=== PATIENT | male | born 1965 | race Hispanic/Latino ===

== ENCOUNTER 2023-01-30 15:34 | Emergency (ER) | payer BC, OTHER ==
[~2023-01-30] VITALS: Ht 162.6 cm; Wt 90.7 kg
[~2023-01-30 15:34] MED LIST: METF-444 PO
[2023-01-30 15:53] LABS: BASOPHILS % (AUTO) 0.3 % (0.0-5.0); EOSINOPHILS % (AUTO) 1.2 % (0.0-8.0); HEMATOCRIT 25.2 % (42-54); LYMPHOCYTES % (AUTO) 15.3 % (21.0-51.0); MEAN CORPUSCULAR HEMOGLOBIN 25.9 pg (27.0-33.0); MEAN CORPUSCULAR VOLUME 83.7 fL (79-99); NEUTROPHILS % (AUTO) 66.8 % (40.0-77.0); PLATELET COUNT (AUTO) 210 K/uL (130-400); RED BLOOD CELL COUNT(AUTO) 3.01 MIL/uL (4.50-6.20); RED CELL DISTRIBUTION WIDTH 16.3 % (11.0-15.5); WHITE BLOOD COUNT (AUTO) 9.3 K/uL (4.8-10.8)
[2023-01-30 16:12] LABS: POTASSIUM 4.7 mmol/L (3.5-5.1)
[2023-01-30 16:25] LABS: ALBUMIN 3.9 g/dL (3.5-5.0); TOTAL PROTEIN, SERUM 7.6 g/dL (6.0-8.3)
[2023-01-30 19:45] VITALS: BP 121/82
== END 2023-01-30 20:44 | disposition home or self-care (01) ==
LOC: EDH 15:34
DX: R55 Syncope and collapse (principal); I48.91 Unspecified atrial fibrillation; I12.9 Hypertensive chronic kidney disease with stage 1 through stage 4 chronic kidney disease, or unspecified chronic kidney disease; E11.22 Type 2 diabetes mellitus with diabetic chronic kidney disease; N18.9 Chronic kidney disease, unspecified; Z20.822 Contact with and (suspected) exposure to COVID-19; Z79.84 Long term (current) use of oral hypoglycemic drugs; Z88.6 Allergy status to analgesic agent; Z88.8 Allergy status to other drugs, medicaments and biological substances
CPT/HCPCS: 99285; 70450; 71045; 87635; 84484 ×2; 80053; 85025; 87880; 87804 ×2; 36415; 72125; 93005; C9803

== ENCOUNTER → 2023-12-23 | Outpatient (CLI) | payer BC ==
[~2023-12-23] MED LIST changes: +AMIO200T68 PO; +APIX5TAB PO; +DILT120T15 PO; +GLIM4TAB36 PO; +HYDR-3421 PO; +HYDR25 PO; +HYDR50TA37 PO; +INSU3INS3 SQ; +ISOSORB; +LEVO75TA4 PO; +LOSA50TA64 PO; +METO100T14 PO; +NACL1 PO; +PANT40TA54 PO; +RIVA20TA PO
== END | disposition home or self-care (01) ==
LOC: SHCH 09:50
PROVIDERS: ATTEND Internal Medicine
DX: I48.0 Paroxysmal atrial fibrillation (principal)
CPT/HCPCS: 93306

== ENCOUNTER → 2024-01-16 | Outpatient (CLI) | payer BC ==
[2024-01-16 22:03] VITALS: PULSE 50; RESP 16
[2024-01-16 22:37] VITALS: PULSE 49; RESP 14
[2024-01-16 23:00] VITALS: PULSE 50; RESP 16
[2024-01-16 23:30] VITALS: PULSE 54; RESP 16
[2024-01-17] VITALS (12 sets, daily range): PULSE 55–66; RESP 16–18
== END | disposition home or self-care (01) ==
LOC: SLP 20:39
PROVIDERS: ATTEND Internal Medicine
DX: G47.33 Obstructive sleep apnea (adult) (pediatric) (principal)
CPT/HCPCS: 95810

== ENCOUNTER 2024-03-24 19:46 | Emergency (ER) | payer BC ==
[~2024-03-24] VITALS: Ht 162.6 cm; Wt 97.1 kg
[~2024-03-24 19:46] MED LIST changes: -AMIO200T68 PO; -APIX5TAB PO; +DILT120C89 PO; -DILT120T15 PO; -HYDR50TA37 PO; -ISOSORB; -NACL1 PO
[2024-03-24 20:08] LABS: BASOPHILS # (AUTO) 0.04 K/uL (0.00-0.20); BASOPHILS % (AUTO) 0.5 % (0.0-5.0); EOSINOPHILS % (AUTO) 1.3 % (0.0-8.0); IMMATURE GRANULOCYTE ABSOLUTE 0.03 K/uL (0-1); LYMPHOCYTES # (AUTO) 1.6 K/uL (1.0-4.8); LYMPHOCYTES % (AUTO) 21.9 % (21.0-51.0); MEAN CORPUSCULAR HEMOGLOBIN 28.1 pg (27.0-33.0); MEAN CORPUSCULAR HGB CONC 33.6 g/dL (32.0-36.0); MEAN CORPUSCULAR VOLUME 83.5 fL (79-99); MONOCYTES # (AUTO) 0.8 K/uL (0.1-1.0); MONOCYTES % (AUTO) 10.1 % (3.0-13.0); NEUTROPHILS # (AUTO) 4.9 K/uL (1.8-7.7); NEUTROPHILS % (AUTO) 65.8 % (40.0-77.0); PLATELET COUNT (AUTO) 186 K/uL (130-400); RED BLOOD CELL COUNT(AUTO) 4.31 MIL/uL (4.50-6.20); RED CELL DISTRIBUTION WIDTH 18.9 % (11.0-15.5); WHITE BLOOD COUNT (AUTO) 7.5 K/uL (4.8-10.8)
[2024-03-24 20:25] LABS: ALBUMIN 2.1 g/dL (3.5-5.0); BILIRUBIN,TOTAL 0.2 mg/dL (0.2-1.0); CREATININE 1.5 mg/dL (0.5-1.3); POTASSIUM 4.4 mmol/L (3.5-5.1); TOTAL PROTEIN, SERUM 5.9 g/dL (6.0-8.3)
[2024-03-24] MEDS: 0.9%NACL 1000ML 1,000 ML IV ONE (21:24)
[2024-03-24] MEDS: INSULIN HUMULIN R 100 UNIT/ML 3ML IV ONE (21:25)
[2024-03-24 23:09] VITALS: BP 150/63; PULSE 60; RESP 18; O2SAT 96
== END 2024-03-24 23:13 | disposition home or self-care (01) ==
LOC: EDH 19:46
DX: E11.65 Type 2 diabetes mellitus with hyperglycemia (principal); E86.0 Dehydration; I10 Essential (primary) hypertension; I48.91 Unspecified atrial fibrillation; Z88.6 Allergy status to analgesic agent; Z88.8 Allergy status to other drugs, medicaments and biological substances; Z79.4 Long term (current) use of insulin; Z79.84 Long term (current) use of oral hypoglycemic drugs; Z79.899 Other long term (current) drug therapy
CPT/HCPCS: 99284; 96374; 84484; 80053; 83880; 85025; 82948 ×2; 36415; 93005; J1815; J7030

== ENCOUNTER 2024-06-25 06:22 | Inpatient (IN) | payer SELFPAY ==
[~2024-06-25] VITALS: Ht 162.6 cm; Wt 94.5 kg
[2024-06-25] VITALS (7 sets, daily range): BP systolic 155–195; BP diastolic 65–79; PULSE 65–79; RESP 18–20; TEMP 98–100.6; O2SAT 98–99
[2024-06-25 06:55] LABS: BASOPHILS # (AUTO) 0.06 K/uL (0.00-0.20); BASOPHILS % (AUTO) 0.6 % (0.0-5.0); EOSINOPHILS # (AUTO) 0.21 K/uL (0.00-0.70); EOSINOPHILS % (AUTO) 2.2 % (0.0-8.0); HEMATOCRIT 32.8 % (42-54); LYMPHOCYTES # (AUTO) 1.7 K/uL (1.0-4.8); LYMPHOCYTES % (AUTO) 17.8 % (21.0-51.0); MEAN CORPUSCULAR HEMOGLOBIN 31.1 pg (27.0-33.0); MEAN CORPUSCULAR HGB CONC 36.6 g/dL (32.0-36.0); MONOCYTES # (AUTO) 1.3 K/uL (0.1-1.0); MONOCYTES % (AUTO) 13.2 % (3.0-13.0); NEUTROPHILS # (AUTO) 6.3 K/uL (1.8-7.7); NEUTROPHILS % (AUTO) 65.2 % (40.0-77.0); PLATELET COUNT (AUTO) 265 K/uL (130-400); RED BLOOD CELL COUNT(AUTO) 3.86 MIL/uL (4.50-6.20); RED CELL DISTRIBUTION WIDTH 12.3 % (11.0-15.5); WHITE BLOOD COUNT (AUTO) 9.6 K/uL (4.8-10.8)
[2024-06-25 07:09] LABS: CREATININE 1.1 mg/dL (0.5-1.3)
[2024-06-25 07:21] LABS: B-TYPE NATRIURETIC PEPTIDE 77 pg/mL (0-100)
[2024-06-25] MEDS: 0.9%NACL 1000ML 1,000 ML IV SCH ×2 (07:28→11:38)
[2024-06-25 08:04] LABS: APPEARANCE,URINE CLOUDY (CLEAR); BILIRUBIN,URINE NEGATIVE (NEGATIVE); COLOR,URINE COLORLESS (YELLOW); GLUCOSE, URINE (UA) 30 mg/dL (NEGATIVE); KETONES,URINE NEGATIVE (NEGATIVE); LEUKOCYTE ESTERASE ,URINE NEGATIVE Leu/uL (NEGATIVE); NITRATE,URINE NEGATIVE (NEGATIVE); OCCULT BLOOD,URINE SMALL (NEGATIVE); PROTEIN,URINE 100 mg/dL (NEGATIVE); UROBILINOGEN,URINE 0.2 mg/dL (0.2-1.0)
[2024-06-25 08:05] LABS: ADD UA MICROSCOPIC YES
[2024-06-25 08:11] LABS: BACTERIA,URINE RARE /HPF (None Seen); MUCUS,URINE RARE LPF (None Seen); RBC,URINE 0-1 /HPF (0-1); SQUAMOUS EPITHELIAL CELL,UR RARE /HPF (0-2); WBC,URINE 0-1 /HPF (0-1)
[2024-06-25] MEDS ORDERED: SERT50TA PO (09:57)
[2024-06-25] MEDS ORDERED: LOSA100T59 PO (09:57)
[2024-06-25] MEDS ORDERED: HYDR100T15 PO (09:57)
[2024-06-25] MEDS ORDERED: SPIR50TA5 PO (09:57)
[2024-06-25] MEDS ORDERED: DILT300C42 PO (09:57)
[2024-06-25] MEDS ORDERED: LEVO150C4 PO (09:57)
[2024-06-25] MEDS ORDERED: morPHINE 4 MG SYG IV PRN (10:30)
[2024-06-25] MEDS ORDERED: acetaMINOPHEN 325 MG TAB PO PRN ×2 (10:30)
[2024-06-25] MEDS ORDERED: morPHINE 2 MG SYG IV PRN (10:30)
[2024-06-25] MEDS ORDERED: hydrOXYzine 25 MG TABLET PO PRN (11:00)
[2024-06-25] MEDS ORDERED: PoTASSium chl 10% ELIXIR 20MEQ 20 MEQ/15 ML UDCUP PO PRN (11:00)
[2024-06-25] MEDS ORDERED: PoTASSium chloRIDE 20MEQ ER 20 MEQ ERTAB PO PRN (11:00)
[2024-06-25] MEDS: INSULIN humuLIN R 100 UNIT/ML 3ML SQ SCH (11:30)
[2024-06-25] MEDS: LoSARTan 100 MG TABLET PO SCH (11:38)
[2024-06-25] MEDS: dilTIAZem 120MG SR CAP PO SCH (15:21)
[2024-06-25] MEDS: hydrALAZine 25MG TABLET PO SCH (15:22)
[2024-06-25] MEDS: SPIRONOLACTONE 25 MG TAB PO SCH (15:22)
[2024-06-25 16:20] LABS: CREATININE 1.2 mg/dL (0.5-1.3); POTASSIUM 4.1 mmol/L (3.5-5.1)
[2024-06-25] MEDS ORDERED: DEXTROSE 50%-WATER 50 ML DISP.SYRIN IV PRN (17:30)
[2024-06-25] MEDS ORDERED: GLUCAGON 1MG KIT 1 MG ML IM PRN (17:30)
[2024-06-25] MEDS: metoPROLOL tartRATE 50 MG TAB PO SCH (20:20)
[2024-06-26 04:08] VITALS: BP 165/73; PULSE 65; RESP 18; TEMP 98.6
[2024-06-26 04:29] LABS: BASOPHILS # (AUTO) 0.04 K/uL (0.00-0.20); BASOPHILS % (AUTO) 0.5 % (0.0-5.0); EOSINOPHILS # (AUTO) 0.12 K/uL (0.00-0.70); EOSINOPHILS % (AUTO) 1.5 % (0.0-8.0); HEMATOCRIT 30.5 % (42-54); IMMATURE GRANULOCYTE ABSOLUTE 0.07 K/uL (0-1); LYMPHOCYTES % (AUTO) 12.9 % (21.0-51.0); MEAN CORPUSCULAR HEMOGLOBIN 30.8 pg (27.0-33.0); MEAN CORPUSCULAR HGB CONC 35.1 g/dL (32.0-36.0); MEAN CORPUSCULAR VOLUME 87.9 fL (79-99); MONOCYTES # (AUTO) 1.2 K/uL (0.1-1.0); MONOCYTES % (AUTO) 14.8 % (3.0-13.0); NEUTROPHILS # (AUTO) 5.5 K/uL (1.8-7.7); NEUTROPHILS % (AUTO) 69.4 % (40.0-77.0); PLATELET COUNT (AUTO) 234 K/uL (130-400); RED BLOOD CELL COUNT(AUTO) 3.47 MIL/uL (4.50-6.20); WHITE BLOOD COUNT (AUTO) 7.9 K/uL (4.8-10.8)
[2024-06-26 04:43] LABS: HEMOGLOBIN A1C 6.8 % (4.0-6.0)
[2024-06-26 05:06] LABS: ALBUMIN 1.7 g/dL (3.5-5.0); BILIRUBIN,TOTAL 0.5 mg/dL (0.2-1.0); MAGNESIUM 1.7 mg/dL (1.80-2.40); POTASSIUM 4.1 mmol/L (3.5-5.1); THYROID STIMULATING HORMONE 13.11 uIU/mL (0.36-3.74); URIC ACID 5.3 mg/dL (2.6-7.2)
[2024-06-26] MEDS: levoTHYROxine 75 MCG TABLET PO SCH (06:13)
[2024-06-26 07:10] VITALS: BP 174/75; PULSE 64; RESP 20; TEMP 98
[2024-06-26 08:00] VITALS: O2SAT 98
[2024-06-26] MEDS ORDERED: LoSARTan 100 MG TABLET PO SCH (09:00)
[2024-06-26] MEDS ORDERED: dilTIAZem 120MG SR CAP PO SCH (09:00)
[2024-06-26] MEDS ORDERED: SPIRONOLACTONE 25 MG TAB PO SCH (09:00)
[2024-06-26] MEDS: RIVAROXABAN 20 MG TABLET PO SCH (09:00)
[2024-06-26] MEDS: PANTOPrazole 40 MG TAB DR PO SCH (09:01)
[2024-06-26 11:14] VITALS: BP 168/86; PULSE 63; RESP 20; TEMP 98
[2024-06-26 15:20] VITALS: BP 143/49; PULSE 65; RESP 20; TEMP 98.4
[2024-06-26 20:00] VITALS: BP 171/81; PULSE 68; RESP 18; TEMP 97.8; O2SAT 97
[2024-06-26] MEDS: sulfaMETHOX-TMP DS 800/160 TAB PO SCH (20:17)
[2024-06-27] VITALS: BP 158/75; PULSE 64; RESP 18; TEMP 97.9
[2024-06-27 04:00] VITALS: BP 176/75; PULSE 63; RESP 18; TEMP 97.5
[2024-06-27 05:14] LABS: HEMATOCRIT 32.1 % (42-54); MEAN CORPUSCULAR HEMOGLOBIN 31.1 pg (27.0-33.0); MEAN CORPUSCULAR HGB CONC 34.3 g/dL (32.0-36.0); MEAN CORPUSCULAR VOLUME 90.7 fL (79-99); RED BLOOD CELL COUNT(AUTO) 3.54 MIL/uL (4.50-6.20); RED CELL DISTRIBUTION WIDTH 13.2 % (11.0-15.5)
[2024-06-27 05:34] LABS: CREATININE 1.1 mg/dL (0.5-1.3); MAGNESIUM 1.5 mg/dL (1.80-2.40); POTASSIUM 3.9 mmol/L (3.5-5.1)
[2024-06-27 07:41] VITALS: BP 142/73; PULSE 66; RESP 20; TEMP 98.4
[2024-06-27 08:00] VITALS: O2SAT 100
[2024-06-27] MEDS: MAGNESIUM 2GM PREMIX 50ML 50 ML IV PRN (14:54)
[2024-06-27 16:08] VITALS: BP 148/76; PULSE 60; RESP 18; TEMP 98.1
[2024-06-27 19:50] LABS: CREATININE,URINE RANDOM 61.34 mg/dL (30-135)
[2024-06-27 20:00] VITALS: BP 157/80; PULSE 63; RESP 19; TEMP 97.6; O2SAT 97
[2024-06-27 20:10] LABS: PROTEIN,URINE RANDOM 421.1 mg/dL (0-11.9)
[2024-06-28] VITALS (8 sets, daily range): BP systolic 136–183; BP diastolic 60–84; PULSE 58–67; RESP 16–20; TEMP 97.4–98; O2SAT 96–100
[2024-06-28 05:03] LABS: HEMATOCRIT 30.4 % (42-54); MEAN CORPUSCULAR HEMOGLOBIN 31.1 pg (27.0-33.0); MEAN CORPUSCULAR HGB CONC 34.2 g/dL (32.0-36.0); PLATELET COUNT (AUTO) 203 K/uL (130-400); RED BLOOD CELL COUNT(AUTO) 3.34 MIL/uL (4.50-6.20); RED CELL DISTRIBUTION WIDTH 12.9 % (11.0-15.5); WHITE BLOOD COUNT (AUTO) 7.4 K/uL (4.8-10.8)
[2024-06-28 05:42] LABS: ALBUMIN 1.8 g/dL (3.5-5.0); BILIRUBIN,TOTAL 0.2 mg/dL (0.2-1.0); CREATININE 1.2 mg/dL (0.5-1.3); MAGNESIUM 1.7 mg/dL (1.80-2.40); PHOSPHORUS 4.4 mg/dL (2.5-4.9); POTASSIUM 4.1 mmol/L (3.5-5.1); TOTAL PROTEIN, SERUM 5.3 g/dL (6.0-8.3)
[2024-06-28 06:17] LABS: BAND NEUTROPHILS % (MANUAL) 2 % (0-2); EOSINOPHILS % (MANUAL) 2 % (1-6); LYMPHOCYTES % (MANUAL) 8 % (22-44); MONOCYTES % (MANUAL) 12 % (2-9); REACTIVE LYMPHOCYTES 5 % (0-0); SEGMENTED NEUTROPHILS % 71 % (40-70); TOTAL CELLS COUNTED 100
[2024-06-28 06:19] LABS: MAN.DIFF COMMENT-IMPRESSION MANUAL DIFFERENTIAL; WBC MORPHOLOGY REACTIVE LYMPHS 1+
[2024-06-28 06:44] LABS: HEPATITIS A IGM ANTIBODY Non-Reactive (Nonreactive); HEPATITIS B CORE IGM ANTIBODY Non-Reactive (Negative); HEPATITIS B SURFACE ANTIGEN Non-Reactive (Nonreactive); HEPATITIS C ANTIBODY Non-Reactive (Nonreactive)
[2024-06-28] MEDS: LACTOBACILLUS RHAMNOSUS GG 1 EACH CAP.SPRINK PO SCH (10:21)
[2024-06-28] MEDS ORDERED: EPOETIN ALFA-EPBX (NON-ESRD) 10,000 UNIT/ML VIAL SQ SCH (16:00)
[2024-06-29] VITALS: BP 142/64; PULSE 65; RESP 19; TEMP 98
[2024-06-29 04:00] VITALS: BP 153/75; PULSE 67; RESP 19; TEMP 97.8
[2024-06-29 07:32] LABS: HEMATOCRIT 31.7 % (42-54); MEAN CORPUSCULAR HEMOGLOBIN 30.9 pg (27.0-33.0); MEAN CORPUSCULAR HGB CONC 34.1 g/dL (32.0-36.0); MEAN CORPUSCULAR VOLUME 90.6 fL (79-99); RED BLOOD CELL COUNT(AUTO) 3.5 MIL/uL (4.50-6.20); RED CELL DISTRIBUTION WIDTH 13.2 % (11.0-15.5); WHITE BLOOD COUNT (AUTO) 7.6 K/uL (4.8-10.8)
[2024-06-29 07:48] LABS: BILIRUBIN,TOTAL 0.3 mg/dL (0.2-1.0); CREATININE 1.3 mg/dL (0.5-1.3); MAGNESIUM 1.8 mg/dL (1.80-2.40); PHOSPHORUS 4.9 mg/dL (2.5-4.9); POTASSIUM 4.4 mmol/L (3.5-5.1); TOTAL PROTEIN, SERUM 5.8 g/dL (6.0-8.3)
[2024-06-29 08:00] VITALS: BP 161/70; PULSE 60; RESP 17; TEMP 97.6; O2SAT 97
[2024-06-29 08:24] LABS: HIV 1&2 ANTIBODY Non-Reactive (Negative); HIV-1 p24 Antigen Non-Reactive (Negative)
[2024-06-29 12:00] VITALS: BP 110/69; PULSE 57; RESP 18; TEMP 97.5
[2024-06-29] MEDS ORDERED: LACT1CAP79 PO (13:36)
[2024-06-29] MEDS ORDERED: sulfaMETHOX-TMP DS 800/160 TAB PO (13:36)
[2024-07-01 17:10] LABS: GAMMA URINE 7.7 % (.)
== END 2024-06-29 14:20 | disposition home or self-care (01) | DRG 644 ==
LOC: EDH 06:22 → EDHIP 06:23 → UNDOADMIN 08:52 → EDHIP 08:52 → 4DH 10:30
PROVIDERS: ADMIT Hospitalist; ATTEND Hospitalist
DX: E22.2 Syndrome of inappropriate secretion of antidiuretic hormone (principal); I48.20 Chronic atrial fibrillation, unspecified; I50.32 Chronic diastolic (congestive) heart failure; E86.0 Dehydration; E87.8 Other disorders of electrolyte and fluid balance, not elsewhere classified; A08.4 Viral intestinal infection, unspecified; I11.0 Hypertensive heart disease with heart failure; K21.9 Gastro-esophageal reflux disease without esophagitis; E03.9 Hypothyroidism, unspecified; E11.21 Type 2 diabetes mellitus with diabetic nephropathy; E66.9 Obesity, unspecified; E88.09 Other disorders of plasma-protein metabolism, not elsewhere classified; F41.9 Anxiety disorder, unspecified; G47.33 Obstructive sleep apnea (adult) (pediatric); I34.0 Nonrheumatic mitral (valve) insufficiency; K80.20 Calculus of gallbladder without cholecystitis without obstruction; Z56.0 Unemployment, unspecified; Z79.01 Long term (current) use of anticoagulants; Z82.49 Family history of ischemic heart disease and other diseases of the circulatory system; Z88.6 Allergy status to analgesic agent; Z88.8 Allergy status to other drugs, medicaments and biological substances; Z68.35 Body mass index [BMI] 35.0-35.9, adult
CPT/HCPCS: 36415; 70450; 71045; 76700; 80048; 80053; 80074; 81001; 82533; 82550; 82570; 82948; 83036; 83735; 83880; 83930; 83935; 84100; 84156; 84166; 84439; 84443; 84484; 84550; 85025; 85027; 86038; 86160; 86215; 86235; 86255; 86325; 86334; 86701; 87390; 93005; 93306; 93970; 96360; 96361; 99291; G0378; J1815; J3475; J7030

== ENCOUNTER 2024-07-13 11:58 | Inpatient (IN) | payer SELFPAY ==
[~2024-07-13] VITALS: Ht 162.6 cm; Wt 90.1 kg
[~2024-07-13 11:58] MED LIST changes: -DILT120C89 PO; +DILT300C42 PO; -HYDR-3421 PO; +HYDR100T15 PO; -HYDR25 PO; +LACT1CAP79 PO; +LEVO150C4 PO; -LEVO75TA4 PO; +LOSA100T59 PO; -LOSA50TA64 PO; +SERT50TA PO; +SPIR50TA5 PO; +sulfaMETHOX-TMP DS 800/160 TAB PO
[2024-07-13] MEDS: furoSEMIDE 40MG VIAL IV ONE (12:35)
--- NOTE | 2024-07-13 12:37 | ERN ---
ED Note History of Present Illness Stated Complaint: SOB Chief Complaint: Dyspnea/Respdistress Dictation: 58-year-old male with a history of AFib presents to the ED for evaluation of shortness a breath onset 4:00 a.m. this morning. Patient reports palpitations, but denies any other associated symptoms at this time. Patient states his apple watch showed he had a heart rate of 116. No other medical or surgical history mentioned. Allergies: Coded Allergies: aspirin (Verified Allergy, Severe, 07/04/16) hydroxyzine (Unverified Allergy, Mild, SWELLING, 06/25/24) ORBITAL SWELLING PER PATIENT lisinopril (Unverified Allergy, Unknown, 01/30/23) Home Meds Active Scripts [sulfaMETHOX-TMP DS 800/160 TAB] 1 TAB TABLET No Conflict Check, 1 TAB PO BID, #4 0 Refills Prov:ADRI WOMACK AGPCDUTCH 06/29/24 Lactobacillus Rhamnosus GG (Culturelle) 15 Billion Cell Cap.sprink, 1 EACH PO TID, #30 CAP.SPRINK 0 Refills Prov:ADRI WOMACK 06/29/24 Insulin Glargine,Hum.rec.anlog (Lantus Solostar) 100 Unit/Ml (3 Ml) Insuln.pen, 25 UNIT SQ DAILY, #3 SYRINGE 1 Refill Prov:DELMIS GUTIÉRREZ MD 01/04/24 Glimepiride (Glimepiride) 4 Mg Tablet, 4 MG PO Q24H, #30 TAB Prov:DELMIS GUTIÉRREZ MD 01/04/24 Metformin HCl (Metformin HCl) 500 Mg Tablet, 500 MG PO BID, #60 TAB Prov:DELMIS GUTIÉRREZ MD 01/04/24 Rivaroxaban (Xarelto) 20 Mg Tablet, 20 MG PO DAILY, #30 TAB 0 Refills Prov:DELMIS GUTIÉRREZ MD 01/04/24 Reported Medications Losartan Potassium (Losartan Potassium) 100 Mg Tablet, 1 TAB PO DAILY for 30 Days, #30 TAB 0 Refills 06/25/24 Levothyroxine Sodium (Levothyroxine) 150 Mcg Capsule, 1 CAP PO DAILY for 30 Days, #30 CAP 0 Refills 06/25/24 Hydralazine HCl (Hydralazine HCl) 100 Mg Tablet, 1 TAB PO TID for 30 Days, #90 TAB 0 Refills 06/25/24 Diltiazem HCl (Diltiazem ER) 300 Mg Capsule.er, 1 CAP PO DAILY for 30 Days, #30 CAP 0 Refills 06/25/24 Spironolactone (Spironolactone) 50 Mg Tablet, 1 TAB PO DAILY for 30 Days, #30 TAB 0 Refills 06/25/24 Sertraline HCl (Zoloft) 50 Mg Tablet, 50 MG PO DAILY, TAB 06/25/24 Pantoprazole Sodium (Pantoprazole Sodium) 40 Mg Tablet.dr, 40 MG PO DAILY, TAB 01/03/24 Metoprolol Tartrate (Metoprolol Tartrate) 100 Mg Tablet, 100 MG PO BID, TAB 01/03/24 Past Medical History Past Medical History: A-Fib, Anxiety, Depression, Diabetes-Type II, High Cholesterol, Heart Disease, Hypertension Additional Past Medical Hx: HYPONATREMIA Surgical History: Other Surgical History Other: LT CLAVICAL SX Social History: Negative Review of System Dictation Constitutional: Negative for fever,chills, and weight loss Eyes: Negative for injury, pain,redness, and discharge ENT: Negative for injury,pain or swelling Cardiovascular: Patient reports palpitations Negative for chest pain, and edema Respiratory: Positive for shortness of breath Negative for cough, and wheezing, Abdomen/GI: Negative for abdominal pain, nausea, vomiting, diarrhea, and constipation Back: Negative for injury and pain : Negative for injury, bleeding and discharge MS/Extremity: Negative for injury and deformity Skin: Negative for rash, and discoloration Neuro: Negative for headache, weakness, numbness, tingling, and seizure Psych: Negative for suicide ideation, homicidal ideation, and hallucinations Initial Vital Sign VS Vital Signs Date Time Temp Pulse Resp B/P (MAP) Pulse Ox O2 Delivery O2 Flow Rate FiO2 07/13/24 12:00 97.3 81 22 165/66 91 Room Air 0 07/13/24 12:29 28 Physical Exam Dictation General: awake, alert, NAD, patient appears chronically ill Head/Face: Normocephalic, atraumatic Eyes: PERRL, EOMI, vision at baseline ENT: oral cavity clear, TMs clear, no signs of infection Neck: Trachea midline, supple, no nuchal rigidity Cardiovascular: RRR, normal S1/S2, No MRGs, chronic pedal edema Respiratory: Diminished breath sounds bilaterally at bases no respiratory distress, No rales or wheezes Abdomen: Soft, non-tender, non-distended, normal bowel sounds, no guarding or rebound. Skin: Warm, dry, normal turgor, no rash MS/Extremity: Pulses equal, no cyanosis, neurovascular intact, FROM Neuro: COAx4, GCS 15, strength 5/5, CN 2-12 intact, normal cerebellar exam, normal gait, Psych: Normal behavior, mood, and affect normal Results (Laboratory/Radiology) Laboratory/Radiology Laboratory Tests Test 07/13/24 12:26 07/13/24 13:25 White Blood Count 9.6 K/uL (4.8-10.8) Red Blood Count 3.58 MIL/uL (4.50-6.20) L Hemoglobin 11.2 g/dL (14.0-18.0) L Hematocrit 32.3 % (42-54) L Mean Corpuscular Volume 90.2 fL (79-99) Mean Corpuscular Hemoglobin 31.3 pg (27.0-33.0) Mean Corpuscular Hemoglobin Concent 34.7 g/dL (32.0-36.0) Red Cell Distribution Width 12.8 % (11.0-15.5) Platelet Count 310 K/uL (130-400) Mean Platelet Volume 8.6 fL (7.5-10.5) Immature Granulocyte % (Auto) 0.4 % (0-1) Neutrophils (%) (Auto) 78.2 % (40.0-77.0) H Lymphocytes (%) (Auto) 12.5 % (21.0-51.0) L Monocytes (%) (Auto) 8.3 % (3.0-13.0) Eosinophils (%) (Auto) 0.2 % (0.0-8.0) Basophils (%) (Auto) 0.4 % (0.0-5.0) Neutrophils # (Auto) 7.5 K/uL (1.8-7.7) Lymphocytes # (Auto) 1.2 K/uL (1.0-4.8) Monocytes # (Auto) 0.8 K/uL (0.1-1.0) Eosinophils # (Auto) 0.02 K/uL (0.00-0.70) Basophils # (Auto) 0.04 K/uL (0.00-0.20) Absolute Immature Granulocyte (auto 0.04 K/uL (0-1) Nucleated Red Blood Cells 0.0 % (0.0-0.19) Urine Color LIGHT-YELLOW (YELLOW) Urine Appearance CLEAR (CLEAR) Urine pH 6.0 (5.0-8.0) Urine Specific [place] 1.014 (1.001-1.031) Urine Protein 300 mg/dL (NEGATIVE) H Urine Glucose (UA) 70 mg/dL (NEGATIVE) H Urine Ketones NEGATIVE mg/dL (NEGATIVE) Urine Occult Blood SMALL (NEGATIVE) H Urine Nitrate NEGATIVE (NEGATIVE) Urine Bilirubin NEGATIVE mg/dL (NEGATIVE) Urine Urobilinogen 0.2 mg/dL (0.2-1.0) Urine Leukocyte Esterase NEGATIVE Komal/uL Urine RBC 2-5 /HPF (0-1) H Urine WBC 0-1 /HPF (0-1) Urine Squamous Epithelial Cells RARE /HPF (0-2) Urine Bacteria None /HPF (None Seen) Sodium Level 132 mmol/L (136-145) L Potassium Level 4.7 mmol/L (3.5-5.1) Chloride Level 98 mmol/L (101-111) L Carbon Dioxide Level 21 mmol/L (21-32) Blood Urea Nitrogen 47 mg/dL (7-18) H Creatinine 1.9 mg/dL (0.5-1.3) H Glomerular Filtration Rate Calc 40 mL/min (>90) Random Glucose 188 mg/dL (70-105) H Total Calcium 8.8 mg/dL (8.5-10.1) Total Bilirubin 0.3 mg/dL (0.2-1.0) Direct Bilirubin 0.1 mg/dL (0.0-0.3) Aspartate Amino Transf (AST/SGOT) 39 U/L (10-37) H Alanine Aminotransferase (ALT/SGPT) 41 U/L (12-78) Alkaline Phosphatase 173 U/L (50-136) H Total Creatine Kinase 73 U/L (21-232) # B-Type Natriuretic Peptide 526 pg/mL (0-100) H Total Protein 6.7 g/dL (6.0-8.3) Albumin 2.6 g/dL (3.5-5.0) L Troponin I < 0.05 ng/mL (0.00-0.05) Labs Reviewed?: Yes X-RAY Comment: REASON: CHEST PAIN ORDERING PHYSICIAN: SYL ALVAREZ MD PROCEDURE: CXR1VW - CHEST 1VW CHEST 1VW HISTORY: Chest pain COMPARISON: 06/25/2024 FINDINGS: A frontal projection of the chest was obtained. Bilateral pulmonary infiltrates are seen with right more than left. Postop changes are seen of left clavicle unchanged. The heart is borderline enlarged. Degenerative changes are seen. No evidence of aortic calcification is seen. IMPRESSION: 1. Bilateral pulmonary infiltrates with right more than left increased from previous study. ED Course ED Course Orders Procedure Category Date Status Time Vital Signs Per CPOE 07/13/24 Transmitted Routine 12:06 B-Type Natriuretic LAB 07/13/24 Complete Peptide 12:06 Chest 1vw RAD 07/13/24 Resulted 12:06 12 Lead Ekg Tracing- EKG 07/13/24 Logged Technical 12:06 Oxygen By Nc/Pulse Ox CPOE 07/13/24 Transmitted 12:06 Maintain Iv CPOE 07/13/24 Transmitted 12:06 Iv Insertion CPOE 07/13/24 Transmitted 12:06 Cardiac Monitoring CPOE 07/13/24 Transmitted 12:06 Pulse Oximetry With CPOE 07/13/24 Transmitted Vs And Prn 12:06 Cbc With Differential LAB 07/13/24 Complete 12:06 Activity: Br W/Brp CPOE 07/13/24 Transmitted With Assist 12:06 Creatine Kinase, Total LAB 07/13/24 Complete 12:06 Urinalysis Profile LAB 07/13/24 Complete 12:06 Troponin Poc Order LAB 07/13/24 Complete Only 12:06 Bedside Troponin-I LAB.ER 07/13/24 In Process (Poc) 12:06 Basic Metabolic Panel LAB 07/13/24 Complete 12:06 Furosemide 40mg Vial PHA 07/13/24 Complete (Lasix 40mg Vial) 12:30 Hepatic Function Panel LAB 07/13/24 Complete 12:26 Current Medications Medications (Trade) Dose Ordered Sig/Jose A Route PRN Reason Start Time Stop Time Status Last Admin Dose Admin Furosemide (LASix 40MG VIAL) 80 mg ONCE ONCE IV 07/13/24 12:30 07/13/24 12:31 DC 07/13/24 12:35 Vital Signs Date Time Temp Pulse Resp B/P (MAP) Pulse Ox O2 Delivery O2 Flow Rate FiO2 07/13/24 13:44 82 19 187/75 96 Nasal Cannula* 3 32 07/13/24 12:29 93 20 173/71 93 Nasal Cannula* 2 28 07/13/24 12:00 97.3 81 22 165/66 91 Room Air 0 Medical Decision Making MDM MDM: Differential diagnosis: Palpitations, fluid overload, CHF 1414-Hospitalist, consult accepts patient for admission Previous outside records reviewed: Old ER visits. Need for hospitalization: Patient does meet criteria for hospitalization. Need for emergency major/minor surgery: No Patient's prior external medical records from other ER visits were reviewed by me as indicated. Prior testing and results from previous visits were reviewed. Prior tests were taken into account with medical decision making and resource utilization, independent historian/historians were used to obtain complete medical history. I independently interpreted the test that were performed, results were reviewed by me and considered findings on radiology if ordered. Medical management and examination interpretation discussions were had by me with other qualified healthcare professionals as indicated for the patient's care. Critical Care Note Critical Time: other (Total critical care time was 33 minutes. Excluding time for procedures. Management of critically ill patient with concern for acute decompensation. Management included interpretation of laboratory values and imaging, hemodynamics, time for consultation with consultants and admitting physician.) DX & DISP Disposition: Inpatient Decision to Admit Date: Jul 13, 2024 Decision to Admit Time: 14:16 Departure Impression: Primary Impression: CHF exacerbation Additional Impression: Hypoxemia Condition: Stable Referrals: SELF,REFERRAL (PCP) I have reviewed, & agreed with my scribe's, documentation. (Entered by Yifan Allen, acting as a scribe for Dr. Alvarez) I personally scribed for SYL ALVAREZ MD ([email or web address]) on 07/13/24 at 12:37. Electronically submitted by Yifan Allen ([email or web address]). I personally scribed for SYL ALVAREZ MD ([email or web address]) on 07/13/24 at 14:17. Electronically submitted by Yifan Allen ([email or web address]). SYL ALVAREZ MD Jul 13, 2024 12:37
[2024-07-13 12:46] LABS: BASOPHILS # (AUTO) 0.04 K/uL (0.00-0.20); BASOPHILS % (AUTO) 0.4 % (0.0-5.0); EOSINOPHILS # (AUTO) 0.02 K/uL (0.00-0.70); EOSINOPHILS % (AUTO) 0.2 % (0.0-8.0); HEMATOCRIT 32.3 % (42-54); IMMATURE GRANULOCYTE ABSOLUTE 0.04 K/uL (0-1); LYMPHOCYTES # (AUTO) 1.2 K/uL (1.0-4.8); LYMPHOCYTES % (AUTO) 12.5 % (21.0-51.0); MEAN CORPUSCULAR HEMOGLOBIN 31.3 pg (27.0-33.0); MEAN CORPUSCULAR HGB CONC 34.7 g/dL (32.0-36.0); MEAN CORPUSCULAR VOLUME 90.2 fL (79-99); MONOCYTES # (AUTO) 0.8 K/uL (0.1-1.0); MONOCYTES % (AUTO) 8.3 % (3.0-13.0); NEUTROPHILS # (AUTO) 7.5 K/uL (1.8-7.7); NEUTROPHILS % (AUTO) 78.2 % (40.0-77.0); PLATELET COUNT (AUTO) 310 K/uL (130-400); RED BLOOD CELL COUNT(AUTO) 3.58 MIL/uL (4.50-6.20); RED CELL DISTRIBUTION WIDTH 12.8 % (11.0-15.5); WHITE BLOOD COUNT (AUTO) 9.6 K/uL (4.8-10.8)
[2024-07-13 12:49] LABS: ADD UA MICROSCOPIC YES; APPEARANCE,URINE CLEAR (CLEAR); BILIRUBIN,URINE NEGATIVE (NEGATIVE); COLOR,URINE LIGHT-YELLOW (YELLOW); GLUCOSE, URINE (UA) 70 mg/dL (NEGATIVE); KETONES,URINE NEGATIVE (NEGATIVE); LEUKOCYTE ESTERASE ,URINE NEGATIVE Leu/uL (NEGATIVE); NITRATE,URINE NEGATIVE (NEGATIVE); OCCULT BLOOD,URINE SMALL (NEGATIVE); PROTEIN,URINE 300 mg/dL (NEGATIVE); UROBILINOGEN,URINE 0.2 mg/dL (0.2-1.0)
[2024-07-13 12:52] LABS: MUCUS,URINE RARE LPF (None Seen); SQUAMOUS EPITHELIAL CELL,UR RARE /HPF (0-2); WBC,URINE 0-1 /HPF (0-1)
[2024-07-13 13:01] LABS: ALBUMIN 2.6 g/dL (3.5-5.0); BILIRUBIN,DIRECT 0.1 mg/dL (0.0-0.3); BILIRUBIN,TOTAL 0.3 mg/dL (0.2-1.0); CREATININE 1.9 mg/dL (0.5-1.3); POTASSIUM 4.7 mmol/L (3.5-5.1); TOTAL PROTEIN, SERUM 6.7 g/dL (6.0-8.3)
[2024-07-13 13:05] LABS: B-TYPE NATRIURETIC PEPTIDE 526 pg/mL (0-100)
--- NOTE | 2024-07-13 13:49 | HMCIMG ---
CHEST 1VW HISTORY: Chest pain COMPARISON: 06/25/2024 FINDINGS: A frontal projection of the chest was obtained. Bilateral pulmonary infiltrates are seen with right more than left. Postop changes are seen of left clavicle unchanged. The heart is borderline enlarged. Degenerative changes are seen. No evidence of aortic calcification is seen. IMPRESSION: 1. Bilateral pulmonary infiltrates with right more than left increased from previous study.
[2024-07-13] MEDS ORDERED: acetaMINOPHEN 325 MG TAB PO PRN (14:30)
[2024-07-13] MEDS ORDERED: ondanSETRON 4MG INJ IVP PRN (14:30)
[2024-07-13] MEDS: furoSEMIDE 40MG VIAL IV SCH (14:56)
--- NOTE | 2024-07-13 15:08 | EKG ---
[facility] Test Date: 2024-07-13 Test Time: 12:18:09 Pat Name: VERO WILKS Department: EDHIP Room: ED 11 Gender: M Rn Hyperbaric: [id number] : 1965 Requested By: SYL ALVAREZ Order Number: [id number] Reading MD: Selwyn Saab Measurements Intervals [place] Rate: 82 P: 0 MT: 0 QRS: 55 QRSD: 74 T: 66 QT: 411 QTc: 479 Interpretive Statements Atrial flutter with predominant 3:1 AV block Nonspecific T abnormalities, lateral leads Compared to ECG 06/25/2024 06:25:01 AV block, advanced (high-grade) now present T-wave abnormality now present Sinus rhythm no longer present Electronically Signed On 07-13-2024 17:33:35 NANOTECHNOLOGY ENGINEERING TECHNICIAN by Selwyn Saab Please click the below link to view image of tracing.
--- NOTE | 2024-07-13 15:49 | HP ---
TE[facility] HISTORY AND PHYSICAL Date of Service: Jul 13, 2024 Time of Service: 14:41 HISTORY OF PRESENT ILLNESS: [Ms. Treadwell is 58-year-old male who is known to our team recent hospitalization due to hyponatremia and diarrhea, discharged on June 23, 2024. Patient presented to the emergency department with shortness of breaths, he reported he woke up around 4:00 a.m. this morning with shortness of breaths associated with headache and generalized weakness. In the ED his initial vital signs showed temperature of 97.3, pulse 81, respiratory rate 22, blood pressure 165/66, O2 sat 91% on room air. His blood pressure became elevated between 173/81 to 187/75. Patient is now on 3 L nasal cannula with saturation at 96%. Labs drawn, WBC 9.6, hemoglobin 11.2, hematoc rit 32.3, platelet count 310, sodium 132, chloride 98, BUN47 , creatinine 1.9, random glucose 188, alkaline phosphatase 173, BNP 526, albumin 2.6. Chest x-ray showed bilateral pulmonary infiltrates with right more than left increased from previous study. He received furosemide 80 mg IV x1 in the ED. he was referred to the hospitalist for further evaluation and management.] REVIEW OF SYSTEMS CONSTITUTIONAL: Patient feels very weak NEUROLOGICAL: Patient reported extreme headaches and tremors to bilateral hands ENT: No hearing loss, otalgia, otorrhea, rhinitis, rhinorrhea, hoarseness, or sore throat. CARDIOVASCULAR: Orthopnea, dyspnea on exertion, paroxysmal nocturnal dyspnea reported PULMONARY: Denies any shortness of breath, cough, phlegm/sputum, hemoptysis, pleuritic chest pain. SLEEP: Denies morning headaches, daytime somnolence or napping. Denies difficulty falling asleep, staying asleep, waking from sleep. Denies knowledge of snoring. GASTROINTESTINAL: Denies any type of dysphagia to either liquids or solids. Denies nausea, vomiting, pyrosis, early satiety, abdominal pain, diarrhea, constipation, or changes in stool consistency or caliber. Denies coffee-ground emesis, hematemesis, hematochezia, or melanotic stools. GENITOURINARY: Denies frequency, urgency, nocturia, hematuria or incontinence (Storage/Irritative symptoms.) Low urinary stream, straining to void, urinary intermittency or hesitancy, splitting of the voiding stream, terminal dribbling. ENDOCRINOLOGIC: Denies polyuria, polydipsia, polyphagia or heat/cold intolerances. HEMATOLOGIC: Denies thrombophilia/previous clots, or coagulopathy/bleeding disorders. ONCOLOGIC: Denies personal history of malignancy. DERMATOLOGIC: Denies rashes or pruritus. PSYCHIATRIC: Denies any suicidal or homicidal ideation. Denies hallucinations. PAST MEDICAL HISTORY: [Hyponatremia, diabetes mellitus, hypertension, acute on chronic kidney failure, paroxysmal atrial fibrillation, obstructive sleep apnea, chronic diastolic heart failure, anxiety disorder, GERD] PAST SURGICAL HISTORY: [ Left clavicle repair in September 23, 2023, left heart catheterization in 2009 for nonspecific chest pain and anxiety per patient it was numb ] PAST SOCIAL HISTORY: [Patient is homeless he lives in his car Alcohol- drinks socially Vapes socially for flavor since a year Nonsmoker, No history of IV drug abuse ] FAMILY HISTORY: [ Alcohol- drinks socially Vapes socially for flavor since a year Nonsmoker, No history of IV drug abuse ] Coded Allergies: aspirin (Verified Allergy, Severe, 07/04/16) hydroxyzine (Unverified Allergy, Mild, SWELLING, 06/25/24) ORBITAL SWELLING PER PATIENT lisinopril (Unverified Allergy, Unknown, 01/30/23) PHYSICAL EXAM GENERAL APPEARANCE: The patient is awake, alert, and oriented, in no acute cardiopulmonary distress. NEUROLOGICAL: Cranial nerves II-XII grossly intact. Motor is 5/5 in bilateral upper and lower extremities proximal to distal. No sensory deficits. HEENT: Face is symmetric. Pupils are equal and reactive. Extraocular movements are intact. NECK: Supple. No JVD. No thyromegaly. No submental, submandibular, pre- /postauricular, occipital or supraclavicular lymphadenopathy. CHEST: Normal chest expansion. No Telemetry. LUNGS: Absence of any rales, rhonchi or any wheezing. CARDIOVASCULAR: Regular. S1 and S2 normal. No appreciable rubs, murmurs or gallops. ABDOMEN: Soft, nontender, and nondistended. There is no rebound, voluntary guarding, or rigidity. : Deferred. No [place]. EXTREMITIES: Non-edematous and not cyanotic. No clubbing. Good capillary refill. SKIN: No skin breakdown. Vital Sign (Last 24 Hours) 07/13/24 07/13/24 12:00 13:44 Temp 97.3 Pulse 82 Resp 19 B/P (MAP) 187/75 Pulse Ox 96 O2 Delivery Nasal Cannula* O2 Flow Rate 3 FiO2 32 LABS: Laboratory: Test 07/13/24 13:25 07/13/24 12:26 Range/Units Troponin I < 0.05 0.00-0.05 ng/mL White Blood Count 9.6 4.8-10.8 K/uL Red Blood Count 3.58 L 4.50-6.20 MIL/uL Hemoglobin 11.2 L 14.0-18.0 g/dL Hematocrit 32.3 L 42-54 % Mean Corpuscular Volume 90.2 79-99 fL Mean Corpuscular Hemoglobin 31.3 27.0-33.0 pg Mean Corpuscular Hemoglobin Concent 34.7 32.0-36.0 g/dL Red Cell Distribution Width 12.8 11.0-15.5 % Platelet Count 310 130-400 K/uL Mean Platelet Volume 8.6 7.5-10.5 fL Immature Granulocyte % (Auto) 0.4 0-1 % Neutrophils (%) (Auto) 78.2 H 40.0-77.0 % Lymphocytes (%) (Auto) 12.5 L 21.0-51.0 % Monocytes (%) (Auto) 8.3 3.0-13.0 % Eosinophils (%) (Auto) 0.2 0.0-8.0 % Basophils (%) (Auto) 0.4 0.0-5.0 % Neutrophils # (Auto) 7.5 1.8-7.7 K/uL Lymphocytes # (Auto) 1.2 1.0-4.8 K/uL Monocytes # (Auto) 0.8 0.1-1.0 K/uL Eosinophils # (Auto) 0.02 0.00-0.70 K/uL Basophils # (Auto) 0.04 0.00-0.20 K/uL Absolute Immature Granulocyte (auto 0.04 0-1 K/uL Nucleated Red Blood Cells 0.0 0.0-0.19 % Urine Color LIGHT-YELLOW YELLOW Urine Appearance CLEAR CLEAR Urine pH 6.0 5.0-8.0 Urine Specific [place] 1.014 1.001-1.031 Urine Protein 300 H NEGATIVE mg/dL Urine Glucose (UA) 70 H NEGATIVE mg/dL Urine Ketones NEGATIVE NEGATIVE mg/dL Urine Occult Blood SMALL H NEGATIVE Urine Nitrate NEGATIVE NEGATIVE Urine Bilirubin NEGATIVE NEGATIVE mg/dL Urine Urobilinogen 0.2 0.2-1.0 mg/dL Urine Leukocyte Esterase NEGATIVE NEGATIVE Komal/uL Urine RBC 2-5 H 0-1 /HPF Urine WBC 0-1 0-1 /HPF Urine Squamous Epithelial Cells RARE 0-2 /HPF Urine Bacteria None None Seen /HPF Sodium Level 132 L 136-145 mmol/L Potassium Level 4.7 3.5-5.1 mmol/L Chloride Level 98 L 101-111 mmol/L Carbon Dioxide Level 21 21-32 mmol/L Blood Urea Nitrogen 47 H 7-18 mg/dL Creatinine 1.9 H 0.5-1.3 mg/dL Glomerular Filtration Rate Calc 40 >90 mL/min Random Glucose 188 H 70-105 mg/dL Total Calcium 8.8 8.5-10.1 mg/dL Total Bilirubin 0.3 0.2-1.0 mg/dL Direct Bilirubin 0.1 0.0-0.3 mg/dL Aspartate Amino Transf (AST/SGOT) 39 H 10-37 U/L Alanine Aminotransferase (ALT/SGPT) 41 12-78 U/L Alkaline Phosphatase 173 H 50-136 U/L Total Creatine Kinase 73 # 21-232 U/L B-Type Natriuretic Peptide 526 H 0-100 pg/mL Total Protein 6.7 6.0-8.3 g/dL Albumin 2.6 L 3.5-5.0 g/dL DIAGNOSTICS / RADIOLOGY: [facility] [place] [address] [place] [address] IMAGING REPORT Signed PATIENT: VERO WILKS MR#: [id number] : 1965 SEX: M AGE: 58 LOCATION: [facility] ORDER [id number] STATUS: REG REPORT#: [id number] SERVICE 1206 REASON: CHEST PAIN ORDERING PHYSICIAN: SYL ALVAREZ MD PROCEDURE: CXR1VW - CHEST 1VW CHEST 1VW HISTORY: Chest pain COMPARISON: 06/25/2024 FINDINGS: A frontal projection of the chest was obtained. Bilateral pulmonary infiltrates are seen with right more than left. Postop changes are seen of left clavicle unchanged. The heart is borderline enlarged. Degenerative changes are seen. No evidence of aortic calcification is seen. IMPRESSION: 1. Bilateral pulmonary infiltrates with right more than left increased from previous study. DICTATED BY: MICHELLE FRAZIER MD DATE: 07/13/241343 ELECTRONICALLY SIGNED BY: MICHELLE FRAZIER MD DATE: 07/13/24 134 ] ASSESSMENT: [Acute respiratory failure with hypoxemia, POA Congestive diastolic heart failure exacerbation, POA Community-acquired pneumonia, POA Fluid overload, POA Hyponatremia , POA Acute on chronic kidney failure, POA Hyperglycemia with diabetes mellitus type 2, POA Elevated AST and alkaline phosphatase, POA Moderate protein caloric malnutrition, POA History of paroxysmal AFib, POA] PLAN: [Patient will be admitted in medical telemetry Patient will be on heart healthy diet, low-sodium Patient will be diuresed with Lasix 40 mg IV q.12 hours We will consult medical massage therapist for kidney failure We will order bilateral venous Doppler Continue with oxygen supplementation to keep O2 sat greater than 92% We will monitor blood sugars, a.c. and HS glucometer and insulin sliding scale We will order hemoglobin A1c today We will monitor liver function Patient will be on VTE prophylaxis with heparin 5000 mg subQ b.i.d. Patient will be on GI prophylaxis with Protonix 40 mg p.o. daily Patient will be on strict I&O and daily weights We will repeat labs tomorrow Patient is a full code We will consult social worker clinical as patient is homeless Further orders per hospital course Discussed plan with attending physician, above plan was formulated ATTESTATION BY PHYSICIAN I have seen and examined the patient. I reviewed the documentation, medical decision making, and treatment plan as noted by the mid-level provider above. I agree with the findings and plan of care. DAVIS WOODY MD ] ATTESTATION BY PHYSICIAN I have seen and examined the patient. I reviewed the documentation, medical decision making, and treatment plan as noted by the mid-level provider above. I agree with the findings and plan of care. DAVIS WOODY MD, JANICE B AGPCNP Jul 13, 2024 15:49
[2024-07-13] MEDS: hydrALAZine 25MG TABLET ONE (16:06)
[2024-07-13] MEDS: cefTRIAXone 1G VIAL IVPB SCH (17:02)
[2024-07-13] MEDS: AZITHROMYCIN 500MG+NS 250ML 250 ML IVPB SCH (17:02)
[2024-07-13] MEDS: HEParin 5,000 UNIT VIAL SQ SCH (18:21)
[2024-07-13] MEDS: hydrALAZine 25MG TABLET PO SCH (21:21)
[2024-07-13] MEDS: acetaMINOPHEN 325 MG TAB PO PRN (22:07)
[2024-07-14] VITALS (8 sets, daily range): BP systolic 96–164; BP diastolic 48–80; PULSE 53–101; RESP 18–20; TEMP 98.2–99.5; O2SAT 96
[2024-07-14] MEDS ORDERED: GLIM4TAB36 PO (01:22)
[2024-07-14] MEDS ORDERED: RIVA20TA PO (01:22)
[2024-07-14] MEDS ORDERED: METF-444 PO (01:22)
[2024-07-14] MEDS ORDERED: METO100T14 PO (01:22)
[2024-07-14] MEDS ORDERED: INSU3INS3 SQ (01:22)
[2024-07-14] MEDS ORDERED: PANT40TA54 PO (01:22)
[2024-07-14 04:59] LABS: HEMATOCRIT 29.1 % (42-54); MEAN CORPUSCULAR HGB CONC 33.7 g/dL (32.0-36.0); RED BLOOD CELL COUNT(AUTO) 3.27 MIL/uL (4.50-6.20); WHITE BLOOD COUNT (AUTO) 6.9 K/uL (4.8-10.8)
[2024-07-14 05:21] LABS: CREATININE 1.4 mg/dL (0.5-1.3)
[2024-07-14] MEDS: levoTHYROxine 150 MCG TABLET ONE (05:36)
[2024-07-14] MEDS: INSULIN humuLIN R 100 UNIT/ML 3ML SQ SCH (05:37)
[2024-07-14] MEDS: levoTHYROxine 150 MCG TABLET PO SCH (06:13)
[2024-07-14] MEDS: LACTOBACILLUS RHAMNOSUS GG 1 EACH CAP.SPRINK PO SCH (08:35)
[2024-07-14] MEDS: SPIRONOLACTONE 25 MG TAB PO SCH (08:35)
[2024-07-14] MEDS: PANTOPrazole 40 MG TAB DR PO SCH (08:36)
[2024-07-14] MEDS: dilTIAZem 120MG SR CAP PO SCH (08:36)
[2024-07-14] MEDS: SERTraline HCL 50 MG TABLET PO SCH (08:36)
[2024-07-14] MEDS: GLIMEPIRIDE 2 MG TABLET PO SCH (08:36)
[2024-07-14] MEDS: dilTIAZem 180MG SR CAP PO SCH (08:36)
[2024-07-14] MEDS: LoSARTan 100 MG TABLET PO SCH (08:37)
[2024-07-14] MEDS: metoPROLOL tartRATE 50 MG TAB PO SCH (08:37)
[2024-07-14] MEDS ORDERED: DILTIAZEM HCL PO SCH (09:00)
[2024-07-14] MEDS: INSULIN GLARgine 100 UNITS/ML 10 ML VIAL SQ SCH (11:34)
[2024-07-14 12:29] LABS: % IRON SATURATION 16.2 % (30-44)
--- NOTE | 2024-07-14 13:22 | PN ---
[facility] PROGRESS NOTE Date of Service: Jul 14, 2024 Time of Service: 13:20 Patient was seen and examined. Case discussed with the RN. He is still short of breath coughing but otherwise feeling slightly better. SUBJECTIVE: [ ] REVIEW OF SYSTEMS CONSTITUTIONAL: Patient feels very weak NEUROLOGICAL: Patient reported extreme headaches and tremors to bilateral hands ENT: No hearing loss, otalgia, otorrhea, rhinitis, rhinorrhea, hoarseness, or sore throat. CARDIOVASCULAR: Orthopnea, dyspnea on exertion, paroxysmal nocturnal dyspnea reported PULMONARY: Denies any shortness of breath, cough, phlegm/sputum, hemoptysis, pleuritic chest pain. SLEEP: Denies morning headaches, daytime somnolence or napping. Denies difficulty falling asleep, staying asleep, waking from sleep. Denies knowledge of snoring. GASTROINTESTINAL: Denies any type of dysphagia to either liquids or solids. Denies nausea, vomiting, pyrosis, early satiety, abdominal pain, diarrhea, constipation, or changes in stool consistency or caliber. Denies coffee-ground emesis, hematemesis, hematochezia, or melanotic stools. GENITOURINARY: Denies frequency, urgency, nocturia, hematuria or incontinence (Storage/Irritative symptoms.) Low urinary stream, straining to void, urinary intermittency or hesitancy, splitting of the voiding stream, terminal dribbling. ENDOCRINOLOGIC: Denies polyuria, polydipsia, polyphagia or heat/cold intolerances. HEMATOLOGIC: Denies thrombophilia/previous clots, or coagulopathy/bleeding disorders. ONCOLOGIC: Denies personal history of malignancy. DERMATOLOGIC: Denies rashes or pruritus. PSYCHIATRIC: Denies any suicidal or homicidal ideation. Denies hallucinations. PHYSICAL EXAM GENERAL APPEARANCE: The patient is awake, alert, and oriented, in no acute cardiopulmonary distress. NEUROLOGICAL: Cranial nerves II-XII grossly intact. Motor is 5/5 in bilateral upper and lower extremities proximal to distal. No sensory deficits. HEENT: Face is symmetric. Pupils are equal and reactive. Extraocular movements are intact. NECK: Supple. No JVD. No thyromegaly. No submental, submandibular, pre- /postauricular, occipital or supraclavicular lymphadenopathy. CHEST: Normal chest expansion. No Telemetry. LUNGS: Absence of any rales, rhonchi or any wheezing. CARDIOVASCULAR: Regular. S1 and S2 normal. No appreciable rubs, murmurs or gallops. ABDOMEN: Soft, nontender, and nondistended. There is no rebound, voluntary guarding, or rigidity. : Deferred. No Finley. EXTREMITIES: Non-edematous and not cyanotic. No clubbing. Good capillary refill. SKIN: No skin breakdown. Vital Signs (last 8hr) Date Time Temp Pulse Resp B/P (MAP) Pulse Ox O2 Delivery O2 Flow Rate FiO2 07/14/24 12:00 99.5 53 19 96/48 96 Room Air 07/14/24 08:00 99.3 101 18 163/77 96 Room Air 07/14/24 08:00 96 Room Air* 0 21 LABS: Laboratory: Test 07/14/24 11:31 07/14/24 04:48 07/13/24 13:25 07/13/24 12:26 Range/Units Whole Blood Glucose 129 H 70-110 MG/DL White Blood Count 6.9 # 4.8-10.8 K/uL Red Blood Count 3.27 L 4.50-6.20 MIL/uL Hemoglobin 9.8 L 14.0-18.0 g/dL Hematocrit 29.1 L 42-54 % Mean Corpuscular Volume 89.0 79-99 fL Mean Corpuscular Hemoglobin 30.0 27.0-33.0 pg Mean Corpuscular Hemoglobin Concent 33.7 32.0-36.0 g/dL Red Cell Distribution Width 13.0 11.0-15.5 % Platelet Count 222 # 130-400 K/uL Mean Platelet Volume 8.7 7.5-10.5 fL Nucleated Red Blood Cells 0.0 0.0-0.19 % Sodium Level 131 L 136-145 mmol/L Potassium Level 4.0 3.5-5.1 mmol/L Chloride Level 97 L 101-111 mmol/L Carbon Dioxide Level 27 21-32 mmol/L Blood Urea Nitrogen 41 H 7-18 mg/dL Creatinine 1.4 H 0.5-1.3 mg/dL Glomerular Filtration Rate Calc 58 >90 mL/min Random Glucose 150 H 70-105 mg/dL Total Calcium 8.4 L 8.5-10.1 mg/dL Iron Level 41 #L 65-175 mcg/dL Total Iron Binding Capacity 253 250-450 mcg/dL Percent Iron Saturation 16.2 L 30-44 % B-Type Natriuretic Peptide 638 H 0-100 pg/mL Troponin I < 0.05 0.00-0.05 ng/mL Immature Granulocyte % (Auto) 0.4 0-1 % Neutrophils (%) (Auto) 78.2 H 40.0-77.0 % Lymphocytes (%) (Auto) 12.5 L 21.0-51.0 % Monocytes (%) (Auto) 8.3 3.0-13.0 % Eosinophils (%) (Auto) 0.2 0.0-8.0 % Basophils (%) (Auto) 0.4 0.0-5.0 % Neutrophils # (Auto) 7.5 1.8-7.7 K/uL Lymphocytes # (Auto) 1.2 1.0-4.8 K/uL Monocytes # (Auto) 0.8 0.1-1.0 K/uL Eosinophils # (Auto) 0.02 0.00-0.70 K/uL Basophils # (Auto) 0.04 0.00-0.20 K/uL Absolute Immature Granulocyte (auto 0.04 0-1 K/uL Urine Color LIGHT-YELLOW YELLOW Urine Appearance CLEAR CLEAR Urine pH 6.0 5.0-8.0 Urine Specific [place] 1.014 1.001-1.031 Urine Protein 300 H NEGATIVE mg/dL Urine Glucose (UA) 70 H NEGATIVE mg/dL Urine Ketones NEGATIVE NEGATIVE mg/dL Urine Occult Blood SMALL H NEGATIVE Urine Nitrate NEGATIVE NEGATIVE Urine Bilirubin NEGATIVE NEGATIVE mg/dL Urine Urobilinogen 0.2 0.2-1.0 mg/dL Urine Leukocyte Esterase NEGATIVE NEGATIVE Komal/uL Urine RBC 2-5 H 0-1 /HPF Urine WBC 0-1 0-1 /HPF Urine Squamous Epithelial Cells RARE 0-2 /HPF Urine Bacteria None None Seen /HPF Total Bilirubin 0.3 0.2-1.0 mg/dL Direct Bilirubin 0.1 0.0-0.3 mg/dL Aspartate Amino Transf (AST/SGOT) 39 H 10-37 U/L Alanine Aminotransferase (ALT/SGPT) 41 12-78 U/L Alkaline Phosphatase 173 H 50-136 U/L Total Creatine Kinase 73 # 21-232 U/L Total Protein 6.7 6.0-8.3 g/dL Albumin 2.6 L 3.5-5.0 g/dL Current Medications Medications (Trade) Dose Ordered Sig/Jose A Route PRN Reason Start Time Stop Time Status Last Admin Dose Admin Acetaminophen (TYLenol 325MG TAB) 650 mg Q4H PRN PO TEMPERATURE GREATER THAN 101.5 07/13/24 14:30 08/12/24 14:29 Acetaminophen (TYLenol 325MG TAB) 650 mg Q6H PRN PO MILD PAIN (1-3) 07/13/24 14:30 08/12/24 14:29 07/13/24 22:07 650 MG Azithromycin 250 ml @ 250 mls/hr Q24H IVPB 07/13/24 16:30 07/23/24 16:29 07/13/24 17:02 250 MLS/HR Ceftriaxone Sodium (ROCEphine 1G INJ) 1 gm Q24H IVPB 07/13/24 16:30 07/23/24 16:29 07/13/24 17:02 1 GM Diltiazem HCl (CARDIzem 120MG CD) 120 mg DAILY PO 07/14/24 09:00 08/13/24 08:59 07/14/24 08:36 120 MG Diltiazem HCl (CARDIzem 180MG CD) 180 mg DAILY PO 07/14/24 09:00 08/13/24 08:59 07/14/24 08:36 180 MG Furosemide (LASix 40MG VIAL) 40 mg Q12H IV 07/13/24 14:30 08/12/24 14:29 07/13/24 14:56 40 MG Glimepiride (Glimepiride) 4 mg DAILY PO 07/14/24 09:00 08/13/24 08:59 07/14/24 08:36 4 MG Heparin Sodium (Porcine) (HEParin 5,000 UNIT VIAL) 5,000 unit Q12H SQ 07/13/24 17:30 08/12/24 17:29 07/14/24 01:27 5,000 UNIT Hydralazine HCl ([id number] TAB) 100 mg TID PO 07/13/24 21:00 08/12/24 20:59 07/14/24 08:35 100 MG Insulin Glargine (LANtus 100 UNITS/ML 10 ML VIAL) 25 units DAILY SQ 07/14/24 09:00 08/13/24 08:59 07/14/24 11:34 25 UNITS Insulin Human Regular (humuLIN R 100 UNIT/ML 3ML) INSULIN SLIDING SCAL... ACHS SQ 07/14/24 07:30 08/13/24 07:29 Lactobacillus Rhamnosus ([facility] [place]) 1 each TID PO 07/14/24 09:00 08/13/24 08:59 07/14/24 08:35 1 EACH Levothyroxine Sodium (SYNTHroid 150MCG TAB) 150 mcg SYN PO 07/14/24 06:30 08/13/24 06:29 07/14/24 06:13 150 MCG Losartan Potassium (CozAAR 100MG TAB) 100 mg DAILY PO 07/14/24 09:00 08/13/24 08:59 07/14/24 08:37 100 MG Metoprolol Tartrate (loprESSOR) 100 mg BID PO 07/14/24 09:00 08/13/24 08:59 07/14/24 08:37 100 MG Miscellaneous Medication (Diltiazem HCl (Diltiazem ER)) 1 cap DAILY PO 07/14/24 09:00 07/13/24 15:42 DC Ondansetron HCl (zoFRAN 4MG INJ) 4 mg Q6H PRN IVP NAUSEA/VOMITING 07/13/24 14:30 08/12/24 14:29 Pantoprazole Sodium (PROTonix 40MG TAB) 40 mg DAILY PO 07/14/24 09:00 08/13/24 08:59 07/14/24 08:36 40 MG Sertraline HCl (ZOloft 50 mg tab) 50 mg DAILY PO 07/14/24 09:00 08/13/24 08:59 07/14/24 08:36 50 MG Spironolactone (Aldactone 25mg) 50 mg DAILY PO 07/14/24 09:00 08/13/24 08:59 07/14/24 08:35 50 MG DIAGNOSTICS / RADIOLOGY: [ ] ASSESSMENT: [Acute respiratory failure with hypoxemia, POA Congestive diastolic heart failure exacerbation, POA Community-acquired pneumonia, POA Fluid overload, POA Hyponatremia , POA Acute on chronic kidney failure, POA Hyperglycemia with diabetes mellitus type 2, POA Elevated AST and alkaline phosphatase, POA Moderate protein caloric malnutrition, POA History of paroxysmal AFib, POA] PLAN: medical telemetry Patient will be on heart healthy diet, low-sodium Patient will be diuresed with Lasix 40 mg IV q.12 hours We will consult bobbin presser for kidney failure Continue with oxygen supplementation to keep O2 sat greater than 92% We will monitor blood sugars, a.c. and HS glucometer and insulin sliding scale We will monitor liver function Patient will be on VTE prophylaxis with heparin 5000 mg subQ b.i.d. Patient will be on GI prophylaxis with Protonix 40 mg p.o. daily Patient will be on strict I&O and daily weights We will repeat labs tomorrow Patient is a full code We will consult social media coordinator as patient is homeless Further orders per hospital course Discussed plan with attending physician, above plan was formulated ATTESTATION BY PHYSICIAN I have seen and examined the patient. I reviewed the documentation, medical decision making, and treatment plan as noted by the mid-level provider above. I agree with the findings and plan of care. DAVIS WOODY MD ] CORNELIO WILKINS MD Jul 14, 2024 13:22
--- NOTE | 2024-07-14 13:33 | CONS ---
REFERRING PHYSICIAN: Dr. Lee REASON FOR CONSULTATION: Renal failure, electrolyte abnormalities. HISTORY OF PRESENT ILLNESS: A 58-year-old male with history of diabetes mellitus and hypertension. The patient presented to the hospital with increasing shortness of breath and orthopnea. Laboratory values revealed underlying renal dysfunction as well as electrolyte abnormalities including the hyponatremia. The patient states he had not been on any diuretics at home and the patient is being seen in consultation for all of the above. PAST MEDICAL HISTORY: Diabetes mellitus, hypertension, hyponatremia, coronary artery disease. PAST SURGICAL HISTORY: Heart catheterization. SOCIAL HISTORY: He lives independently. No active tobacco use. FAMILY HISTORY: There is no renal disease in the family. ALLERGIES: HE HAS AN ALLERGY TO LISINOPRIL. MEDICATIONS: All noted. REVIEW OF SYSTEMS: GENERAL: He is feeling weak and tired. HEENT: No change in vision. No change in hearing. CARDIOVASCULAR: There is no current chest pain or palpitations. PULMONARY: As described above. GASTROINTESTINAL: The patient is tolerating a diet. MUSCULOSKELETAL: Complains of weakness. NEUROLOGIC: No seizures or focal deficits. PSYCHIATRIC: No history of hallucinations or psychosis. ENDOCRINE: Diabetes mellitus. No history of thyroid disease. HEME: History of anemia. No history of malignancy. PHYSICAL EXAMINATION: VITAL SIGNS: Blood pressure 160/70, pulse in the 100s. GENERAL: He is a chronically ill male, obese, lying in bed, on medical floor. HEENT: Head is atraumatic. Pupils equal, roving to light. Oropharynx is without exudate. Nares clear. NECK: There is no JVP. There is no thyromegaly, no mass. CARDIOVASCULAR: Regular. There is no S3, S4 gallop. LUNGS: Coarse with equal thoracic movement. ABDOMEN: Soft, nondistended, nontender. EXTREMITIES: He does have edema. NEUROLOGICAL: He is awake. He is alert. He is oriented. SKIN: Reveals no rash or nodules. BACK: There is no CVA tenderness, no back deformities. LABORATORY DATA: Sodium 131, potassium is 4, BUN 41, creatinine 1.4, glucose is 141. Hemoglobin 9.8, hematocrit 29, white count 7000. Urinalysis does reveal protein in the urine. IMPRESSION: * Renal dysfunction. * Diabetes mellitus with probable diabetic nephropathy. * Hypertension. * Anemia. * Volume overload. PLAN: The patient has been started on the diuretics. The patient with significant protein on the dipstick. We will send off spot urine for protein and creatinine to quantitate the amount of proteinuria. This patient with significant anemia, will check iron levels. He remains on the IV diuretics. He is encouraged on fluid restriction for the hyponatremia. We will continue to monitor the patient closely. The patient with multiple questions, all of which were answered. TID: [id number] RECEIPT: [id number]
[2024-07-14 22:30] LABS: CREATININE,URINE RANDOM 22.5 mg/dL (30-135); PROTEIN,URINE RANDOM 118.1 mg/dL (0-11.9)
[2024-07-15] VITALS (8 sets, daily range): BP systolic 100–175; BP diastolic 49–76; PULSE 59–76; RESP 17–19; TEMP 97.8–98.6; O2SAT 95–99
[2024-07-15] MEDS: furoSEMIDE 40MG VIAL IV SCH (09:04)
[2024-07-15 10:27] LABS: BASOPHILS # (AUTO) 0.03 K/uL (0.00-0.20); BASOPHILS % (AUTO) 0.5 % (0.0-5.0); EOSINOPHILS # (AUTO) 0.12 K/uL (0.00-0.70); EOSINOPHILS % (AUTO) 1.8 % (0.0-8.0); HEMATOCRIT 33.1 % (42-54); IMMATURE GRANULOCYTE ABSOLUTE 0.02 K/uL (0-1); LYMPHOCYTES # (AUTO) 1.1 K/uL (1.0-4.8); LYMPHOCYTES % (AUTO) 15.9 % (21.0-51.0); MEAN CORPUSCULAR HEMOGLOBIN 30.5 pg (27.0-33.0); MEAN CORPUSCULAR HGB CONC 32.9 g/dL (32.0-36.0); MEAN CORPUSCULAR VOLUME 92.7 fL (79-99); MONOCYTES # (AUTO) 0.8 K/uL (0.1-1.0); MONOCYTES % (AUTO) 12.2 % (3.0-13.0); NEUTROPHILS # (AUTO) 4.6 K/uL (1.8-7.7); NEUTROPHILS % (AUTO) 69.3 % (40.0-77.0); PLATELET COUNT (AUTO) 254 K/uL (130-400); RED BLOOD CELL COUNT(AUTO) 3.57 MIL/uL (4.50-6.20); RED CELL DISTRIBUTION WIDTH 13.2 % (11.0-15.5); WHITE BLOOD COUNT (AUTO) 6.7 K/uL (4.8-10.8)
[2024-07-15 10:41] LABS: ALBUMIN 2.3 g/dL (3.5-5.0); BILIRUBIN,TOTAL 0.4 mg/dL (0.2-1.0); CREATININE 1.2 mg/dL (0.5-1.3); MAGNESIUM 1.4 mg/dL (1.80-2.40); POTASSIUM 3.7 mmol/L (3.5-5.1); TOTAL PROTEIN, SERUM 6.2 g/dL (6.0-8.3)
--- NOTE | 2024-07-15 14:28 | PN ---
[facility] PROGRESS NOTE Date of Service: Jul 15, 2024 Time of Service: 14:05 SUBJECTIVE: This is 58-year-old male patient presented to the emergency department with shortness of breaths, he reported he woke up around 4:00 a.m. on 07/13/24 with shortness of breaths associated with headache and generalized weakness. In the ED his initial vital signs showed temperature of 97.3, pulse 81, respiratory rate 22, blood pressure 165/66, O2 sat 91% on room air. His blood pressure became elevated between 173/81 to 187/75. Patient is now on 3 L nasal cannula with saturation at 96%. Labs drawn, WBC 9.6, hemoglobin 11.2, hematocrit 32.3, platelet count 310, sodium 132, chloride 98, BUN47 , creatinine 1.9, random glucose 188, alkaline phosphatase 173, BNP 526, albumin 2.6. Chest x-ray showed bilateral pulmonary infiltrates with right more than left increased from previous study. He received furosemide 80 mg IV x1 in the ED. he was referred to the hospitalist for further evaluation and management. 07/15/24 The patient is seen and examined today, lying comfortably in his bed. He is feeling slightly better today. He is alert and oriented x3. He denies shortness of breath, headache but still complaining of generalized weakness, diarrhea after having meal. His hemoglobin is 10.9, Mg 1.40, Na 131, K 4. BUN and creatinine are improving. BUN 26, creatinine 1.2. His BP is very fluct uating. Recent BP is 125/62 this morning. REVIEW OF SYSTEMS CONSTITUTIONAL: Patient feels very weak NEUROLOGICAL: Patient reported extreme headaches and tremors to bilateral hands ENT: No hearing loss, otalgia, otorrhea, rhinitis, rhinorrhea, hoarseness, or sore throat. CARDIOVASCULAR: Orthopnea, dyspnea on exertion, paroxysmal nocturnal dyspnea reported PULMONARY: Denies any shortness of breath, cough, phlegm/sputum, hemoptysis, pleuritic chest pain. SLEEP: Denies morning headaches, daytime somnolence or napping. Denies difficulty falling asleep, staying asleep, waking from sleep. Denies knowledge of snoring. GASTROINTESTINAL: Denies any type of dysphagia to either liquids or solids. Denies nausea, vomiting, pyrosis, early satiety, abdominal pain, diarrhea, constipation, or changes in stool consistency or caliber. Denies coffee-ground emesis, hematemesis, hematochezia, or melanotic stools. GENITOURINARY: Denies frequency, urgency, nocturia, hematuria or incontinence (Storage/Irritative symptoms.) Low urinary stream, straining to void, urinary intermittency or hesitancy, splitting of the voiding stream, terminal dribbling. ENDOCRINOLOGIC: Denies polyuria, polydipsia, polyphagia or heat/cold intolerances. HEMATOLOGIC: Denies thrombophilia/previous clots, or coagulopathy/bleeding disorders. ONCOLOGIC: Denies personal history of malignancy. DERMATOLOGIC: Denies rashes or pruritus. PSYCHIATRIC: Denies any suicidal or homicidal ideation. Denies hallucinations. PHYSICAL EXAM GENERAL APPEARANCE: The patient is awake, alert, and oriented, in no acute c ardiopulmonary distress. NEUROLOGICAL: Cranial nerves II-XII grossly intact. Motor is 5/5 in bilateral upper and lower extremities proximal to distal. No sensory deficits. HEENT: Face is symmetric. Pupils are equal and reactive. Extraocular movements are intact. NECK: Supple. No JVD. No thyromegaly. No submental, submandibular, pre- /postauricular, occipital or supraclavicular lymphadenopathy. CHEST: Normal chest expansion. No Telemetry. LUNGS: Absence of any rales, rhonchi or any wheezing. CARDIOVASCULAR: Regular. S1 and S2 normal. No appreciable rubs, murmurs or gallops. ABDOMEN: Soft, nontender, and nondistended. There is no rebound, voluntary guarding, or rigidity. : Deferred. No Finley. EXTREMITIES: Non-edematous and not cyanotic. No clubbing. Good capillary refill. SKIN: No skin breakdown. Vital Signs (last 8hr) Date Time Temp Pulse Resp B/P (MAP) Pulse Ox O2 Delivery O2 Flow Rate FiO2 07/15/24 12:16 98.4 76 19 125/62 99 Room Air 07/15/24 08:00 98.4 69 18 169/76 95 Room Air 07/15/24 08:00 95 Room Air* 0 21 LABS: Laboratory: Test 07/15/24 10:07 07/15/24 05:13 07/14/24 19:30 07/14/24 04:48 Range/Units White Blood Count 6.7 4.8-10.8 K/uL Red Blood Count 3.57 L 4.50-6.20 MIL/uL Hemoglobin 10.9 L 14.0-18.0 g/dL Hematocrit 33.1 L 42-54 % Mean Corpuscular Volume 92.7 79-99 fL Mean Corpuscular Hemoglobin 30.5 27.0-33.0 pg Mean Corpuscular Hemoglobin Concent 32.9 32.0-36.0 g/dL Red Cell Distribution Width 13.2 11.0-15.5 % Platelet Count 254 130-400 K/uL Mean Platelet Volume 8.7 7.5-10.5 fL Immature Granulocyte % (Auto) 0.3 0-1 % Neutrophils (%) (Auto) 69.3 40.0-77.0 % Lymphocytes (%) (Auto) 15.9 L 21.0-51.0 % Monocytes (%) (Auto) 12.2 3.0-13.0 % Eosinophils (%) (Auto) 1.8 0.0-8.0 % Basophils (%) (Auto) 0.5 0.0-5.0 % Neutrophils # (Auto) 4.6 1.8-7.7 K/uL Lymphocytes # (Auto) 1.1 1.0-4.8 K/uL Monocytes # (Auto) 0.8 0.1-1.0 K/uL Eosinophils # (Auto) 0.12 0.00-0.70 K/uL Basophils # (Auto) 0.03 0.00-0.20 K/uL Absolute Immature Granulocyte (auto 0.02 0-1 K/uL Nucleated Red Blood Cells 0.0 0.0-0.19 % Sodium Level 139 136-145 mmol/L Potassium Level 3.7 3.5-5.1 mmol/L Chloride Level 102 101-111 mmol/L Carbon Dioxide Level 29 21-32 mmol/L Blood Urea Nitrogen 26 H 7-18 mg/dL Creatinine 1.2 0.5-1.3 mg/dL Glomerular Filtration Rate Calc 70 >90 mL/min Random Glucose 179 H 70-105 mg/dL Total Calcium 8.5 8.5-10.1 mg/dL Magnesium Level 1.40 L 1.80-2.40 mg/dL Total Bilirubin 0.4 0.2-1.0 mg/dL Aspartate Amino Transf (AST/SGOT) 48 H 10-37 U/L Alanine Aminotransferase (ALT/SGPT) 45 12-78 U/L Alkaline Phosphatase 170 H 50-136 U/L Total Protein 6.2 6.0-8.3 g/dL Albumin 2.3 L 3.5-5.0 g/dL Whole Blood Glucose 84 70-110 MG/DL Urine Random Creatinine 22.50 L 30-135 mg/dL Urine Random Total Protein 118.1 #H 0-11.9 mg/dL Iron Level 41 #L 65-175 mcg/dL Total Iron Binding Capacity 253 250-450 mcg/dL Percent Iron Saturation 16.2 L 30-44 % B-Type Natriuretic Peptide 638 H 0-100 pg/mL Current Medications Medications (Trade) Dose Ordered Sig/Jose A Route PRN Reason Start Time Stop Time Status Last Admin Dose Admin Acetaminophen (TYLenol 325MG TAB) 650 mg Q4H PRN PO TEMPERATURE GREATER THAN 101.5 07/13/24 14:30 08/12/24 14:29 Acetaminophen (TYLenol 325MG TAB) 650 mg Q6H PRN PO MILD PAIN (1-3) 07/13/24 14:30 08/12/24 14:29 07/13/24 22:07 650 MG Azithromycin 250 ml @ 250 mls/hr Q24H IVPB 07/13/24 16:30 07/23/24 16:29 07/14/24 16:58 250 MLS/HR Ceftriaxone Sodium (ROCEphine 1G INJ) 1 gm Q24H IVPB 07/13/24 16:30 07/23/24 16:29 07/14/24 17:02 1 GM Diltiazem HCl (CARDIzem 120MG CD) 120 mg DAILY PO 07/14/24 09:00 08/13/24 08:59 07/15/24 09:06 120 MG Diltiazem HCl (CARDIzem 180MG CD) 180 mg DAILY PO 07/14/24 09:00 08/13/24 08:59 07/15/24 09:07 180 MG Furosemide (LASix 40MG VIAL) 40 mg BIDMEALS IV 07/15/24 08:00 08/12/24 14:29 07/15/24 09:04 40 MG Furosemide (LASix 40MG VIAL) 40 mg Q12H IV 07/13/24 14:30 07/14/24 18:56 DC 07/14/24 16:59 40 MG Glimepiride (Glimepiride) 4 mg DAILY PO 07/14/24 09:00 08/13/24 08:59 07/15/24 09:06 4 MG Heparin Sodium (Porcine) (HEParin 5,000 UNIT VIAL) 5,000 unit Q12H SQ 07/13/24 17:30 08/12/24 17:29 07/15/24 06:02 5,000 UNIT Hydralazine HCl ([id number] TAB) 100 mg TID PO 07/13/24 21:00 08/12/24 20:59 07/14/24 20:35 100 MG Insulin Glargine (LANtus 100 UNITS/ML 10 ML VIAL) 25 units DAILY SQ 07/14/24 09:00 08/13/24 08:59 07/14/24 11:34 25 UNITS Insulin Human Regular (humuLIN R 100 UNIT/ML 3ML) INSULIN SLIDING SCAL... ACHS SQ 07/14/24 07:30 08/13/24 07:29 Lactobacillus Rhamnosus ([facility]) 1 each TID PO 07/14/24 09:00 08/13/24 08:59 07/15/24 09:05 1 EACH Levothyroxine Sodium (SYNTHroid 150MCG TAB) 150 mcg SYN PO 07/14/24 06:30 08/13/24 06:29 07/15/24 05:58 150 MCG Losartan Potassium (CozAAR 100MG TAB) 100 mg DAILY PO 07/14/24 09:00 08/13/24 08:59 07/14/24 08:37 100 MG Magnesium Sulfate 50 ml @ 0 mls/hr PROTOCOL PRN IV MAGNESIUM PROTOCOL 07/15/24 12:00 08/14/24 11:59 Metoprolol Tartrate (loprESSOR) 100 mg BID PO 07/14/24 09:00 08/13/24 08:59 07/15/24 09:06 100 MG Miscellaneous Medication (Diltiazem HCl (Diltiazem ER)) 1 cap DAILY PO 07/14/24 09:00 07/13/24 15:42 DC Ondansetron HCl (zoFRAN 4MG INJ) 4 mg Q6H PRN IVP NAUSEA/VOMITING 07/13/24 14:30 08/12/24 14:29 Pantoprazole Sodium (PROTonix 40MG TAB) 40 mg DAILY PO 07/14/24 09:00 08/13/24 08:59 07/15/24 09:05 40 MG Sertraline HCl (ZOloft 50 mg tab) 50 mg DAILY PO 07/14/24 09:00 08/13/24 08:59 07/15/24 09:05 50 MG Spironolactone (Aldactone 25mg) 50 mg DAILY PO 07/14/24 09:00 08/13/24 08:59 07/15/24 09:07 50 MG DIAGNOSTICS / RADIOLOGY: [address] [place] [id number] [place] [address] IMAGING REPORT Signed PATIENT: VERO WILKS MR#: [id number] : 1965 SEX: M AGE: 58 LOCATION: [facility] ORDER 120 STATUS: REG ER REPORT#: [id number] SERVICE [id number] REASON: CHEST PAIN ORDERING PHYSICIAN: SYL ALVAREZ MD PROCEDURE: CXR1VW - CHEST 1VW CHEST 1VW HISTORY: Chest pain COMPARISON: 06/25/2024 FINDINGS: A frontal projection of the chest was obtained. Bilateral pulmonary infiltrates are seen with right more than left. Postop changes are seen of left clavicle unchanged. The heart is borderline enlarged. Degenerative changes are seen. No evidence of aortic calcification is seen. IMPRESSION: 1. Bilateral pulmonary infiltrates with right more than left increased from previous study. DICTATED BY: MICHELLE FRAZIER MD DATE: 07/13/24 134 ELECTRONICALLY SIGNED BY: MICHELLE FRAZIER MD DATE: 07/13/241348 ASSESSMENT: Acute respiratory failure with hypoxemia, POA Congestive diastolic heart failure exacerbation, POA Community-acquired pneumonia, POA Fluid overload, POA Hyponatremia , resolve Acute on chronic kidney failure, POA Hyperglycemia with diabetes mellitus type 2, POA Elevated AST and alkaline phosphatase, POA Moderate protein caloric malnutrition, POA History of paroxysmal AFib, POA PLAN: Continue to monitor patient medical/surgical floor. Continue heart healthy diet, low-sodium Congestive diastolic heart failure exacerbation, POA Acute respiratory failure with hypoxemia, POA Fluid overload, POA Continue strict I&O and daily weights BNP 638 Fluid restriction 1.5 L a day Continue Lasix 40 mg IV q.12 hours Continue with oxygen supplementation to keep O2 sat greater than 92% Community-acquired pneumonia, POA Continued Rocephin IV and azithromycin as prescribed Acute on chronic kidney failure, POA Nephrology consult appreciated and we will follow Dr. Martinez's recommendations. Urine creatinine 22.50 and urine total protein 118.1 Hyponatremia , resolve Patient is on fluid restriction 1.5 L a day. Sodium is 139. Hyperglycemia with diabetes mellitus type 2, POA We will monitor blood sugars, a.c. and HS glucometer and insulin sliding scale Hypoglycemia and hyperglycemia protocol. Continue DVT and GI prophylaxis. Will resume Xarelto as patient was taking it before. ATTESTATION BY PHYSICIAN I have seen and examined the patient. I reviewed the documentation, medical decision making, and treatment plan as noted by the resident provider above. I agree with the findings and plan of care. Phil Coello MD, KRUPALI P MD Jul 15, 2024 14:28
[2024-07-15] MEDS: MAGNESIUM 2GM PREMIX 50ML 50 ML IV PRN (15:20)
--- NOTE | 2024-07-15 15:43 | PN ---
NEPHROLOGY PROGRESS NOTE Date/Time Patient Seen: Jul 15, 2024 SUBJECTIVE: This is a 58-year-old male with a past medical history of atrial fibrillation and chronic anticoagulation, hypertension hypothyroidism, congestive heart failure, obstructive sleep apnea, diabetes mellitus type 2, anxiety, GERD. He has a recent hospitalization due to hyponatremia and diarrhea. He was discharged on June 23, 2024. He presented to the emergency room with complaints of shortness of breath. Laboratory values revealed underlying renal dysfunction as well electrolyte abnormalities including hyponatremia. He has been started on Lasix 40 mg IV b.i.d.. Patient states he was not taking any diuretics at home. He continues on antibiotics. Renal function is improving Electrolytes are stable. Hemoglobin is stable at 10.9. Iron levels were noted. He was seen in the medical floor, in no acute distress No family at the bedside Prognosis remains guarded REVIEW OF SYSTEMS: GENERAL: Negative for any nausea, vomiting, fevers, chills, or weight loss. NEUROLOGIC: Negative for any blurry vision, blind spots, double vision, facial asymmetry, dysphagia, dysarthria, hemiparesis, hemisensory deficits, vertigo, ataxia. HEENT: Negative for any head trauma, neck trauma, neck stiffness, photophobia, phonophobia, sinusitis, rhinitis. CARDIAC: Negative for any chest pain, dyspnea on exertion, paroxysmal nocturnal dyspnea, peripheral edema. PULMONARY: Negative for any shortness of breath, wheezing, COPD, or TB exposure. GASTROINTESTINAL: Negative for any abdominal pain, nausea, vomiting, bright red blood per rectum, melena. GENITOURINARY: Negative for any dysuria, hematuria, incontinence. INTEGUMENTARY: Negative for any rashes, cuts, insect bites. RHEUMATOLOGIC: Negative for any joint pains, photosensitive rashes, history of vasculitis or kidney problems. HEMATOLOGIC: Negative for any abnormal bruising, frequent infections or bleeding. Vital Signs (last 8hr) Date Time Temp Pulse Resp B/P (MAP) Pulse Ox O2 Delivery O2 Flow Rate FiO2 07/15/24 12:16 98.4 76 19 125/62 99 Room Air 07/15/24 08:00 98.4 69 18 169/76 95 Room Air 07/15/24 08:00 95 Room Air* 0 21 PHYSICAL EXAM: GENERAL: Alert and oriented x 3. No acute distress. Well-nourished. EYES: EOMI. Anicteric. HENT: Moist mucous membranes. No scleral icterus. No cervical lymphadenopathy. LUNGS: Clear to auscultation bilaterally. No accessory muscle use. CARDIOVASCULAR: Regular rate and rhythm. No murmur. No JVD. ABDOMEN: Soft, non-tender and non-distended. No palpable masses. EXTREMITIES: No edema. Non-tender.?SKIN: No rashes or lesions. Warm. NEUROLOGIC: No focal neurological deficits. CN II-XII grossly intact, but not individually tested. PSYCHIATRIC: Cooperative. Appropriate mood and affect. Current Medications Medications (Trade) Dose Ordered Sig/Jose A Route PRN Reason Start Time Stop Time Status Last Admin Dose Admin Acetaminophen (TYLenol 325MG TAB) 650 mg Q4H PRN PO TEMPERATURE GREATER THAN 101.5 07/13/24 14:30 08/12/24 14:29 Acetaminophen (TYLenol 325MG TAB) 650 mg Q6H PRN PO MILD PAIN (1-3) 07/13/24 14:30 08/12/24 14:29 07/13/24 22:07 650 MG Azithromycin 250 ml @ 250 mls/hr Q24H IVPB 07/13/24 16:30 07/23/24 16:29 07/14/24 16:58 250 MLS/HR Ceftriaxone Sodium (ROCEphine 1G INJ) 1 gm Q24H IVPB 07/13/24 16:30 07/23/24 16:29 07/14/24 17:02 1 GM Diltiazem HCl (CARDIzem 120MG CD) 120 mg DAILY PO 07/14/24 09:00 08/13/24 08:59 07/15/24 09:06 120 MG Diltiazem HCl (CARDIzem 180MG CD) 180 mg DAILY PO 07/14/24 09:00 08/13/24 08:59 07/15/24 09:07 180 MG Furosemide (LASix 40MG VIAL) 40 mg BIDMEALS IV 07/15/24 08:00 08/12/24 14:29 07/15/24 09:04 40 MG Furosemide (LASix 40MG VIAL) 40 mg Q12H IV 07/13/24 14:30 07/14/24 18:56 DC 07/14/24 16:59 40 MG Glimepiride (Glimepiride) 4 mg DAILY PO 07/14/24 09:00 08/13/24 08:59 07/15/24 09:06 4 MG Heparin Sodium (Porcine) (HEParin 5,000 UNIT VIAL) 5,000 unit Q12H SQ 07/13/24 17:30 08/12/24 17:29 07/15/24 06:02 5,000 UNIT Hydralazine HCl ([id number] TAB) 100 mg TID PO 07/13/24 21:00 08/12/24 20:59 07/14/24 20:35 100 MG Insulin Glargine (LANtus 100 UNITS/ML 10 ML VIAL) 25 units DAILY SQ 07/14/24 09:00 08/13/24 08:59 07/14/24 11:34 25 UNITS Insulin Human Regular (humuLIN R 100 UNIT/ML 3ML) INSULIN SLIDING SCAL... ACHS SQ 07/14/24 07:30 08/13/24 07:29 Lactobacillus Rhamnosus ([facility] mobiTeris & AquaBling) 1 each TID PO 07/14/24 09:00 08/13/24 08:59 07/15/24 15:20 1 EACH Levothyroxine Sodium (SYNTHroid 150MCG TAB) 150 mcg SYN PO 07/14/24 06:30 08/13/24 06:29 07/15/24 05:58 150 MCG Losartan Potassium (CozAAR 100MG TAB) 100 mg DAILY PO 07/14/24 09:00 08/13/24 08:59 07/14/24 08:37 100 MG Magnesium Sulfate 50 ml @ 0 mls/hr PROTOCOL PRN IV MAGNESIUM PROTOCOL 07/15/24 12:00 08/14/24 11:59 07/15/24 15:20 1.4 MLS/HR Metoprolol Tartrate (loprESSOR) 100 mg BID PO 07/14/24 09:00 08/13/24 08:59 07/15/24 09:06 100 MG Miscellaneous Medication (Diltiazem HCl (Diltiazem ER)) 1 cap DAILY PO 07/14/24 09:00 07/13/24 15:42 DC Ondansetron HCl (zoFRAN 4MG INJ) 4 mg Q6H PRN IVP NAUSEA/VOMITING 07/13/24 14:30 08/12/24 14:29 Pantoprazole Sodium (PROTonix 40MG TAB) 40 mg DAILY PO 07/14/24 09:00 08/13/24 08:59 07/15/24 09:05 40 MG Sertraline HCl (ZOloft 50 mg tab) 50 mg DAILY PO 07/14/24 09:00 08/13/24 08:59 07/15/24 09:05 50 MG Spironolactone (Aldactone 25mg) 50 mg DAILY PO 07/14/24 09:00 08/13/24 08:59 07/15/24 09:07 50 MG LABORATORY: [ ] Hematology Labs: Test 07/15/24 10:07 Range/Units White Blood Count 6.7 4.8-10.8 K/uL Red Blood Count 3.57 L 4.50-6.20 MIL/uL Hemoglobin 10.9 L 14.0-18.0 g/dL Hematocrit 33.1 L 42-54 % Mean Corpuscular Volume 92.7 79-99 fL Mean Corpuscular Hemoglobin 30.5 27.0-33.0 pg Mean Corpuscular Hemoglobin Concent 32.9 32.0-36.0 g/dL Red Cell Distribution Width 13.2 11.0-15.5 % Platelet Count 254 130-400 K/uL Mean Platelet Volume 8.7 7.5-10.5 fL Immature Granulocyte % (Auto) 0.3 0-1 % Neutrophils (%) (Auto) 69.3 40.0-77.0 % Lymphocytes (%) (Auto) 15.9 L 21.0-51.0 % Monocytes (%) (Auto) 12.2 3.0-13.0 % Eosinophils (%) (Auto) 1.8 0.0-8.0 % Basophils (%) (Auto) 0.5 0.0-5.0 % Neutrophils # (Auto) 4.6 1.8-7.7 K/uL Lymphocytes # (Auto) 1.1 1.0-4.8 K/uL Monocytes # (Auto) 0.8 0.1-1.0 K/uL Eosinophils # (Auto) 0.12 0.00-0.70 K/uL Basophils # (Auto) 0.03 0.00-0.20 K/uL Absolute Immature Granulocyte (auto 0.02 0-1 K/uL Nucleated Red Blood Cells 0.0 0.0-0.19 % Chemistry Labs: Test 07/15/24 10:07 07/15/24 05:13 07/14/24 04:48 Range/Units Sodium Level 139 136-145 mmol/L Potassium Level 3.7 3.5-5.1 mmol/L Chloride Level 102 101-111 mmol/L Carbon Dioxide Level 29 21-32 mmol/L Blood Urea Nitrogen 26 H 7-18 mg/dL Creatinine 1.2 0.5-1.3 mg/dL Glomerular Filtration Rate Calc 70 >90 mL/min Random Glucose 179 H 70-105 mg/dL Total Calcium 8.5 8.5-10.1 mg/dL Magnesium Level 1.40 L 1.80-2.40 mg/dL Total Bilirubin 0.4 0.2-1.0 mg/dL Aspartate Amino Transf (AST/SGOT) 48 H 10-37 U/L Alanine Aminotransferase (ALT/SGPT) 45 12-78 U/L Alkaline Phosphatase 170 H 50-136 U/L Total Protein 6.2 6.0-8.3 g/dL Albumin 2.3 L 3.5-5.0 g/dL Whole Blood Glucose 84 70-110 MG/DL Iron Level 41 #L 65-175 mcg/dL Total Iron Binding Capacity 253 250-450 mcg/dL Percent Iron Saturation 16.2 L 30-44 % B-Type Natriuretic Peptide 638 H 0-100 pg/mL DIAGNOSTICS / RADIOLOGY: REASON: CHEST PAIN ORDERING PHYSICIAN: SYL ALVAREZ MD PROCEDURE: CXR1VW - CHEST 1VW CHEST 1VW HISTORY: Chest pain COMPARISON: 06/25/2024 FINDINGS: A frontal projection of the chest was obtained. Bilateral pulmonary infiltrates are seen with right more than left. Postop changes are seen of left clavicle unchanged. The heart is borderline enlarged. Degenerative changes are seen. No evidence of aortic calcification is seen. IMPRESSION: 1. Bilateral pulmonary infiltrates with right more than left increased from previous study. DICTATED BY: MICHELLE FRAZIER MD DATE: 07/13/24 5214 ASSESSMENT: Acute on chronic renal failure Hyponatremia Congestive diastolic heart failure exacerbation Acute respiratory failure with hypoxia Fluid overload Community-acquired pneumonia Atrial fibrillation on chronic anticoagulation Type 2 diabetes mellitus Anxiety disorder Hypertension Gastroesophageal reflux disease Obstructive sleep apnea PLAN: Labs, diagnostic, radiologic exams reviewed and interpreted by myself and supervising physician. We have reviewed external records in detail Continue with diuretics. Require close monitoring of renal function and electrolytes Order CBC, CMP, and electrolytes in am BiPAP as necessary, for respiratory distress Monitor blood pressure adjust medication doses as needed Avoid hypotensive episodes May use Dilaudid 0.5 mg IV every 6 hours as needed for severe pain Monitor blood sugars Strict intake, output, and daily weight should be monitored Please renally adjust medications Avoid nephrotoxic and nonsteroidal drugs Avoid contrast if possible Will continue to monitor renal function, anemia, electrolytes Treatment plan discussed with patient Questions were answered We have discussed with the other team physicians in detail about the care plan We will continue to monitor the patient closely finally ATTESTATION BY PHYSICIAN I have seen and examined the patient. I reviewed the documentation, medical d ecision making, and treatment plan as noted by the mid-level provider above. I agree with the findings and plan of care. NOEMY SAMUELS MD, [facility] Jul 15, 2024 15:43
[2024-07-16] VITALS (8 sets, daily range): BP systolic 109–171; BP diastolic 35–86; PULSE 53–66; RESP 18–19; TEMP 97.6–98.3; O2SAT 96
[2024-07-16 05:43] LABS: BASOPHILS # (AUTO) 0.05 K/uL (0.00-0.20); BASOPHILS % (AUTO) 0.6 % (0.0-5.0); EOSINOPHILS % (AUTO) 2.4 % (0.0-8.0); HEMATOCRIT 33.9 % (42-54); IMMATURE GRANULOCYTE ABSOLUTE 0.06 K/uL (0-1); LYMPHOCYTES # (AUTO) 1.2 K/uL (1.0-4.8); LYMPHOCYTES % (AUTO) 14.5 % (21.0-51.0); MEAN CORPUSCULAR HEMOGLOBIN 30.9 pg (27.0-33.0); MEAN CORPUSCULAR HGB CONC 33.9 g/dL (32.0-36.0); MEAN CORPUSCULAR VOLUME 91.1 fL (79-99); MONOCYTES # (AUTO) 1.1 K/uL (0.1-1.0); NEUTROPHILS # (AUTO) 5.6 K/uL (1.8-7.7); NEUTROPHILS % (AUTO) 68.8 % (40.0-77.0); PLATELET COUNT (AUTO) 320 K/uL (130-400); RED BLOOD CELL COUNT(AUTO) 3.72 MIL/uL (4.50-6.20); RED CELL DISTRIBUTION WIDTH 13.2 % (11.0-15.5); WHITE BLOOD COUNT (AUTO) 8.2 K/uL (4.8-10.8)
[2024-07-16 05:57] LABS: CREATININE 1.4 mg/dL (0.5-1.3); MAGNESIUM 1.7 mg/dL (1.80-2.40); POTASSIUM 4.8 mmol/L (3.5-5.1)
--- NOTE | 2024-07-16 13:35 | PN ---
NEPHROLOGY PROGRESS NOTE Date/Time Patient Seen: Jul 16, 2024 Reason for Consultation: 13:34 SUBJECTIVE: This is a 58-year-old male with a past medical history of atrial fibrillation and chronic anticoagulation, hypertension hypothyroidism, congestive heart failure, obstructive sleep apnea, diabetes mellitus type 2, anxiety, GERD. He has a recent hospitalization due to hyponatremia and diarrhea. He was discharged on June 23, 2024. He presented to the emergency room with complaints of shortness of breath. Laboratory values revealed underlying renal dysfunction as well electrolyte abnormalities including hyponatremia. He has been started on Lasix 40 mg IV b.i.d.. Patient states he was not taking any diuretics at home. He continues on antibiotics. Renal function is improving Electrolytes are stable. Hemoglobin is stable Iron levels were noted. He was seen in the medical floor, in no acute distress He continues to complain of diarrhea. No family at the bedside Prognosis remains guarded REVIEW OF SYSTEMS: GENERAL: Negative for any nausea, vomiting, fevers, chills, or weight loss. NEUROLOGIC: Negative for any blurry vision, blind spots, double vision, facial asymmetry, dysphagia, dysarthria, hemiparesis, hemisensory deficits, vertigo, ataxia. HEENT: Negative for any head trauma, neck trauma, neck stiffness, photophobia, phonophobia, sinusitis, rhinitis. CARDIAC: Negative for any chest pain, dyspnea on exertion, paroxysmal nocturnal dyspnea, peripheral edema. PULMONARY: Negative for any shortness of breath, wheezing, COPD, or TB exposure. GASTROINTESTINAL: Negative for any abdominal pain, nausea, vomiting, bright red blood per rectum, melena. GENITOURINARY: Negative for any dysuria, hematuria, incontinence. INTEGUMENTARY: Negative for any rashes, cuts, insect bites. RHEUMATOLOGIC: Negative for any joint pains, photosensitive rashes, history of vasculitis or kidney problems. HEMATOLOGIC: Negative for any abnormal bruising, frequent infections or bleeding. Vital Signs (last 8hr) Date Time Temp Pulse Resp B/P (MAP) Pulse Ox O2 Delivery O2 Flow Rate FiO2 07/15/24 12:16 98.4 76 19 125/62 99 Room Air 07/15/24 08:00 98.4 69 18 169/76 95 Room Air 07/15/24 08:00 95 Room Air* 0 21 PHYSICAL EXAM: GENERAL: Alert and oriented x 3. No acute distress. Well-nourished. EYES: EOMI. Anicteric. HENT: Moist mucous membranes. No scleral icterus. No cervical lymphadenopathy. LUNGS: Clear to auscultation bilaterally. No accessory muscle use. CARDIOVASCULAR: Regular rate and rhythm. No murmur. No JVD. ABDOMEN: Soft, non-tender and non-distended. No palpable masses. EXTREMITIES: No edema. Non-tender.?SKIN: No rashes or lesions. Warm. NEUROLOGIC: No focal neurological deficits. CN II-XII grossly intact, but not individually tested. PSYCHIATRIC: Cooperative. Appropriate mood and affect. Current Medications Medications (Trade) Dose Ordered Sig/Jose A Route PRN Reason Start Time Stop Time Status Last Admin Dose Admin Acetaminophen (TYLenol 325MG TAB) 650 mg Q4H PRN PO TEMPERATURE GREATER THAN 101.5 07/13/24 14:30 08/12/24 14:29 Acetaminophen (TYLenol 325MG TAB) 650 mg Q6H PRN PO MILD PAIN (1-3) 07/13/24 14:30 08/12/24 14:29 07/13/24 22:07 650 MG Azithromycin 250 ml @ 250 mls/hr Q24H IVPB 07/13/24 16:30 07/23/24 16:29 07/14/24 16:58 250 MLS/HR Ceftriaxone Sodium (ROCEphine 1G INJ) 1 gm Q24H IVPB 07/13/24 16:30 07/23/24 16:29 07/14/24 17:02 1 GM Diltiazem HCl (CARDIzem 120MG CD) 120 mg DAILY PO 07/14/24 09:00 08/13/24 08:59 07/15/24 09:06 120 MG Diltiazem HCl (CARDIzem 180MG CD) 180 mg DAILY PO 07/14/24 09:00 08/13/24 08:59 07/15/24 09:07 180 MG Furosemide (LASix 40MG VIAL) 40 mg BIDMEALS IV 07/15/24 08:00 08/12/24 14:29 07/15/24 09:04 40 MG Furosemide (LASix 40MG VIAL) 40 mg Q12H IV 07/13/24 14:30 07/14/24 18:56 DC 07/14/24 16:59 40 MG Glimepiride (Glimepiride) 4 mg DAILY PO 07/14/24 09:00 08/13/24 08:59 07/15/24 09:06 4 MG Heparin Sodium (Porcine) (HEParin 5,000 UNIT VIAL) 5,000 unit Q12H SQ 07/13/24 17:30 08/12/24 17:29 07/15/24 06:02 5,000 UNIT Hydralazine HCl ([id number] TAB) 100 mg TID PO 07/13/24 21:00 08/12/24 20:59 07/14/24 20:35 100 MG Insulin Glargine (LANtus 100 UNITS/ML 10 ML VIAL) 25 units DAILY SQ 07/14/24 09:00 08/13/24 08:59 07/14/24 11:34 25 UNITS Insulin Human Regular (humuLIN R 100 UNIT/ML 3ML) INSULIN SLIDING SCAL... ACHS SQ 07/14/24 07:30 08/13/24 07:29 Lactobacillus Rhamnosus ([facility]) 1 each TID PO 07/14/24 09:00 08/13/24 08:59 07/15/24 15:20 1 EACH Levothyroxine Sodium (SYNTHroid 150MCG TAB) 150 mcg SYN PO 07/14/24 06:30 08/13/24 06:29 07/15/24 05:58 150 MCG Losartan Potassium (CozAAR 100MG TAB) 100 mg DAILY PO 07/14/24 09:00 08/13/24 08:59 07/14/24 08:37 100 MG Magnesium Sulfate 50 ml @ 0 mls/hr PROTOCOL PRN IV MAGNESIUM PROTOCOL 07/15/24 12:00 08/14/24 11:59 07/15/24 15:20 1.4 MLS/HR Metoprolol Tartrate (loprESSOR) 100 mg BID PO 07/14/24 09:00 08/13/24 08:59 07/15/24 09:06 100 MG Miscellaneous Medication (Diltiazem HCl (Diltiazem ER)) 1 cap DAILY PO 07/14/24 09:00 07/13/24 15:42 DC Ondansetron HCl (zoFRAN 4MG INJ) 4 mg Q6H PRN IVP NAUSEA/VOMITING 07/13/24 14:30 08/12/24 14:29 Pantoprazole Sodium (PROTonix 40MG TAB) 40 mg DAILY PO 07/14/24 09:00 08/13/24 08:59 07/15/24 09:05 40 MG Sertraline HCl (ZOloft 50 mg tab) 50 mg DAILY PO 07/14/24 09:00 08/13/24 08:59 07/15/24 09:05 50 MG Spironolactone (Aldactone 25mg) 50 mg DAILY PO 07/14/24 09:00 08/13/24 08:59 07/15/24 09:07 50 MG LABORATORY: [ ] Hematology Labs: Test 07/16/24 05:19 Range/Units White Blood Count 8.2 4.8-10.8 K/uL Red Blood Count 3.72 L 4.50-6.20 MIL/uL Hemoglobin 11.5 L 14.0-18.0 g/dL Hematocrit 33.9 L 42-54 % Mean Corpuscular Volume 91.1 79-99 fL Mean Corpuscular Hemoglobin 30.9 27.0-33.0 pg Mean Corpuscular Hemoglobin Concent 33.9 32.0-36.0 g/dL Red Cell Distribution Width 13.2 11.0-15.5 % Platelet Count 320 # 130-400 K/uL Mean Platelet Volume 9.0 7.5-10.5 fL Immature Granulocyte % (Auto) 0.7 0-1 % Neutrophils (%) (Auto) 68.8 40.0-77.0 % Lymphocytes (%) (Auto) 14.5 L 21.0-51.0 % Monocytes (%) (Auto) 13.0 3.0-13.0 % Eosinophils (%) (Auto) 2.4 0.0-8.0 % Basophils (%) (Auto) 0.6 0.0-5.0 % Neutrophils # (Auto) 5.6 1.8-7.7 K/uL Lymphocytes # (Auto) 1.2 1.0-4.8 K/uL Monocytes # (Auto) 1.1 H 0.1-1.0 K/uL Eosinophils # (Auto) 0.20 0.00-0.70 K/uL Basophils # (Auto) 0.05 0.00-0.20 K/uL Absolute Immature Granulocyte (auto 0.06 0-1 K/uL Nucleated Red Blood Cells 0.0 0.0-0.19 % Chemistry Labs: Test 07/16/24 11:22 07/16/24 05:19 07/15/24 10:07 Range/Units Whole Blood Glucose 248 #H 70-110 MG/DL Sodium Level 139 136-145 mmol/L Potassium Level 4.8 3.5-5.1 mmol/L Chloride Level 104 101-111 mmol/L Carbon Dioxide Level 25 21-32 mmol/L Blood Urea Nitrogen 26 H 7-18 mg/dL Creatinine 1.4 H 0.5-1.3 mg/dL Glomerular Filtration Rate Calc 58 >90 mL/min Random Glucose 104 70-105 mg/dL Total Calcium 8.9 8.5-10.1 mg/dL Magnesium Level 1.70 L 1.80-2.40 mg/dL Total Bilirubin 0.4 0.2-1.0 mg/dL Aspartate Amino Transf (AST/SGOT) 48 H 10-37 U/L Alanine Aminotransferase (ALT/SGPT) 45 12-78 U/L Alkaline Phosphatase 170 H 50-136 U/L Total Protein 6.2 6.0-8.3 g/dL Albumin 2.3 L 3.5-5.0 g/dL DIAGNOSTICS / RADIOLOGY: REASON: CHEST PAIN ORDERING PHYSICIAN: SYL ALVAREZ MD PROCEDURE: CXR1VW - CHEST 1VW CHEST 1VW HISTORY: Chest pain COMPARISON: 06/25/2024 FINDINGS: A frontal projection of the chest was obtained. Bilateral pulmonary infiltrates are seen with right more than left. Postop changes are seen of left clavicle unchanged. The heart is borderline enlarged. Degenerative changes are seen. No evidence of aortic calcification is seen. IMPRESSION: 1. Bilateral pulmonary infiltrates with right more than left increased from previous study. DICTATED BY: MICHELLE FRAZIER MD DATE: 07/13/24 9886 ASSESSMENT: Acute on chronic renal failure Hyponatremia Congestive diastolic heart failure exacerbation Acute respiratory failure with hypoxia Fluid overload Community-acquired pneumonia Atrial fibrillation on chronic anticoagulation Type 2 diabetes mellitus Anxiety disorder Hypertension Gastroesophageal reflux disease Obstructive sleep apnea PLAN: Labs, diagnostic, radiologic exams reviewed and interpreted by myself and supervising physician. We have reviewed external records in detail Continue with diuretics. Send stool studies due to diarrhea Require close monitoring of renal function and electrolytes Order CBC, CMP, and electrolytes in am BiPAP as necessary, for respiratory distress Monitor blood pressure adjust medication doses as needed Avoid hypotensive episodes May use Dilaudid 0.5 mg IV every 6 hours as needed for severe pain Monitor blood sugars Strict intake, output, and daily weight should be monitored Please renally adjust medications Avoid nephrotoxic and nonsteroidal drugs Avoid contrast if possible Will continue to monitor renal function, anemia, electrolytes Treatment plan discussed with patient Questions were answered We have discussed with the other team physicians in detail about the care plan We will continue to monitor the patient closely finally ATTESTATION BY PHYSICIAN I have seen and examined the patient. I reviewed the documentation, medical decision making, and treatment plan as noted by the mid-level provider above. I agree with the findings and plan of care. NOEMY SAMUELS MD, [facility] Jul 16, 2024 13:35
--- NOTE | 2024-07-16 15:05 | PN ---
[facility] PROGRESS NOTE Date of Service: Jul 16, 2024 Time of Service: 14:55 SUBJECTIVE: This is 58-year-old male patient presented to the emergency department with shortness of breaths, he reported he woke up around 4:00 a.m. on 07/13/24 with shortness of breaths associated with headache and generalized weakness. In the ED his initial vital signs showed temperature of 97.3, pulse 81, respiratory rate 22, blood pressure 165/66, O2 sat 91% on room air. His blood pressure became elevated between 173/81 to 187/75. Patient is now on 3 L nasal cannula with saturation at 96%. Labs drawn, WBC 9.6, hemoglobin 11.2, hematocrit 32.3, platelet count 310, sodium 132, chloride 98, BUN47 , creatinine 1.9, random glucose 188, alkaline phosphatase 173, BNP 526, albumin 2.6. Chest x-ray showed bilateral pulmonary infiltrates with right more than left increased from previous study. He received furosemide 80 mg IV x1 in the ED. he was referred to the hospitalist for further evaluation and management. 07/15/24 The patient is seen and examined today, lying comfortably in his bed. He is feeling slightly better today. He is alert and oriented x3. He denies shortness of breath, headache but still complaining of generalized weakness, diarrhea after having meal. His hemoglobin is 10.9, Mg 1.40, Na 131, K 4. BUN and creatinine are improving. BUN 26, creatinine 1.2. His BP is very fluct uating. Recent BP is 125/62 this morning. 07/16/24 Patient is seen and examined. His blood pressure this morning was 168/86 mm hg. He is complaining of headache after which he was given Tylenol and blood pressure medications. He is complaining of diarrhea, had 5 episodes after 2 am until he had his breakfast this morning. After breakfast he had another 3 e pisodes of diarrhea. The stool sample will be obtained for C. diff. His recent BP is 109/35 mm hg. REVIEW OF SYSTEMS CONSTITUTIONAL: Patient feels very weak NEUROLOGICAL: Patient reported extreme headaches and tremors to bilateral hands ENT: No hearing loss, otalgia, otorrhea, rhinitis, rhinorrhea, hoarseness, or sore throat. CARDIOVASCULAR: Orthopnea, dyspnea on exertion, paroxysmal nocturnal dyspnea reported PULMONARY: Denies any shortness of breath, cough, phlegm/sputum, hemoptysis, pleuritic chest pain. SLEEP: Denies morning headaches, daytime somnolence or napping. Denies difficulty falling asleep, staying asleep, waking from sleep. Denies knowledge of snoring. GASTROINTESTINAL: Denies any type of dysphagia to either liquids or solids. Denies nausea, vomiting, pyrosis, early satiety, abdominal pain, diarrhea, constipation, or changes in stool consistency or caliber. Denies coffee-ground emesis, hematemesis, hematochezia, or melanotic stools. GENITOURINARY: Denies frequency, urgency, nocturia, hematuria or incontinence (Storage/Irritative symptoms.) Low urinary stream, straining to void, urinary intermittency or hesitancy, splitting of the voiding stream, terminal dribbling. ENDOCRINOLOGIC: Denies polyuria, polydipsia, polyphagia or heat/cold intolerances. HEMATOLOGIC: Denies thrombophilia/previous clots, or coagulopathy/bleeding disorders. ONCOLOGIC: Denies personal history of malignancy. DERMATOLOGIC: Denies rashes or pruritus. PSYCHIATRIC: Denies any suicidal or homicidal ideation. Denies hallucinations. PHYSICAL EXAM GENERAL APPEARANCE: The patient is awake, alert, and oriented, in no acute cardiopulmonary distress. NEUROLOGICAL: Cranial nerves II-XII grossly intact. Motor is 5/5 in bilateral upper and lower extremities proximal to distal. No sensory deficits. HEENT: Face is symmetric. Pupils are equal and reactive. Extraocular movements are intact. NECK: Supple. No JVD. No thyromegaly. No submental, submandibular, pre- /postauricular, occipital or supraclavicular lymphadenopathy. CHEST: Normal chest expansion. No Telemetry. LUNGS: Absence of any rales, rhonchi or any wheezing. CARDIOVASCULAR: Regular. S1 and S2 normal. No appreciable rubs, murmurs or gallops. ABDOMEN: Soft, nontender, and nondistended. There is no rebound, voluntary guarding, or rigidity. : Deferred. No Finley. EXTREMITIES: Non-edematous and not cyanotic. No clubbing. Good capillary refill. SKIN: No skin breakdown. Vital Signs (last 8hr) Date Time Temp Pulse Resp B/P (MAP) Pulse Ox O2 Delivery O2 Flow Rate FiO2 07/16/24 12:00 98.1 61 18 109/35 97 Room Air 07/16/24 08:00 97.5 66 18 168/86 96 Room Air LABS: Laboratory: Test 07/16/24 11:22 07/16/24 05:19 07/15/24 10:07 07/14/24 19:30 Range/Units Whole Blood Glucose 248 #H 70-110 MG/DL White Blood Count 8.2 4.8-10.8 K/uL Red Blood Count 3.72 L 4.50-6.20 MIL/uL Hemoglobin 11.5 L 14.0-18.0 g/dL Hematocrit 33.9 L 42-54 % Mean Corpuscular Volume 91.1 79-99 fL Mean Corpuscular Hemoglobin 30.9 27.0-33.0 pg Mean Corpuscular Hemoglobin Concent 33.9 32.0-36.0 g/dL Red Cell Distribution Width 13.2 11.0-15.5 % Platelet Count 320 # 130-400 K/uL Mean Platelet Volume 9.0 7.5-10.5 fL Immature Granulocyte % (Auto) 0.7 0-1 % Neutrophils (%) (Auto) 68.8 40.0-77.0 % Lymphocytes (%) (Auto) 14.5 L 21.0-51.0 % Monocytes (%) (Auto) 13.0 3.0-13.0 % Eosinophils (%) (Auto) 2.4 0.0-8.0 % Basophils (%) (Auto) 0.6 0.0-5.0 % Neutrophils # (Auto) 5.6 1.8-7.7 K/uL Lymphocytes # (Auto) 1.2 1.0-4.8 K/uL Monocytes # (Auto) 1.1 H 0.1-1.0 K/uL Eosinophils # (Auto) 0.20 0.00-0.70 K/uL Basophils # (Auto) 0.05 0.00-0.20 K/uL Absolute Immature Granulocyte (auto 0.06 0-1 K/uL Nucleated Red Blood Cells 0.0 0.0-0.19 % Sodium Level 139 136-145 mmol/L Potassium Level 4.8 3.5-5.1 mmol/L Chloride Level 104 101-111 mmol/L Carbon Dioxide Level 25 21-32 mmol/L Blood Urea Nitrogen 26 H 7-18 mg/dL Creatinine 1.4 H 0.5-1.3 mg/dL Glomerular Filtration Rate Calc 58 >90 mL/min Random Glucose 104 70-105 mg/dL Total Calcium 8.9 8.5-10.1 mg/dL Magnesium Level 1.70 L 1.80-2.40 mg/dL Total Bilirubin 0.4 0.2-1.0 mg/dL Aspartate Amino Transf (AST/SGOT) 48 H 10-37 U/L Alanine Aminotransferase (ALT/SGPT) 45 12-78 U/L Alkaline Phosphatase 170 H 50-136 U/L Total Protein 6.2 6.0-8.3 g/dL Albumin 2.3 L 3.5-5.0 g/dL Urine Random Creatinine 22.50 L 30-135 mg/dL Urine Random Total Protein 118.1 #H 0-11.9 mg/dL Current Medications Medications (Trade) Dose Ordered Sig/Jose A Route PRN Reason Start Time Stop Time Status Last Admin Dose Admin Acetaminophen (TYLenol 325MG TAB) 650 mg Q4H PRN PO TEMPERATURE GREATER THAN 101.5 07/13/24 14:30 08/12/24 14:29 Acetaminophen (TYLenol 325MG TAB) 650 mg Q6H PRN PO MILD PAIN (1-3) 07/13/24 14:30 08/12/24 14:29 07/16/24 07:58 650 MG Azithromycin 250 ml @ 250 mls/hr Q24H IVPB 07/13/24 16:30 07/23/24 16:29 07/15/24 17:11 250 MLS/HR Ceftriaxone Sodium (ROCEphine 1G INJ) 1 gm Q24H IVPB 07/13/24 16:30 07/23/24 16:29 07/15/24 17:11 1 GM Diltiazem HCl (CARDIzem 120MG CD) 120 mg DAILY PO 07/14/24 09:00 08/13/24 08:59 07/16/24 07:56 120 MG Diltiazem HCl (CARDIzem 180MG CD) 180 mg DAILY PO 07/14/24 09:00 08/13/24 08:59 07/16/24 07:56 180 MG Furosemide (LASix 40MG VIAL) 40 mg BIDMEALS IV 07/15/24 08:00 08/12/24 14:29 07/16/24 07:57 40 MG Furosemide (LASix 40MG VIAL) 40 mg Q12H IV 07/13/24 14:30 07/14/24 18:56 DC 07/14/24 16:59 40 MG Glimepiride (Glimepiride) 4 mg DAILY PO 07/14/24 09:00 08/13/24 08:59 07/16/24 07:56 4 MG Heparin Sodium (Porcine) (HEParin 5,000 UNIT VIAL) 5,000 unit Q12H SQ 07/13/24 17:30 08/12/24 17:29 07/16/24 05:31 5,000 UNIT Hydralazine HCl ([id number] TAB) 100 mg TID PO 07/13/24 21:00 08/12/24 20:59 07/16/24 08:09 100 MG Insulin Glargine (LANtus 100 UNITS/ML 10 ML VIAL) 25 units DAILY SQ 07/14/24 09:00 08/13/24 08:59 07/16/24 08:06 25 UNITS Insulin Human Regular (humuLIN R 100 UNIT/ML 3ML) INSULIN SLIDING SCAL... ACHS SQ 07/14/24 07:30 08/13/24 07:29 07/16/24 12:34 4 UNIT Lactobacillus Rhamnosus ([facility]) 1 each TID PO 07/14/24 09:00 08/13/24 08:59 07/16/24 08:09 1 EACH Levothyroxine Sodium (SYNTHroid 150MCG TAB) 150 mcg SYN PO 07/14/24 06:30 08/13/24 06:29 07/16/24 06:07 150 MCG Losartan Potassium (CozAAR 100MG TAB) 100 mg DAILY PO 07/14/24 09:00 08/13/24 08:59 07/16/24 07:56 100 MG Magnesium Sulfate 50 ml @ 0 mls/hr PROTOCOL PRN IV MAGNESIUM PROTOCOL 07/15/24 12:00 08/14/24 11:59 07/15/24 15:20 1.4 MLS/HR Metoprolol Tartrate (loprESSOR) 100 mg BID PO 07/14/24 09:00 08/13/24 08:59 07/16/24 07:56 100 MG Miscellaneous Medication (Diltiazem HCl (Diltiazem ER)) 1 cap DAILY PO 07/14/24 09:00 07/13/24 15:42 DC Ondansetron HCl (zoFRAN 4MG INJ) 4 mg Q6H PRN IVP NAUSEA/VOMITING 07/13/24 14:30 08/12/24 14:29 Pantoprazole Sodium (PROTonix 40MG TAB) 40 mg DAILY PO 07/14/24 09:00 08/13/24 08:59 07/16/24 07:56 40 MG Sertraline HCl (ZOloft 50 mg tab) 50 mg DAILY PO 07/14/24 09:00 08/13/24 08:59 07/16/24 07:56 50 MG Spironolactone (Aldactone 25mg) 50 mg DAILY PO 07/14/24 09:00 08/13/24 08:59 07/16/24 07:56 50 MG DIAGNOSTICS / RADIOLOGY: [place] [address] IMAGING REPORT Signed PATIENT: VERO WILKS MR#: [id number] : 1965 SEX: M AGE: 58 LOCATION: [facility] ORDER 06 STATUS: [facility] ER REPORT#: [id number] SERVICE 05 REASON: CHEST PAIN ORDERING PHYSICIAN: SYL ALVAREZ MD PROCEDURE: CXR1VW - CHEST 1VW CHEST 1VW HISTORY: Chest pain COMPARISON: 06/25/2024 FINDINGS: A frontal projection of the chest was obtained. Bilateral pulmonary infiltrates are seen with right more than left. Postop changes are seen of left clavicle unchanged. The heart is borderline enlarged. Degenerative changes are seen. No evidence of aortic calcification is seen. IMPRESSION: 1. Bilateral pulmonary infiltrates with right more than left increased from previous study. DICTATED BY: MICHELLE FRAZIER MD DATE: 07/13/241343 ELECTRONICALLY SIGNED BY: MICHELLE FRAZIER MD DATE: 07/13/241348 ASSESSMENT: Acute respiratory failure with hypoxemia, POA Congestive diastolic heart failure exacerbation, POA Community-acquired pneumonia, POA Fluid overload, POA Hyponatremia , resolve Acute on chronic kidney failure, POA Hyperglycemia with diabetes mellitus type 2, POA Elevated AST and alkaline phosphatase, POA Moderate protein caloric malnutrition, POA History of paroxysmal AFib, POA PLAN: Continue to monitor patient medical/surgical floor. Continue heart healthy diet, low-sodium Congestive diastolic heart failure exacerbation, POA Acute respiratory failure with hypoxemia, POA Fluid overload, POA Continue strict I&O and daily weights Fluid restriction 1.5 L a day Continue Lasix 40 mg IV q.12 hours Continue with oxygen supplementation to keep O2 sat greater than 92% Community-acquired pneumonia, POA Continued Rocephin IV and azithromycin as prescribed Acute on chronic kidney failure, POA Nephrology is on board and we will follow Dr. Martinez's recommendations. BUN is 26, creatinine 1.4. Urine creatinine 22.50 and urine total protein 118.1 Hyponatremia , resolve Patient is on fluid restriction 1.5 L a day. Na level improved. Hyperglycemia with diabetes mellitus type 2, POA We will monitor blood sugars, a.c. and HS glucometer and insulin sliding scale Hypoglycemia and hyperglycemia protocol. Continue DVT and GI prophylaxis. Mg is 1.70 and Mg protocol is placed. ATTESTATION BY PHYSICIAN I have seen and examined the patient. I reviewed the documentation, medical decision making, and treatment plan as noted by the resident provider above. I agree with the findings and plan of care. Phil Coello MD, KRUPALI P MD Jul 16, 2024 15:05
[2024-07-17 05:01] VITALS: BP 117/54; PULSE 96; RESP 18; TEMP 98.3
[2024-07-17 05:35] LABS: HEMATOCRIT 32.2 % (42-54); MEAN CORPUSCULAR HEMOGLOBIN 30.9 pg (27.0-33.0); MEAN CORPUSCULAR HGB CONC 33.2 g/dL (32.0-36.0); MEAN CORPUSCULAR VOLUME 93.1 fL (79-99); RED BLOOD CELL COUNT(AUTO) 3.46 MIL/uL (4.50-6.20); RED CELL DISTRIBUTION WIDTH 13.2 % (11.0-15.5); WHITE BLOOD COUNT (AUTO) 8.9 K/uL (4.8-10.8)
[2024-07-17 05:51] LABS: CREATININE 1.4 mg/dL (0.5-1.3); MAGNESIUM 1.5 mg/dL (1.80-2.40); PHOSPHORUS 5.4 mg/dL (2.5-4.9); POTASSIUM 3.6 mmol/L (3.5-5.1)
[2024-07-17 07:50] VITALS: BP 157/58; PULSE 60; RESP 16; TEMP 98.1
[2024-07-17 08:25] VITALS: O2SAT 99
[2024-07-17 11:27] VITALS: BP 128/55; PULSE 59; RESP 16; TEMP 98.3
--- NOTE | 2024-07-17 13:05 | PN ---
NEPHROLOGY PROGRESS NOTE Date/Time Patient Seen: Jul 17, 2024 Reason for Consultation: 13:04 SUBJECTIVE: This is a 58-year-old male with a past medical history of atrial fibrillation and chronic anticoagulation, hypertension hypothyroidism, congestive heart failure, obstructive sleep apnea, diabetes mellitus type 2, anxiety, GERD. He has a recent hospitalization due to hyponatremia and diarrhea. He was discharged on June 23, 2024. He presented to the emergency room with complaints of shortness of breath. Laboratory values revealed underlying renal dysfunction as well electrolyte abnormalities including hyponatremia. He has been started on Lasix 40 mg IV b.i.d.. Patient states he was not taking any diuretics at home. He continues on antibiotics. Renal function is stable Electrolytes are stable. Hemoglobin is stable Iron levels were noted. He was seen in the medical floor, in no acute distress No family at the bedside Prognosis remains guarded REVIEW OF SYSTEMS: GENERAL: Negative for any nausea, vomiting, fevers, chills, or weight loss. NEUROLOGIC: Negative for any blurry vision, blind spots, double vision, facial asymmetry, dysphagia, dysarthria, hemiparesis, hemisensory deficits, vertigo, ataxia. HEENT: Negative for any head trauma, neck trauma, neck stiffness, photophobia, phonophobia, sinusitis, rhinitis. CARDIAC: Negative for any chest pain, dyspnea on exertion, paroxysmal nocturnal dyspnea, peripheral edema. PULMONARY: Negative for any shortness of breath, wheezing, COPD, or TB exposure. GASTROINTESTINAL: Negative for any abdominal pain, nausea, vomiting, bright red blood per rectum, melena. GENITOURINARY: Negative for any dysuria, hematuria, incontinence. INTEGUMENTARY: Negative for any rashes, cuts, insect bites. RHEUMATOLOGIC: Negative for any joint pains, photosensitive rashes, history of vasculitis or kidney problems. HEMATOLOGIC: Negative for any abnormal bruising, frequent infections or bleeding. Vital Signs (last 8hr) Date Time Temp Pulse Resp B/P (MAP) Pulse Ox O2 Delivery O2 Flow Rate FiO2 07/15/24 12:16 98.4 76 19 125/62 99 Room Air 07/15/24 08:00 98.4 69 18 169/76 95 Room Air 07/15/24 08:00 95 Room Air* 0 21 PHYSICAL EXAM: GENERAL: Alert and oriented x 3. No acute distress. Well-nourished. EYES: EOMI. Anicteric. HENT: Moist mucous membranes. No scleral icterus. No cervical lymphadenopathy. LUNGS: Clear to auscultation bilaterally. No accessory muscle use. CARDIOVASCULAR: Regular rate and rhythm. No murmur. No JVD. ABDOMEN: Soft, non-tender and non-distended. No palpable masses. EXTREMITIES: No edema. Non-tender.?SKIN: No rashes or lesions. Warm. NEUROLOGIC: No focal neurological deficits. CN II-XII grossly intact, but not individually tested. PSYCHIATRIC: Cooperative. Appropriate mood and affect. Current Medications Medications (Trade) Dose Ordered Sig/Jose A Route PRN Reason Start Time Stop Time Status Last Admin Dose Admin Acetaminophen (TYLenol 325MG TAB) 650 mg Q4H PRN PO TEMPERATURE GREATER THAN 101.5 07/13/24 14:30 08/12/24 14:29 Acetaminophen (TYLenol 325MG TAB) 650 mg Q6H PRN PO MILD PAIN (1-3) 07/13/24 14:30 08/12/24 14:29 07/13/24 22:07 650 MG Azithromycin 250 ml @ 250 mls/hr Q24H IVPB 07/13/24 16:30 07/23/24 16:29 07/14/24 16:58 250 MLS/HR Ceftriaxone Sodium (ROCEphine 1G INJ) 1 gm Q24H IVPB 07/13/24 16:30 07/23/24 16:29 07/14/24 17:02 1 GM Diltiazem HCl (CARDIzem 120MG CD) 120 mg DAILY PO 07/14/24 09:00 08/13/24 08:59 07/15/24 09:06 120 MG Diltiazem HCl (CARDIzem 180MG CD) 180 mg DAILY PO 07/14/24 09:00 08/13/24 08:59 07/15/24 09:07 180 MG Furosemide (LASix 40MG VIAL) 40 mg BIDMEALS IV 07/15/24 08:00 08/12/24 14:29 07/15/24 09:04 40 MG Furosemide (LASix 40MG VIAL) 40 mg Q12H IV 07/13/24 14:30 07/14/24 18:56 DC 07/14/24 16:59 40 MG Glimepiride (Glimepiride) 4 mg DAILY PO 07/14/24 09:00 08/13/24 08:59 07/15/24 09:06 4 MG Heparin Sodium (Porcine) (HEParin 5,000 UNIT VIAL) 5,000 unit Q12H SQ 07/13/24 17:30 08/12/24 17:29 07/15/24 06:02 5,000 UNIT Hydralazine HCl ([id number] TAB) 100 mg TID PO 07/13/24 21:00 08/12/24 20:59 07/14/24 20:35 100 MG Insulin Glargine (LANtus 100 UNITS/ML 10 ML VIAL) 25 units DAILY SQ 07/14/24 09:00 08/13/24 08:59 07/14/24 11:34 25 UNITS Insulin Human Regular (humuLIN R 100 UNIT/ML 3ML) INSULIN SLIDING SCAL... ACHS SQ 07/14/24 07:30 08/13/24 07:29 Lactobacillus Rhamnosus ([facility]) 1 each TID PO 07/14/24 09:00 08/13/24 08:59 07/15/24 15:20 1 EACH Levothyroxine Sodium (SYNTHroid 150MCG TAB) 150 mcg SYN PO 07/14/24 06:30 08/13/24 06:29 07/15/24 05:58 150 MCG Losartan Potassium (CozAAR 100MG TAB) 100 mg DAILY PO 07/14/24 09:00 08/13/24 08:59 07/14/24 08:37 100 MG Magnesium Sulfate 50 ml @ 0 mls/hr PROTOCOL PRN IV MAGNESIUM PROTOCOL 07/15/24 12:00 08/14/24 11:59 07/15/24 15:20 1.4 MLS/HR Metoprolol Tartrate (loprESSOR) 100 mg BID PO 07/14/24 09:00 08/13/24 08:59 07/15/24 09:06 100 MG Miscellaneous Medication (Diltiazem HCl (Diltiazem ER)) 1 cap DAILY PO 07/14/24 09:00 07/13/24 15:42 DC Ondansetron HCl (zoFRAN 4MG INJ) 4 mg Q6H PRN IVP NAUSEA/VOMITING 07/13/24 14:30 08/12/24 14:29 Pantoprazole Sodium (PROTonix 40MG TAB) 40 mg DAILY PO 07/14/24 09:00 08/13/24 08:59 07/15/24 09:05 40 MG Sertraline HCl (ZOloft 50 mg tab) 50 mg DAILY PO 07/14/24 09:00 08/13/24 08:59 07/15/24 09:05 50 MG Spironolactone (Aldactone 25mg) 50 mg DAILY PO 07/14/24 09:00 08/13/24 08:59 07/15/24 09:07 50 MG LABORATORY: [ ] Hematology Labs: Test 07/17/24 05:24 07/16/24 05:19 Range/Units White Blood Count 8.9 4.8-10.8 K/uL Red Blood Count 3.46 L 4.50-6.20 MIL/uL Hemoglobin 10.7 L 14.0-18.0 g/dL Hematocrit 32.2 L 42-54 % Mean Corpuscular Volume 93.1 79-99 fL Mean Corpuscular Hemoglobin 30.9 27.0-33.0 pg Mean Corpuscular Hemoglobin Concent 33.2 32.0-36.0 g/dL Red Cell Distribution Width 13.2 11.0-15.5 % Platelet Count 262 130-400 K/uL Mean Platelet Volume 8.4 7.5-10.5 fL Nucleated Red Blood Cells 0.0 0.0-0.19 % Immature Granulocyte % (Auto) 0.7 0-1 % Neutrophils (%) (Auto) 68.8 40.0-77.0 % Lymphocytes (%) (Auto) 14.5 L 21.0-51.0 % Monocytes (%) (Auto) 13.0 3.0-13.0 % Eosinophils (%) (Auto) 2.4 0.0-8.0 % Basophils (%) (Auto) 0.6 0.0-5.0 % Neutrophils # (Auto) 5.6 1.8-7.7 K/uL Lymphocytes # (Auto) 1.2 1.0-4.8 K/uL Monocytes # (Auto) 1.1 H 0.1-1.0 K/uL Eosinophils # (Auto) 0.20 0.00-0.70 K/uL Basophils # (Auto) 0.05 0.00-0.20 K/uL Absolute Immature Granulocyte (auto 0.06 0-1 K/uL Chemistry Labs: Test 07/17/24 10:40 07/17/24 05:24 Range/Units Whole Blood Glucose 129 #H 70-110 MG/DL Sodium Level 141 136-145 mmol/L Potassium Level 3.6 3.5-5.1 mmol/L Chloride Level 105 101-111 mmol/L Carbon Dioxide Level 27 21-32 mmol/L Blood Urea Nitrogen 33 H 7-18 mg/dL Creatinine 1.4 H 0.5-1.3 mg/dL Glomerular Filtration Rate Calc 58 >90 mL/min Random Glucose 70 70-105 mg/dL Total Calcium 8.7 8.5-10.1 mg/dL Phosphorus Level 5.4 H 2.5-4.9 mg/dL Magnesium Level 1.50 L 1.80-2.40 mg/dL DIAGNOSTICS / RADIOLOGY: REASON: CHEST PAIN ORDERING PHYSICIAN: SYL ALVAREZ MD PROCEDURE: CXR1VW - CHEST 1VW CHEST 1VW HISTORY: Chest pain COMPARISON: 06/25/2024 FINDINGS: A frontal projection of the chest was obtained. Bilateral pulmonary infiltrates are seen with right more than left. Postop changes are seen of left clavicle unchanged. The heart is borderline enlarged. Degenerative changes are seen. No evidence of aortic calcification is seen. IMPRESSION: 1. Bilateral pulmonary infiltrates with right more than left increased from previous study. DICTATED BY: MICHELLE FRAZIER MD DATE: 07/13/24 1344 ASSESSMENT: Acute on chronic renal failure Hyponatremia Congestive diastolic heart failure exacerbation Acute respiratory failure with hypoxia Fluid overload Community-acquired pneumonia Atrial fibrillation on chronic anticoagulation Type 2 diabetes mellitus Anxiety disorder Hypertension Gastroesophageal reflux disease Obstructive sleep apnea PLAN: Labs, diagnostic, radiologic exams reviewed and interpreted by myself and supervising physician. We have reviewed external records in detail From Nephrology standpoint, patient may be discharged Follow up in the renal clinic in 1-2 weeks. Continue with diuretics. Monitor blood pressure adjust medication doses as needed Avoid hypotensive episodes May use Dilaudid 0.5 mg IV every 6 hours as needed for severe pain Monitor blood sugars Strict intake, output, and daily weight should be monitored Please renally adjust medications Avoid nephrotoxic and nonsteroidal drugs Avoid contrast if possible Will continue to monitor renal function, anemia, electrolytes Treatment plan discussed with patient Questions were answered We have discussed with the other team physicians in detail about the care plan We will continue to monitor the patient closely finally ATTESTATION BY PHYSICIAN I have seen and examined the patient. I reviewed the documentation, medical decision making, and treatment plan as noted by the mid-level provider above. I agree with the findings and plan of care. NOEMY SAMUELS MD, [facility] Jul 17, 2024 13:05
[2024-07-17] MEDS: LOPERAMIDE 1 MG/7.5 ML UDCUP PO ONE ×2 (14:08→15:17)
--- NOTE | 2024-07-17 14:34 | DS ---
Discharge Summary Hospital Course Summary: This is 58-year-old male patient presented to the emergency department with shortness of breaths on 07/13/24 with shortness of breaths associated with headache and generalized weakness. In the ED his initial vital signs showed temperature of 97.3, pulse 81, respiratory rate 22, blood pressure 165/66, O2 s at 91% on room air. His blood pressure became elevated between 173/81 to 187/75. Patient is now on 3 L nasal cannula with saturation at 96%. Labs showed WBC 9.6, hemoglobin 11.2, hematocrit 32.3, platelet count 310, sodium 132, chloride 98, BUN 47, creatinine 1.9, random glucose 188, alkaline phosphatase 173, BNP 526, albumin 2.6. Chest x-ray showed bilateral pulmonary infiltrates with right more than left increased from previous study. He received furosemide 80 mg IV x1 in the ED. he was referred to the hospitalist for further evaluation and management. Patient was treated with IV Rocephin and Azithromycin. He developed multiple episodes of loose diarrhea. Stool sample was sent for C. diff but it was not watery enough to do the C.diff test. Patient's B P has been very fluctuating on multiple antihypertensives. His Losartan is discontinued. Today on 07/17/24, he feels much betetr, his lower extremity edema has gone down, no shortness of breath and BUN 33 and creatinine 1.4. Mg 1.50 and it is been replaced. Patient is clinically stable for discharge today. He will be prescribed Levofloxacin 750 mg daily for 7 days for CAP and Flagyl 500 mg BID for 7 days for diarrhea and Furosemide 40 mg as needed for edema. Patient to follow up with PCP in 3-5 days and with Nephrology in 1-2 weeks. Vice President Payment(s): Nephrology : Dr. Orr, Dr. Martinez Procedure(s): [place] [address] [place] [id number] ELECTRO CARDIOGRAM Signed PATIENT: VERO WILKS MR#: [id number] : 1965 SEX: M AGE: 58 LOCATION: [facility] ROOM/BED: ED-11 [id number] REPORT#: [id number] REASON: ORDERING PHYSICIAN: SYL ALVAREZ MD PROCEDURE: EKG - 12 LEAD EKG TRACING- TECHNICAL [facility] Test Date: 2024-07-13 Test Time: 12:18:09 Pat Name: VERO WILKS Department: ED[facility]IP Room: ED 11 Gender: M Glaucoma Specialist: [id number] : 1965 Requested By: SYL ALVAREZ Order Number: [id number] Reading MD: Selwyn Saab Measurements Intervals Maynard Rate: 82 P: 0 IA: 0 QRS: 55 QRSD: 74 T: 66 QT: 411 QTc: 479 Interpretive Statements Atrial flutter with predominant 3:1 AV block Nonspecific T abnormalities, lateral leads Compared to ECG 06/25/2024 06:25:01 AV block, advanced (high-grade) now present T-wave abnormality now present Sinus rhythm no longer present Electronically Signed On 07-13-2024 17:33:35 NET MAKING SUPERVISOR by Selwyn Saab Please click the below link to [place] [address] IMAGING REPORT Signed PATIENT: VERO WILKS MR#: [id number] : 1965 SEX: M AGE: 58 LOCATION: [facility] ORDER 06 STATUS: REG ER REPORT#: [id number] SERVICE 1206 REASON: CHEST PAIN ORDERING PHYSICIAN: SYL ALVAREZ MD PROCEDURE: CXR1VW - CHEST 1VW CHEST 1VW HISTORY: Chest pain COMPARISON: 06/25/2024 FINDINGS: A frontal projection of the chest was obtained. Bilateral pulmonary infiltrates are seen with right more than left. Postop changes are seen of left clavicle unchanged. The heart is borderline enlarged. Degenerative changes are seen. No evidence of aortic calcification is seen. IMPRESSION: 1. Bilateral pulmonary infiltrates with right more than left increased from previous study. DICTATED BY: MICHELLE FRAZIER MD DATE: 07/13/241343 ELECTRONICALLY SIGNED BY: MICHELLE FRAZIER MD DATE: 07/13/24 134 Assessment/Plan: ASSESSMENT: Acute respiratory failure with hypoxemia, POA Congestive diastolic heart failure exacerbation, POA Community-acquired pneumonia, POA Fluid overload, improving Hyponatremia , resolve Acute on chronic kidney failure, POA Hyperglycemia with diabetes mellitus type 2, POA Elevated AST and alkaline phosphatase, POA Moderate protein caloric malnutrition, POA History of paroxysmal AFib, POA Discharge Instructions: ADMISSION DATE : 07/13/24 DISCHARGE DATE : 07/17/24 DISPOSITION : Home CONDITION : Stable Vice President Payment(s) : Nephrology : Dr. Orr, Dr. Martinez FOLLOW UP APPOINTMENTS : Patient to follow-up with the primary care physician within 3-5 days and nephrology in 1-2 weeks upon discharge. PROCEDURES : None IMAGING (s) : Report attached to summary : Chest x-ray and EKG MICROBIOLOGY : None ACTIVITY : ab darcie HOME MEDICATIONS : Continue. Discontinue Losartan NEW MEDICATIONS : Levofloxacin 750 mg daily for 7 days Metronidazole 500 mg BID for 7 days Furosemide 40 mg as needed for edema. TEACHING : We reinforced the importance of medication compliance and with follow up appointments. Advised patient to follow-up with the primary care physician within 3-5 days and nephrology in 1-2 weeks upon discharge. Emergency instructions : The patient was instructed to present to the nearest Emergency Department or call 911 should their symptoms return or worsen. Home Medications: Active Scripts Lactobacillus Rhamnosus GG (Culturelle) 15 Billion Cell Cap.sprink, 1 EACH PO T ID, #30 CAP.SPRINK 0 Refills Prov:ADRI WOMACK AGPCNP 06/29/24 Reported Medications Rivaroxaban (Xarelto) 20 Mg Tablet, 1 TAB PO DAILY for 30 Days, #30 TAB 0 Refills with food 07/14/24 Pantoprazole Sodium (Pantoprazole Sodium) 40 Mg Tablet.dr, 1 TAB PO DAILY for 30 Days, #30 TAB 0 Refills 07/14/24 Metoprolol Tartrate (Metoprolol Tartrate) 100 Mg Tablet, 1 TAB PO BID for 30 Days, #60 TAB 0 Refills 07/14/24 Metformin HCl (Metformin HCl) 500 Mg Tablet, 1 TAB PO BID for 30 Days, #60 TAB 0 Refills 07/14/24 Insulin Glargine,Hum.rec.anlog (Lantus Solostar) 100 Unit/Ml (3 Ml) Insuln.pen, 25 UNIT SQ DAILY for 30 Days, #15 ML 0 Refills 07/14/24 Glimepiride (Glimepiride) 4 Mg Tablet, 1 TAB PO DAILY for 30 Days, #30 TAB 0 Refills 07/14/24 Losartan Potassium (Losartan Potassium) 100 Mg Tablet, 1 TAB PO DAILY for 30 Days, #30 TAB 0 Refills 06/25/24 Levothyroxine Sodium (Levothyroxine) 150 Mcg Capsule, 1 CAP PO DAILY for 30 Days, #30 CAP 0 Refills 06/25/24 Hydralazine HCl (Hydralazine HCl) 100 Mg Tablet, 1 TAB PO TID for 30 Days, #90 TAB 0 Refills 06/25/24 Diltiazem HCl (Diltiazem ER) 300 Mg Capsule.er, 1 CAP PO DAILY for 30 Days, #30 CAP 0 Refills 06/25/24 Spironolactone (Spironolactone) 50 Mg Tablet, 1 TAB PO DAILY for 30 Days, #30 TAB 0 Refills 06/25/24 Sertraline HCl (Zoloft) 50 Mg Tablet, 50 MG PO DAILY, TAB 06/25/24 Discontinued Reported Medications Pantoprazole Sodium (Pantoprazole Sodium) 40 Mg Tablet.dr, 40 MG PO DAILY, TAB 01/03/24 Metoprolol Tartrate (Metoprolol Tartrate) 100 Mg Tablet, 100 MG PO BID, TAB 01/03/24 Discontinued Scripts Insulin Glargine,Hum.rec.anlog (Lantus Solostar) 100 Unit/Ml (3 Ml) Insuln.pen, 25 UNIT SQ DAILY, #3 SYRINGE 1 Refill Prov:DELMIS GUTIÉRREZ MD 01/04/24 Glimepiride (Glimepiride) 4 Mg Tablet, 4 MG PO Q24H, #30 TAB Prov:DELMIS GUTIÉRREZ MD 01/04/24 Metformin HCl (Metformin HCl) 500 Mg Tablet, 500 MG PO BID, #60 TAB Prov:DELMIS GUTIÉRREZ MD 01/04/24 Rivaroxaban (Xarelto) 20 Mg Tablet, 20 MG PO DAILY, #30 TAB 0 Refills Prov:DELMIS GUTIÉRREZ MD 01/04/24 [sulfaMETHOX-TMP DS 800/160 TAB] 1 TAB TABLET No Conflict Check, 1 TAB PO BID, #4 0 Refills Prov:ADRI WOMACK AGPCNP 06/29/24 New Medications: Furosemide (Furosemide) 40 Mg Tablet 40 MG PO as needed, #15 TAB 0 Refills Levofloxacin (Levofloxacin) 750 Mg Tablet 1 TAB PO DAILY for 7 Days, #7 TAB 0 Refills Metronidazole (Metronidazole) 500 Mg Tablet 1 TAB PO BID for 7 Days, #14 TAB 0 Refills Continued Medications: Diltiazem HCl (Diltiazem ER) 300 Mg Capsule.er 1 CAP PO DAILY for 30 Days, #30 CAP 0 Refills Glimepiride (Glimepiride) 4 Mg Tablet 1 TAB PO DAILY for 30 Days, #30 TAB 0 Refills Hydralazine HCl (Hydralazine HCl) 100 Mg Tablet 1 TAB PO TID for 30 Days, #90 TAB 0 Refills Insulin Glargine,Hum.rec.anlog (Lantus Solostar) 100 Unit/Ml (3 Ml) Insuln.pen 25 UNIT SQ DAILY for 30 Days, #15 ML 0 Refills Lactobacillus Rhamnosus GG (Culturelle) 15 Billion Cell Cap.sprink 1 EACH PO TID, #30 CAP.SPRINK 0 Refills Levothyroxine Sodium (Levothyroxine) 150 Mcg Capsule 1 CAP PO DAILY for 30 Days, #30 CAP 0 Refills Metformin HCl (Metformin HCl) 500 Mg Tablet 1 TAB PO BID for 30 Days, #60 TAB 0 Refills Metoprolol Tartrate (Metoprolol Tartrate) 100 Mg Tablet 1 TAB PO BID for 30 Days, #60 TAB 0 Refills Pantoprazole Sodium (Pantoprazole Sodium) 40 Mg Tablet.dr 1 TAB PO DAILY for 30 Days, #30 TAB 0 Refills Rivaroxaban (Xarelto) 20 Mg Tablet 1 TAB PO DAILY for 30 Days, #30 TAB 0 Refills with food Sertraline HCl (Zoloft) 50 Mg Tablet 50 MG PO DAILY, TAB Spironolactone (Spironolactone) 50 Mg Tablet 1 TAB PO DAILY for 30 Days, #30 TAB 0 Refills Discontinued Medications: Losartan Potassium (Losartan Potassium) 100 Mg Tablet 1 TAB PO DAILY for 30 Days, #30 TAB 0 Refills Time spent arranging discharge: 1-30 minutes ATTESTATION BY PHYSICIAN I have seen and examined the patient. I reviewed the documentation, medical decision making, and treatment plan as noted by the resident provider above. I agree with the findings and plan of care. Phil Coello MD, KRUPALI P MD Jul 17, 2024 14:34
[2024-07-17] MEDS ORDERED: LEVO750T40 PO (14:49)
[2024-07-17] MEDS ORDERED: METR-172 PO (14:49)
[2024-07-17] MEDS ORDERED: FURO40TA5 PO (14:50)
[2024-07-17 15:57] VITALS: BP 140/64; PULSE 56; RESP 17; TEMP 97.7
== END 2024-07-17 16:20 | disposition home or self-care (01) | DRG 291 ==
LOC: EDH 11:58 → EDHIP 11:59 → 4CH 07-14 00:30
PROVIDERS: ADMIT Internal Medicine; ATTEND Internal Medicine
DX: I13.0 Hypertensive heart and chronic kidney disease with heart failure and stage 1 through stage 4 chronic kidney disease, or unspecified chronic kidney disease (principal); I50.33 Acute on chronic diastolic (congestive) heart failure; J18.9 Pneumonia, unspecified organism; J96.01 Acute respiratory failure with hypoxia; N17.9 Acute kidney failure, unspecified; E87.1 Hypo-osmolality and hyponatremia; E44.0 Moderate protein-calorie malnutrition; Z59.02 Unsheltered homelessness; I48.20 Chronic atrial fibrillation, unspecified; D64.9 Anemia, unspecified; E11.65 Type 2 diabetes mellitus with hyperglycemia; E11.22 Type 2 diabetes mellitus with diabetic chronic kidney disease; N18.9 Chronic kidney disease, unspecified; I48.0 Paroxysmal atrial fibrillation; K21.9 Gastro-esophageal reflux disease without esophagitis; F32.A Depression, unspecified; G47.33 Obstructive sleep apnea (adult) (pediatric); E11.21 Type 2 diabetes mellitus with diabetic nephropathy; E78.00 Pure hypercholesterolemia, unspecified; E03.9 Hypothyroidism, unspecified; F41.9 Anxiety disorder, unspecified; I25.10 Atherosclerotic heart disease of native coronary artery without angina pectoris; Z79.01 Long term (current) use of anticoagulants; Z79.899 Other long term (current) drug therapy; Z68.34 Body mass index [BMI] 34.0-34.9, adult
CPT/HCPCS: 36415; 71045; 80048; 80053; 80076; 81001; 82550; 82570; 82948; 83540; 83550; 83735; 83880; 84100; 84156; 84484; 85025; 85027; 87324; 93005; 96374; 99291; G0378; J0456; J0696; J1644; J1815; J1940; J3475

== ENCOUNTER 2024-08-14 17:31 | Inpatient (IN) | payer SELFPAY ==
[~2024-08-14] VITALS: Ht 162.6 cm; Wt 99.6 kg
[~2024-08-14 17:31] MED LIST changes: +FURO40TA5 PO; +LEVO750T40 PO; -LOSA100T59 PO; +METR-172 PO; -sulfaMETHOX-TMP DS 800/160 TAB PO
--- NOTE | 2024-08-14 18:05 | ERN ---
ED Note History of Present Illness Stated Complaint: SOB W/ EXERTION Chief Complaint: Shortness of Breath Time Seen by MD: 17:32 Time Seen by Midlevel: 17:32 Dictation: The patient is a 58 year old male with history of AFib on Eliquis, diabetes, hyperlipidemia, hypertension, CHF who presents to the emergency department with complaints of shortness of breath onset two days ago associated with lower extremity swelling. Patient reports shortness of breath worse with exertion, reports nonproductive cough. Patient denies any fevers, chest pain. Patient denies taking any diuretics at home. Allergies: Coded Allergies: aspirin (Verified Allergy, Severe, 07/04/16) hydroxyzine (Unverified Allergy, Mild, SWELLING, 06/25/24) ORBITAL SWELLING PER PATIENT lisinopril (Unverified Allergy, Unknown, 01/30/23) Home Meds Active Scripts Furosemide (Furosemide) 40 Mg Tablet, 40 MG PO as needed, #15 TAB 0 Refills Prov:ELIAS STERN MD 07/17/24 Levofloxacin (Levofloxacin) 750 Mg Tablet, 1 TAB PO DAILY for 7 Days, #7 TAB 0 Refills Prov:ELIAS STERN MD 07/17/24 Metronidazole (Metronidazole) 500 Mg Tablet, 1 TAB PO BID for 7 Days, #14 TAB 0 Refills Prov:EILAS STERN MD 07/17/24 Lactobacillus Rhamnosus GG (Culturelle) 15 Billion Cell Cap.sprink, 1 EACH PO TID, #30 CAP.SPRINK 0 Refills Prov:ADRI WOMACK AGPCNP 06/29/24 Reported Medications Rivaroxaban (Xarelto) 20 Mg Tablet, 1 TAB PO DAILY for 30 Days, #30 TAB 0 Refills with food 07/14/24 Pantoprazole Sodium (Pantoprazole Sodium) 40 Mg Tablet.dr, 1 TAB PO DAILY for 30 Days, #30 TAB 0 Refills 07/14/24 Metoprolol Tartrate (Metoprolol Tartrate) 100 Mg Tablet, 1 TAB PO BID for 30 Days, #60 TAB 0 Refills 07/14/24 Metformin HCl (Metformin HCl) 500 Mg Tablet, 1 TAB PO BID for 30 Days, #60 TAB 0 Refills 07/14/24 Insulin Glargine,Hum.rec.anlog (Lantus Solostar) 100 Unit/Ml (3 Ml) Insuln.pen, 25 UNIT SQ DAILY for 30 Days, #15 ML 0 Refills 07/14/24 Glimepiride (Glimepiride) 4 Mg Tablet, 1 TAB PO DAILY for 30 Days, #30 TAB 0 Refills 07/14/24 Levothyroxine Sodium (Levothyroxine) 150 Mcg Capsule, 1 CAP PO DAILY for 30 Days, #30 CAP 0 Refills 06/25/24 Hydralazine HCl (Hydralazine HCl) 100 Mg Tablet, 1 TAB PO TID for 30 Days, #90 TAB 0 Refills 06/25/24 Diltiazem HCl (Diltiazem ER) 300 Mg Capsule.er, 1 CAP PO DAILY for 30 Days, #30 CAP 0 Refills 06/25/24 Spironolactone (Spironolactone) 50 Mg Tablet, 1 TAB PO DAILY for 30 Days, #30 TAB 0 Refills 06/25/24 Sertraline HCl (Zoloft) 50 Mg Tablet, 50 MG PO DAILY, TAB 06/25/24 Past Medical History Past Medical History: A-Fib, Anxiety, Depression, Diabetes-Type II, High Cholesterol, Heart Disease, Hypertension Additional Past Medical Hx: HYPONATREMIA Surgical History: Other Surgical History Other: LT CLAVICAL SX Social History: Negative RN Note Reviewed/Agreed w/PFSH: Yes Review of System Dictation Constitutional: Negative for fever,chills, and weight loss Eyes: Negative for injury, pain,redness, and discharge ENT: Negative for injury,pain or swelling Cardiovascular: Negative for chest pain, palpitations, positive for lower extremity edema Respiratory: Negative for wheezing, positive for shortness of breath, cough Abdomen/GI: Negative for abdominal pain, nausea, vomiting, diarrhea, and constipation Back: Negative for injury and pain : Negative for injury, bleeding and discharge MS/Extremity: Negative for injury and deformity Skin: Negative for rash, and discoloration Neuro: Negative for headache, weakness, numbness, tingling, and seizure Psych: Negative for suicide ideation, homicidal ideation, and hallucinations Initial Vital Sign VS Vital Signs Date Time Temp Pulse Resp B/P (MAP) Pulse Ox O2 Delivery O2 Flow Rate FiO2 08/14/24 17:32 98.1 72 16 131/65 97 Room Air 0 Physical Exam Dictation Vital Signs reviewed General Appearance: Alert, oriented x 3, no acute distress, well developed, nou rished. Head and Face: non-traumatic. Eyes: PERRL, pink conjunctivas, eyelid no trauma, anterior chamber with arcus senilis. Ears: Pinnas intact and no signs of trauma or erythema ear canals clear and no discharge TM no erythema Nose: No discharge, no bleeding. Oropharynx: Mouth normal, tongue pink. pharynx clear,no erythema, tonsils no exudates, no abscesses noted, mucous mem brane moist Neck: Supple, non-tender, no thyromegaly, no masses, no JVD, no bruits Breast:Deferred Chest:No tenderness, no crepitus, no paradoxical movement, no retractions Lungs: Lower lobes crackles, well-ventilated, symmetric, no rales, no wheezing, no rhonchi, no stridor, good breath sounds bilaterally Heart: Regular rate, regular rhythm, no murmur, no gallops Vascular: 3+ bilateral pitting edema Abdomen: Soft, positive bowel sounds, nondistended, no guarding, nontender, no rebound, no masses no hepatomegaly, no splenomegaly, no Kunz's sign, hernia mid abdomen Rectal: Deferred Genital: Deferred Neurological: Normal speech, motor function intact, sensory function intact Musculoskeletal: Neck nontender, full range of motion, back nontender, full range of motion, Extremities: nontender, full range of motion Skin: Color pink, dry, no turgor, no rash, no lacerations, no abrasions, no contusions. Lymphatic: Deferred Results (Laboratory/Radiology) Laboratory/Radiology Laboratory Tests Test 08/14/24 19:12 White Blood Count 9.5 K/uL (4.8-10.8) Red Blood Count 3.37 MIL/uL (4.50-6.20) L Hemoglobin 9.7 g/dL (14.0-18.0) L Hematocrit 31.1 % (42-54) L Mean Corpuscular Volume 92.3 fL (79-99) Mean Corpuscular Hemoglobin 28.8 pg (27.0-33.0) Mean Corpuscular Hemoglobin Concent 31.2 g/dL (32.0-36.0) L Red Cell Distribution Width 13.2 % (11.0-15.5) Platelet Count 304 K/uL (130-400) Mean Platelet Volume 8.8 fL (7.5-10.5) Immature Granulocyte % (Auto) 0.5 % (0-1) Neutrophils (%) (Auto) 72.6 % (40.0-77.0) Lymphocytes (%) (Auto) 12.5 % (21.0-51.0) L Monocytes (%) (Auto) 12.8 % (3.0-13.0) Eosinophils (%) (Auto) 1.2 % (0.0-8.0) Basophils (%) (Auto) 0.4 % (0.0-5.0) Neutrophils # (Auto) 6.9 K/uL (1.8-7.7) Lymphocytes # (Auto) 1.2 K/uL (1.0-4.8) Monocytes # (Auto) 1.2 K/uL (0.1-1.0) H Eosinophils # (Auto) 0.11 K/uL (0.00-0.70) Basophils # (Auto) 0.04 K/uL (0.00-0.20) Absolute Immature Granulocyte (auto 0.05 K/uL (0-1) Nucleated Red Blood Cells 0.0 % (0.0-0.19) Prothrombin Time 10.9 SEC (9.6-11.6) Prothromb Time International Ratio 1.01 (0.85-1.15) Activated Partial Thromboplast Time 28.9 SEC (26.3-35.5) Sodium Level 135 mmol/L (136-145) L Potassium Level 4.7 mmol/L (3.5-5.1) Chloride Level 103 mmol/L (101-111) Carbon Dioxide Level 25 mmol/L (21-32) Blood Urea Nitrogen 27 mg/dL (7-18) H Creatinine 1.4 mg/dL (0.5-1.3) H Glomerular Filtration Rate Calc 58 mL/min (>90) Random Glucose 196 mg/dL (70-105) H Total Calcium 8.8 mg/dL (8.5-10.1) Magnesium Level 2.00 mg/dL (1.80-2.40) Troponin I High Sensitivity 13 ng/L (4-75) B-Type Natriuretic Peptide 520 pg/mL (0-100) H REASON: sob ORDERING PHYSICIAN: ARYA DELA CRUZ PROCEDURE: CXR1VW - CHEST 1VW CHEST 1VW REASON: sob COMPARISON: 07/13/2024 FINDINGS: There are bibasilar infiltrates more pronounced on the right. Upper lungs are clear. Heart size is normal. There is no vascular congestion. IMPRESSION: 1. Right lower lobe infiltrate, there may be some infiltrate in the left base as well. Labs Reviewed?: Yes EKG: (+) NSR EKG Comment: EKG 08/14/2024 1736 ventricular rate 69, regular rate and rhythm, normal sinus rhythm, no STEMI. ED Course ED Course Orders Procedure Category Date Status Time Cbc With Differential LAB 08/14/24 Complete 17:47 B-Type Natriuretic LAB 08/14/24 Complete Peptide 17:47 Chest 1vw RAD 08/14/24 Resulted 17:47 12 Lead Ekg Tracing- EKG 08/14/24 Logged Technical 17:47 Magnesium LAB 08/14/24 Complete 17:47 Troponin I High LAB 08/14/24 Complete Sensitivity 17:47 Urinalysis Profile LAB 08/14/24 Logged 17:47 Basic Metabolic Panel LAB 08/14/24 Complete 17:47 Furosemide 40mg Vial PHA 08/14/24 Complete (Lasix 40mg Vial) 18:00 Pt And Ptt LAB 08/14/24 Complete 17:48 Admit Orders ADM 08/14/24 Transmitted 20:28 Vital Signs(Adult CPOE 08/14/24 Transmitted Hospitalist) 20:28 Telemetry Monitoring CPOE 08/14/24 Transmitted 20:28 Oxygen By Nc/Pulse Ox CPOE 08/14/24 Transmitted 20:28 Nurse To Enter Home CPOE 08/14/24 Transmitted Medication 20:28 I&O Q Shift CPOE 08/14/24 Transmitted 20:28 Daily Weights CPOE 08/14/24 Transmitted 20:28 Daily Fluid Intake CPOE 08/14/24 Transmitted Restriction 20:28 Condition: CPOE 08/14/24 Transmitted 20:28 Activity: Ad Selin CPOE 08/14/24 Transmitted 20:28 Occult Blood Stool LAB 08/14/24 Logged Single Only 20:30 Osmolality Urine LAB 08/14/24 Logged 20:30 Urine Creatinine LAB 08/14/24 Logged Random 20:30 Urine Sodium,Random LAB 08/14/24 Logged 20:30 Urinalysis Profile LAB 08/14/24 Logged 20:30 Initiate MIGUEL 08/14/24 In Process Hyperglycemia Protoco 20:31 Regular Insulin-Ss1 PHA 08/14/24 Transmitted 21:00 Hemoglobin A1c LAB 08/15/24 Verified 04:00 Current Medications Medications (Trade) Dose Ordered Sig/Jose A Route PRN Reason Start Time Stop Time Status Last Admin Dose Admin Furosemide (LASix 40MG VIAL) 40 mg ONCE ONCE IV 08/14/24 18:00 08/14/24 18:01 DC Vital Signs Date Time Temp Pulse Resp B/P (MAP) Pulse Ox O2 Delivery O2 Flow Rate FiO2 08/14/24 17:32 98.1 72 16 131/65 97 Room Air 0 Medical Decision Making MDM The patient is a 58 year old male with history of AFib on Eliquis, diabetes, hyperlipidemia, hypertension, CHF who presents to the emergency department with complaints of shortness of breath onset two days ago associated with lower extremity swelling. Patient reports shortness of breath worse with exertion, reports nonproductive cough. Patient denies any fevers, chest pain. Patient denies taking any diuretics at home. CBC showed no leukocytosis, normocytic anemia, chemistry showed elevated BNP, negative troponin, hyponatremia, GFR 58, chest x-ray showed bilateral pulmonary infiltrates more on the right patient will be admitted for further management Differential diagnosis: CHF exacerbation, ACS, pneumothorax, pneumonia, electrolyte imbalance, tachyarrhythmias Comorbidities: AFib, anxiety, depression, diabetes, hyperlipidemia, hyper tension Tests considered and not ordered secondary to shared decision making include: none Previous outside records reviewed: none Risk of complication and/or morbidity or mortality of patient management: The patient meets criteria for admission. Need for emergency major/minor surgery: No There are no social concerns with this patient. I independently interpreted the tests I ordered (labs, urinalysis, etc.). I discussed the case with the hospitalist for admission. Maximo who accepts admission. I discussed the case with the following specialists: none. Historian: pateinobed. I independently interpreted imaging studies and EKGs that I ordered (US, CT, XR, EKG, etc.). External chart review: none. Medical management and examination interpretation discussions were had by me with other qualified healthcare professionals as indicated for the patient's care. DX & DISP Disposition: Inpatient Decision to Admit Date: Aug 14, 2024 Decision to Admit Time: 20:35 Departure Impression: Primary Impression: CHF exacerbation Additional Impressions: Pneumonia, Normocytic anemia, Hyponatremia, Swelling of lower extremity, CKD (chronic kidney disease) Condition: Stable Referrals: SELF,REFERRAL (PCP) I have reviewed the case, and I agree with, Diagnosis and Plan ARYA DELA CRUZ [facility] Aug 14, 2024 18:05
[2024-08-14 19:20] LABS: BASOPHILS # (AUTO) 0.04 K/uL (0.00-0.20); BASOPHILS % (AUTO) 0.4 % (0.0-5.0); EOSINOPHILS # (AUTO) 0.11 K/uL (0.00-0.70); EOSINOPHILS % (AUTO) 1.2 % (0.0-8.0); HEMATOCRIT 31.1 % (42-54); IMMATURE GRANULOCYTE ABSOLUTE 0.05 K/uL (0-1); LYMPHOCYTES # (AUTO) 1.2 K/uL (1.0-4.8); LYMPHOCYTES % (AUTO) 12.5 % (21.0-51.0); MEAN CORPUSCULAR HEMOGLOBIN 28.8 pg (27.0-33.0); MEAN CORPUSCULAR HGB CONC 31.2 g/dL (32.0-36.0); MEAN CORPUSCULAR VOLUME 92.3 fL (79-99); MONOCYTES # (AUTO) 1.2 K/uL (0.1-1.0); MONOCYTES % (AUTO) 12.8 % (3.0-13.0); NEUTROPHILS # (AUTO) 6.9 K/uL (1.8-7.7); NEUTROPHILS % (AUTO) 72.6 % (40.0-77.0); PLATELET COUNT (AUTO) 304 K/uL (130-400); RED BLOOD CELL COUNT(AUTO) 3.37 MIL/uL (4.50-6.20); RED CELL DISTRIBUTION WIDTH 13.2 % (11.0-15.5); WHITE BLOOD COUNT (AUTO) 9.5 K/uL (4.8-10.8)
--- NOTE | 2024-08-14 19:28 | HMCIMG ---
CHEST 1VW REASON: sob COMPARISON: 07/13/2024 FINDINGS: There are bibasilar infiltrates more pronounced on the right. Upper lungs are clear. Heart size is normal. There is no vascular congestion. IMPRESSION: 1. Right lower lobe infiltrate, there may be some infiltrate in the left base as well.
[2024-08-14 19:29] LABS: CREATININE 1.4 mg/dL (0.5-1.3); POTASSIUM 4.7 mmol/L (3.5-5.1)
[2024-08-14 19:33] LABS: INR 1.01 (0.85-1.15); PROTHROMBIN TIME 10.9 SEC (9.6-11.6)
[2024-08-14 19:34] LABS: PARTIAL THROMBOPLASTIN TIME 28.9 SEC (26.3-35.5)
[2024-08-14 19:44] LABS: B-TYPE NATRIURETIC PEPTIDE 520 pg/mL (0-100)
--- NOTE | 2024-08-14 20:34 | HP ---
History of Present Illness Reason for Visit: sob History of Present Illness Mr. Day is a 58-year-old male that was seen and examined today on 08/14/2024. Patient is a good historian and personal health. Patient reports that he came to the emergency department with a chief complaint of shortness of breath. Onset was four days ago. Location is to lungs. Duration is on and off. Symptoms are aggravated with physical activity. Symptoms are mildly alleviated with rest. Patient denies any associated chest pain. Patient complains of associated bilateral lower extremity swelling. Today in the emergency department hemoglobin 9.7, hematocrit 31.1, BUN 27, creatinine 1.4, glucose 196, BNP 520, chest x-ray shows right lower lobe infiltrate. Emergency room physician recommended that patient be admitted with a diagnosis of pneumonia. Past Medical History Patient History: Cancer MOTHER Diabetes mellitus MOTHER Family history: Asthma SON Hypertension MOTHER BROTHER ADDITIONAL PAST MEDICAL HISTORY: [Diabetes mellitius type2, hypertension, AFib with RVR on chronic anticoagulation with Xarelto 20 mg by mouth daily, mild LVH by 2D echo on 06/27/2024, failed clavicular surgery, congenital heart problem, hypothyroidism, anxiety, depression, sleep apnea] SOCIAL HISTORY: [Patient denies smoking tobacco but does use a vape. One vape lasts him two months. Patient consumes alcohol 3 times a week usually two drinks of vodka tonic. Patient denies drug use. Patient is currently homeless and living in a car. Patient has poor access to health care due to lack of [facility] insurance. Patient is typically independent of all his ADLs. Patient denies difficulty pain is bills. 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 Patient states he has been unable to obtain employment since his clavicle surgery in September of 2023.] SURGICAL HISTORY: [Left clavicle surgery, heart catheterization] Review of Systems General: No Fever, No Chills, No Night Sweats, No Fatigue, No Malaise, No Appetite, No Other HEENT: No Head Aches, No Visual Changes, No Eye Pain, No Ear Pain, No Dysphasia, No Sinus Congestion, No Post Nasal Drip, No Sore Throat, No Other Pulmonary: Dyspnea; No Cough, No Pleuritic Chest Pain, No Other Cardiovascular: No: Chest Pain, Palpitations, Orthopnea, Paroxysmal Noc. Dyspnea, Edema, Lt Headedness, Other Gastrointestinal: No: Nausea, Vomiting, Abdominal Pain, Diarrhea, Constipation, Melena, Hematochezia, Other Genitourinary: No Dysuria, No Frequency, No Incontinence, No Hematuria, No Retention, No Other Musculoskeletal: No: other, neck pain, shoulder pain, arm pain, back pain, hand pain, leg pain, foot pain Skin: No Urticaria, No Rash, No Other Neurological: No: Weakness, Numbness, Incoordination, Change in speech, Confusion, Seizures, Other Allergies: Coded Allergies: aspirin (Verified Allergy, Severe, 07/04/16) hydroxyzine (Unverified Allergy, Mild, SWELLING, 06/25/24) ORBITAL SWELLING PER PATIENT lisinopril (Unverified Allergy, Unknown, 01/30/23) Scheduled Diltiazem HCl (Diltiazem ER), 1 CAP PO DAILY, (Reported) Furosemide (Furosemide), 40 MG PO as needed Glimepiride (Glimepiride), 1 TAB PO DAILY, (Reported) Hydralazine HCl (Hydralazine HCl), 1 TAB PO TID, (Reported) Insulin Glargine,Hum.rec.anlog (Lantus Solostar), 25 UNIT SQ DAILY, (Reported) Lactobacillus Rhamnosus GG (Culturelle), 1 EACH PO TID Levofloxacin (Levofloxacin), 1 TAB PO DAILY Levothyroxine Sodium (Levothyroxine), 1 CAP PO DAILY, (Reported) Metformin HCl (Metformin HCl), 1 TAB PO BID, (Reported) Metoprolol Tartrate (Metoprolol Tartrate), 1 TAB PO BID, (Reported) Metronidazole (Metronidazole), 1 TAB PO BID Pantoprazole Sodium (Pantoprazole Sodium), 1 TAB PO DAILY, (Reported) Rivaroxaban (Xarelto), 1 TAB PO DAILY, (Reported) Sertraline HCl (Zoloft), 50 MG PO DAILY, (Reported) Spironolactone (Spironolactone), 1 TAB PO DAILY, (Reported) Exam Vital Signs Vital Signs Date Time Temp Pulse Resp B/P (MAP) Pulse Ox O2 Delivery O2 Flow Rate FiO2 08/14/24 17:32 98.1 72 16 131/65 97 Room Air 0 General Appearance: Alert, Oriented X3, Cooperative, No acute distress HEENT: Atraumatic, EOMI, Mucous membr. moist/pink Respiratory: Clear to auscultation, Normal air movement, NL respiratory effort Cardiovascular: Regular rate, Regular rhythm, Normal S1, Normal S2 Abdominal: Normal bowel sounds, Soft, No tenderness Extremities: Other (+3 pitting edema to bilateral lower extremities) Skin: No significant lesion Neuro: Normal speech, Strength at 5/5 X4 ext, Sensation intact, Cranial nerves 3-12 NL Psych/Mental Status: Mental status NL, Mood NL, Thoughts/Content NL Assessment/Plan ASSESSMENT: [ Pneumonia, POA Elevated BNP, POA Uncontrolled Diabetes mellitius type2, POA CKD stage IIIA, POA Normocytic anemia, POA Hypothyroidism, POA Sleep apnea Atrial fibrillation PLAN: [ Admit patient to pccu as inpatient status. Place patient on telemetry monitoring. Pneumonia: DuoNebs every 6 hours Guaifenesin/dextromethorphan as needed Empiric antibiotic therapy with azithromycin and Rocephin Check sputum culture, follow up with the results Elevated BNP: Reviewed 2D echo from 06/27/2024 that showed EF greater than 70%, mild LVH Uncontrolled Diabetes mellitus type 2: Check hemoglobin A1c in a.m. Glucometer checks a.c. and HS 1800 ADA diet Humulin R sliding scale 1. CKD stage 3: Avoid nephrotoxic agents when possible Renally dose all medications when possible Monitor patient's labs Consider consulting Nephrology service if any worsening renal function or eviden ce of ATN Normocytic anemia: Check stool occult blood. Patient takes DOAC, Xarelto Check iron panel, follow up with the results Check serum ferritin, follow up with the results Check LDH, reticulocyte count, peripheral smear, follow up with the results Monitor labs Transfuse packed red blood cells for hemoglobin less than 7 mg/dL Hypothyroidism, sleep apnea, atrial fibrillation: Consider resuming home medications once they have been reconciled. Check TSH in a.m.. CPAP per home settings. For now, metoprolol 12.5 mg by mouth twice daily, Xarelto 20 mg daily GI prophylaxis, Protonix 40 mg by mouth once daily. DVT prophylaxis, DOAC, Xarelto as stated above] ADVANCED CARE PLANNING 1. Which of the following were discussed? Hospice Care - Yes Therapeutic options - Yes Advance Directives - Yes- patient states he does not have any advance directives in place at this time, however his daughter Mayra Day can make decisions for him if he becomes unable. Other discussions - patient wishes to remain a full code at this time 2. Discussed with who? Patient 3. Voluntary nature of this service was explained to the patient? Yes 4. Amount of time spent - ____ 16 minutes ___ 5. Reviewed by Physician? (if this service was performed by NPP) Yes This document was generated in part using voice recognition software, occasional wrong word or sound alike substitutions may have occurred due to the inherent limitations of voice recognition software. Read the chart carefully and recognize using context, where the substitutions have occurred. Although every effort was made to edit the content, facility service associate and typing errors may occur ATTESTATION BY PHYSICIAN I have seen and examined the patient. I reviewed the documentation, medical decision making, and treatment plan as noted by the mid-level provider above. I agree with the findings and plan of care. VENITA JHAVERI [facility] Aug 14, 2024 20:34
[2024-08-14] MEDS ORDERED: acetaMINOPHEN 325 MG TAB PO PRN (21:00)
[2024-08-14] MEDS: furoSEMIDE 40MG VIAL IV ONE (21:00)
[2024-08-14] MEDS ORDERED: guaiFENesin-DM 200/20MG 10ML PO PRN (21:00)
[2024-08-14] MEDS ORDERED: morPHINE 2 MG SYG IV PRN (21:00)
[2024-08-14] MEDS ORDERED: hydrALAZine 20MG/ML VIAL IV PRN (21:00)
[2024-08-14] MEDS ORDERED: ondanSETRON 4MG INJ IV PRN (21:00)
[2024-08-14] MEDS: cefTRIAXone 1G VIAL IVPB SCH (21:06)
[2024-08-14] MEDS: AZITHROMYCIN 500MG+NS 250ML 250 ML IVPB SCH (21:06)
--- NOTE | 2024-08-14 21:07 | NUR ---
ASSUMED PT CARE
[2024-08-14] MEDS: cefTRIAXone 1G VIAL IVPB ONE (21:16)
[2024-08-14] MEDS: AZITHROMYCIN 500MG+NS 250ML 250 ML IV ONE (21:16)
[2024-08-14 21:41] LABS: INFLUENZA TYPE A Negative For Type A (NEGATIVE); INFLUENZA TYPE B Negative For Type B (NEGATIVE)
[2024-08-14 21:44] LABS: APPEARANCE,URINE CLEAR (CLEAR); BILIRUBIN,URINE NEGATIVE (NEGATIVE); COLOR,URINE YELLOW (YELLOW); GLUCOSE, URINE (UA) 150 mg/dL (NEGATIVE); KETONES,URINE NEGATIVE (NEGATIVE); LEUKOCYTE ESTERASE ,URINE NEGATIVE Leu/uL (NEGATIVE); NITRATE,URINE NEGATIVE (NEGATIVE); OCCULT BLOOD,URINE NEGATIVE (NEGATIVE); PROTEIN,URINE 300 mg/dL (NEGATIVE); UROBILINOGEN,URINE 0.2 mg/dL (0.2-1.0)
[2024-08-14 21:46] LABS: CREATININE,URINE RANDOM 217.63 mg/dL (30-135); SODIUM,URINE RANDOM < 13 mmol/l (40-220)
[2024-08-14 21:48] LABS: ADD UA MICROSCOPIC YES
[2024-08-14 21:49] LABS: MUCUS,URINE RARE LPF (None Seen); OTHER CASTS, URINE 5 /LPF (None Seen); SQUAMOUS EPITHELIAL CELL,UR RARE /HPF (0-2)
[2024-08-14 21:58] LABS: COVID19 (SARS ANTIGEN RAPID) PRESUMPTIVE NEGATIVE (NEGATIVE)
[2024-08-14] MEDS: INSULIN humuLIN R 100 UNIT/ML 3ML SQ SCH (23:05)
[2024-08-15 00:18] VITALS: PULSE 75; RESP 18; O2SAT 90
[2024-08-15] MEDS: IpraTROPium/alBUTERol SULFATE 3 ML SOLUTION IH SCH (00:18)
[2024-08-15] MEDS: SODIUM CHLORIDE 3% FOR INHALATION 4 ML/AMP VIAL.NEB IH ONE (00:42)
[2024-08-15 04:00] VITALS: BP 134/51; PULSE 75; RESP 16; TEMP 98.1; O2SAT 95
[2024-08-15 07:08] VITALS: PULSE 77; RESP 18; O2SAT 94
--- NOTE | 2024-08-15 07:40 | EKG ---
[facility] Test Date: 2024-08-14 Test Time: 17:36:05 Pat Name: VERO WILKS Department: EDHIP Room: ED 14 Gender: M Handbag Framer: [id number] : [id number] Requested By: ARYA DELA CRUZ Order Number: [id number] Reading MD: Selwyn Saab Measurements Intervals [place] Rate: 69 P: 14 UT: 187 QRS: 38 QRSD: 70 T: 36 QT: 410 QTc: 439 Interpretive Statements Sinus rhythm Compared to ECG 07/13/2024 12:18:09 Atrial flutter no longer present AV block, advanced (high-grade) no longer present T-wave abnormality no longer present Electronically Signed On 08-15-2024 14:06:00 RN CLINICAL RESEARCH by Selwyn Saab Please click the below link to view image of tracing.
[2024-08-15 07:50] LABS: BASOPHILS # (AUTO) 0.03 K/uL (0.00-0.20); BASOPHILS % (AUTO) 0.3 % (0.0-5.0); EOSINOPHILS # (AUTO) 0.13 K/uL (0.00-0.70); EOSINOPHILS % (AUTO) 1.5 % (0.0-8.0); HEMATOCRIT 28.6 % (42-54); IMMATURE GRANULOCYTE ABSOLUTE 0.03 K/uL (0-1); LYMPHOCYTES # (AUTO) 1.2 K/uL (1.0-4.8); MEAN CORPUSCULAR HGB CONC 32.2 g/dL (32.0-36.0); MEAN CORPUSCULAR VOLUME 90.2 fL (79-99); MONOCYTES # (AUTO) 1.3 K/uL (0.1-1.0); MONOCYTES % (AUTO) 14.8 % (3.0-13.0); NEUTROPHILS # (AUTO) 6.2 K/uL (1.8-7.7); NEUTROPHILS % (AUTO) 70.1 % (40.0-77.0); PLATELET COUNT (AUTO) 275 K/uL (130-400); RED BLOOD CELL COUNT(AUTO) 3.17 MIL/uL (4.50-6.20); RED CELL DISTRIBUTION WIDTH 13.2 % (11.0-15.5); WHITE BLOOD COUNT (AUTO) 8.9 K/uL (4.8-10.8)
[2024-08-15 07:58] LABS: HEMOGLOBIN A1C 7.1 % (4.0-6.0)
[2024-08-15 08:07] LABS: % IRON SATURATION 10.4 % (30-44)
[2024-08-15 08:17] LABS: CREATININE 1.3 mg/dL (0.5-1.3); MAGNESIUM 1.9 mg/dL (1.80-2.40); PHOSPHORUS 4.6 mg/dL (2.5-4.9); POTASSIUM 4.5 mmol/L (3.5-5.1); THYROID STIMULATING HORMONE 4.99 uIU/mL (0.36-3.74)
--- NOTE | 2024-08-15 08:52 | PN ---
[facility] PROGRESS NOTE Date of Service: Aug 15, 2024 Time of Service: 08:40 SUBJECTIVE: [ ] admission date: 08/14/24 PCP: self referral Chief Complaints: Patient reports that he came to the emergency department with a chief complaint of shortness of breath. Onset was four days ago. Location is to lungs. Duration is on and off. Symptoms are aggravated with physical activity. Sy mptoms are mildly alleviated with rest. Patient denies any associated chest pain. Patient complains of associated bilateral lower extremity swelling. Today in the emergency department hemoglobin 9.7, hematocrit 31.1, BUN 27, creatinine 1.4, glucose 196, BNP 520, chest x-ray shows right lower lobe infiltrate. Emergency room physician recommended that patient be admitted with a diagnosis of pneumonia. 08/15/24 patient seen and examined in ED 14 reviewed chart and discussed plan of care with attending, The patient on room air, noted lower bilateral leg swelling with +2 edema no wheeping. IN ER patient received 40 unit of lasix latest echo was done 06/27 EF 70%. I strongly advice patient to quit vaping he very adamant smoking once in while is not consider a smoker. REVIEW OF SYSTEMS CONSTITUTIONAL: Denies fevers, chills, or night sweats. No unintentional weight loss reported. NEUROLOGICAL: Denies headache, amaurosis fugax, motor weakness, sensory deficit, vertigo/spinning sensation, gait abnormalities, or tremors. ENT: No hearing loss, otalgia, otorrhea, rhinitis, rhinorrhea, hoarseness, or sore throat. CARDIOVASCULAR: Denies any exertional angina, dyspnea on exertion, orthopnea, paroxysmal nocturnal dyspnea, palpitations, life-threatening arrhythmias, claudication. PULMONARY: Denies any shortness of breath, cough, phlegm/sputum, hemoptysis, pleuritic chest pain. SLEEP: Denies morning headaches, daytime somnolence or napping. Denies difficulty falling asleep, staying asleep, waking from sleep. Denies knowledge of snoring. GASTROINTESTINAL: Denies any type of dysphagia to either liquids or solids. Denies nausea, vomiting, pyrosis, early satiety, abdominal pain, diarrhea, constipation, or changes in stool consistency or caliber. Denies coffee-ground emesis, hematemesis, hematochezia, or melanotic stools. GENITOURINARY: Denies frequency, urgency, nocturia, hematuria or incontinence (Storage/Irritative symptoms.) Low urinary stream, straining to void, urinary intermittency or hesitancy, splitting of the voiding stream, terminal dribbling. ENDOCRINOLOGIC: Denies polyuria, polydipsia, polyphagia or heat/cold intolerances. HEMATOLOGIC: Denies thrombophilia/previous clots, or coagulopathy/bleeding disorders. ONCOLOGIC: Denies personal history of malignancy. DERMATOLOGIC: Denies rashes or pruritus. PSYCHIATRIC: Denies any suicidal or homicidal ideation. Denies hallucinations. PHYSICAL EXAM GENERAL APPEARANCE: The patient is awake, alert, and oriented, in no acute cardiopulmonary distress. NEUROLOGICAL: Cranial nerves II-XII grossly intact. Motor is 5/5 in bilateral upper and lower extremities proximal to distal. No sensory deficits. HEENT: Face is symmetric. Pupils are equal and reactive. Extraocular movements are intact. NECK: Supple. No JVD. No thyromegaly. No submental, submandibular, pre- /postauricular, occipital or supraclavicular lymphadenopathy. CHEST: Normal chest expansion. No Telemetry. LUNGS: Absence of any rales, rhonchi or any wheezing. CARDIOVASCULAR: Regular. S1 and S2 normal. No appreciable rubs, murmurs or gallops. ABDOMEN: Soft, nontender, and nondistended. There is no rebound, voluntary guarding, or rigidity. : Deferred. No Finley. EXTREMITIES: Non-edematous and not cyanotic. No clubbing. Good capillary refill. SKIN: No skin breakdown. Vital Signs (last 8hr) Date Time Temp Pulse Resp B/P (MAP) Pulse Ox O2 Delivery O2 Flow Rate FiO2 08/15/24 07:28 98.1 75 18 131/79 94 Room Air* 0 21 08/15/24 07:08 77 18 08/15/24 07:08 77 18 N/A Room Air 21 08/15/24 04:00 98.1 75 16 134/51 94 Room Air 08/15/24 04:00 95 Room Air* 0 21 LABS: Laboratory: Test 08/15/24 07:31 08/15/24 07:16 08/14/24 21:05 08/14/24 20:58 Range/Units Whole Blood Glucose 165 H 70-110 MG/DL White Blood Count 8.9 4.8-10.8 K/uL Red Blood Count 3.17 L 4.50-6.20 MIL/uL Hemoglobin 9.2 L 14.0-18.0 g/dL Hematocrit 28.6 L 42-54 % Mean Corpuscular Volume 90.2 79-99 fL Mean Corpuscular Hemoglobin 29.0 27.0-33.0 pg Mean Corpuscular Hemoglobin Concent 32.2 32.0-36.0 g/dL Red Cell Distribution Width 13.2 11.0-15.5 % Platelet Count 275 130-400 K/uL Mean Platelet Volume 8.9 7.5-10.5 fL Immature Granulocyte % (Auto) 0.3 0-1 % Neutrophils (%) (Auto) 70.1 40.0-77.0 % Lymphocytes (%) (Auto) 13.0 L 21.0-51.0 % Monocytes (%) (Auto) 14.8 H 3.0-13.0 % Eosinophils (%) (Auto) 1.5 0.0-8.0 % Basophils (%) (Auto) 0.3 0.0-5.0 % Neutrophils # (Auto) 6.2 1.8-7.7 K/uL Lymphocytes # (Auto) 1.2 1.0-4.8 K/uL Monocytes # (Auto) 1.3 H 0.1-1.0 K/uL Eosinophils # (Auto) 0.13 0.00-0.70 K/uL Basophils # (Auto) 0.03 0.00-0.20 K/uL Absolute Immature Granulocyte (auto 0.03 0-1 K/uL Nucleated Red Blood Cells 0.0 0.0-0.19 % Reticulocyte Count (auto) 3.25008 H 0.42-2.23 % Immature Reticulocyte Fraction 30.40 H 0.18-0.48 % Sodium Level 136 136-145 mmol/L Potassium Level 4.5 3.5-5.1 mmol/L Chloride Level 104 101-111 mmol/L Carbon Dioxide Level 25 21-32 mmol/L Blood Urea Nitrogen 24 H 7-18 mg/dL Creatinine 1.3 0.5-1.3 mg/dL Glomerular Filtration Rate Calc 64 >90 mL/min Random Glucose 149 H 70-105 mg/dL Hemoglobin A1c 7.1 H 4.0-6.0 % Estimated Average Glucose (eAG) 157 H 70-126 mg/dL Total Calcium 8.7 8.5-10.1 mg/dL Phosphorus Level 4.6 2.5-4.9 mg/dL Magnesium Level 1.90 1.80-2.40 mg/dL Iron Level 25 #L 65-175 mcg/dL Total Iron Binding Capacity 240 L 250-450 mcg/dL Percent Iron Saturation 10.4 L 30-44 % Lactate Dehydrogenase 138 81-234 U/L Thyroid Stimulating Hormone (TSH) 4.99 #H 0.36-3.74 uIU/mL Influenza Type A Antigen Negative For Type A NEGATIVE Influenza Type B Antigen Negative For Type B NEGATIVE SARS-CoV-2 Antigen (Rapid) PRESUMPTIVE NEGATIVE NEGATIVE Urine Color YELLOW YELLOW Urine Appearance CLEAR CLEAR Urine pH 6.0 5.0-8.0 Urine Specific [place] 1.016 1.001-1.031 Urine Protein 300 H NEGATIVE mg/dL Urine Glucose (UA) 150 H NEGATIVE mg/dL Urine Ketones NEGATIVE NEGATIVE mg/dL Urine Occult Blood NEGATIVE NEGATIVE Urine Nitrate NEGATIVE NEGATIVE Urine Bilirubin NEGATIVE NEGATIVE mg/dL Urine Urobilinogen 0.2 0.2-1.0 mg/dL Urine Leukocyte Esterase NEGATIVE NEGATIVE Komal/uL Urine RBC 2-5 H 0-1 /HPF Urine WBC 2-5 H 0-1 /HPF Urine Squamous Epithelial Cells RARE 0-2 /HPF Urine Bacteria None None Seen /HPF Urine Hyaline Casts 6-10 H 0-1 /LPF /LPF Urine Other Casts 5 None Seen /LPF Urine Random Creatinine 217.63 H 30-135 mg/dL Urine Random Sodium < 13 L 40-220 mmol/l Test 08/14/24 19:12 Range/Units Prothrombin Time 10.9 9.6-11.6 SEC Prothromb Time International Ratio 1.01 0.85-1.15 Activated Partial Thromboplast Time 28.9 26.3-35.5 SEC Troponin I High Sensitivity 13 4-75 ng/L B-Type Natriuretic Peptide 520 H 0-100 pg/mL Current Medications Medications (Trade) Dose Ordered Sig/Jose A Route PRN Reason Start Time Stop Time Status Last Admin Dose Admin Acetaminophen (TYLenol 325MG TAB) 650 mg Q6H PRN PO TEMPERATURE GREATER THAN 101.5 08/14/24 21:00 09/13/24 20:59 Albuterol (DUOneb) 1 UDVIAL [id number] IH 08/15/24 00:00 09/14/24 00:00 08/15/24 07:07 1 UDVIAL Azithromycin 250 ml @ 250 mls/hr Q24H IVPB 08/14/24 21:00 08/24/24 20:59 08/14/24 21:06 250 MLS/HR Ceftriaxone Sodium (ROCEphine 1G INJ) 1 gm Q24H IVPB 08/14/24 21:00 08/24/24 20:59 08/14/24 21:06 1 GM Guaifenesin/ Dextromethorphan (RobiTUSSin DM 200/20MG 10ML) 10 ml Q4H PRN PO COUGH 08/14/24 21:00 09/13/24 20:59 Hydralazine HCl (APRESOLine 20MG INJ) 10 mg Q6H PRN IV For:SBP above 160;DBP above 90 08/14/24 21:00 09/13/24 20:59 Insulin Human Regular (humuLIN R 100 UNIT/ML 3ML) INSULIN SLIDING SCAL... ACHS SQ 08/14/24 21:00 09/13/24 20:59 08/14/24 23:05 4 UNIT Metoprolol Tartrate (loprESSOR) 12.5 mg BID PO 08/15/24 09:00 09/14/24 08:59 Morphine Sulfate (morPHINE 2MG SYG) 2 mg Q4H PRN IV SEVERE PAIN (7-10) 08/14/24 21:00 08/21/24 20:59 Ondansetron HCl (zoFRAN 4MG INJ) 4 mg Q6H PRN IV NAUSEA/VOMITING 08/14/24 21:00 09/13/24 20:59 Pantoprazole Sodium (PROTonix 40MG TAB) 40 mg DAILY PO 08/15/24 09:00 09/14/24 08:59 Rivaroxaban (Xarelto) 20 mg DAILYBKFST PO 08/15/24 08:00 09/14/24 07:59 DIAGNOSTICS / RADIOLOGY: [ ] ASSESSMENT: Gram-negative pneumonia RLL infiltrate POA hypercoagulable state secondary to A fibb on Xarelto POA bilateral cellulitis to lower ext with edematous POA DM with Hyperglycemia POA Iron deficiency POA Vaping dependency: POA VA POA Social determinants: Homeless Hypothyroidism PLAN: sediment remediation consultant: Pulmologist we will be determined cont on Empiric antibiotics: Rocephin and Azithromycin IV we will get a set of inflammatory markers procalcitonin and CRP Respiratory cultures pending Oxygen supplement to keep O2 sats above 92% currently on room air satting 94%. Xarelto was initiated from home meds nurses to reviewed and reconciled cardiac medications. We will resume levothyroxine once nurse reviewed meds Anemia workup consistent with iron deficiency. Counseling provided cessation vaping Supportive measures DVT GI prophylaxis Further orders as per response to treatment All questions addressed Case discussed with attending care plan reviewed and agreed upon. This document was generated in part using voice recognition software, occasional wrong word or sound alike substitutions may have occurred due to the inherent limitations of voice recognition software. Read the chart carefully and recognize using context, where the substitutions have occurred. Although every effort was made to edit the content, suspension cord tier and typing errors may occur ATTESTATION BY PHYSICIAN I have seen and examined the patient. I reviewed the documentation, medical d ecision making, and treatment plan as noted by the resident provider above. I agree with the findings and plan of care. Phil Coello MD, ELIZABETH NP Aug 15, 2024 08:52
[2024-08-15] MEDS: RIVAROXABAN 20 MG TABLET PO SCH (09:15)
[2024-08-15] MEDS: PANTOPrazole 40 MG TAB DR PO SCH (09:16)
[2024-08-15] MEDS: metoPROLOL tartRATE 25 MG TAB PO SCH (09:16)
[2024-08-15] MEDS ORDERED: PoTASSium chloRIDE 20MEQ/100ML 100 ML IV PRN (11:00)
[2024-08-15 11:14] VITALS: PULSE 72; RESP 18
--- NOTE | 2024-08-15 11:48 | NUR ---
DCP-Homeless Met with pt who refused to provide any information. Stated to look from previous notes. Notes attached from previous visit. Pt has no insurance will refer to Rosa at [facility] for possible assistance. HOMELESS Sw familiar with pt and situation from previous admissions. Pt states he is homeless by choice. Pt has children and family, but does not want them to know of situation. Pt stays in his car and does [employer] for money to eat, pay for cell phone and for gas. Pt states he prefers to be in car so he can move around from town to town. "It's not as bad as everyone thinks it is." Pt is in contact with SW at [employer] and [employer], ,[employer], has applied for SSI, pending determination. Pt aware of resources and has be proactive in accessing them, they just can not help for one reason or another. Pt states he has marisa and will get out of this himself. Pt to continue to live this way as long as able or one of his applications comes thru. Pt adamant he will not reach out to his family. Addendum: 07/16/24 at 0807 by DEEPA MARTINO SS Pt gets $291 in food stamps Addendum: 08/15/24 at 1152 by ESCOBAR NO RN CM Amended: Links added.
--- NOTE | 2024-08-15 12:35 | HMCIMG ---
US VENOUS DOPPLER BILATERAL REASON: + 2 edema COMPARISON: None Technique: Bilateral venous doppler ultrasound was performed with spectral analysis and color flow imaging technique. FINDINGS: There is a normal appearance of the common femoral, deep femoral, the profunda femoris and popliteal veins. Proximal calf veins appear normal as well. There is normal response to compression and augmentation. There is no evidence of deep venous thrombosis. IMPRESSION: Normal bilateral lower extremity venous Doppler ultrasound.
[2024-08-15] MEDS: HYDRALAZINE HCL PO SCH (14:00)
[2024-08-15 19:39] VITALS: PULSE 87; RESP 22; O2SAT 95
--- NOTE | 2024-08-15 20:04 | NUR ---
CALLED FOR A REPORT, JENI WILL CALL BACK ONCE READY
[2024-08-15] MEDS: metoPROLOL tartRATE 50 MG TAB PO SCH (21:41)
--- NOTE | 2024-08-15 21:54 | NUR ---
REFUSED STOOL RECTAL SAMPLING
[2024-08-16] VITALS (14 sets, daily range): BP systolic 121–156; BP diastolic 50–81; PULSE 70–85; RESP 18–20; TEMP 97.8–98.2; O2SAT 93–96
--- NOTE | 2024-08-16 01:49 | NUR ---
CALLED FOR A REPORT, RECEIVING NURSE STILL ON BREAK WILL WAIT FOR A CALL BACK
[2024-08-16 05:40] LABS: BASOPHILS # (AUTO) 0.03 K/uL (0.00-0.20); BASOPHILS % (AUTO) 0.4 % (0.0-5.0); EOSINOPHILS # (AUTO) 0.12 K/uL (0.00-0.70); EOSINOPHILS % (AUTO) 1.7 % (0.0-8.0); HEMATOCRIT 27.6 % (42-54); IMMATURE GRANULOCYTE ABSOLUTE 0.03 K/uL (0-1); LYMPHOCYTES # (AUTO) 1.1 K/uL (1.0-4.8); LYMPHOCYTES % (AUTO) 15.7 % (21.0-51.0); MEAN CORPUSCULAR HEMOGLOBIN 28.4 pg (27.0-33.0); MEAN CORPUSCULAR HGB CONC 30.8 g/dL (32.0-36.0); MEAN CORPUSCULAR VOLUME 92.3 fL (79-99); MONOCYTES # (AUTO) 1.1 K/uL (0.1-1.0); MONOCYTES % (AUTO) 15.1 % (3.0-13.0); NEUTROPHILS # (AUTO) 4.8 K/uL (1.8-7.7); NEUTROPHILS % (AUTO) 66.7 % (40.0-77.0); PLATELET COUNT (AUTO) 247 K/uL (130-400); RED BLOOD CELL COUNT(AUTO) 2.99 MIL/uL (4.50-6.20); RED CELL DISTRIBUTION WIDTH 13.2 % (11.0-15.5); WHITE BLOOD COUNT (AUTO) 7.2 K/uL (4.8-10.8)
[2024-08-16 05:51] LABS: ALBUMIN 2.3 g/dL (3.5-5.0); BILIRUBIN,TOTAL 0.4 mg/dL (0.2-1.0); CREATININE 1.2 mg/dL (0.5-1.3); MAGNESIUM 1.8 mg/dL (1.80-2.40); POTASSIUM 4.6 mmol/L (3.5-5.1); TOTAL PROTEIN, SERUM 6.2 g/dL (6.0-8.3)
[2024-08-16 06:04] LABS: B-TYPE NATRIURETIC PEPTIDE 281 pg/mL (0-100)
[2024-08-16] MEDS: MAGNESIUM 2GM PREMIX 50ML 50 ML IV PRN (06:32)
[2024-08-16] MEDS: DILTIAZEM HCL PO SCH (09:00)
[2024-08-16] MEDS ORDERED: levoTHYROxine 150 MCG TABLET PO SCH (09:00)
--- NOTE | 2024-08-16 09:13 | PN ---
[facility] PROGRESS NOTE Date of Service: Aug 16, 2024 Time of Service: 09:12 SUBJECTIVE: [ ] admission date: 08/14/24 PCP: self referral Chief Complaints: Patient reports that he came to the emergency department with a chief complaint of shortness of breath. Onset was four days ago. Location is to lungs. Duration is on and off. Symptoms are aggravated with physical activity. Sy mptoms are mildly alleviated with rest. Patient denies any associated chest pain. Patient complains of associated bilateral lower extremity swelling. Today in the emergency department hemoglobin 9.7, hematocrit 31.1, BUN 27, creatinine 1.4, glucose 196, BNP 520, chest x-ray shows right lower lobe infiltrate. Emergency room physician recommended that patient be admitted with a diagnosis of pneumonia. 08/15/24 patient seen and examined in ED 14 reviewed chart and discussed plan of care with attending, The patient on room air, noted lower bilateral leg swelling with +2 edema no wheeping. IN ER patient received 40 unit of lasix latest echo was done 06/27 EF 70%. I strongly advice patient to quit vaping he very adamant smoking once in while is not consider a smoker. 08/16/24 patient seen and examined: the patient lying in bed encouraged OOB to chair most of day, patient unable to take deep breath: start to cough, IS will be ordered for deep breathing exercise , IV steroids and Mucomyst. The patient REVIEW OF SYSTEMS CONSTITUTIONAL: Denies fevers, chills, or night sweats. No unintentional weight loss reported. NEUROLOGICAL: Denies headache, amaurosis fugax, motor weakness, sensory deficit, vertigo/spinning sensation, gait abnormalities, or tremors. ENT: No hearing loss, otalgia, otorrhea, rhinitis, rhinorrhea, hoarseness, or sore throat. CARDIOVASCULAR: Denies any exertional angina, dyspnea on exertion, orthopnea, paroxysmal nocturnal dyspnea, palpitations, life-threatening arrhythmias, claudication. PULMONARY: Denies any shortness of breath, cough, phlegm/sputum, hemoptysis, pleuritic chest pain. SLEEP: Denies morning headaches, daytime somnolence or napping. Denies difficulty falling asleep, staying asleep, waking from sleep. Denies knowledge of snoring. GASTROINTESTINAL: Denies any type of dysphagia to either liquids or solids. Denies nausea, vomiting, pyrosis, early satiety, abdominal pain, diarrhea, constipation, or changes in stool consistency or caliber. Denies coffee-ground emesis, hematemesis, hematochezia, or melanotic stools. GENITOURINARY: Denies frequency, urgency, nocturia, hematuria or incontinence (Storage/Irritative symptoms.) Low urinary stream, straining to void, urinary intermittency or hesitancy, splitting of the voiding stream, terminal dribbling. ENDOCRINOLOGIC: Denies polyuria, polydipsia, polyphagia or heat/cold intolerances. HEMATOLOGIC: Denies thrombophilia/previous clots, or coagulopathy/bleeding disorders. ONCOLOGIC: Denies personal history of malignancy. DERMATOLOGIC: Denies rashes or pruritus. PSYCHIATRIC: Denies any suicidal or homicidal ideation. Denies hallucinations. PHYSICAL EXAM GENERAL APPEARANCE: The patient is awake, alert, and oriented, in no acute cardiopulmonary distress. NEUROLOGICAL: Cranial nerves II-XII grossly intact. Motor is 5/5 in bilateral upper and lower extremities proximal to distal. No sensory deficits. HEENT: Face is symmetric. Pupils are equal and reactive. Extraocular movements are intact. NECK: Supple. No JVD. No thyromegaly. No submental, submandibular, pre- /postauricular, occipital or supraclavicular lymphadenopathy. CHEST: Normal chest expansion. No Telemetry. LUNGS: Absence of any rales, rhonchi or any wheezing. CARDIOVASCULAR: Regular. S1 and S2 normal. No appreciable rubs, murmurs or gallops. ABDOMEN: Soft, nontender, and nondistended. There is no rebound, voluntary guarding, or rigidity. : Deferred. No Finley. EXTREMITIES: Non-edematous and not cyanotic. No clubbing. Good capillary refill. SKIN: No skin breakdown. Vital Signs (last 8hr) Date Time Temp Pulse Resp B/P (MAP) Pulse Ox O2 Delivery O2 Flow Rate FiO2 08/16/24 08:00 97.9 85 18 150/70 95 Room Air 08/16/24 07:10 77 18 08/16/24 07:08 77 20 N/A Room Air 21 08/16/24 02:05 98.1 83 19 138/81 93 Room Air 08/16/24 02:05 94 Room Air* 0 21 LABS: Laboratory: Test 08/16/24 06:50 08/16/24 05:01 08/16/24 05:00 08/15/24 07:16 Range/Units Stool Occult Blood NEGATIVE NEGATIVE Whole Blood Glucose 120 H 70-110 MG/DL White Blood Count 7.2 4.8-10.8 K/uL Red Blood Count 2.99 L 4.50-6.20 MIL/uL Hemoglobin 8.5 L 14.0-18.0 g/dL Hematocrit 27.6 L 42-54 % Mean Corpuscular Volume 92.3 79-99 fL Mean Corpuscular Hemoglobin 28.4 27.0-33.0 pg Mean Corpuscular Hemoglobin Concent 30.8 L 32.0-36.0 g/dL Red Cell Distribution Width 13.2 11.0-15.5 % Platelet Count 247 130-400 K/uL Mean Platelet Volume 8.8 7.5-10.5 fL Immature Granulocyte % (Auto) 0.4 0-1 % Neutrophils (%) (Auto) 66.7 40.0-77.0 % Lymphocytes (%) (Auto) 15.7 L 21.0-51.0 % Monocytes (%) (Auto) 15.1 H 3.0-13.0 % Eosinophils (%) (Auto) 1.7 0.0-8.0 % Basophils (%) (Auto) 0.4 0.0-5.0 % Neutrophils # (Auto) 4.8 1.8-7.7 K/uL Lymphocytes # (Auto) 1.1 1.0-4.8 K/uL Monocytes # (Auto) 1.1 H 0.1-1.0 K/uL Eosinophils # (Auto) 0.12 0.00-0.70 K/uL Basophils # (Auto) 0.03 0.00-0.20 K/uL Absolute Immature Granulocyte (auto 0.03 0-1 K/uL Nucleated Red Blood Cells 0.0 0.0-0.19 % White Cell Morphology Comment See comments Red Blood Cell Morphology See comments Sodium Level 141 136-145 mmol/L Potassium Level 4.6 3.5-5.1 mmol/L Chloride Level 108 101-111 mmol/L Carbon Dioxide Level 25 21-32 mmol/L Blood Urea Nitrogen 22 H 7-18 mg/dL Creatinine 1.2 0.5-1.3 mg/dL Glomerular Filtration Rate Calc 70 >90 mL/min Random Glucose 120 H 70-105 mg/dL Total Calcium 8.7 8.5-10.1 mg/dL Magnesium Level 1.80 1.80-2.40 mg/dL Total Bilirubin 0.4 0.2-1.0 mg/dL Aspartate Amino Transf (AST/SGOT) 22 10-37 U/L Alanine Aminotransferase (ALT/SGPT) 11 L 12-78 U/L Alkaline Phosphatase 100 50-136 U/L B-Type Natriuretic Peptide 281 H 0-100 pg/mL Total Protein 6.2 6.0-8.3 g/dL Albumin 2.3 L 3.5-5.0 g/dL Reticulocyte Count (auto) 3.07429 H 0.42-2.23 % Immature Reticulocyte Fraction 30.40 H 0.18-0.48 % Hemoglobin A1c 7.1 H 4.0-6.0 % Estimated Average Glucose (eAG) 157 H 70-126 mg/dL Phosphorus Level 4.6 2.5-4.9 mg/dL Iron Level 25 #L 65-175 mcg/dL Total Iron Binding Capacity 240 L 250-450 mcg/dL Percent Iron Saturation 10.4 L 30-44 % Lactate Dehydrogenase 138 81-234 U/L C-Reactive Protein, Quantitative 14.50 H 0.5-3.0 mg/L Procalcitonin 0.05 0.05-0.5 ng/mL Thyroid Stimulating Hormone (TSH) 4.99 #H 0.36-3.74 uIU/mL Test 08/14/24 21:05 08/14/24 20:58 08/14/24 19:12 Range/Units Influenza Type A Antigen Negative For Type A NEGATIVE Influenza Type B Antigen Negative For Type B NEGATIVE SARS-CoV-2 Antigen (Rapid) PRESUMPTIVE NEGATIVE NEGATIVE Urine Color YELLOW YELLOW Urine Appearance CLEAR CLEAR Urine pH 6.0 5.0-8.0 Urine Specific [place] 1.016 1.001-1.031 Urine Protein 300 H NEGATIVE mg/dL Urine Glucose (UA) 150 H NEGATIVE mg/dL Urine Ketones NEGATIVE NEGATIVE mg/dL Urine Occult Blood NEGATIVE NEGATIVE Urine Nitrate NEGATIVE NEGATIVE Urine Bilirubin NEGATIVE NEGATIVE mg/dL Urine Urobilinogen 0.2 0.2-1.0 mg/dL Urine Leukocyte Esterase NEGATIVE NEGATIVE Komal/uL Urine RBC 2-5 H 0-1 /HPF Urine WBC 2-5 H 0-1 /HPF Urine Squamous Epithelial Cells RARE 0-2 /HPF Urine Bacteria None None Seen /HPF Urine Hyaline Casts 6-10 H 0-1 /LPF /LPF Urine Other Casts 5 None Seen /LPF Urine Osmolality 379 50-1200 mOsm/kg Urine Random Creatinine 217.63 H 30-135 mg/dL Urine Random Sodium < 13 L 40-220 mmol/l Prothrombin Time 10.9 9.6-11.6 SEC Prothromb Time International Ratio 1.01 0.85-1.15 Activated Partial Thromboplast Time 28.9 26.3-35.5 SEC Troponin I High Sensitivity 13 4-75 ng/L Current Medications Medications (Trade) Dose Ordered Sig/Jose A Route PRN Reason Start Time Stop Time Status Last Admin Dose Admin Acetaminophen (TYLenol 325MG TAB) 650 mg Q6H PRN PO TEMPERATURE GREATER THAN 101.5 08/14/24 21:00 09/13/24 20:59 Albuterol (DUOneb) 1 UDVIAL [id number] IH 08/15/24 00:00 09/14/24 00:00 08/16/24 07:10 1 UDVIAL Azithromycin 250 ml @ 250 mls/hr Q24H IVPB 08/14/24 21:00 08/24/24 20:59 08/15/24 19:56 250 MLS/HR Ceftriaxone Sodium (ROCEphine 1G INJ) 1 gm Q24H IVPB 08/14/24 21:00 08/24/24 20:59 08/15/24 19:56 1 GM Furosemide (LASix 20MG VIAL) 20 mg DAILY IV 08/16/24 09:00 09/15/24 08:59 Guaifenesin/ Dextromethorphan (RobiTUSSin DM 200/20MG 10ML) 10 ml Q4H PRN PO COUGH 08/14/24 21:00 09/13/24 20:59 Home Med (Home Medication) Diltiazem HCl (Diltia... DAILY PO 08/16/24 09:00 09/15/24 08:59 Home Med (Home Medication) Hydralazine HCl 1 TAB TID PO 08/15/24 14:00 09/14/24 13:59 Hydralazine HCl (APRESOLine 20MG INJ) 10 mg Q6H PRN IV For:SBP above 160;DBP above 90 08/14/24 21:00 09/13/24 20:59 Insulin Human Regular (humuLIN R 100 UNIT/ML 3ML) INSULIN SLIDING SCAL... ACHS SQ 08/14/24 21:00 09/13/24 20:59 08/15/24 21:53 4 UNIT Levothyroxine Sodium (SYNTHroid 150MCG TAB) 150 mcg DAILY PO 08/16/24 09:00 08/16/24 07:54 DC Levothyroxine Sodium (SYNTHroid 150MCG TAB) 150 mcg SYN PO 08/17/24 06:30 09/16/24 06:29 Magnesium Sulfate 50 ml @ 0 mls/hr PROTOCOL PRN IV low mag level 08/15/24 11:00 09/14/24 10:59 08/16/24 06:32 15 MLS/HR Metoprolol Tartrate (loprESSOR) 12.5 mg BID PO 08/15/24 09:00 08/16/24 07:57 DC 08/15/24 09:16 12.5 MG Metoprolol Tartrate (loprESSOR) 100 mg BID PO 08/15/24 21:00 09/14/24 20:59 08/15/24 21:41 100 MG Morphine Sulfate (morPHINE 2MG SYG) 2 mg Q4H PRN IV SEVERE PAIN (7-10) 08/14/24 21:00 08/21/24 20:59 Ondansetron HCl (zoFRAN 4MG INJ) 4 mg Q6H PRN IV NAUSEA/VOMITING 08/14/24 21:00 09/13/24 20:59 Pantoprazole Sodium (PROTonix 40MG TAB) 40 mg DAILY PO 08/15/24 09:00 09/14/24 08:59 08/15/24 09:16 40 MG Potassium Chloride 100 ml @ 50 mls/hr AD PRN IV POTASSIUM PROTOCOL 08/15/24 11:00 09/14/24 10:59 Rivaroxaban (Xarelto) 20 mg DAILYBKFST PO 08/15/24 08:00 09/14/24 07:59 08/15/24 09:15 20 MG Sertraline HCl (ZOloft 50 mg tab) 50 mg DAILY PO 08/16/24 09:00 09/15/24 08:59 Spironolactone (Aldactone 25mg) 50 mg DAILY PO 08/16/24 09:00 09/15/24 08:59 DIAGNOSTICS / RADIOLOGY: [ ] ASSESSMENT: Gram-negative pneumonia RLL infiltrate POA hypercoagulable state secondary to A fibb on Xarelto POA bilateral cellulitis to lower ext with edematous POA DM with Hyperglycemia POA Iron deficiency POA Vaping dependency: POA [facility] POA Social determinants: Homeless Hypothyroidism PLAN: cont on Empiric antibiotics: Rocephin and Azithromycin IV we will get a set of inflammatory markers procalcitonin and CRP Respiratory cultures pending will be started Mucomyst with CPT and IV steriods IS while awake every 1 hrs Oxygen supplement to keep O2 sats above 92% currently on room air satting 94%. Xarelto was initiated from home meds nurses to reviewed and reconciled cardiac medications. We will resume levothyroxine once nurse reviewed meds Anemia workup consistent with iron deficiency. folic acid 1 mg po daily Counseling provided cessation vaping Supportive measures DVT GI prophylaxis Further orders as per response to treatment All questions addressed Case discussed with attending care plan reviewed and agreed upon. This document was generated in part using voice recognition software, occasional wrong word or sound alike substitutions may have occurred due to the inherent limitations of voice recognition software. Read the chart carefully and recognize using context, where the substitutions have occurred. Although every effort was made to edit the content, automatic fancy machine operator and typing errors may occur ATTESTATION BY PHYSICIAN I have seen and examined the patient. I reviewed the documentation, medical decision making, and treatment plan as noted by the resident provider above. I agree with the findings and plan of care. Phil Coello MD, [facility] NP Aug 16, 2024 09:13
[2024-08-16] MEDS: SERTraline HCL 50 MG TABLET PO SCH (09:47)
[2024-08-16] MEDS: SPIRONOLACTONE 25 MG TAB PO SCH (09:48)
[2024-08-16] MEDS: furoSEMIDE 20MG VIAL IV SCH (12:42)
[2024-08-16] MEDS ORDERED: guaiFENesin SUGAR-FREE 100 MG/5 ML UDCUP PO PRN (13:30)
[2024-08-16] MEDS: Solu-medROL 40MG VIAL IVP SCH (14:57)
[2024-08-16] MEDS: acetylCYSTeine10% 4ML VIAL IH SCH (18:50)
--- NOTE | 2024-08-16 20:30 | NUR ---
REFUSAL Patient upset about bed alarm on, he states he does not want bed alarm on. Nurse educated on fall precautions and possible dizziness from medication side effects, patient continued to refuse. Refusal form signed. Educated on use of call light, verbalized understanding.
--- NOTE | 2024-08-16 20:50 | NUR ---
GLUCOSE Notified Maximo Vasquez NP regarding blood glucose 476. Administered 16 units of Humulin R as per protocol.
[2024-08-17] VITALS (13 sets, daily range): BP systolic 120–166; BP diastolic 57–79; PULSE 72–88; RESP 18–20; TEMP 97.5–98.5; O2SAT 97–99
[2024-08-17 05:21] LABS: HEMATOCRIT 27.6 % (42-54); IMMATURE GRANULOCYTE ABSOLUTE 0.03 K/uL (0-1); LYMPHOCYTES # (AUTO) 0.4 K/uL (1.0-4.8); LYMPHOCYTES % (AUTO) 6.6 % (21.0-51.0); MEAN CORPUSCULAR HEMOGLOBIN 28.7 pg (27.0-33.0); MEAN CORPUSCULAR HGB CONC 32.2 g/dL (32.0-36.0); MONOCYTES # (AUTO) 0.1 K/uL (0.1-1.0); MONOCYTES % (AUTO) 1.2 % (3.0-13.0); NEUTROPHILS # (AUTO) 5.5 K/uL (1.8-7.7); NEUTROPHILS % (AUTO) 91.7 % (40.0-77.0); PLATELET COUNT (AUTO) 262 K/uL (130-400); RED CELL DISTRIBUTION WIDTH 12.8 % (11.0-15.5)
[2024-08-17 05:46] LABS: ALBUMIN 2.3 g/dL (3.5-5.0); BILIRUBIN,TOTAL 0.4 mg/dL (0.2-1.0); CREATININE 1.5 mg/dL (0.5-1.3); POTASSIUM 4.8 mmol/L (3.5-5.1); TOTAL PROTEIN, SERUM 6.5 g/dL (6.0-8.3)
[2024-08-17] MEDS: levoTHYROxine 150 MCG TABLET PO SCH (06:04)
--- NOTE | 2024-08-17 08:33 | PN ---
[facility] PROGRESS NOTE Date of Service: Aug 17, 2024 Time of Service: 08:27 SUBJECTIVE: [ ] admission date: 08/14/24 PCP: self referral Chief Complaints: Patient reports that he came to the emergency department with a chief complaint of shortness of breath. Onset was four days ago. Location is to lungs. Duration is on and off. Symptoms are aggravated with physical activity. Sy mptoms are mildly alleviated with rest. Patient denies any associated chest pain. Patient complains of associated bilateral lower extremity swelling. Today in the emergency department hemoglobin 9.7, hematocrit 31.1, BUN 27, creatinine 1.4, glucose 196, BNP 520, chest x-ray shows right lower lobe infiltrate. Emergency room physician recommended that patient be admitted with a diagnosis of pneumonia. 08/15/24 patient seen and examined in ED 14 reviewed chart and discussed plan of care with attending, The patient on room air, noted lower bilateral leg swelling with +2 edema no wheeping. IN ER patient received 40 unit of lasix latest echo was done 06/27 EF 70%. I strongly advice patient to quit vaping he very adamant smoking once in while is not consider a smoker. 08/16/24 patient seen and examined: the patient lying in bed encouraged OOB to chair most of day, patient unable to take deep breath: start to cough, IS will be ordered for deep breathing exercise , IV steroids and Mucomyst. 08/17/24 patient seen and examined: The patient reports doing his IS while awake. cont on room air. stop lasix. edema to lower ext improved significantly, redness improved as well. REVIEW OF SYSTEMS CONSTITUTIONAL: Denies fevers, chills, or night sweats. No unintentional weight loss reported. NEUROLOGICAL: Denies headache, amaurosis fugax, motor weakness, sensory deficit, vertigo/spinning sensation, gait abnormalities, or tremors. ENT: No hearing loss, otalgia, otorrhea, rhinitis, rhinorrhea, hoarseness, or sore throat. CARDIOVASCULAR: Denies any exertional angina, dyspnea on exertion, orthopnea, paroxysmal nocturnal dyspnea, palpitations, life-threatening arrhythmias, claudication. PULMONARY: Denies any shortness of breath, cough, phlegm/sputum, hemoptysis, pleuritic chest pain. SLEEP: Denies morning headaches, daytime somnolence or napping. Denies difficulty falling asleep, staying asleep, waking from sleep. Denies knowledge of snoring. GASTROINTESTINAL: Denies any type of dysphagia to either liquids or solids. Denies nausea, vomiting, pyrosis, early satiety, abdominal pain, diarrhea, constipation, or changes in stool consistency or caliber. Denies coffee-ground emesis, hematemesis, hematochezia, or melanotic stools. GENITOURINARY: Denies frequency, urgency, nocturia, hematuria or incontinence (Storage/Irritative symptoms.) Low urinary stream, straining to void, urinary intermittency or hesitancy, splitting of the voiding stream, terminal dribbling. ENDOCRINOLOGIC: Denies polyuria, polydipsia, polyphagia or heat/cold intolerances. HEMATOLOGIC: Denies thrombophilia/previous clots, or coagulopathy/bleeding disorders. ONCOLOGIC: Denies personal history of malignancy. DERMATOLOGIC: Denies rashes or pruritus. PSYCHIATRIC: Denies any suicidal or homicidal ideation. Denies hallucinations. PHYSICAL EXAM GENERAL APPEARANCE: The patient is awake, alert, and oriented, in no acute cardiopulmonary distress. NEUROLOGICAL: Cranial nerves II-XII grossly intact. Motor is 5/5 in bilateral upper and lower extremities proximal to distal. No sensory deficits. HEENT: Face is symmetric. Pupils are equal and reactive. Extraocular movements are intact. NECK: Supple. No JVD. No thyromegaly. No submental, submandibular, pre- /postauricular, occipital or supraclavicular lymphadenopathy. CHEST: Normal chest expansion. No Telemetry. LUNGS: Absence of any rales, rhonchi or any wheezing. CARDIOVASCULAR: Regular. S1 and S2 normal. No appreciable rubs, murmurs or gallops. ABDOMEN: Soft, nontender, and nondistended. There is no rebound, voluntary guarding, or rigidity. : Deferred. No Finley. EXTREMITIES: Non-edematous and not cyanotic. No clubbing. Good capillary refill. SKIN: No skin breakdown. Vital Signs (last 8hr) Date Time Temp Pulse Resp B/P (MAP) Pulse Ox O2 Delivery O2 Flow Rate FiO2 08/17/24 08:00 98.2 88 18 166/74 97 08/17/24 06:34 83 18 N/A Room Air 21 08/17/24 06:34 83 18 08/17/24 06:33 83 18 08/17/24 04:00 97.9 80 19 159/79 91 Room Air LABS: Laboratory: Test 08/17/24 05:53 08/17/24 04:18 08/16/24 19:49 08/16/24 06:50 Range/Units Whole Blood Glucose 271 H 70-110 MG/DL White Blood Count 6.0 4.8-10.8 K/uL Red Blood Count 3.10 L 4.50-6.20 MIL/uL Hemoglobin 8.9 L 14.0-18.0 g/dL Hematocrit 27.6 L 42-54 % Mean Corpuscular Volume 89.0 79-99 fL Mean Corpuscular Hemoglobin 28.7 27.0-33.0 pg Mean Corpuscular Hemoglobin Concent 32.2 32.0-36.0 g/dL Red Cell Distribution Width 12.8 11.0-15.5 % Platelet Count 262 130-400 K/uL Mean Platelet Volume 9.0 7.5-10.5 fL Immature Granulocyte % (Auto) 0.5 0-1 % Neutrophils (%) (Auto) 91.7 H 40.0-77.0 % Lymphocytes (%) (Auto) 6.6 L 21.0-51.0 % Monocytes (%) (Auto) 1.2 L 3.0-13.0 % Eosinophils (%) (Auto) 0.0 0.0-8.0 % Basophils (%) (Auto) 0.0 0.0-5.0 % Neutrophils # (Auto) 5.5 1.8-7.7 K/uL Lymphocytes # (Auto) 0.4 L 1.0-4.8 K/uL Monocytes # (Auto) 0.1 0.1-1.0 K/uL Eosinophils # (Auto) 0.00 0.00-0.70 K/uL Basophils # (Auto) 0.00 0.00-0.20 K/uL Absolute Immature Granulocyte (auto 0.03 0-1 K/uL Nucleated Red Blood Cells 0.0 0.0-0.19 % Sodium Level 132 L 136-145 mmol/L Potassium Level 4.8 3.5-5.1 mmol/L Chloride Level 102 101-111 mmol/L Carbon Dioxide Level 22 21-32 mmol/L Blood Urea Nitrogen 32 H 7-18 mg/dL Creatinine 1.5 H 0.5-1.3 mg/dL Glomerular Filtration Rate Calc 54 >90 mL/min Random Glucose 279 #H 70-105 mg/dL Total Calcium 8.8 8.5-10.1 mg/dL Magnesium Level 2.00 1.80-2.40 mg/dL Total Bilirubin 0.4 0.2-1.0 mg/dL Aspartate Amino Transf (AST/SGOT) 22 10-37 U/L Alanine Aminotransferase (ALT/SGPT) 17 # 12-78 U/L Alkaline Phosphatase 122 50-136 U/L Total Protein 6.5 6.0-8.3 g/dL Albumin 2.3 L 3.5-5.0 g/dL Bedside Glucose Comment Protocol Initiated Stool Occult Blood NEGATIVE NEGATIVE Test 08/16/24 05:00 Range/Units White Cell Morphology Comment See comments Red Blood Cell Morphology See comments B-Type Natriuretic Peptide 281 H 0-100 pg/mL Current Medications Medications (Trade) Dose Ordered Sig/Jose A Route PRN Reason Start Time Stop Time Status Last Admin Dose Admin Acetaminophen (TYLenol 325MG TAB) 650 mg Q6H PRN PO TEMPERATURE GREATER THAN 101.5 08/14/24 21:00 09/13/24 20:59 Acetylcysteine (MUComyst 10% 4ML) 400mg = 4ml [id number] 08/16/24 18:00 09/15/24 17:59 08/17/24 06:30 400 MG Albuterol (DUOneb) 1 UDVIAL [id number] 08/15/24 00:00 09/14/24 00:00 08/17/24 06:30 1 UDVIAL Azithromycin 250 ml @ 250 mls/hr Q24H IVPB 08/14/24 21:00 08/24/24 20:59 08/16/24 20:54 250 MLS/HR Ceftriaxone Sodium (ROCEphine 1G INJ) 1 gm Q24H IVPB 08/14/24 21:00 08/24/24 20:59 08/16/24 20:54 1 GM Folic Acid (FOLic ACID 1 MG TABLET) 1 mg DAILY PO 08/17/24 09:00 09/16/24 08:59 Furosemide (LASix 20MG VIAL) 20 mg DAILY IV 08/16/24 09:00 09/15/24 08:59 08/16/24 12:42 20 MG Guaifenesin (RobiTUSSin SUGAR-FREE 100 MG/ 5 ML UDCUP) 200 mg Q4H PRN PO COUGH 08/16/24 13:30 09/15/24 13:29 Guaifenesin/ Dextromethorphan (RobiTUSSin DM 200/20MG 10ML) 10 ml Q4H PRN PO COUGH 08/14/24 21:00 09/13/24 20:59 Home Med (Home Medication) Diltiazem HCl (Diltia... DAILY PO 08/16/24 09:00 09/15/24 08:59 Home Med (Home Medication) Hydralazine HCl 1 TAB TID PO 08/15/24 14:00 09/14/24 13:59 Hydralazine HCl (APRESOLine 20MG INJ) 10 mg Q6H PRN IV For:SBP above 160;DBP above 90 08/14/24 21:00 09/13/24 20:59 Insulin Human Regular (humuLIN R 100 UNIT/ML 3ML) INSULIN SLIDING SCAL... ACHS SQ 08/14/24 21:00 09/13/24 20:59 08/17/24 06:08 10 UNIT Levothyroxine Sodium (SYNTHroid 150MCG TAB) 150 mcg DAILY PO 08/16/24 09:00 08/16/24 07:54 DC Levothyroxine Sodium (SYNTHroid 150MCG TAB) 150 mcg SYN PO 08/17/24 06:30 09/16/24 06:29 08/17/24 06:04 150 MCG Magnesium Sulfate 50 ml @ 0 mls/hr PROTOCOL PRN IV low mag level 08/15/24 11:00 09/14/24 10:59 08/16/24 06:32 15 MLS/HR Methylprednisolone Sodium Succinate (Solu-medROL 40MG) 40 mg Q8H IVP 08/16/24 13:30 09/15/24 13:29 08/17/24 06:04 40 MG Metoprolol Tartrate (loprESSOR) 12.5 mg BID PO 08/15/24 09:00 08/16/24 07:57 DC 08/15/24 09:16 12.5 MG Metoprolol Tartrate (loprESSOR) 100 mg BID PO 08/15/24 21:00 09/14/24 20:59 08/16/24 20:55 100 MG Morphine Sulfate (morPHINE 2MG SYG) 2 mg Q4H PRN IV SEVERE PAIN (7-10) 08/14/24 21:00 08/21/24 20:59 Ondansetron HCl (zoFRAN 4MG INJ) 4 mg Q6H PRN IV NAUSEA/VOMITING 08/14/24 21:00 09/13/24 20:59 Pantoprazole Sodium (PROTonix 40MG TAB) 40 mg DAILY PO 08/15/24 09:00 09/14/24 08:59 08/16/24 09:47 40 MG Potassium Chloride 100 ml @ 50 mls/hr AD PRN IV POTASSIUM PROTOCOL 08/15/24 11:00 09/14/24 10:59 Rivaroxaban (Xarelto) 20 mg DAILYBKFST PO 08/15/24 08:00 09/14/24 07:59 08/16/24 09:47 20 MG Sertraline HCl (ZOloft 50 mg tab) 50 mg DAILY PO 08/16/24 09:00 09/15/24 08:59 08/16/24 09:47 50 MG Spironolactone (Aldactone 25mg) 50 mg DAILY PO 08/16/24 09:00 09/15/24 08:59 08/16/24 09:48 50 MG DIAGNOSTICS / RADIOLOGY: [ ] ASSESSMENT: Gram-negative pneumonia RLL infiltrate POA hypercoagulable state secondary to A fibb on Xarelto POA bilateral cellulitis to lower ext with edematous POA DM with Hyperglycemia POA Iron deficiency POA Vaping dependency: POA [facility] POA Social determinants: Homeless severe protein calorie malnutrition POA Hypothyroidism PLAN: cont on Empiric antibiotics: Rocephin and Azithromycin IV we will get a set of inflammatory markers procalcitonin and CRP Respiratory cultures pending will be started Mucomyst with CPT and IV steriods being titrate stop lasix IS while awake every 1 hrs Oxygen supplement to keep O2 sats above 92% currently on room air satting 94%. Xarelto was initiated from home meds nurses to reviewed and reconciled cardiac medications. We will resume levothyroxine once nurse reviewed meds Anemia workup consistent with iron deficiency. folic acid 1 mg po daily Counseling provided cessation vaping lawn caretaker consulted Supportive measures DVT GI prophylaxis Further orders as per response to treatment All questions addressed Case discussed with attending care plan reviewed and agreed upon. This document was generated in part using voice recognition software, occasional wrong word or sound alike substitutions may have occurred due to the inherent limitations of voice recognition software. Read the chart carefully and recognize using context, where the substitutions have occurred. Although every effort was made to edit the content, binder sorter and typing errors may occur ATTESTATION BY PHYSICIAN I have seen and examined the patient. I reviewed the documentation, medical decision making, and treatment plan as noted by the resident provider above. I agree with the findings and plan of care. Phil Coello MD, ELIZABETH NP Aug 17, 2024 08:33
[2024-08-17] MEDS ORDERED: Solu-medROL 40MG VIAL IVP SCH ×2 (09:00→18:00)
[2024-08-17] MEDS: FOLic ACID 1 MG TABLET PO SCH (09:50)
[2024-08-17] MEDS: INSULIN GLARgine 100 UNITS/ML 10 ML VIAL SQ SCH (20:51)
[2024-08-18] VITALS (12 sets, daily range): BP systolic 134–161; BP diastolic 58–76; PULSE 68–79; RESP 17–20; TEMP 97–98; O2SAT 97–99
[2024-08-18 05:52] LABS: BASOPHILS # (AUTO) 0.02 K/uL (0.00-0.20); BASOPHILS % (AUTO) 0.1 % (0.0-5.0); HEMATOCRIT 28.7 % (42-54); IMMATURE GRANULOCYTE ABSOLUTE 0.08 K/uL (0-1); LYMPHOCYTES # (AUTO) 0.6 K/uL (1.0-4.8); LYMPHOCYTES % (AUTO) 3.7 % (21.0-51.0); MEAN CORPUSCULAR HEMOGLOBIN 28.2 pg (27.0-33.0); MEAN CORPUSCULAR HGB CONC 31.4 g/dL (32.0-36.0); MONOCYTES # (AUTO) 0.9 K/uL (0.1-1.0); MONOCYTES % (AUTO) 5.4 % (3.0-13.0); NEUTROPHILS # (AUTO) 14.1 K/uL (1.8-7.7); NEUTROPHILS % (AUTO) 90.3 % (40.0-77.0); PLATELET COUNT (AUTO) 276 K/uL (130-400); RED BLOOD CELL COUNT(AUTO) 3.19 MIL/uL (4.50-6.20); RED CELL DISTRIBUTION WIDTH 12.8 % (11.0-15.5); WHITE BLOOD COUNT (AUTO) 15.7 K/uL (4.8-10.8)
[2024-08-18 06:51] LABS: ALBUMIN 2.4 g/dL (3.5-5.0); BILIRUBIN,TOTAL 0.3 mg/dL (0.2-1.0); CREATININE 1.4 mg/dL (0.5-1.3); MAGNESIUM 2.1 mg/dL (1.80-2.40); POTASSIUM 4.8 mmol/L (3.5-5.1)
[2024-08-18 07:27] LABS: TOTAL PROTEIN, SERUM 6.6 g/dL (6.0-8.3)
[2024-08-18] MEDS: predniSONE 20 MG TABLET PO SCH (09:11)
--- NOTE | 2024-08-18 09:59 | PN ---
[facility] PROGRESS NOTE Date of Service: Aug 18, 2024 Time of Service: 09:50 SUBJECTIVE: [ ] admission date: 08/14/24 PCP: self referral Chief Complaints: Patient reports that he came to the emergency department with a chief complaint of shortness of breath. Onset was four days ago. Location is to lungs. Duration is on and off. Symptoms are aggravated with physical activity. Sy mptoms are mildly alleviated with rest. Patient denies any associated chest pain. Patient complains of associated bilateral lower extremity swelling. Today in the emergency department hemoglobin 9.7, hematocrit 31.1, BUN 27, creatinine 1.4, glucose 196, BNP 520, chest x-ray shows right lower lobe infiltrate. Emergency room physician recommended that patient be admitted with a diagnosis of pneumonia. 08/15/24 patient seen and examined in ED 14 reviewed chart and discussed plan of care with attending, The patient on room air, noted lower bilateral leg swelling with +2 edema no wheeping. IN ER patient received 40 unit of lasix latest echo was done 06/27 EF 70%. I strongly advice patient to quit vaping he very adamant smoking once in while is not consider a smoker. 08/16/24 patient seen and examined: the patient lying in bed encouraged OOB to chair most of day, patient unable to take deep breath: start to cough, IS will be ordered for deep breathing exercise , IV steroids and Mucomyst. 08/17/24 patient seen and examined: The patient reports doing his IS while awake. cont on room air. stop lasix. edema to lower ext improved significantly, redness improved as well. 08/18/24 The patient seen and examined with attending: reviewed chart, case discussed: Encouraged patient to ambulate in HW, OOB to chair, On room air. patient reports his not compliance with medications due to no insurance: he's out of home medications spironolactone The patient was given community resources. REVIEW OF SYSTEMS CONSTITUTIONAL: Denies fevers, chills, or night sweats. No unintentional weight loss reported. NEUROLOGICAL: Denies headache, amaurosis fugax, motor weakness, sensory deficit, vertigo/spinning sensation, gait abnormalities, or tremors. ENT: No hearing loss, otalgia, otorrhea, rhinitis, rhinorrhea, hoarseness, or sore throat. CARDIOVASCULAR: Denies any exertional angina, dyspnea on exertion, orthopnea, paroxysmal nocturnal dyspnea, palpitations, life-threatening arrhythmias, claudication. PULMONARY: Denies any shortness of breath, cough, phlegm/sputum, hemoptysis, pleuritic chest pain. SLEEP: Denies morning headaches, daytime somnolence or napping. Denies difficulty falling asleep, staying asleep, waking from sleep. Denies knowledge of snoring. GASTROINTESTINAL: Denies any type of dysphagia to either liquids or solids. Denies nausea, vomiting, pyrosis, early satiety, abdominal pain, diarrhea, constipation, or changes in stool consistency or caliber. Denies coffee-ground emesis, hematemesis, hematochezia, or melanotic stools. GENITOURINARY: Denies frequency, urgency, nocturia, hematuria or incontinence (Storage/Irritative symptoms.) Low urinary stream, straining to void, urinary intermittency or hesitancy, splitting of the voiding stream, terminal dribbling. ENDOCRINOLOGIC: Denies polyuria, polydipsia, polyphagia or heat/cold intolerances. HEMATOLOGIC: Denies thrombophilia/previous clots, or coagulopathy/bleeding disorders. ONCOLOGIC: Denies personal history of malignancy. DERMATOLOGIC: Denies rashes or pruritus. PSYCHIATRIC: Denies any suicidal or homicidal ideation. Denies hallucinations. PHYSICAL EXAM GENERAL APPEARANCE: The patient is awake, alert, and oriented, in no acute cardiopulmonary distress. NEUROLOGICAL: Cranial nerves II-XII grossly intact. Motor is 5/5 in bilateral upper and lower extremities proximal to distal. No sensory deficits. HEENT: Face is symmetric. Pupils are equal and reactive. Extraocular movements are intact. NECK: Supple. No JVD. No thyromegaly. No submental, submandibular, pre- /postauricular, occipital or supraclavicular lymphadenopathy. CHEST: Normal chest expansion. No Telemetry. LUNGS: Absence of any rales, rhonchi or any wheezing. CARDIOVASCULAR: Regular. S1 and S2 normal. No appreciable rubs, murmurs or gallops. ABDOMEN: Soft, nontender, and nondistended. There is no rebound, voluntary guarding, or rigidity. : Deferred. No Finley. EXTREMITIES: Non-edematous and not cyanotic. No clubbing. Good capillary refill. SKIN: No skin breakdown. Vital Signs (last 8hr) Date Time Temp Pulse Resp B/P (MAP) Pulse Ox O2 Delivery O2 Flow Rate FiO2 08/18/24 08:00 97.9 68 18 161/74 99 Room Air 08/18/24 06:50 75 20 08/18/24 06:49 75 20 N/A Room Air 21 08/18/24 04:00 98.1 73 17 159/76 95 Room Air LABS: Laboratory: Test 08/18/24 05:23 08/18/24 05:15 08/16/24 19:49 Range/Units White Blood Count 15.7 H 4.8-10.8 K/uL Red Blood Count 3.19 L 4.50-6.20 MIL/uL Hemoglobin 9.0 L 14.0-18.0 g/dL Hematocrit 28.7 L 42-54 % Mean Corpuscular Volume 90.0 79-99 fL Mean Corpuscular Hemoglobin 28.2 27.0-33.0 pg Mean Corpuscular Hemoglobin Concent 31.4 L 32.0-36.0 g/dL Red Cell Distribution Width 12.8 11.0-15.5 % Platelet Count 276 130-400 K/uL Mean Platelet Volume 9.2 7.5-10.5 fL Immature Granulocyte % (Auto) 0.5 0-1 % Neutrophils (%) (Auto) 90.3 H 40.0-77.0 % Lymphocytes (%) (Auto) 3.7 L 21.0-51.0 % Monocytes (%) (Auto) 5.4 3.0-13.0 % Eosinophils (%) (Auto) 0.0 0.0-8.0 % Basophils (%) (Auto) 0.1 0.0-5.0 % Neutrophils # (Auto) 14.1 H 1.8-7.7 K/uL Lymphocytes # (Auto) 0.6 L 1.0-4.8 K/uL Monocytes # (Auto) 0.9 0.1-1.0 K/uL Eosinophils # (Auto) 0.00 0.00-0.70 K/uL Basophils # (Auto) 0.02 0.00-0.20 K/uL Absolute Immature Granulocyte (auto 0.08 0-1 K/uL Nucleated Red Blood Cells 0.0 0.0-0.19 % Sodium Level 136 136-145 mmol/L Potassium Level 4.8 3.5-5.1 mmol/L Chloride Level 105 101-111 mmol/L Carbon Dioxide Level 23 21-32 mmol/L Blood Urea Nitrogen 39 H 7-18 mg/dL Creatinine 1.4 H 0.5-1.3 mg/dL Glomerular Filtration Rate Calc 58 >90 mL/min Random Glucose 194 H 70-105 mg/dL Total Calcium 8.7 8.5-10.1 mg/dL Magnesium Level 2.10 1.80-2.40 mg/dL Total Bilirubin 0.3 0.2-1.0 mg/dL Aspartate Amino Transf (AST/SGOT) 28 10-37 U/L Alanine Aminotransferase (ALT/SGPT) 21 12-78 U/L Alkaline Phosphatase 112 50-136 U/L Total Protein 6.6 6.0-8.3 g/dL Albumin 2.4 L 3.5-5.0 g/dL Whole Blood Glucose 182 #H 70-110 MG/DL Bedside Glucose Comment Protocol Initiated Current Medications Medications (Trade) Dose Ordered Sig/Jose A Route PRN Reason Start Time Stop Time Status Last Admin Dose Admin Acetaminophen (TYLenol 325MG TAB) 650 mg Q6H PRN PO TEMPERATURE GREATER THAN 101.5 08/14/24 21:00 09/13/24 20:59 Acetylcysteine (MUComyst 10% 4ML) 400mg = 4ml [id number] 08/16/24 18:00 09/15/24 17:59 08/18/24 06:47 400 MG Albuterol (DUOneb) 1 UDVIAL [id number] 08/15/24 00:00 09/14/24 00:00 08/18/24 06:47 1 UDVIAL Azithromycin 250 ml @ 250 mls/hr Q24H IVPB 08/14/24 21:00 08/24/24 20:59 08/17/24 20:50 250 MLS/HR Ceftriaxone Sodium (ROCEphine 1G INJ) 1 gm Q24H IVPB 08/14/24 21:00 08/24/24 20:59 08/17/24 20:50 1 GM Folic Acid (FOLic ACID 1 MG TABLET) 1 mg DAILY PO 08/17/24 09:00 09/16/24 08:59 08/18/24 09:12 1 MG Furosemide (LASix 20MG VIAL) 20 mg DAILY IV 08/16/24 09:00 08/17/24 08:30 DC 08/16/24 12:42 20 MG Guaifenesin (RobiTUSSin SUGAR-FREE 100 MG/ 5 ML UDCUP) 200 mg Q4H PRN PO COUGH 08/16/24 13:30 09/15/24 13:29 Guaifenesin/ Dextromethorphan (RobiTUSSin DM 200/20MG 10ML) 10 ml Q4H PRN PO COUGH 08/14/24 21:00 09/13/24 20:59 Home Med (Home Medication) Diltiazem HCl (Diltia... DAILY PO 08/16/24 09:00 09/15/24 08:59 Home Med (Home Medication) Hydralazine HCl 1 TAB TID PO 08/15/24 14:00 09/14/24 13:59 Hydralazine HCl (APRESOLine 20MG INJ) 10 mg Q6H PRN IV For:SBP above 160;DBP above 90 08/14/24 21:00 09/13/24 20:59 Insulin Glargine (LANtus 100 UNITS/ML 10 ML VIAL) 15 units HS SQ 08/17/24 21:00 09/16/24 20:59 08/17/24 20:51 15 UNITS Insulin Human Regular (humuLIN R 100 UNIT/ML 3ML) INSULIN SLIDING SCAL... ACHS SQ 08/14/24 21:00 09/13/24 20:59 08/18/24 06:23 4 UNIT Levothyroxine Sodium (SYNTHroid 150MCG TAB) 150 mcg DAILY PO 08/16/24 09:00 08/16/24 07:54 DC Levothyroxine Sodium (SYNTHroid 150MCG TAB) 150 mcg SYN PO 08/17/24 06:30 09/16/24 06:29 08/18/24 06:22 150 MCG Magnesium Sulfate 50 ml @ 0 mls/hr PROTOCOL PRN IV low mag level 08/15/24 11:00 09/14/24 10:59 08/16/24 06:32 15 MLS/HR Methylprednisolone Sodium Succinate (Solu-medROL 40MG) 40 mg Q12H IVP 08/17/24 18:00 08/17/24 23:00 DC Methylprednisolone Sodium Succinate (Solu-medROL 40MG) 40 mg Q12H9 IVP 08/17/24 09:00 08/17/24 08:31 DC Methylprednisolone Sodium Succinate (Solu-medROL 40MG) 40 mg Q8H IVP 08/16/24 13:30 08/17/24 08:30 DC 08/17/24 06:04 40 MG Metoprolol Tartrate (loprESSOR) 12.5 mg BID PO 08/15/24 09:00 08/16/24 07:57 DC 08/15/24 09:16 12.5 MG Metoprolol Tartrate (loprESSOR) 100 mg BID PO 08/15/24 21:00 09/14/24 20:59 08/18/24 09:11 100 MG Morphine Sulfate (morPHINE 2MG SYG) 2 mg Q4H PRN IV SEVERE PAIN (7-10) 08/14/24 21:00 08/21/24 20:59 Ondansetron HCl (zoFRAN 4MG INJ) 4 mg Q6H PRN IV NAUSEA/VOMITING 08/14/24 21:00 09/13/24 20:59 Pantoprazole Sodium (PROTonix 40MG TAB) 40 mg DAILY PO 08/15/24 09:00 09/14/24 08:59 08/18/24 09:11 40 MG Potassium Chloride 100 ml @ 50 mls/hr AD PRN IV POTASSIUM PROTOCOL 08/15/24 11:00 09/14/24 10:59 Prednisone (deltaSONE/ oraSONE 20MG TAB) 20 mg DAILY PO 08/18/24 09:00 09/17/24 08:59 08/18/24 09:11 20 MG Rivaroxaban (Xarelto) 20 mg DAILYBKFST PO 08/15/24 08:00 09/14/24 07:59 08/18/24 09:11 20 MG Sertraline HCl (ZOloft 50 mg tab) 50 mg DAILY PO 08/16/24 09:00 09/15/24 08:59 08/18/24 09:11 50 MG Spironolactone (Aldactone 25mg) 50 mg DAILY PO 08/16/24 09:00 09/15/24 08:59 08/18/24 09:11 50 MG DIAGNOSTICS / RADIOLOGY: [ ] ASSESSMENT: Gram-negative pneumonia RLL infiltrate POA hypercoagulable state secondary to A fibb on Xarelto POA bilateral cellulitis to lower ext with edematous POA DM with Hyperglycemia POA Iron deficiency POA Vaping dependency: POA [place] POA Social determinants: Homeless severe protein calorie malnutrition POA Hypothyroidism PLAN: cont on Empiric antibiotics: Rocephin and Azithromycin IV we will get a set of inflammatory markers procalcitonin and CRP Respiratory cultures pending patient was not able to obtained sputum. Duoneb PRN 250 ml NS x1, IS while awake every 1 hrs Oxygen supplement to keep O2 sats above 92% currently on room air satting 94%. cont with Xarlento Anemia workup consistent with iron deficiency. 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 Teaching: avoid sodium, communitity resources provided: high risk re admission social determinant. This document was generated in part using voice recognition software, occasional wrong word or sound alike substitutions may have occurred due to the inherent limitations of voice recognition software. Read the chart carefully and recognize using context, where the substitutions have occurred. Although every effort was made to edit the content, skating rink ice maker and typing errors may occur ATTESTATION BY PHYSICIAN I have seen and examined the patient. I reviewed the documentation, medical decision making, and treatment plan as noted by the resident provider above. I agree with the findings and plan of care. Phil Coello MD, [facility] NP Aug 18, 2024 09:59
[2024-08-18] MEDS: 0.9% NACL 250ML 250 ML IV ONE (10:00)
[2024-08-18] MEDS: furoSEMIDE 20MG VIAL IV ONE (14:43)
[2024-08-18] MEDS: IpraTROPium/alBUTERol SULFATE 3 ML SOLUTION IH PRN (23:40)
[2024-08-19 05:00] VITALS: BP 166/72; PULSE 68; RESP 18; TEMP 97.8
[2024-08-19 06:53] VITALS: PULSE 61; RESP 16; O2SAT 98
[2024-08-19 08:00] VITALS: O2SAT 95
[2024-08-19 08:37] VITALS: BP 171/81; PULSE 66; RESP 18; TEMP 98.4
--- NOTE | 2024-08-19 10:25 | DS ---
Discharge Summary Hospital Course Summary: admission date: 08/14/24 PCP: self referral Chief Complaints: Patient reports that he came to the emergency department with a chief complaint of shortness of breath. Onset was four days ago. Location is to lungs. Duration is on and off. Symptoms are aggravated with physical activity. Symptoms are mildly alleviated with rest. Patient denies any associated chest pain. Patient complains of associated bilateral lower extremity swelling. Today in the emergency department hemoglobin 9.7, hematocrit 31.1, BUN 27, creatinine 1.4, glucose 196, BNP 520, chest x-ray shows right lower lobe infiltrate. Emergency room physician recommended that patient be admitted with a diagnosis of pneumonia. During the course of stay patient received empiric antibiotics. Patient was on Rocephin and azithromycin. IV steroids small dose for several days tapered.. Patient will be discharged on cefdinir 300 b.i.d. for five more days. Patient was directed on cessation of vaping. In two be compliant with his home medication. Instructed to restrict from sodium intake. High risk for readmission social determinants noncompliance with medication, homeless. Community resources was provided. Clinically stable for discharge. Procedure(s): REASON: sob ORDERING PHYSICIAN: ARYA DELA CRUZ PROCEDURE: CXR1VW - CHEST 1VW CHEST 1VW REASON: sob COMPARISON: 07/13/2024 FINDINGS: There are bibasilar infiltrates more pronounced on the right. Upper lungs are clear. Heart size is normal. There is no vascular congestion. IMPRESSION: 1. Right lower lobe infiltrate, there may be some infiltrate in the left base as well. REASON: + 2 edema ORDERING PHYSICIAN: MARTHA MELARA NP PROCEDURE: VENOUS JINA - US VENOUS DOPPLER BILATERAL US VENOUS DOPPLER BILATERAL REASON: + 2 edema COMPARISON: None Technique: Bilateral venous doppler ultrasound was performed with spectral analysis and color flow imaging technique. FINDINGS: There is a normal appearance of the common femoral, deep femoral, the profunda femoris and popliteal veins. Proximal calf veins appear normal as well. There is normal response to compression and augmentation. There is no evidence of deep venous thrombosis. 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 TEACHING: complainant with medications. restrict from sodium intake. vaping cessation Emergency instructions: The patient was instructed to present to the nearest Emergency Department or call 911 should their symptoms return or worsen. Home Medications: Reported Medications Rivaroxaban (Xarelto) 20 Mg Tablet, 1 TAB PO DAILY for 30 Days, #30 TAB 0 Refills with food 07/14/24 Pantoprazole Sodium (Pantoprazole Sodium) 40 Mg Tablet.dr, 1 TAB PO DAILY for 30 Days, #30 TAB 0 Refills 07/14/24 Metoprolol Tartrate (Metoprolol Tartrate) 100 Mg Tablet, 1 TAB PO BID for 30 Days, #60 TAB 0 Refills 07/14/24 Metformin HCl (Metformin HCl) 500 Mg Tablet, 1 TAB PO BID for 30 Days, #60 TAB 0 Refills 07/14/24 Glimepiride (Glimepiride) 4 Mg Tablet, 1 TAB PO DAILY for 30 Days, #30 TAB 0 Refills 07/14/24 Levothyroxine Sodium (Levothyroxine) 150 Mcg Capsule, 1 CAP PO DAILY for 30 Days, #30 CAP 0 Refills 06/25/24 Hydralazine HCl (Hydralazine HCl) 100 Mg Tablet, 1 TAB PO TID for 30 Days, #90 TAB 0 Refills 06/25/24 Diltiazem HCl (Diltiazem ER) 300 Mg Capsule.er, 1 CAP PO DAILY for 30 Days, #30 CAP 0 Refills 06/25/24 Spironolactone (Spironolactone) 50 Mg Tablet, 1 TAB PO DAILY for 30 Days, #30 TAB 0 Refills 06/25/24 Sertraline HCl (Zoloft) 50 Mg Tablet, 50 MG PO DAILY, TAB 06/25/24 Discontinued Reported Medications Insulin Glargine,Hum.rec.anlog (Lantus Solostar) 100 Unit/Ml (3 Ml) Insuln.pen, 25 UNIT SQ DAILY for 30 Days, #15 ML 0 Refills 07/14/24 Discontinued Scripts Furosemide (Furosemide) 40 Mg Tablet, 40 MG PO as needed, #15 TAB 0 Refills Prov:ELIAS STERN MD 07/17/24 Levofloxacin (Levofloxacin) 750 Mg Tablet, 1 TAB PO DAILY for 7 Days, #7 TAB 0 Refills Prov:ELIAS STERN MD 07/17/24 Metronidazole (Metronidazole) 500 Mg Tablet, 1 TAB PO BID for 7 Days, #14 TAB 0 Refills Prov:ELIAS STERN MD 07/17/24 Lactobacillus Rhamnosus GG (Culturelle) 15 Billion Cell Cap.sprink, 1 EACH PO TID, #30 CAP.SPRINK 0 Refills Prov:ADRI WOMACK AGPCNP 06/29/24 Continued Medications: Diltiazem HCl (Diltiazem ER) 300 Mg Capsule.er 1 CAP PO DAILY for 30 Days, #30 CAP 0 Refills Glimepiride (Glimepiride) 4 Mg Tablet 1 TAB PO DAILY for 30 Days, #30 TAB 0 Refills Hydralazine HCl (Hydralazine HCl) 100 Mg Tablet 1 TAB PO TID for 30 Days, #90 TAB 0 Refills Levothyroxine Sodium (Levothyroxine) 150 Mcg Capsule 1 CAP PO DAILY for 30 Days, #30 CAP 0 Refills Metformin HCl (Metformin HCl) 500 Mg Tablet 1 TAB PO BID for 30 Days, #60 TAB 0 Refills Metoprolol Tartrate (Metoprolol Tartrate) 100 Mg Tablet 1 TAB PO BID for 30 Days, #60 TAB 0 Refills Pantoprazole Sodium (Pantoprazole Sodium) 40 Mg Tablet.dr 1 TAB PO DAILY for 30 Days, #30 TAB 0 Refills Rivaroxaban (Xarelto) 20 Mg Tablet 1 TAB PO DAILY for 30 Days, #30 TAB 0 Refills with food Sertraline HCl (Zoloft) 50 Mg Tablet 50 MG PO DAILY, TAB Spironolactone (Spironolactone) 50 Mg Tablet 1 TAB PO DAILY for 30 Days, #30 TAB 0 Refills Time spent arranging discharge: 31-60 minutes ATTESTATION BY PHYSICIAN I have seen and examined the patient. I reviewed the documentation, medical decision making, and treatment plan as noted by the mid-level provider above. I agree with the findings and plan of care. DAVIS WOODY MD, [facility] NP Aug 19, 2024 10:25
--- NOTE | 2024-08-19 11:30 | NUR ---
DISCHARGE DISCHARGE ORDERS FOR PATIENT TO BE DISCHARGED HOME OBTAINED. DISCHARGE INSTRUCTIONS AND DOCUMENTATION GIVEN TO PATIENT. RX GIVEN TO PATIENT TO TAKE TO PHARMACY OF CHOICE. PATIENT VOICED UNDERSTANDING. IV DISCONTINUED, CATHETER INTACT, NO S/S OF INFECTION NOTED TO SITE. PATIENT TOLERATED WELL. PENDING TRANSPORTATION.
[2024-08-19 11:59] VITALS: BP 164/74; PULSE 74; RESP 17; TEMP 98.2
--- NOTE | 2024-08-19 17:22 | NUR ---
Nutrition consult per liang Reviewed labs, notes, and medications. Pt left before RD could visit. Addendum: 08/19/24 at [address] Amended: Links added.
== END 2024-08-19 14:15 | disposition home or self-care (01) | DRG 177 ==
LOC: EDH 17:31 → EDHIP 17:32 → 4BH 08-16 01:53
PROVIDERS: ADMIT Internal Medicine; ATTEND Internal Medicine
DX: J15.69 Pneumonia due to other Gram-negative bacteria (principal); E43 Unspecified severe protein-calorie malnutrition; D68.69 Other thrombophilia; I13.0 Hypertensive heart and chronic kidney disease with heart failure and stage 1 through stage 4 chronic kidney disease, or unspecified chronic kidney disease; Z59.02 Unsheltered homelessness; Z20.822 Contact with and (suspected) exposure to COVID-19; I50.9 Heart failure, unspecified; N18.31 Chronic kidney disease, stage 3a; E11.22 Type 2 diabetes mellitus with diabetic chronic kidney disease; E11.65 Type 2 diabetes mellitus with hyperglycemia; M79.89 Other specified soft tissue disorders; D64.9 Anemia, unspecified; E03.9 Hypothyroidism, unspecified; E61.1 Iron deficiency; E78.00 Pure hypercholesterolemia, unspecified; I48.91 Unspecified atrial fibrillation; G47.33 Obstructive sleep apnea (adult) (pediatric); F41.9 Anxiety disorder, unspecified; F32.A Depression, unspecified; Z51.5 Encounter for palliative care; Z59.71 Insufficient health insurance coverage; Z75.3 Unavailability and inaccessibility of health-care facilities; Z79.01 Long term (current) use of anticoagulants; Z88.6 Allergy status to analgesic agent; Z68.37 Body mass index [BMI] 37.0-37.9, adult; Z81.8 Family history of other mental and behavioral disorders; Z88.8 Allergy status to other drugs, medicaments and biological substances; Z82.49 Family history of ischemic heart disease and other diseases of the circulatory system; Z82.5 Family history of asthma and other chronic lower respiratory diseases; Z83.3 Family history of diabetes mellitus; Z79.899 Other long term (current) drug therapy
CPT/HCPCS: 36415; 71045; 80048; 80053; 81001; 82270; 82570; 82948; 83036; 83540; 83550; 83615; 83735; 83880; 83935; 84100; 84145; 84300; 84443; 84484; 85025; 85045; 85610; 85730; 86140; 87426; 87804; 93005; 93970; 94640; 94664; 94667; 94668; 96372; 99285; G0378; J0456; J0696; J1815; J1940; J2919; J3475; J7608

== ENCOUNTER 2024-12-23 06:11 | Inpatient (IN) | payer SELFPAY ==
[~2024-12-23] VITALS: Ht 162.6 cm; Wt 89.6 kg
[~2024-12-23 06:11] MED LIST changes: -FURO40TA5 PO; -INSU3INS3 SQ; -LACT1CAP79 PO; -LEVO150C4 PO; +LEVO150C5 PO; -LEVO750T40 PO; -METR-172 PO
--- NOTE | 2024-12-23 06:23 | ERN ---
General Chief Complaint: Chest Pain Stated Complaint: CHEST PAIN Time Seen by MD: 06:17 Source: patient History of Present Illness Initial Comments 59-year-old male with a past medical history of atrial fibrillation on Eliquis, hypertension on metoprolol and coronary artery disease comes in with substernal chest pain and hypertension to 200 systolic. The acute MA protocol was initiated. Patient's initial EKG shows normal sinus rhythm. The patient has not been able to take his medications because he is unemployed. He is on disability because of a broken collarbone and is unable to receive workman's comp or disability insurance. He is in the process of getting Medicaid. Allergies: Coded Allergies: aspirin (Verified Allergy, Severe, 07/04/16) hydroxyzine (Unverified Allergy, Mild, SWELLING, 06/25/24) ORBITAL SWELLING PER PATIENT lisinopril (Unverified Allergy, Unknown, 01/30/23) Home Meds Reported Medications Hydralazine HCl (Hydralazine HCl) 50 Mg Tablet, 1 TAB PO BID for 30 Days, #60 TAB 0 Refills 12/23/24 Apixaban (Eliquis) 5 Mg Tablet, 1 TAB PO BID for 30 Days, #60 TAB 0 Refills 12/23/24 Levothyroxine Sodium (Levothyroxine) 75 Mcg Capsule, 1 TAB PO DAILY for 30 Days, #30 CAP 0 Refills 12/23/24 Rivaroxaban (Xarelto) 20 Mg Tablet, 1 TAB PO DAILY for 30 Days, #30 TAB 0 Refills with food 07/14/24 Pantoprazole Sodium (Pantoprazole Sodium) 40 Mg Tablet.dr, 1 TAB PO DAILY for 30 Days, #30 TAB 0 Refills 07/14/24 Metoprolol Tartrate (Metoprolol Tartrate) 100 Mg Tablet, 1 TAB PO BID for 30 Days, #60 TAB 0 Refills 07/14/24 Metformin HCl (Metformin HCl) 500 Mg Tablet, 1 TAB PO BID for 30 Days, #60 TAB 0 Refills 07/14/24 Glimepiride (Glimepiride) 4 Mg Tablet, 1 TAB PO DAILY for 30 Days, #30 TAB 0 Refills 07/14/24 Levothyroxine Sodium (Levothyroxine) 150 Mcg Capsule, 1 CAP PO DAILY for 30 Days, #30 CAP 0 Refills 06/25/24 Hydralazine HCl (Hydralazine HCl) 100 Mg Tablet, 1 TAB PO TID for 30 Days, #90 TAB 0 Refills 06/25/24 Diltiazem HCl (Diltiazem ER) 300 Mg Capsule.er, 1 CAP PO DAILY for 30 Days, #30 CAP 0 Refills 06/25/24 Spironolactone (Spironolactone) 50 Mg Tablet, 1 TAB PO DAILY for 30 Days, #30 TAB 0 Refills 06/25/24 Sertraline HCl (Zoloft) 50 Mg Tablet, 50 MG PO DAILY, TAB 06/25/24 Past Medical History Past Medical History: A-Fib, Anxiety, Depression, Diabetes-Type II, High Cholesterol, Heart Disease, Hypertension Medical History Other: HYPONATREMIA Past Surgical History: Other Surgical History Other: LT CLAVICAL SX Social History Social History: Negative Constitutional: (-) chills, (-) diaphoresis, (-) fever, (-) malaise, (-) weakness, (-) other documentation EENTM: (-) eye pain, (-) blurred vision, (-) tearing, (-) double vision, (-) ear pain, (-) ear discharge, (-) nose pain, (-) nose congestion, (-) throat pain, (-) Throat swelling, (-) mouth pain, (-) tooth pain, (-) mouth swelling, (-) other documentation Cardiovascular: (+) chest pain, (+) edema, (+) palpitations, (+) dyspnea on exertion Gastrointestinal/Abdominal: (-) nausea, (-) vomiting, (-) diarrhea, (-) abdominal pain, (-) abdominal distention, (-) constipation, (-) rectal bleeding, (-) dark stool/melena, (-) other documentation Musculoskeletal: (-) Neck pain, (-) back pain, (-) Flank Pain, (-) joint pain, (-) joint swelling, (-) muscle pain, (-) muscle stiffness, (-) gout, (-) other documentation Skin: (-) laceration, (-) contusion, (-) abrasion, (-) abscess, (-) rash, (-) change in color, (-) change in hair, (-) change in nails, (-) diaphoresis, (-) dryness, (-) other documentation Neuro: (-) altered mental status, (-) headache, (-) syncope, (-) paralysis, (-) numbness, (-) seizure, (-) pre-existing deficit, (-) tremors, (-) weakness, (-) dizziness, (-) slurred speech, (-) vertigo, (-) other documentation Physical Exam General Appearance: (+) moderate distress Orientation: (+) alert, (+) oriented x 3 Head/Face Trauma: No Eye: bilateral eye normal inspection, bilateral eye PERRL, bilateral eye EOMI Ear, Nose, Throat: (+) hearing grossly normal, (+) normal ENT inspection, (+) moist mucous membraine Neck: (+) normal inspection, (+) supple, (+) full range of motion, (+) no JVD Respiratory: (+) chest non-tender, (+) lungs clear, (+) well ventilated Heart: (+) regular, (+) systolic murmur Vascular: (+) edema Gastrointestinal: (+) soft, (+) non-tender, (+) bowel sound present Results Laboratory and Microbiology Lab and Micro Result MDM In addition to the standard acute MA order set I gave the patient 5 mg of IV morphine and 20 mg of IV hydralazine for his blood pressure. I will continue to monitor the patient and dose p.r.n. antihypertensives. The patient has a systolic murmur of which he was unaware. Patient's blood pressure is down to 160 with the hydralazine and the metoprolol all give him a 2nd dose of hydralazine. MDM: Differential diagnosis: Angina, atrial fibrillation Rationale: Tests considered and ordered secondary to shared decision making include: labs, ECG and radiology Risk of complication and/or morbidity or mortality of patient management: None Medications-Per medication reconciliation Need for hospitalization: Patient does meet criteria for hospitalization. Need for emergency major/minor surgery: No There are no social concerns with this patient. I independently interpreted the test that were performed, results were reviewed by me and considered findings on radiology if ordered. Medical management and examination interpretation discussions were had by me with other qualified healthcare professionals as indicated for the patient's care. ED Course Vital Signs Date Time Temp Pulse Resp B/P (MAP) Pulse Ox O2 Delivery O2 Flow Rate FiO2 4/21/25 06:12 97.3 93 20 223/88 99 Room Air DX & DISP Disposition: Inpatient Departure Impression: Primary Impression: angina Additional Impressions: Hypertensive urgency, Atrial fibrillation Condition: Stable Referrals: SELF,REFERRAL (PCP) MUSTAPHA HERBERT MD Dec 23, 2024 06:23 SYL ALVAREZ MD Dec 23, 2024 10:06
[2024-12-23] MEDS: metoPROLOL tartRATE 1 MG/ML 5ML VIAL IV ONE (06:39)
[2024-12-23] MEDS: hydrALAZine 20MG/ML VIAL IV ONE ×2 (06:40→08:20)
[2024-12-23 06:48] LABS: BASOPHILS # (AUTO) 0.04 K/uL (0.00-0.20); BASOPHILS % (AUTO) 0.7 % (0.0-5.0); EOSINOPHILS # (AUTO) 0.11 K/uL (0.00-0.70); EOSINOPHILS % (AUTO) 1.8 % (0.0-8.0); IMMATURE GRANULOCYTE ABSOLUTE 0.04 K/uL (0-1); LYMPHOCYTES # (AUTO) 1.4 K/uL (1.0-4.8); LYMPHOCYTES % (AUTO) 23.6 % (21.0-51.0); MEAN CORPUSCULAR HEMOGLOBIN 27.5 pg (27.0-33.0); MEAN CORPUSCULAR HGB CONC 33.9 g/dL (32.0-36.0); MEAN CORPUSCULAR VOLUME 81.2 fL (79-99); MONOCYTES # (AUTO) 0.9 K/uL (0.1-1.0); MONOCYTES % (AUTO) 15.3 % (3.0-13.0); NEUTROPHILS # (AUTO) 3.5 K/uL (1.8-7.7); NEUTROPHILS % (AUTO) 57.9 % (40.0-77.0); PLATELET COUNT (AUTO) 223 K/uL (130-400); RED BLOOD CELL COUNT(AUTO) 3.45 MIL/uL (4.50-6.20); RED CELL DISTRIBUTION WIDTH 13.7 % (11.0-15.5); WHITE BLOOD COUNT (AUTO) 6.1 K/uL (4.8-10.8)
[2024-12-23 07:05] LABS: POTASSIUM 4.5 mmol/L (3.5-5.1)
[2024-12-23 07:29] LABS: B-TYPE NATRIURETIC PEPTIDE 142 pg/mL (0-100)
[2024-12-23 08:16] LABS: APPEARANCE,URINE CLEAR (CLEAR); BILIRUBIN,URINE NEGATIVE (NEGATIVE); COLOR,URINE COLORLESS (YELLOW); GLUCOSE, URINE (UA) 200 mg/dL (NEGATIVE); KETONES,URINE NEGATIVE (NEGATIVE); LEUKOCYTE ESTERASE ,URINE NEGATIVE Leu/uL (NEGATIVE); NITRATE,URINE NEGATIVE (NEGATIVE); OCCULT BLOOD,URINE NEGATIVE (NEGATIVE); PH,URINE 5.5 (5.0-8.0); PROTEIN,URINE 70 mg/dL (NEGATIVE); UROBILINOGEN,URINE 0.2 mg/dL (0.2-1.0)
[2024-12-23 08:26] LABS: ADD UA MICROSCOPIC YES
--- NOTE | 2024-12-23 08:47 | HMCIMG ---
CHEST 1VW HISTORY: Chest pain COMPARISON: 08/14/2024 FINDINGS: A frontal projection of the chest was obtained. No acute pulmonary infiltrates is seen. The heart is borderline enlarged. Postop changes are seen of left clavicle. Aortic calcifications are seen. Prominent interstitial markings are seen. IMPRESSION: 1. No acute pulmonary infiltrate is seen.
[2024-12-23] MEDS ORDERED: ondanSETRON 4MG INJ IVP PRN (09:30)
[2024-12-23] MEDS ORDERED: NITROGLYCERIN 0.4 MG SL TAB SL PRN (09:30)
[2024-12-23] MEDS ORDERED: morPHINE 2 MG SYG IVP PRN (09:30)
[2024-12-23] MEDS ORDERED: LEVO75CA6 PO (09:42)
[2024-12-23] MEDS ORDERED: HYDR50TA37 PO (09:42)
[2024-12-23] MEDS: APIXaban 5 MG TABLET ONE (09:42)
[2024-12-23] MEDS ORDERED: APIX5TAB PO (09:42)
[2024-12-23] MEDS: APIXaban 5 MG TABLET PO SCH (09:43)
[2024-12-23] MEDS: metoPROLOL tartRATE 25 MG TAB PO SCH ×2 (09:43→20:50)
[2024-12-23 09:51] LABS: CHOLESTEROL 203 mg/dL (<200); HDL CHOLESTEROL 85 mg/dL (29-71); LDL DIRECT 108 mg/dL (0-99); TRIGLYCERIDES 89 mg/dL (30-200)
--- NOTE | 2024-12-23 11:57 | EKG ---
[facility] Test Date: 2024-12-23 Test Time: 06:17:50 Pat Name: VERO WILKS Department: EDHIP Room: ED 13 Gender: M Development Lead: 1081 : 1965 Requested By: MUSTAPHA HERBERT Order Number: [id number] Reading MD: Jax Ordonez Measurements Intervals [place] Rate: 91 P: 4 [place]: 161 QRS: 23 QRSD: 70 T: 55 QT: 383 QTc: 473 Interpretive Statements Sinus rhythm Nonspecific STT abnormality Compared to ECG 08/14/2024 17:36:05 No significant changes Electronically Signed On 12-23-2024 17:49:34 CDT by Jax Ordonez Please click the below link to view image of tracing.
--- NOTE | 2024-12-23 14:22 | HP ---
[facility] PH[facility] Date of Service: Dec 23, 2024 Time of Service: 14:04 HISTORY OF PRESENT ILLNESS: 59-year-old male with past medical history of hypertension, atrial fibrillation, type 2 diabetes, hyperlipidemia, hypothyroidism, anxiety, CAD, GERD, who presented to [facility] ED earlier today with complaints of chest pain. Patient reports earlier in the day, he began to experience some left- sided chest pressure associated with elevated blood pressure, and feeling of palpitations. Patient denied nausea vomiting or diaphoresis. Patient has a history of left clavicular fracture, status post surgical repair, states he has been unemployed in recent months and has not been able to afford his medications for hypertension and atrial fibrillation has been off of them for several months. Patient states he also suffers from anxiety, and due to persistence in his left-sided chest pain he decided to come to the hospital for further evaluation. Upon arrival to ED he was noted afebrile, blood pressure was 223/88, heart rate 93, respirations 20, O2 saturation 99% on room air. Further evaluation lab significant for sodium 124, chloride 92, glucose 223, BNP of 142, H and H 9.5 and 28.0, initial troponin negative. EKG revealing NSR, no ST-T changes. CXR with no acute findings. In the ED patient received IV hydralazine 20 mg x 2, as well as Lopressor 5 mg IV x1, SBP improving to the 150s range, heart rate in the 80s. Patient also received IV morphine for pain control. Request then made to admit to the hospital for further evaluation and management. REVIEW OF SYSTEMS CONSTITUTIONAL: Denies fevers, chills, or night sweats. No unintentional weight loss reported. NEUROLOGICAL: Denies headache, amaurosis fugax, motor weakness, sensory deficit, vertigo/spinning sensation, gait abnormalities, or tremors. ENT: No hearing loss, otalgia, otorrhea, rhinitis, rhinorrhea, hoarseness, or sore throat. CARDIOVASCULAR: As mentioned in HPI PULMONARY: Denies any shortness of breath, cough, phlegm/sputum, hemoptysis, pleuritic chest pain. SLEEP: Denies morning headaches, daytime somnolence or napping. Denies difficulty falling asleep, staying asleep, waking from sleep. Denies knowledge of snoring. GASTROINTESTINAL: Denies any type of dysphagia to either liquids or solids. Denies nausea, vomiting, pyrosis, early satiety, abdominal pain, diarrhea, co nstipation, or changes in stool consistency or caliber. Denies coffee-ground emesis, hematemesis, hematochezia, or melanotic stools. GENITOURINARY: Denies frequency, urgency, nocturia, hematuria or incontinence (Storage/Irritative symptoms.) Low urinary stream, straining to void, urinary intermittency or hesitancy, splitting of the voiding stream, terminal dribbling. ENDOCRINOLOGIC: Denies polyuria, polydipsia, polyphagia or heat/cold intolerances. HEMATOLOGIC: Denies thrombophilia/previous clots, or coagulopathy/bleeding disorders. ONCOLOGIC: Denies personal history of malignancy. DERMATOLOGIC: Denies rashes or pruritus. PSYCHIATRIC: Denies any suicidal or homicidal ideation. Denies hallucinations. PAST MEDICAL HISTORY: As mentioned in HPI PAST SURGICAL HISTORY: Left clavicle fracture repair PAST SOCIAL HISTORY: No tobacco no alcohol no substance abuse FAMILY HISTORY: Noncontributory Coded Allergies: aspirin (Verified Allergy, Severe, 07/04/16) hydroxyzine (Unverified Allergy, Mild, SWELLING, 06/25/24) ORBITAL SWELLING PER PATIENT lisinopril (Unverified Allergy, Unknown, 01/30/23) PHYSICAL EXAM GENERAL APPEARANCE: The patient is awake, alert, and oriented, in no acute cardiopulmonary distress. NEUROLOGICAL: Cranial nerves II-XII grossly intact. Motor is 5/5 in bilateral upper and lower extremities proximal to distal. No sensory deficits. HEENT: Face is symmetric. Pupils are equal and reactive. Extraocular movements are intact. NECK: Supple. No JVD. No thyromegaly. No submental, submandibular, pre- /postauricular, occipital or supraclavicular lymphadenopathy. CHEST: Normal chest expansion. No Telemetry. LUNGS: Absence of any rales, rhonchi or any wheezing. CARDIOVASCULAR: Regular. S1 and S2 normal. No appreciable rubs, murmurs or gallops. ABDOMEN: Soft, nontender, and nondistended. There is no rebound, voluntary guarding, or rigidity. : Deferred. No [place]. EXTREMITIES: Non-edematous and not cyanotic. No clubbing. Good capillary refill. SKIN: No skin breakdown. Vital Sign (Last 24 Hours) 12/23/24 12/23/24 07:19 12:35 Temp 97.9 Pulse 76 Resp 12 B/P (MAP) 157/77 Pulse Ox 97 O2 Delivery Room Air* O2 Flow Rate 0 FiO2 21 LABS: Laboratory: Test 12/23/24 13:33 12/23/24 07:57 12/23/24 06:23 Range/Units Troponin I High Sensitivity 11 4-75 ng/L Urine Color COLORLESS YELLOW Urine Appearance CLEAR CLEAR Urine pH 5.5 5.0-8.0 Urine Specific [place] 1.003 1.001-1.031 Urine Protein 70 H NEGATIVE mg/dL Urine Glucose (UA) 200 H NEGATIVE mg/dL Urine Ketones NEGATIVE NEGATIVE mg/dL Urine Occult Blood NEGATIVE NEGATIVE Urine Nitrate NEGATIVE NEGATIVE Urine Bilirubin NEGATIVE NEGATIVE mg/dL Urine Urobilinogen 0.2 0.2-1.0 mg/dL Urine Leukocyte Esterase NEGATIVE NEGATIVE Komal/uL Urine RBC None 0-1 /HPF Urine WBC None 0-1 /HPF Urine Bacteria None None Seen /HPF White Blood Count 6.1 4.8-10.8 K/uL Red Blood Count 3.45 L 4.50-6.20 MIL/uL Hemoglobin 9.5 L 14.0-18.0 g/dL Hematocrit 28.0 L 42-54 % Mean Corpuscular Volume 81.2 79-99 fL Mean Corpuscular Hemoglobin 27.5 27.0-33.0 pg Mean Corpuscular Hemoglobin Concent 33.9 32.0-36.0 g/dL Red Cell Distribution Width 13.7 11.0-15.5 % Platelet Count 223 130-400 K/uL Mean Platelet Volume 8.3 7.5-10.5 fL Immature Granulocyte % (Auto) 0.7 0-1 % Neutrophils (%) (Auto) 57.9 40.0-77.0 % Lymphocytes (%) (Auto) 23.6 21.0-51.0 % Monocytes (%) (Auto) 15.3 H 3.0-13.0 % Eosinophils (%) (Auto) 1.8 0.0-8.0 % Basophils (%) (Auto) 0.7 0.0-5.0 % Neutrophils # (Auto) 3.5 1.8-7.7 K/uL Lymphocytes # (Auto) 1.4 1.0-4.8 K/uL Monocytes # (Auto) 0.9 0.1-1.0 K/uL Eosinophils # (Auto) 0.11 0.00-0.70 K/uL Basophils # (Auto) 0.04 0.00-0.20 K/uL Absolute Immature Granulocyte (auto 0.04 0-1 K/uL Nucleated Red Blood Cells 0.0 0.0-0.19 % White Cell Morphology Comment See comments Sodium Level 124 L 136-145 mmol/L Potassium Level 4.5 3.5-5.1 mmol/L Chloride Level 92 L 101-111 mmol/L Carbon Dioxide Level 22 21-32 mmol/L Blood Urea Nitrogen 18 7-18 mg/dL Creatinine 1.0 0.5-1.3 mg/dL Glomerular Filtration Rate Calc 87 >90 mL/min Random Glucose 223 H 70-105 mg/dL Total Calcium 8.5 8.5-10.1 mg/dL Total Creatine Kinase 36 # 21-232 U/L B-Type Natriuretic Peptide 142 H 0-100 pg/mL Triglycerides Level 89 30-200 mg/dL Cholesterol Level 203 #H <200 mg/dL LDL Cholesterol 108 H 0-99 mg/dL HDL Cholesterol 85 H 29-71 mg/dL Current Medications Medications (Trade) Dose Ordered Sig/Jose A Route PRN Reason Start Time Stop Time Status Last Admin Dose Admin Acetaminophen (TYLenol 325MG TAB) 650 mg Q6H PRN PO MILD PAIN (1-3) 12/23/24 09:30 01/22/25 09:29 Apixaban (EliquIS) 5 mg BID PO 12/23/24 09:30 01/22/25 09:29 12/23/24 09:43 5 MG Atorvastatin Calcium (LIPItor 40MG) 40 mg HS PO 12/23/24 21:00 01/22/25 20:59 Famotidine (Pepcid 20mg Vial) 20 mg BID IV 12/23/24 21:00 01/22/25 20:59 Hydralazine HCl (APRESOLine 20MG INJ) 10 mg Q6H PRN IV ADMINISTER FOR SBP > 160 12/23/24 09:30 01/22/25 09:29 Metoprolol Tartrate (loprESSOR) 12.5 mg BID PO 12/23/24 09:30 01/22/25 09:29 12/23/24 09:43 12.5 MG Morphine Sulfate (morPHINE 2MG SYG) 2 mg Q6H PRN IVP SEVERE PAIN (7-10) 12/23/24 09:30 12/30/24 09:29 Nitroglycerin (Nitrostat) 0.4 mg AD PRN SL CHEST PAIN 12/23/24 09:30 01/22/25 09:29 Ondansetron HCl (zoFRAN 4MG INJ) 4 mg Q8H PRN IVP NAUSEA/VOMITING 12/23/24 09:30 01/22/25 09:29 DIAGNOSTICS / RADIOLOGY: [ ] ASSESSMENT: Uncontrolled hypertension POA Chest pain, rule out ACS POA Hyponatremia POA Atrial fibrillation POA Type 2 diabetes POA Anemia POA CAD Hyperlipidemia Hypothyroidism Anxiety PLAN: Admit patient to telemetry floor under hospitalist team Resume patient's home medication Lopressor 12.5 mg p.o. b.i.d., as well as Eliquis5 mg p.o. b.i.d.. Trend cardiac enzymes NTG SL p.r.n. chest pain Obtain 2D echo Obtain fasting lipid panel Start patient on atorvastatin 40 mg at bedtime ADA/heart healthy diet Gentle IVF with NS at 75 mL/hour. Follow up chemistry. SSI coverage. Glucometer checks a.c. and HS. Hypoglycemic precautions per protocol. Check A1c. Obtain anemia panel. Continue home Eliquis for DVT prophylaxis Pepcid for GI prophylaxis P.r.n. medications for fever, pain, nausea, constipation Follow-up a.m. labs Further orders per hospital course ADVANCED CARE PLANNING 1. Which of the following were discussed? Hospice Care - No Therapeutic options - Yes Advance Directives - Yes Other discussions - 2. Discussed with who? The patient 3. Voluntary nature of this service was explained to the patient? Yes 4. Amount of time spent - __ 20 minutes 5. Reviewed by Physician? (if this service was performed by NPP) Yes OLGA IVAN Dec 23, 2024 14:22
[2024-12-23] MEDS ORDERED: DEXTROSE 50%-WATER 50 ML DISP.SYRIN IV PRN (14:30)
[2024-12-23] MEDS ORDERED: GLUCAGON 1MG KIT 1 MG ML IM PRN (14:30)
[2024-12-23] MEDS: 0.9%NACL 1000ML 1,000 ML IV SCH (14:35)
[2024-12-23 15:40] LABS: % IRON SATURATION 8.3 % (30-44)
[2024-12-23 16:10] LABS: HEMOGLOBIN A1C 6.9 % (4.0-6.0)
--- NOTE | 2024-12-23 16:12 | NUR ---
LOPRESSOR PO 12.5MG BID CHANGED TO LOPRESSOR 25MG PO BID. PULLED FROM [employer] TO GIVE THE ADDITIONAL 12.5MG TO MEET TOTAL 25MG.
[2024-12-23] MEDS: metoPROLOL tartRATE 25 MG TAB ONE (16:13)
[2024-12-23 16:25] LABS: RETICULOCYTE % (AUTO) 2.11 % (0.42-2.23)
[2024-12-23] MEDS: INSULIN humuLIN R 100 UNIT/ML 3ML SQ SCH (16:31)
[2024-12-23] MEDS: atorVAStatin 40 MG TABLET PO SCH (20:50)
[2024-12-23] MEDS: FAMOTIDINE 20MG VIAL IV SCH (20:50)
--- NOTE | 2024-12-23 20:56 | NUR ---
REPORT GIVEN TO NURSE VIMAL
[2024-12-23 21:10] VITALS: BP 145/84; PULSE 95; RESP 19; TEMP 98.2
[2024-12-23] MEDS ORDERED: DILT-36 PO (22:28)
[2024-12-23] MEDS ORDERED: PANT40TA55 PO (22:30)
[2024-12-23] MEDS ORDERED: GLIM4TAB36 PO (22:30)
[2024-12-23 22:57] VITALS: O2SAT 98
[2024-12-24] VITALS (9 sets, daily range): BP systolic 149–199; BP diastolic 62–86; PULSE 76–91; RESP 17–19; TEMP 98–98.8; O2SAT 97
[2024-12-24] MEDS: hydrALAZine 20MG/ML VIAL IV PRN (00:38)
[2024-12-24 04:20] LABS: POTASSIUM 4.6 mmol/L (3.5-5.1)
--- NOTE | 2024-12-24 11:25 | NUR ---
DCP: HOME SW familiar with pt who has been homeless for the past year, living in his car, working [employer] for income. Pt states he now has an apt with working utilities that a friend arranged for him. Pt continues to do [employer] as needed for bills. Pt has no DME or services, no insurance or PCP. SW provided resources but pt refused, states list is a waste of time. Discussed possible [employer] insurance- "I don't want anything from Obama" "We are in this mess because of him and his republican". P states he has a car and can transport self in needed. Daughter Mila Day [phone] is ER contact. Pt to return to his apt Addendum: 12/24/24 at 1136 by DEEPA MARTINO Amended: Links added.
[2024-12-24 11:34] LABS: THYROID STIMULATING HORMONE 5.09 uIU/mL (0.36-3.74)
--- NOTE | 2024-12-24 15:41 | PN ---
[facility] PROGRESS NOTE Date of Service: Dec 24, 2024 Time of Service: 15:39 SUBJECTIVE: [59-year-old male with history of CKD, hyponatremia. Patient was admitted as patient complained of symptoms of bilateral lower extremity edema, shortness of breaths and weakness. Patient's lab reviewed, continues with hyponatremia with improvement in his sodium level at 129 today. ] REVIEW OF SYSTEMS CONSTITUTIONAL: Denies fevers, chills, or night sweats. No unintentional weight loss reported. NEUROLOGICAL: Denies headache, amaurosis fugax, motor weakness, sensory deficit, vertigo/spinning sensation, gait abnormalities, or tremors. ENT: No hearing loss, otalgia, otorrhea, rhinitis, rhinorrhea, hoarseness, or sore throat. CARDIOVASCULAR: As mentioned in HPI PULMONARY: Denies any shortness of breath, cough, phlegm/sputum, hemoptysis, pleuritic chest pain. SLEEP: Denies morning headaches, daytime somnolence or napping. Denies difficulty falling asleep, staying asleep, waking from sleep. Denies knowledge of snoring. GASTROINTESTINAL: Denies any type of dysphagia to either liquids or solids. Denies nausea, vomiting, pyrosis, early satiety, abdominal pain, diarrhea, constipation, or changes in stool consistency or caliber. Denies coffee-ground emesis, hematemesis, hematochezia, or melanotic stools. GENITOURINARY: Denies frequency, urgency, nocturia, hematuria or incontinence (Storage/Irritative symptoms.) Low urinary stream, straining to void, urinary intermittency or hesitancy, splitting of the voiding stream, terminal dribbling. ENDOCRINOLOGIC: Denies polyuria, polydipsia, polyphagia or heat/cold intolerances. HEMATOLOGIC: Denies thrombophilia/previous clots, or coagulopathy/bleeding disorders. ONCOLOGIC: Denies personal history of malignancy. DERMATOLOGIC: Denies rashes or pruritus. PSYCHIATRIC: Denies any suicidal or homicidal ideation. Denies hallucinations. PHYSICAL EXAM GENERAL APPEARANCE: The patient is awake, alert, and oriented, in no acute cardiopulmonary distress. NEUROLOGICAL: Cranial nerves II-XII grossly intact. Motor is 5/5 in bilateral upper and lower extremities proximal to distal. No sensory deficits. HEENT: Face is symmetric. Pupils are equal and reactive. Extraocular movements are intact. NECK: Supple. No JVD. No thyromegaly. No submental, submandibular, pre- /postauricular, occipital or supraclavicular lymphadenopathy. CHEST: Normal chest expansion. No Telemetry. LUNGS: Absence of any rales, rhonchi or any wheezing. CARDIOVASCULAR: Regular. S1 and S2 normal. No appreciable rubs, murmurs or gallops. ABDOMEN: Soft, nontender, and nondistended. There is no rebound, voluntary guarding, or rigidity. : Deferred. No Finley. EXTREMITIES: Non-edematous and not cyanotic. No clubbing. Good capillary refill. SKIN: No skin breakdown. Vital Signs (last 8hr) Date Time Temp Pulse Resp B/P (MAP) Pulse Ox O2 Delivery O2 Flow Rate FiO2 12/24/24 11:35 98.8 78 18 199/82 98 Room Air 12/24/24 08:10 98.6 81 17 163/73 97 Room Air LABS: Laboratory: Test 12/24/24 11:30 12/24/24 10:21 12/24/24 03:50 12/24/24 00:30 Range/Units Whole Blood Glucose 234 H 70-110 MG/DL Bedside Glucose Comment Notified Nurse Thyroid Stimulating Hormone (TSH) 5.09 H 0.36-3.74 uIU/mL Free Thyroxine (T4) Direct 0.92 0.76-1.46 ng/dL Free Triiodothyronine (T3) pg/mL 2.25 2.18-3.98 pg/mL Sodium Level 129 L 136-145 mmol/L Potassium Level 4.6 3.5-5.1 mmol/L Chloride Level 97 L 101-111 mmol/L Carbon Dioxide Level 26 21-32 mmol/L Blood Urea Nitrogen 19 H 7-18 mg/dL Creatinine 1.0 0.5-1.3 mg/dL Glomerular Filtration Rate Calc 87 >90 mL/min Random Glucose 185 H 70-105 mg/dL Total Calcium 8.3 L 8.5-10.1 mg/dL Stool Occult Blood NEGATIVE NEGATIVE Test 12/23/24 14:53 12/23/24 07:57 12/23/24 06:23 Range/Units Reticulocyte Count (auto) 2.66492 0.42-2.23 % Immature Reticulocyte Fraction 22.30 H 0.18-0.48 % Hemoglobin A1c 6.9 H 4.0-6.0 % Estimated Average Glucose (eAG) 151 H 70-126 mg/dL Iron Level 22 L 65-175 mcg/dL Total Iron Binding Capacity 264 250-450 mcg/dL Percent Iron Saturation 8.3 L 30-44 % Ferritin 22 L 30-400 ng/mL Troponin I High Sensitivity 10 4-75 ng/L Vitamin B12 Level 389 193-986 pg/mL Urine Color COLORLESS YELLOW Urine Appearance CLEAR CLEAR Urine pH 5.5 5.0-8.0 Urine Specific Barlow 1.003 1.001-1.031 Urine Protein 70 H NEGATIVE mg/dL Urine Glucose (UA) 200 H NEGATIVE mg/dL Urine Ketones NEGATIVE NEGATIVE mg/dL Urine Occult Blood NEGATIVE NEGATIVE Urine Nitrate NEGATIVE NEGATIVE Urine Bilirubin NEGATIVE NEGATIVE mg/dL Urine Urobilinogen 0.2 0.2-1.0 mg/dL Urine Leukocyte Esterase NEGATIVE NEGATIVE Komal/uL Urine RBC None 0-1 /HPF Urine WBC None 0-1 /HPF Urine Bacteria None None Seen /HPF White Blood Count 6.1 4.8-10.8 K/uL Red Blood Count 3.45 L 4.50-6.20 MIL/uL Hemoglobin 9.5 L 14.0-18.0 g/dL Hematocrit 28.0 L 42-54 % Mean Corpuscular Volume 81.2 79-99 fL Mean Corpuscular Hemoglobin 27.5 27.0-33.0 pg Mean Corpuscular Hemoglobin Concent 33.9 32.0-36.0 g/dL Red Cell Distribution Width 13.7 11.0-15.5 % Platelet Count 223 130-400 K/uL Mean Platelet Volume 8.3 7.5-10.5 fL Immature Granulocyte % (Auto) 0.7 0-1 % Neutrophils (%) (Auto) 57.9 40.0-77.0 % Lymphocytes (%) (Auto) 23.6 21.0-51.0 % Monocytes (%) (Auto) 15.3 H 3.0-13.0 % Eosinophils (%) (Auto) 1.8 0.0-8.0 % Basophils (%) (Auto) 0.7 0.0-5.0 % Neutrophils # (Auto) 3.5 1.8-7.7 K/uL Lymphocytes # (Auto) 1.4 1.0-4.8 K/uL Monocytes # (Auto) 0.9 0.1-1.0 K/uL Eosinophils # (Auto) 0.11 0.00-0.70 K/uL Basophils # (Auto) 0.04 0.00-0.20 K/uL Absolute Immature Granulocyte (auto 0.04 0-1 K/uL Nucleated Red Blood Cells 0.0 0.0-0.19 % White Cell Morphology Comment See comments Total Creatine Kinase 36 # 21-232 U/L B-Type Natriuretic Peptide 142 H 0-100 pg/mL Triglycerides Level 89 30-200 mg/dL Cholesterol Level 203 #H <200 mg/dL LDL Cholesterol 108 H 0-99 mg/dL HDL Cholesterol 85 H 29-71 mg/dL Current Medications Medications (Trade) Dose Ordered Sig/Jose A Route PRN Reason Start Time Stop Time Status Last Admin Dose Admin Acetaminophen (TYLenol 325MG TAB) 650 mg Q6H PRN PO MILD PAIN (1-3) 12/23/24 09:30 01/22/25 09:29 Apixaban (EliquIS) 5 mg BID PO 12/23/24 09:30 01/22/25 09:29 12/24/24 09:45 5 MG Atorvastatin Calcium (LIPItor 40MG) 40 mg HS PO 12/23/24 21:00 01/22/25 20:59 12/23/24 20:50 40 MG Dextrose (D50w) 50 ml AD PRN IV HYPOGLYCEMIA PROTOCOL 12/23/24 14:30 01/22/25 14:29 Diltiazem HCl (CARDIzem 120MG CD) 120 mg DAILY PO 12/25/24 09:00 01/24/25 08:59 Famotidine (Pepcid 20mg Vial) 20 mg BID IV 12/23/24 21:00 12/24/24 10:06 DC 12/24/24 09:45 20 MG Glucagon (Glucagon 1mg Kit) 1 mg AD PRN IM HYPOGLYCEMIA PROTOCOL 12/23/24 14:30 01/22/25 14:29 Hydralazine HCl (APRESOLine 20MG INJ) 10 mg Q6H PRN IV ADMINISTER FOR SBP > 160 12/23/24 09:30 01/22/25 09:29 12/24/24 11:58 10 MG Hydralazine HCl ([id number] TAB) 50 mg BID PO 12/24/24 21:00 01/23/25 20:59 Insulin Human Regular (humuLIN R 100 UNIT/ML 3ML) INSULIN SLIDING SCAL... ACHS SQ 12/23/24 16:30 01/22/25 16:29 12/24/24 11:58 8 UNIT Levothyroxine Sodium (SYNTHroid 150MCG TAB) 150 mcg SYN PO 12/25/24 06:30 01/24/25 06:29 Metoprolol Tartrate (loprESSOR) 12.5 mg BID PO 12/23/24 09:30 12/23/24 16:08 DC 12/23/24 09:43 12.5 MG Metoprolol Tartrate (loprESSOR) 25 mg BID PO 12/23/24 21:00 12/24/24 10:44 DC 12/24/24 09:45 25 MG Metoprolol Tartrate (loprESSOR) 100 mg BID PO 12/24/24 21:00 01/23/25 20:59 Morphine Sulfate (morPHINE 2MG SYG) 2 mg Q6H PRN IVP SEVERE PAIN (7-10) 12/23/24 09:30 12/30/24 09:29 Nitroglycerin (Nitrostat) 0.4 mg AD PRN SL CHEST PAIN 12/23/24 09:30 01/22/25 09:29 Ondansetron HCl (zoFRAN 4MG INJ) 4 mg Q8H PRN IVP NAUSEA/VOMITING 12/23/24 09:30 01/22/25 09:29 Pantoprazole Sodium (PROTonix 40MG TAB) 40 mg DAILY PO 12/25/24 09:00 01/24/25 08:59 Sertraline HCl (ZOloft 50 mg tab) 50 mg DAILY PO 12/25/24 09:00 01/24/25 08:59 Sodium Chloride 1,000 ml @ 75 mls/hr [id number] IV 12/23/24 14:30 01/22/25 14:29 12/24/24 07:31 75 MLS/HR Spironolactone (Aldactone 25mg) 50 mg DAILY PO 12/25/24 09:00 01/24/25 08:59 DIAGNOSTICS / RADIOLOGY: [ ] ASSESSMENT: Uncontrolled hypertension POA Chest pain, rule out ACS POA Hyponatremia POA Atrial fibrillation POA Type 2 diabetes POA Anemia POA CAD Hyperlipidemia Hypothyroidism Anxiety PLAN: Admit patient to telemetry floor under hospitalist team C/w patient's home medication Lopressor 12.5 mg p.o. b.i.d., as well as Eliquis5 mg p.o. b.i.d.. Trend cardiac enzymes NTG SL p.r.n. chest pain Obtain 2D echo C/w patient on atorvastatin 40 mg at bedtime ADA/heart healthy diet Gentle IVF with NS at 75 mL/hour. Follow up chemistry. SSI coverage. Glucometer checks a.c. and HS. Hypoglycemic precautions per protocol. Check A1c. Obtain anemia panel. Continue home Eliquis for DVT prophylaxis Pepcid for GI prophylaxis P.r.n. medications for fever, pain, nausea, constipation Follow-up a.m. labs Further orders per hospital course Case seen and examined with Dr. Coello, above plan was formulated ATTESTATION BY PHYSICIAN I have seen and examined the patient. I reviewed the documentation, medical decision making, and treatment plan as noted by the mid-level provider above. I agree with the findings and plan of care. Stephanie Coello MD, [facility] Dec 24, 2024 15:41
[2024-12-24] MEDS: metoPROLOL tartRATE 50 MG TAB PO SCH (21:48)
[2024-12-24] MEDS: hydrALAZine 25MG TABLET PO SCH (21:48)
[2024-12-25] VITALS (7 sets, daily range): BP systolic 152–176; BP diastolic 63–86; PULSE 71–85; RESP 18–20; TEMP 98.2–98.7; O2SAT 96–99
--- NOTE | 2024-12-25 00:50 | HMCSR ---
APPROVED REPORT EXAM: Two-dimensional and M-mode echocardiogram with Doppler and color Doppler. INDICATION ICD: Assess LV Function 2D Dimensions RVDd3.8 cmLVEF(%)67.8 (>50%)LVED Vol(simp.)121.6 mL IVSd1.1 (0.7-1.1cm)FS(%)37 %LVES Vol(simp.)48.9 mL LVDd3.6 (3.8-5.6cm)LA (2D)4.0 (1.6-4.0cm)LVEF(%, simp.)60 % PWd1.1 (0.7-1.1cm)Ao Root(2D)3.1 (2.0-3.7cm)LA ESV INDEX (BP)40.63 mL/m2 LVDs2.3 (2.5-4.0cm)LVOT diam2.0 (1.8-2.4cm) IVC diam2.0 cm Deformation Strain Apical 4-16.4 % Apical 2-14.1 % Apical 3-17.5 % Global Strain-16.0 % M-Mode Dimensions EPSS0.7 cm LA (MM)4.4 (1.6-4.0cm) Ao Root(MM)2.6 (2.0-3.7cm) Aortic Valve AoV Vmax0.0 m/Doyle Peak GR0.0 mmHgLVOT Vmax1.4 m/s AoV VTI0.5 mAo Mean GR9.4 mmHgLVOT VTI0.33 m MIKE (VMAX)2.15 cm2AVA (VTI) 2.2 cm2 Mitral Valve MV E Nqkk337.9 cm/sDECEL Lnmh921 ms MV A Gutx086.9 cm/sP 1/2 T43 ms E/A ratio1.3MVA (PHT)5.2 cm2 TDI E/E' Wvozck14.5E/E' Mrhsmkk44.1 Medial E' Peak V7.35 cm/sLateral E' Peak V8.34 cm/s Pulmonary Valve PV Vmax1.5 m/s PV Peak GR8.9 mmHg Left Ventricle The left ventricle is normal size. No regional wall motion abnormalities noted. Mild concentric left ventricular hypertrophy. Left ventricular systolic function is normal, estimated LVEF is 60 to 65%. S tage II, diastolic dysfunction. Right Ventricle The right ventricle is normal size. The right ventricular systolic function is normal. Atria The left atrium is mildly dilated, 41 mL/m�. The right atrium size is normal. Aortic Valve Aortic valve is trileaflet. The leaflets are thickened and calcified. Trace aortic regurgitation. Mil d aortic stenosis: Peak velocity 2.2 m/s, mean gradient 9 mmHg. Mitral Valve The mitral valve is normal in structure. The leaflets are mildly thickened and calcified. Trace ale l regurgitation. There is no mitral valve stenosis. Tricuspid Valve The tricuspid valve is normal in structure. Trace tricuspid regurgitation. RVSP is normal. Pulmonic Valve Pulmonic valve is not well visualized. Great Vessels The aortic root is normal in size. The IVC is normal in size and collapses >50% with inspiration. Pericardium There is no pericardial effusion. Conclusion The left atrium is mildly dilated, 41 mL/m�. Mild concentric left ventricular hypertrophy. No regional wall motion abnormalities noted. Left ventricular systolic function is normal, estimated LVEF is 60 to 65%. Stage II, diastolic dysfunction. Mild aortic stenosis: Peak velocity 2.2 m/s, mean gradient 9 mmHg. Trace aortic regurgitation. Trace mitral regurgitation. Trace tricuspid regurgitation. PASP is normal. There is no pericardial effusion.
[2024-12-25 05:02] LABS: HEMATOCRIT 25.1 % (42-54); MEAN CORPUSCULAR HEMOGLOBIN 26.9 pg (27.0-33.0); MEAN CORPUSCULAR HGB CONC 32.3 g/dL (32.0-36.0); MEAN CORPUSCULAR VOLUME 83.4 fL (79-99); RED BLOOD CELL COUNT(AUTO) 3.01 MIL/uL (4.50-6.20); RED CELL DISTRIBUTION WIDTH 14.2 % (11.0-15.5); WHITE BLOOD COUNT (AUTO) 7.4 K/uL (4.8-10.8)
[2024-12-25 05:14] LABS: POTASSIUM 4.5 mmol/L (3.5-5.1)
[2024-12-25] MEDS: levoTHYROxine 150 MCG TABLET PO SCH (06:28)
[2024-12-25] MEDS: SERTraline HCL 50 MG TABLET PO SCH (09:42)
[2024-12-25] MEDS: SPIRONOLACTONE 25 MG TAB PO SCH (09:43)
[2024-12-25] MEDS: PANTOPrazole 40 MG TAB DR PO SCH (09:43)
[2024-12-25] MEDS: dilTIAZem 120MG SR CAP PO SCH (09:44)
[2024-12-25] MEDS: hydrALAZine 25MG TABLET PO SCH (10:00)
--- NOTE | 2024-12-25 15:55 | PN ---
[facility] PROGRESS NOTE Date of Service: Dec 25, 2024 Time of Service: 15:50 SUBJECTIVE: [59-year-old male with history of CKD, hyponatremia. Patient was admitted as patient complained of symptoms of bilateral lower extremity edema, shortness of breaths and weakness. Patient's lab reviewed, continues with hyponatremia with improvement in his sodium level at 130. Patient continues to have bilateral lower extremity edema 4+ noted. His blood pressure is still elevated despite different antihypertensive on board. We will adjust hydralazine 50 mg b.i.d. to t.i.d.. Otherwise patient denies any shortness of breaths or chest pain.] REVIEW OF SYSTEMS CONSTITUTIONAL: Denies fevers, chills, or night sweats. No unintentional weight loss reported. NEUROLOGICAL: Denies headache, amaurosis fugax, motor weakness, sensory deficit, vertigo/spinning sensation, gait abnormalities, or tremors. ENT: No hearing loss, otalgia, otorrhea, rhinitis, rhinorrhea, hoarseness, or sore throat. CARDIOVASCULAR: As mentioned in HPI PULMONARY: Denies any shortness of breath, cough, phlegm/sputum, hemoptysis, pleuritic chest pain. SLEEP: Denies morning headaches, daytime somnolence or napping. Denies difficulty falling asleep, staying asleep, waking from sleep. Denies knowledge of snoring. GASTROINTESTINAL: Denies any type of dysphagia to either liquids or solids. Denies nausea, vomiting, pyrosis, early satiety, abdominal pain, diarrhea, constipation, or changes in stool consistency or caliber. Denies coffee-ground emesis, hematemesis, hematochezia, or melanotic stools. GENITOURINARY: Denies frequency, urgency, nocturia, hematuria or incontinence (Storage/Irritative symptoms.) Low urinary stream, straining to void, urinary intermittency or hesitancy, splitting of the voiding stream, terminal dribbling. ENDOCRINOLOGIC: Denies polyuria, polydipsia, polyphagia or heat/cold intolerances. HEMATOLOGIC: Denies thrombophilia/previous clots, or coagulopathy/bleeding disorders. ONCOLOGIC: Denies personal history of malignancy. DERMATOLOGIC: Denies rashes or pruritus. PSYCHIATRIC: Denies any suicidal or homicidal ideation. Denies hallucinations. PHYSICAL EXAM GENERAL APPEARANCE: The patient is awake, alert, and oriented, in no acute cardiopulmonary distress. NEUROLOGICAL: Cranial nerves II-XII grossly intact. Motor is 5/5 in bilateral upper and lower extremities proximal to distal. No sensory deficits. HEENT: Face is symmetric. Pupils are equal and reactive. Extraocular movements are intact. NECK: Supple. No JVD. No thyromegaly. No submental, submandibular, pre- /postauricular, occipital or supraclavicular lymphadenopathy. CHEST: Normal chest expansion. No Telemetry. LUNGS: Absence of any rales, rhonchi or any wheezing. CARDIOVASCULAR: Regular. S1 and S2 normal. No appreciable rubs, murmurs or gallops. ABDOMEN: Soft, nontender, and nondistended. There is no rebound, voluntary guarding, or rigidity. : Deferred. No Finley. EXTREMITIES: Non-edematous and not cyanotic. No clubbing. Good capillary refill. SKIN: No skin breakdown. Vital Signs (last 8hr) Date Time Temp Pulse Resp B/P (MAP) Pulse Ox O2 Delivery O2 Flow Rate FiO2 12/25/24 12:00 98.2 79 19 162/73 98 Room Air 12/25/24 09:55 96 Room Air* 0 21 12/25/24 08:16 98.4 79 19 169/86 96 Room Air LABS: Laboratory: Test 12/25/24 15:01 12/25/24 04:40 12/24/24 15:54 12/24/24 10:21 Range/Units Whole Blood Glucose 250 H 70-110 MG/DL White Blood Count 7.4 4.8-10.8 K/uL Red Blood Count 3.01 L 4.50-6.20 MIL/uL Hemoglobin 8.1 L 14.0-18.0 g/dL Hematocrit 25.1 L 42-54 % Mean Corpuscular Volume 83.4 79-99 fL Mean Corpuscular Hemoglobin 26.9 L 27.0-33.0 pg Mean Corpuscular Hemoglobin Concent 32.3 32.0-36.0 g/dL Red Cell Distribution Width 14.2 11.0-15.5 % Platelet Count 207 130-400 K/uL Mean Platelet Volume 8.2 7.5-10.5 fL Nucleated Red Blood Cells 0.0 0.0-0.19 % Sodium Level 130 L 136-145 mmol/L Potassium Level 4.5 3.5-5.1 mmol/L Chloride Level 99 L 101-111 mmol/L Carbon Dioxide Level 25 21-32 mmol/L Blood Urea Nitrogen 20 H 7-18 mg/dL Creatinine 1.0 0.5-1.3 mg/dL Glomerular Filtration Rate Calc 87 >90 mL/min Random Glucose 149 H 70-105 mg/dL Total Calcium 8.1 L 8.5-10.1 mg/dL Bedside Glucose Comment Notified Nurse Thyroid Stimulating Hormone (TSH) 5.09 H 0.36-3.74 uIU/mL Free Thyroxine (T4) Direct 0.92 0.76-1.46 ng/dL Free Triiodothyronine (T3) pg/mL 2.25 2.18-3.98 pg/mL Test 12/24/24 00:30 Range/Units Stool Occult Blood NEGATIVE NEGATIVE Current Medications Medications (Trade) Dose Ordered Sig/Jose A Route PRN Reason Start Time Stop Time Status Last Admin Dose Admin Acetaminophen (TYLenol 325MG TAB) 650 mg Q6H PRN PO MILD PAIN (1-3) 12/23/24 09:30 01/22/25 09:29 Apixaban (EliquIS) 5 mg BID PO 12/23/24 09:30 01/22/25 09:29 12/25/24 09:44 5 MG Atorvastatin Calcium (LIPItor 40MG) 40 mg HS PO 12/23/24 21:00 01/22/25 20:59 12/24/24 21:47 40 MG Dextrose (D50w) 50 ml AD PRN IV HYPOGLYCEMIA PROTOCOL 12/23/24 14:30 01/22/25 14:29 Diltiazem HCl (CARDIzem 120MG CD) 120 mg DAILY PO 12/25/24 09:00 01/24/25 08:59 12/25/24 09:44 120 MG Famotidine (Pepcid 20mg Vial) 20 mg BID IV 12/23/24 21:00 12/24/24 10:06 DC 12/24/24 09:45 20 MG Glucagon (Glucagon 1mg Kit) 1 mg AD PRN IM HYPOGLYCEMIA PROTOCOL 12/23/24 14:30 01/22/25 14:29 Hydralazine HCl (APRESOLine 20MG INJ) 10 mg Q6H PRN IV ADMINISTER FOR SBP > 160 12/23/24 09:30 01/22/25 09:29 12/25/24 11:23 10 MG Hydralazine HCl ([id number] TAB) 50 mg BID PO 12/24/24 21:00 12/25/24 09:49 DC 12/25/24 09:43 50 MG Hydralazine HCl (HZXSVADtle12OL TAB) 50 mg TID PO 12/25/24 10:00 01/23/25 20:59 12/25/24 14:24 50 MG Insulin Human Regular (humuLIN R 100 UNIT/ML 3ML) INSULIN SLIDING SCAL... ACHS SQ 12/23/24 16:30 01/22/25 16:29 12/25/24 11:28 8 UNIT Levothyroxine Sodium (SYNTHroid 150MCG TAB) 150 mcg SYN PO 12/25/24 06:30 01/24/25 06:29 12/25/24 06:28 150 MCG Metoprolol Tartrate (loprESSOR) 12.5 mg BID PO 12/23/24 09:30 12/23/24 16:08 DC 12/23/24 09:43 12.5 MG Metoprolol Tartrate (loprESSOR) 25 mg BID PO 12/23/24 21:00 12/24/24 10:44 DC 12/24/24 09:45 25 MG Metoprolol Tartrate (loprESSOR) 100 mg BID PO 12/24/24 21:00 01/23/25 20:59 12/25/24 09:42 100 MG Morphine Sulfate (morPHINE 2MG SYG) 2 mg Q6H PRN IVP SEVERE PAIN (7-10) 12/23/24 09:30 12/30/24 09:29 Nitroglycerin (Nitrostat) 0.4 mg AD PRN SL CHEST PAIN 12/23/24 09:30 01/22/25 09:29 Ondansetron HCl (zoFRAN 4MG INJ) 4 mg Q8H PRN IVP NAUSEA/VOMITING 12/23/24 09:30 01/22/25 09:29 Pantoprazole Sodium (PROTonix 40MG TAB) 40 mg DAILY PO 12/25/24 09:00 01/24/25 08:59 12/25/24 09:43 40 MG Sertraline HCl (ZOloft 50 mg tab) 50 mg DAILY PO 12/25/24 09:00 01/24/25 08:59 12/25/24 09:42 50 MG Sodium Chloride 1,000 ml @ 75 mls/hr [id number] IV 12/23/24 14:30 01/22/25 14:29 12/24/24 07:31 75 MLS/HR Spironolactone (Aldactone 25mg) 50 mg DAILY PO 12/25/24 09:00 01/24/25 08:59 12/25/24 09:43 50 MG DIAGNOSTICS / RADIOLOGY: [ ] ASSESSMENT: Uncontrolled hypertension POA Chest pain, rule out ACS POA Hyponatremia POA Atrial fibrillation POA Type 2 diabetes POA Anemia POA CAD Hyperlipidemia Hypothyroidism Anxiety PLAN: Admit patient to telemetry floor under hospitalist team C/w patient's home medication , we will adjust hydralazine from 50 mg b.i.d. to t.i.d. Trend cardiac enzymes NTG SL p.r.n. chest pain Obtain 2D echo C/w patient on atorvastatin 40 mg at bedtime ADA/heart healthy diet Gentle IVF with NS at 75 mL/hour. Follow up chemistry. SSI coverage. Glucometer checks a.c. and HS. Hypoglycemic precautions per protocol. Check A1c. Obtain anemia panel. Continue home Eliquis for DVT prophylaxis Pepcid for GI prophylaxis P.r.n. medications for fever, pain, nausea, constipation Follow-up a.m. labs Further orders per hospital course Case seen and examined with Dr. Coello, above plan was formulated ATTESTATION BY PHYSICIAN I have seen and examined the patient. I reviewed the documentation, medical decision making, and treatment plan as noted by the mid-level provider above. I agree with the findings and plan of care. Stephanie Coello MD, [facility] Dec 25, 2024 15:55
--- NOTE | 2024-12-25 21:14 | NUR ---
BEHAVIOR WAS NOTIFIED BY NURSE AIDKenyatta DOMINGO THAT PATIENT REFUSED CARE FROM HER AND RAISED HIS VOICE AT NURSE AIDE AND IS UPSET. PATIENT UP TO CHAIR VISIBLY UPSET, SPOKE WITH PATIENT REGARDING YELLING AT NURSES AIDE DUE TO BED ALARM BEING APPLIED. PATIENT IS ON ELIQUIS SO BY FALL PREVENTION PROTOCOL BED ALARM APPLIED WHILE PATIENT WAS IN BED WITH EYES CLOSED. PATIENT STATING DISAPPROVAL OF HAVING BED ALARM ARMED AND DISAPPROVAL OF HAVING IT ARMED WHILE ASLEEP. PATIENT YELLED AT NURSES AIDE AND STATED "IT HASN'T BEEN ON FOR THE LAST FEW DAYS WHY IS IT ON NOW?" THIS NURSE SPOKE WITH PATIENT AND INFORMED PATIENT REASON FOR BED ALARM BEING APPLIED, AND INFORMED PATIENT OF HIS RIGHT TO REFUSE ANY CARE BEING PROVIDED. PATIENT CONTINUED ON YELLING ABOUT THE REASON IT WAS NOT BROUGHT UP TO PATIENTS ATTENTION FOR THE LAST FEW DAYS DURING ADMISSION. APOLOGIZED TO PATIENT, LISTENED TO PATIENTS, AND ASKED PATIENT WHAT CAN BE DONE TO IMPROVE OUR CARE FOR MR. WILKS. PATIENT THEN STATED "I WOULD LIKE TO BE LEFT ALONE TO COOL DOWN AND I WANT A DIFFERENT PERSON TO BE MY NURSE BAR SUPERVISOR. " THIS NURSE INFORMED PATIENT THAT STAFF WILL RESPECT HIS BOUNDARIES AND REQUESTED FOR PATIENT TO APPLY CALL [facility] WHEN IS READY TO ALLOW STAFF TO CARE FOR HIM AND CHECK HIS VITAL SIGNS.
[2024-12-26] VITALS: BP 165/53; PULSE 74; RESP 20; TEMP 98.3
[2024-12-26 04:00] VITALS: BP 184/81; PULSE 76; RESP 18; TEMP 98.4
[2024-12-26 04:49] VITALS: BP 166/37
[2024-12-26 08:00] VITALS: O2SAT 92
[2024-12-26] MEDS: hydrALAZine 25MG TABLET PO SCH (12:00)
[2024-12-26] MEDS: hydrALAZine 25MG TABLET PO ONE (12:44)
--- NOTE | 2024-12-26 13:05 | PN ---
[facility] PROGRESS NOTE Date of Service: Dec 26, 2024 Time of Service: 12:59 SUBJECTIVE: [59-year-old male with history of CKD, hyponatremia. Patient was admitted as patient complained of symptoms of bilateral lower extremity edema, shortness of breaths and weakness. Patient's lab reviewed, continues with hyponatremia with improvement in his sodium level at 130. Patient continues to have bilateral lower extremity edema 4+ noted. His blood pressure is still elevated despite different antihypertensive on board. We will adjust hydralazine 50 mg b.i.d. to t.i.d.. Otherwise patient denies any shortness of breaths or chest pain. 12/26/24 Patient was evaluated in the room, he reported that he feels a weak due to having his BP elevated this morning. Patient continues with current medication regimen, we will readjust medication- He will take Hydralazine 75 mg PO x1. Then patient will continue Hydralazine 50 mg now for QID. No other complaints. He can be dc today once his BP improved <150 mmHg, systolic. ] REVIEW OF SYSTEMS CONSTITUTIONAL: Denies fevers, chills, or night sweats. No unintentional weight loss reported. NEUROLOGICAL: Denies headache, amaurosis fugax, motor weakness, sensory deficit, vertigo/spinning sensation, gait abnormalities, or tremors. ENT: No hearing loss, otalgia, otorrhea, rhinitis, rhinorrhea, hoarseness, or sore throat. CARDIOVASCULAR: As mentioned in HPI PULMONARY: Denies any shortness of breath, cough, phlegm/sputum, hemoptysis, pleuritic chest pain. SLEEP: Denies morning headaches, daytime somnolence or napping. Denies difficulty falling asleep, staying asleep, waking from sleep. Denies knowledge of snoring. GASTROINTESTINAL: Denies any type of dysphagia to either liquids or solids. Denies nausea, vomiting, pyrosis, early satiety, abdominal pain, diarrhea, constipation, or changes in stool consistency or caliber. Denies coffee-ground emesis, hematemesis, hematochezia, or melanotic stools. GENITOURINARY: Denies frequency, urgency, nocturia, hematuria or incontinence (Storage/Irritative symptoms.) Low urinary stream, straining to void, urinary intermittency or hesitancy, splitting of the voiding stream, terminal dribbling. ENDOCRINOLOGIC: Denies polyuria, polydipsia, polyphagia or heat/cold intolerances. HEMATOLOGIC: Denies thrombophilia/previous clots, or coagulopathy/bleeding disorders. ONCOLOGIC: Denies personal history of malignancy. DERMATOLOGIC: Denies rashes or pruritus. PSYCHIATRIC: Denies any suicidal or homicidal ideation. Denies hallucinations. PHYSICAL EXAM GENERAL APPEARANCE: The patient is awake, alert, and oriented, in no acute cardiopulmonary distress. NEUROLOGICAL: Cranial nerves II-XII grossly intact. Motor is 5/5 in bilateral upper and lower extremities proximal to distal. No sensory deficits. HEENT: Face is symmetric. Pupils are equal and reactive. Extraocular movements are intact. NECK: Supple. No JVD. No thyromegaly. No submental, submandibular, pre- /postauricular, occipital or supraclavicular lymphadenopathy. CHEST: Normal chest expansion. No Telemetry. LUNGS: Absence of any rales, rhonchi or any wheezing. CARDIOVASCULAR: Regular. S1 and S2 normal. No appreciable rubs, murmurs or gallops. ABDOMEN: Soft, nontender, and nondistended. There is no rebound, voluntary guarding, or rigidity. : Deferred. No Finley. EXTREMITIES: Non-edematous and not cyanotic. No clubbing. Good capillary refill. SKIN: No skin breakdown. Vital Signs (last 8hr) Date Time Temp Pulse Resp B/P (MAP) Pulse Ox O2 Delivery O2 Flow Rate FiO2 12/26/24 08:00 92 Room Air* 0 21 LABS: Laboratory: Test 12/26/24 10:32 12/25/24 04:40 12/24/24 15:54 Range/Units Whole Blood Glucose 329 #H 70-110 MG/DL White Blood Count 7.4 4.8-10.8 K/uL Red Blood Count 3.01 L 4.50-6.20 MIL/uL Hemoglobin 8.1 L 14.0-18.0 g/dL Hematocrit 25.1 L 42-54 % Mean Corpuscular Volume 83.4 79-99 fL Mean Corpuscular Hemoglobin 26.9 L 27.0-33.0 pg Mean Corpuscular Hemoglobin Concent 32.3 32.0-36.0 g/dL Red Cell Distribution Width 14.2 11.0-15.5 % Platelet Count 207 130-400 K/uL Mean Platelet Volume 8.2 7.5-10.5 fL Nucleated Red Blood Cells 0.0 0.0-0.19 % Sodium Level 130 L 136-145 mmol/L Potassium Level 4.5 3.5-5.1 mmol/L Chloride Level 99 L 101-111 mmol/L Carbon Dioxide Level 25 21-32 mmol/L Blood Urea Nitrogen 20 H 7-18 mg/dL Creatinine 1.0 0.5-1.3 mg/dL Glomerular Filtration Rate Calc 87 >90 mL/min Random Glucose 149 H 70-105 mg/dL Total Calcium 8.1 L 8.5-10.1 mg/dL Bedside Glucose Comment Notified Nurse Current Medications Medications (Trade) Dose Ordered Sig/Jose A Route PRN Reason Start Time Stop Time Status Last Admin Dose Admin Acetaminophen (TYLenol 325MG TAB) 650 mg Q6H PRN PO MILD PAIN (1-3) 12/23/24 09:30 01/22/25 09:29 Apixaban (EliquIS) 5 mg BID PO 12/23/24 09:30 01/22/25 09:29 12/26/24 09:11 5 MG Atorvastatin Calcium (LIPItor 40MG) 40 mg HS PO 12/23/24 21:00 01/22/25 20:59 12/25/24 22:13 40 MG Dextrose (D50w) 50 ml AD PRN IV HYPOGLYCEMIA PROTOCOL 12/23/24 14:30 01/22/25 14:29 Diltiazem HCl (CARDIzem 120MG CD) 120 mg DAILY PO 12/25/24 09:00 01/24/25 08:59 12/26/24 09:10 120 MG Famotidine (Pepcid 20mg Vial) 20 mg BID IV 12/23/24 21:00 12/24/24 10:06 DC 12/24/24 09:45 20 MG Glucagon (Glucagon 1mg Kit) 1 mg AD PRN IM HYPOGLYCEMIA PROTOCOL 12/23/24 14:30 01/22/25 14:29 Hydralazine HCl (APRESOLine 20MG INJ) 10 mg Q6H PRN IV ADMINISTER FOR SBP > 160 12/23/24 09:30 01/22/25 09:29 12/26/24 03:46 10 MG Hydralazine HCl ([id number] TAB) 50 mg BID PO 12/24/24 21:00 12/25/24 09:49 DC 12/25/24 09:43 50 MG Hydralazine HCl ([id number] TAB) 50 mg QID PO 12/26/24 12:00 01/23/25 20:59 Hydralazine HCl ([id number] TAB) 50 mg TID PO 12/25/24 10:00 12/26/24 11:40 DC 12/26/24 09:09 50 MG Insulin Human Regular (humuLIN R 100 UNIT/ML 3ML) INSULIN SLIDING SCAL... ACHS SQ 12/23/24 16:30 01/22/25 16:29 12/26/24 11:26 14 UNIT Levothyroxine Sodium (SYNTHroid 150MCG TAB) 150 mcg SYN PO 12/25/24 06:30 01/24/25 06:29 12/26/24 06:21 150 MCG Metoprolol Tartrate (loprESSOR) 12.5 mg BID PO 12/23/24 09:30 12/23/24 16:08 DC 12/23/24 09:43 12.5 MG Metoprolol Tartrate (loprESSOR) 25 mg BID PO 12/23/24 21:00 12/24/24 10:44 DC 12/24/24 09:45 25 MG Metoprolol Tartrate (loprESSOR) 100 mg BID PO 12/24/24 21:00 01/23/25 20:59 12/26/24 09:10 100 MG Morphine Sulfate (morPHINE 2MG SYG) 2 mg Q6H PRN IVP SEVERE PAIN (7-10) 12/23/24 09:30 12/30/24 09:29 Nitroglycerin (Nitrostat) 0.4 mg AD PRN SL CHEST PAIN 12/23/24 09:30 01/22/25 09:29 Ondansetron HCl (zoFRAN 4MG INJ) 4 mg Q8H PRN IVP NAUSEA/VOMITING 12/23/24 09:30 01/22/25 09:29 Pantoprazole Sodium (PROTonix 40MG TAB) 40 mg DAILY PO 12/25/24 09:00 01/24/25 08:59 12/26/24 09:11 40 MG Sertraline HCl (ZOloft 50 mg tab) 50 mg DAILY PO 12/25/24 09:00 01/24/25 08:59 12/26/24 09:11 50 MG Sodium Chloride 1,000 ml @ 75 mls/hr [id number] IV 12/23/24 14:30 01/22/25 14:29 12/24/24 07:31 75 MLS/HR Spironolactone (Aldactone 25mg) 50 mg DAILY PO 12/25/24 09:00 01/24/25 08:59 12/26/24 09:10 50 MG DIAGNOSTICS / RADIOLOGY: [ ] ASSESSMENT: Uncontrolled hypertension POA Chest pain, rule out ACS POA Hyponatremia POA Atrial fibrillation POA Type 2 diabetes POA Anemia POA CAD Hyperlipidemia Hypothyroidism Anxiety PLAN: Admit patient to telemetry floor under hospitalist team C/w patient's home medication , we will adjust hydralazine from 50 mg from TID not QID, he will receive Hydralazine 75 mg PO x1 Trend cardiac enzymes NTG SL p.r.n. chest pain Obtain 2D echo C/w patient on atorvastatin 40 mg at bedtime ADA/heart healthy diet Gentle IVF with NS at 75 mL/hour. Follow up chemistry. SSI coverage. Glucometer checks a.c. and HS. Hypoglycemic precautions per protocol. Obtain anemia panel. Continue home Eliquis for DVT prophylaxis Pepcid for GI prophylaxis P.r.n. medications for fever, pain, nausea, constipation Follow-up a.m. labs Further orders per hospital course Patient can be discharged today if his systolic pressure is less than 150 mg mmHg Case seen and examined with Dr. Coello, above plan was formulated ATTESTATION BY PHYSICIAN I have seen and examined the patient. I reviewed the documentation, medical decision making, and treatment plan as noted by the mid-level provider above. I agree with the findings and plan of care. Stephanie Coello MD, [facility] Dec 26, 2024 13:05
--- NOTE | 2024-12-26 13:19 | DS ---
Discharge Summary Hospital Course Summary: 59-year-old male with past medical history of hypertension, atrial fibrillation, type 2 diabetes, hyperlipidemia, hypothyroidism, anxiety, CAD, GERD, who presented to [facility] ED earlier today with complaints of chest pain. Patient reports earlier in the day, he began to experience some left- sided chest pressure associated with elevated blood pressure, and feeling of palpitations. Patient denied nausea vomiting or diaphoresis. Patient has a history of left clavicular fracture, status post surgical repair, states he has been unemployed in recent months and has not been able to afford his medications for hypertension and atrial fibrillation has been off of them for several months. Patient states he also suffers from anxiety, and due to persistence in his left-sided chest pain he decided to come to the hospital for further evaluation. Upon arrival to ED he was noted afebrile, blood pressure was 223/88, heart rate 93, respirations 20, O2 saturation 99% on room air. Further evaluation lab significant for sodium 124, chloride 92, glucose 223, BNP of 142, H and H 9.5 and 28.0, initial troponin negative. EKG revealing NSR, no ST-T changes. CXR with no acute findings. In the ED patient received IV hydralazine 20 mg x 2, as well as Lopressor 5 mg IV x1, SBP improving to the 150s range, heart rate in the 80s. Patient also received IV morphine for pain control. Request then made to admit to the hospital for further evaluation and management. Patient was admitted and daily labs were monitored to evaluate improvement of hyponatremia. His blood pressure also was monitored closely in readjustment on his blood pressure medication. Patient was also educated on lifestyle camila fication now salt diet and also advice for him to follow up with PCP in 2-3 days and to have a close relationship with the slope runner. Patient can be discharged today once his blood pressure stabilized, systolic blood pressure less than 150 mm per mercury. Procedure(s): [facility] [address] [place] [id number] IMAGING REPORT Signed PATIENT: VERO WILKS MR#: [id number] : 1965 SEX: M AGE: 59 LOCATION: [facility] ORDER 1419 STATUS: ADM IN REPORT#: [id number] SERVICE 1418 REASON: Assess LV function ORDERING PHYSICIAN: OLGA IVAN PROCEDURE: ECHO CMP - ECHO 2-D COMPLETE APPROVED REPORT EXAM: Two-dimensional and M-mode echocardiogram with Doppler and color Doppler. INDICATION ICD: Assess LV Function 2D Dimensions RVDd 3.8 cm LVEF(%) 67.8 (>50%) LVED Vol(simp.) 121.6 mL IVSd 1.1 (0.7-1.1cm) FS(%) 37 % LVES Vol(simp.) 48.9 mL LVDd 3.6 (3.8-5.6cm) LA (2D) 4.0 (1.6-4.0cm) LVEF(%, simp.) 60 % PWd 1.1 (0.7-1.1cm) Ao Root(2D) 3.1 (2.0-3.7cm) LA ESV INDEX (BP) 40.63 mL/m2 LVDs 2.3 (2.5-4.0cm) LVOT diam 2.0 (1.8-2.4cm) IVC diam 2.0 cm Deformation Strain Apical 4 -16.4 % Apical 2 -14.1 % Apical 3 -17.5 % Global Strain -16.0 % M-Mode Dimensions EPSS 0.7 cm LA (MM) 4.4 (1.6-4.0cm) Ao Root(MM) 2.6 (2.0-3.7cm) Aortic Valve AoV Vmax 0.0 m/s Ao Peak GR 0.0 mmHg LVOT Vmax 1.4 m/s AoV VTI 0.5 m Ao Mean GR 9.4 mmHg LVOT VTI 0.33 m MIKE (VMAX) 2.15 cm2 MIKE (VTI) 2.2 cm2 Mitral Valve MV E Vmax 150.9 cm/s DECEL Time 169 ms MV A Vmax 117.9 cm/s P 1/2 T 43 ms E/A ratio 1.3 MVA (PHT) 5.2 cm2 TDI E/E' Medial 20.5 E/E' Lateral 18.1 Medial E' Peak V 7.35 cm/s Lateral E' Peak V 8.34 cm/s Pulmonary Valve PV Vmax 1.5 m/s PV Peak GR 8.9 mmHg Left Ventricle The left ventricle is normal size. No regional wall motion abnormalities noted. Mild concentric left ventricular hypertrophy. Left ventricular systolic function is normal, estimated LVEF is 60 to 65%. Stage II, diastolic dysfunction. Right Ventricle The right ventricle is normal size. The right ventricular systolic function is normal. Atria The left atrium is mildly dilated, 41 mL/m�. The right atrium size is normal. Aortic Valve Aortic valve is trileaflet. The leaflets are thickened and calcified. Trace aortic regurgitation. Mild aortic stenosis: Peak velocity 2.2 m/s, mean gradient 9 mmHg. Mitral Valve The mitral valve is normal in structure. The leaflets are mildly thickened and calcified. Trace mitral regurgitation. There is no mitral valve stenosis. Tricuspid Valve The tricuspid valve is normal in structure. Trace tricuspid regurgitation. RVSP is normal. Pulmonic Valve Pulmonic valve is not well visualized. Great Vessels The aortic root is normal in size. The IVC is normal in size and collapses >50% with inspiration. Pericardium There is no pericardial effusion. Conclusion The left atrium is mildly dilated, 41 mL/m�. Mild concentric left ventricular hypertrophy. No regional wall motion abnormalities noted. Left ventricular systolic function is normal, estimated LVEF is 60 to 65%. Stage II, diastolic dysfunction. Mild aortic stenosis: Peak velocity 2.2 m/s, mean gradient 9 mmHg. Trace aortic regurgitation. Trace mitral regurgitation. Trace tricuspid regurgitation. PASP is normal. There is no pericardial effusion. DICTATED BY: RENATO BILLS MD DATE: 12/24/24904 ELECTRONICALLY SIGNED BY: RENATO BILLS MD DATE: 12/25/24 [address] [place] [address] [id number] IMAGING REPORT Signed PATIENT: VERO WILKS MR#: [id number] : 1965 SEX: M AGE: 59 LOCATION: [facility] ORDER 0616 STATUS: REG ER REPORT#: [id number] SERVICE REASON: CHEST PAIN ORDERING PHYSICIAN: MUSTAPHA HERBERT MD PROCEDURE: CXR1VW - CHEST 1VW CHEST 1VW HISTORY: Chest pain COMPARISON: 08/14/2024 FINDINGS: A frontal projection of the chest was obtained. No acute pulmonary infiltrates is seen. The heart is borderline enlarged. Postop changes are seen of left clavicle. Aortic calcifications are seen. Prominent interstitial markings are seen. IMPRESSION: 1. No acute pulmonary infiltrate is seen. DICTATED BY: MICHELLE FRAZIER MD DATE: 12/23/24843 ELECTRONICALLY SIGNED BY: MICHELLE FRAZIER MD DATE: 12/23/24846 Assessment/Plan: Discharge Diagnoses: Uncontrolled hypertension POA- improving Chest pain, ruled out ACS POA suspected unc HTN related Hyponatremia POA - improving Atrial fibrillation POA Type 2 diabetes POA Anemia POA CAD Hyperlipidemia Hypothyroidism Anxiety Admitting diagnoses Uncontrolled hypertension POA Chest pain, rule out ACS POA Hyponatremia POA Atrial fibrillation POA Type 2 diabetes POA Anemia POA CAD Hyperlipidemia Hypothyroidism Anxiety PLAN: Admit patient to telemetry floor under hospitalist team C/w patient's home medication , we will adjust hydralazine from 50 mg from TID not QID, he will receive Hydralazine 75 mg PO x1 Trend cardiac enzymes NTG SL p.r.n. chest pain Obtain 2D echo C/w patient on atorvastatin 40 mg at bedtime ADA/heart healthy diet Gentle IVF with NS at 75 mL/hour. Follow up chemistry. SSI coverage. Glucometer checks a.c. and HS. Hypoglycemic precautions per protocol. Obtain anemia panel. Continue home Eliquis for DVT prophylaxis Pepcid for GI prophylaxis P.r.n. medications for fever, pain, nausea, constipation Follow-up a.m. labs Further orders per hospital course Patient can be discharged today if his systolic pressure is less than 150 mg mmHg Case seen and examined with Dr. Coello, above plan was formulated Discharge Instructions: Continue with home medications Follow up with PCP in 2-3 days Follow up with Nephrology in one week Home Medications: Reported Medications Pantoprazole Sodium (Protonix) 40 Mg Ectab, 1 TAB PO DAILY for 30 Days, #30 TAB 0 Refills 12/23/24 Glimepiride (Glimepiride) 4 Mg Tablet, 1 TAB PO DAILY for 30 Days, #30 TAB 0 Refills 12/23/24 Diltiazem HCl (Diltiazem 24Hr ER) 120 Mg Cap.er.24h, 1 CAP PO DAILY 12/23/24 Hydralazine HCl (Hydralazine HCl) 50 Mg Tablet, 1 TAB PO BID for 30 Days, #60 TAB 0 Refills 12/23/24 Apixaban (Eliquis) 5 Mg Tablet, 1 TAB PO BID for 30 Days, #60 TAB 0 Refills 12/23/24 Metoprolol Tartrate (Metoprolol Tartrate) 100 Mg Tablet, 1 TAB PO BID for 30 Days, #60 TAB 0 Refills 07/14/24 Metformin HCl (Metformin HCl) 500 Mg Tablet, 1 TAB PO BIDMEALS for 30 Days, #60 TAB 0 Refills 07/14/24 Levothyroxine Sodium (Levothyroxine) 150 Mcg Capsule, 1 CAP PO DAILY for 30 Days, #30 CAP 0 Refills 06/25/24 Spironolactone (Spironolactone) 50 Mg Tablet, 1 TAB PO DAILY for 30 Days, #30 TAB 0 Refills 06/25/24 Sertraline HCl (Zoloft) 50 Mg Tablet, 50 MG PO DAILY, TAB 06/25/24 Discontinued Reported Medications Levothyroxine Sodium (Levothyroxine) 75 Mcg Capsule, 1 TAB PO DAILY for 30 Days, #30 CAP 0 Refills 12/23/24 Rivaroxaban (Xarelto) 20 Mg Tablet, 1 TAB PO DAILY for 30 Days, #30 TAB 0 Refills with food 07/14/24 Pantoprazole Sodium (Pantoprazole Sodium) 40 Mg Tablet.dr, 1 TAB PO DAILY for 30 Days, #30 TAB 0 Refills 07/14/24 Glimepiride (Glimepiride) 4 Mg Tablet, 1 TAB PO DAILY for 30 Days, #30 TAB 0 Refills 07/14/24 Hydralazine HCl (Hydralazine HCl) 100 Mg Tablet, 1 TAB PO TID for 30 Days, #90 TAB 0 Refills 06/25/24 Diltiazem HCl (Diltiazem ER) 300 Mg Capsule.er, 1 CAP PO DAILY for 30 Days, #30 CAP 0 Refills 06/25/24 Time spent arranging discharge: 31-60 minutes ATTESTATION BY PHYSICIAN I have seen and examined the patient. I reviewed the documentation, medical decision making, and treatment plan as noted by the mid-level provider above. I agree with the findings and plan of care. Stephanie Coello MD, [facility] Dec 26, 2024 13:19
[2024-12-26 20:00] VITALS: BP 177/72; PULSE 78; RESP 18; TEMP 99.7; O2SAT 95
[2024-12-27] VITALS (9 sets, daily range): BP systolic 146–190; BP diastolic 70–90; PULSE 69–85; RESP 16–18; TEMP 98.1–98.6; O2SAT 93–98
[2024-12-27] MEDS: acetaMINOPHEN 325 MG TAB PO PRN (08:28)
[2024-12-28] VITALS (8 sets, daily range): BP systolic 132–171; BP diastolic 59–88; PULSE 67–84; RESP 17–20; TEMP 97.6–98.7; O2SAT 93
--- NOTE | 2024-12-28 06:54 | NUR ---
nurse note report received by evelin ma. I assumed patient care at 23:00. patient alert and oriented times 3. plan of care discussed with him and he verbalized understanding. removed patient's old IV catheter on right upper arm. Placed a new IV catheter on his left upper arm. Patient has slept about 7 hours tonight. He has no pain. Call light within reach, bed alarm on, 2 side rails up. will continue to monitor patient.
--- NOTE | 2024-12-28 10:32 | PN ---
[facility] PROGRESS NOTE Date of Service: Dec 28, 2024 Time of Service: 10:26 SUBJECTIVE: [59-year-old male with history of CKD, hyponatremia. Patient was admitted as patient complained of symptoms of bilateral lower extremity edema, shortness of breaths and weakness. Patient's lab reviewed, continues with hyponatremia with improvement in his sodium level at 130. Patient continues to have bilateral lower extremity edema 4+ noted. His blood pressure is still elevated despite different antihypertensive on board. We will adjust hydralazine 50 mg b.i.d. to t.i.d.. Otherwise patient denies any shortness of breaths or chest pain. 12/26/24 Patient was evaluated in the room, he reported that he feels a weak due to having his BP elevated this morning. Patient continues with current medication regimen, we will readjust medication- He will take Hydralazine 75 mg PO x1. Then patient will continue Hydralazine 50 mg now for QID. No other complaints. He can be dc today once his BP improved <150 mmHg, systolic. ] 12/28 the patient was seen and evaluated today. Apparently patient was not discharged as scheduled two days ago due to uncontrolled hypertension. We have been adjusting hydralazine, 50 mg q.i.d. has been given but today we will start patient on [id number] mg p.o. q.i.d. discussed this plan with the patient for which he agreed and verbalized understanding. REVIEW OF SYSTEMS CONSTITUTIONAL: Denies fevers, chills, or night sweats. No unintentional weight loss reported. NEUROLOGICAL: Denies headache, amaurosis fugax, motor weakness, sensory deficit, vertigo/spinning sensation, gait abnormalities, or tremors. ENT: No hearing loss, otalgia, otorrhea, rhinitis, rhinorrhea, hoarseness, or sore throat. CARDIOVASCULAR: As mentioned in HPI PULMONARY: Denies any shortness of breath, cough, phlegm/sputum, hemoptysis, pleuritic chest pain. SLEEP: Denies morning headaches, daytime somnolence or napping. Denies difficulty falling asleep, staying asleep, waking from sleep. Denies knowledge of snoring. GASTROINTESTINAL: Denies any type of dysphagia to either liquids or solids. Denies nausea, vomiting, pyrosis, early satiety, abdominal pain, diarrhea, constipation, or changes in stool consistency or caliber. Denies coffee-ground emesis, hematemesis, hematochezia, or melanotic stools. GENITOURINARY: Denies frequency, urgency, nocturia, hematuria or incontinence (Storage/Irritative symptoms.) Low urinary stream, straining to void, urinary intermittency or hesitancy, splitting of the voiding stream, terminal dribbling. ENDOCRINOLOGIC: Denies polyuria, polydipsia, polyphagia or heat/cold intolerances. HEMATOLOGIC: Denies thrombophilia/previous clots, or coagulopathy/bleeding disorders. ONCOLOGIC: Denies personal history of malignancy. DERMATOLOGIC: Denies rashes or pruritus. PSYCHIATRIC: Denies any suicidal or homicidal ideation. Denies hallucinations. PHYSICAL EXAM GENERAL APPEARANCE: The patient is awake, alert, and oriented, in no acute cardiopulmonary distress. NEUROLOGICAL: Cranial nerves II-XII grossly intact. Motor is 5/5 in bilateral upper and lower extremities proximal to distal. No sensory deficits. HEENT: Face is symmetric. Pupils are equal and reactive. Extraocular movements are intact. NECK: Supple. No JVD. No thyromegaly. No submental, submandibular, pre-/postauricular, occipital or supraclavicular lymphadenopathy. CHEST: Normal chest expansion. No Telemetry. LUNGS: Absence of any rales, rhonchi or any wheezing. CARDIOVASCULAR: Regular. S1 and S2 normal. No appreciable rubs, murmurs or gallops. ABDOMEN: Soft, nontender, and nondistended. There is no rebound, voluntary guarding, or rigidity. : Deferred. No Finley. EXTREMITIES: Non-edematous and not cyanotic. No clubbing. Good capillary refill. SKIN: No skin breakdown. Vital Signs (last 8hr) Date Time Temp Pulse Resp B/P (MAP) Pulse Ox O2 Delivery O2 Flow Rate FiO2 12/28/24 08:00 98.2 84 18 171/71 89 Room Air 12/28/24 04:19 98.1 82 17 164/67 Room Air LABS: Laboratory: Test 12/28/24 05:12 12/27/24 19:31 Range/Units Whole Blood Glucose 130 H 70-110 MG/DL Bedside Glucose Comment Notified Nurse Current Medications Medications (Trade) Dose Ordered Sig/Jose A Route PRN Reason Start Time Stop Time Status Last Admin Dose Admin Acetaminophen (TYLenol 325MG TAB) 650 mg Q6H PRN PO MILD PAIN (1-3) 12/23/24 09:30 01/22/25 09:29 12/28/24 08:22 650 MG Apixaban (EliquIS) 5 mg BID PO 12/23/24 09:30 01/22/25 09:29 12/28/24 08:16 5 MG Atorvastatin Calcium (LIPItor 40MG) 40 mg HS PO 12/23/24 21:00 01/22/25 20:59 12/27/24 20:30 40 MG Dextrose (D50w) 50 ml AD PRN IV HYPOGLYCEMIA PROTOCOL 12/23/24 14:30 01/22/25 14:29 Diltiazem HCl (CARDIzem 120MG CD) 120 mg DAILY PO 12/25/24 09:00 01/24/25 08:59 12/28/24 08:15 120 MG Famotidine (Pepcid 20mg Vial) 20 mg BID IV 12/23/24 21:00 12/24/24 10:06 DC 12/24/24 09:45 20 MG Glucagon (Glucagon 1mg Kit) 1 mg AD PRN IM HYPOGLYCEMIA PROTOCOL 12/23/24 14:30 01/22/25 14:29 Hydralazine HCl (APRESOLine 20MG INJ) 10 mg Q6H PRN IV ADMINISTER FOR SBP > 160 12/23/24 09:30 01/22/25 09:29 12/27/24 23:37 10 MG Hydralazine HCl ([id number] TAB) 50 mg BID PO 12/24/24 21:00 12/25/24 09:49 DC 12/25/24 09:43 50 MG Hydralazine HCl ([id number] TAB) 50 mg QID PO 12/26/24 12:00 12/28/24 10:24 DC 12/28/24 08:16 50 MG Hydralazine HCl ([id number] TAB) 50 mg TID PO 12/25/24 10:00 12/26/24 11:40 DC 12/26/24 09:09 50 MG Hydralazine HCl ([id number] TAB) 75 mg QID PO 12/28/24 13:00 01/27/25 12:59 UNV Insulin Human Regular (humuLIN R 100 UNIT/ML 3ML) INSULIN SLIDING SCAL... ACHS SQ 12/23/24 16:30 01/22/25 16:29 12/27/24 20:35 16 UNIT Levothyroxine Sodium (SYNTHroid 150MCG TAB) 150 mcg SYN PO 12/25/24 06:30 01/24/25 06:29 12/28/24 06:01 150 MCG Metoprolol Tartrate (loprESSOR) 12.5 mg BID PO 12/23/24 09:30 12/23/24 16:08 DC 12/23/24 09:43 12.5 MG Metoprolol Tartrate (loprESSOR) 25 mg BID PO 12/23/24 21:00 12/24/24 10:44 DC 12/24/24 09:45 25 MG Metoprolol Tartrate (loprESSOR) 100 mg BID PO 12/24/24 21:00 01/23/25 20:59 12/28/24 08:18 100 MG Morphine Sulfate (morPHINE 2MG SYG) 2 mg Q6H PRN IVP SEVERE PAIN (7-10) 12/23/24 09:30 12/30/24 09:29 Nitroglycerin (Nitrostat) 0.4 mg AD PRN SL CHEST PAIN 12/23/24 09:30 01/22/25 09:29 Ondansetron HCl (zoFRAN 4MG INJ) 4 mg Q8H PRN IVP NAUSEA/VOMITING 12/23/24 09:30 01/22/25 09:29 Pantoprazole Sodium (PROTonix 40MG TAB) 40 mg DAILY PO 12/25/24 09:00 01/24/25 08:59 12/28/24 08:16 40 MG Sertraline HCl (ZOloft 50 mg tab) 50 mg DAILY PO 12/25/24 09:00 01/24/25 08:59 12/28/24 08:15 50 MG Sodium Chloride 1,000 ml @ 75 mls/hr [id number] IV 12/23/24 14:30 12/27/24 21:49 DC 12/24/24 07:31 75 MLS/HR Spironolactone (Aldactone 25mg) 50 mg DAILY PO 12/25/24 09:00 01/24/25 08:59 12/28/24 08:17 50 MG DIAGNOSTICS / RADIOLOGY: [ ] Assessment: Uncontrolled hypertension POA- improving Chest pain, ruled out ACS POA suspected unc HTN related Hyponatremia POA - improving Atrial fibrillation POA Type 2 diabetes POA Anemia POA CAD Hyperlipidemia Hypothyroidism Anxiety PLAN: Admit patient to telemetry floor under hospitalist team C/w patient's home medication , we will continue to adjust hydralazine to 75 mg PO QID Trend cardiac enzymes NTG SL p.r.n. chest pain 2D echo showed 60-65%, stage I diastolic dysfunction, we will continue to monitor C/w patient on atorvastatin 40 mg at bedtime ADA/heart healthy diet Continue with IVF with NS at 75 mL/hour. Follow up chemistry. SSI coverage. Glucometer checks a.c. and HS. Hypoglycemic precautions per protocol. Obtain anemia panel. Continue home Eliquis for DVT prophylaxis Pepcid for GI prophylaxis P.r.n. medications for fever, pain, nausea, constipation Follow-up a.m. labs Further orders per hospital course Case seen and examined with Dr. Coello, above plan was formulated ATTESTATION BY PHYSICIAN I have seen and examined the patient. I reviewed the documentation, medical decision making, and treatment plan as noted by the mid-level provider above. I agree with the findings and plan of care. Stephanie Coello MD, [facility] Dec 28, 2024 10:32
[2024-12-28] MEDS: hydrALAZine 25MG TABLET PO ONE (10:49)
[2024-12-28 11:12] LABS: HEMATOCRIT 26.1 % (42-54); MEAN CORPUSCULAR HEMOGLOBIN 26.6 pg (27.0-33.0); MEAN CORPUSCULAR HGB CONC 31.8 g/dL (32.0-36.0); MEAN CORPUSCULAR VOLUME 83.7 fL (79-99); RED BLOOD CELL COUNT(AUTO) 3.12 MIL/uL (4.50-6.20); WHITE BLOOD COUNT (AUTO) 12.3 K/uL (4.8-10.8)
[2024-12-28 11:33] LABS: CREATININE 1.3 mg/dL (0.5-1.3)
[2024-12-28] MEDS: hydrALAZine 25MG TABLET PO SCH (13:27)
[2024-12-28] MEDS: LACTULOSE 20 GM/30 ML UDCUP PO PRN (16:48)
[2024-12-29 04:00] VITALS: BP 143/59; PULSE 73; RESP 19; TEMP 97.6
[2024-12-29 04:19] LABS: HEMATOCRIT 26.4 % (42-54); MEAN CORPUSCULAR HEMOGLOBIN 26.8 pg (27.0-33.0); MEAN CORPUSCULAR HGB CONC 31.8 g/dL (32.0-36.0); MEAN CORPUSCULAR VOLUME 84.3 fL (79-99); RED BLOOD CELL COUNT(AUTO) 3.13 MIL/uL (4.50-6.20); RED CELL DISTRIBUTION WIDTH 14.1 % (11.0-15.5); WHITE BLOOD COUNT (AUTO) 11.2 K/uL (4.8-10.8)
[2024-12-29 04:30] LABS: CREATININE 1.4 mg/dL (0.5-1.3); POTASSIUM 3.9 mmol/L (3.5-5.1)
[2024-12-29 08:00] VITALS: BP 180/80; PULSE 76; RESP 18; TEMP 98.3; O2SAT 92
[2024-12-29] MEDS: doCUSate SODIUM 100 MG CAP PO SCH (08:48)
[2024-12-29 12:00] VITALS: BP 163/83; PULSE 75; RESP 18; TEMP 97.8
--- NOTE | 2024-12-29 13:07 | PN ---
[facility] PROGRESS NOTE Date of Service: Dec 29, 2024 Time of Service: 13:05 SUBJECTIVE: [59-year-old male with history of CKD, hyponatremia. Patient was admitted as patient complained of symptoms of bilateral lower extremity edema, shortness of breaths and weakness. Patient's lab reviewed, continues with hyponatremia with improvement in his sodium level at 130. Patient continues to have bilateral lower extremity edema 4+ noted. His blood pressure is still elevated despite different antihypertensive on board. We will adjust hydralazine 50 mg b.i.d. to t.i.d.. Otherwise patient denies any shortness of breaths or chest pain. 12/26/24 Patient was evaluated in the room, he reported that he feels a weak due to having his BP elevated this morning. Patient continues with current medication regimen, we will readjust medication- He will take Hydralazine 75 mg PO x1. Then patient will continue Hydralazine 50 mg now for QID. No other complaints. He can be dc today once his BP improved <150 mmHg, systolic. ] 12/28 the patient was seen and evaluated today. Apparently patient was not discharged as scheduled two days ago due to uncontrolled hypertension. We have been adjusting hydralazine, 50 mg q.i.d. has been given but today we will start patient on [id number] mg p.o. q.i.d. discussed this plan with the patient for which he agreed and verbalized understanding. 12/29/24 patient was examined today, patient spiked up with his blood pressure again this morning systolic in the 180's. We will readjust hydralazine now 100 mg q.i.d.. Plan on discharging the next24 hours if his blood pressure between 150-160 systolic REVIEW OF SYSTEMS CONSTITUTIONAL: Denies fevers, chills, or night sweats. No unintentional weight loss reported. NEUROLOGICAL: Denies headache, amaurosis fugax, motor weakness, sensory deficit, vertigo/spinning sensation, gait abnormalities, or tremors. ENT: No hearing loss, otalgia, otorrhea, rhinitis, rhinorrhea, hoarseness, or sore throat. CARDIOVASCULAR: As mentioned in HPI PULMONARY: Denies any shortness of breath, cough, phlegm/sputum, hemoptysis, pleuritic chest pain. SLEEP: Denies morning headaches, daytime somnolence or napping. Denies difficulty falling asleep, staying asleep, waking from sleep. Denies knowledge of snoring. GASTROINTESTINAL: Denies any type of dysphagia to either liquids or solids. Denies nausea, vomiting, pyrosis, early satiety, abdominal pain, diarrhea, constipation, or changes in stool consistency or caliber. Denies coffee-ground emesis, hematemesis, hematochezia, or melanotic stools. GENITOURINARY: Denies frequency, urgency, nocturia, hematuria or incontinence (Storage/Irritative symptoms.) Low urinary stream, straining to void, urinary intermittency or hesitancy, splitting of the voiding stream, terminal dribbling. ENDOCRINOLOGIC: Denies polyuria, polydipsia, polyphagia or heat/cold intolerances. HEMATOLOGIC: Denies thrombophilia/previous clots, or coagulopathy/bleeding disorders. ONCOLOGIC: Denies personal history of malignancy. DERMATOLOGIC: Denies rashes or pruritus. PSYCHIATRIC: Denies any suicidal or homicidal ideation. Denies hallucinations. PHYSICAL EXAM GENERAL APPEARANCE: The patient is awake, alert, and oriented, in no acute cardiopulmonary distress. NEUROLOGICAL: Cranial nerves II-XII grossly intact. Motor is 5/5 in bilateral upper and lower extremities proximal to distal. No sensory deficits. HEENT: Face is symmetric. Pupils are equal and reactive. Extraocular movements are intact. NECK: Supple. No JVD. No thyromegaly. No submental, submandibular, pre-/postauricular, occipital or supraclavicular lymphadenopathy. CHEST: Normal chest expansion. No Telemetry. LUNGS: Absence of any rales, rhonchi or any wheezing. CARDIOVASCULAR: Regular. S1 and S2 normal. No appreciable rubs, murmurs or gallops. ABDOMEN: Soft, nontender, and nondistended. There is no rebound, voluntary guarding, or rigidity. : Deferred. No Finley. EXTREMITIES: Non-edematous and not cyanotic. No clubbing. Good capillary refill. SKIN: No skin breakdown. Vital Signs (last 8hr) Date Time Temp Pulse Resp B/P (MAP) Pulse Ox O2 Delivery O2 Flow Rate FiO2 12/29/24 12:00 97.9 75 18 163/83 93 Room Air 12/29/24 08:00 98.2 76 18 180/80 92 Room Air LABS: Laboratory: Test 12/29/24 11:07 12/29/24 03:51 Range/Units Whole Blood Glucose 256 #H 70-110 MG/DL Bedside Glucose Comment Notified Nurse White Blood Count 11.2 H 4.8-10.8 K/uL Red Blood Count 3.13 L 4.50-6.20 MIL/uL Hemoglobin 8.4 L 14.0-18.0 g/dL Hematocrit 26.4 L 42-54 % Mean Corpuscular Volume 84.3 79-99 fL Mean Corpuscular Hemoglobin 26.8 L 27.0-33.0 pg Mean Corpuscular Hemoglobin Concent 31.8 L 32.0-36.0 g/dL Red Cell Distribution Width 14.1 11.0-15.5 % Platelet Count 273 130-400 K/uL Mean Platelet Volume 8.9 7.5-10.5 fL Nucleated Red Blood Cells 0.0 0.0-0.19 % Sodium Level 129 L 136-145 mmol/L Potassium Level 3.9 3.5-5.1 mmol/L Chloride Level 96 L 101-111 mmol/L Carbon Dioxide Level 25 21-32 mmol/L Blood Urea Nitrogen 30 H 7-18 mg/dL Creatinine 1.4 H 0.5-1.3 mg/dL Glomerular Filtration Rate Calc 58 >90 mL/min Random Glucose 125 H 70-105 mg/dL Total Calcium 8.2 L 8.5-10.1 mg/dL Current Medications Medications (Trade) Dose Ordered Sig/Jose A Route PRN Reason Start Time Stop Time Status Last Admin Dose Admin Acetaminophen (TYLenol 325MG TAB) 650 mg Q6H PRN PO MILD PAIN (1-3) 12/23/24 09:30 01/22/25 09:29 12/28/24 08:22 650 MG Apixaban (EliquIS) 5 mg BID PO 12/23/24 09:30 01/22/25 09:29 12/29/24 08:43 5 MG Atorvastatin Calcium (LIPItor 40MG) 40 mg HS PO 12/23/24 21:00 01/22/25 20:59 12/28/24 20:37 40 MG Dextrose (D50w) 50 ml AD PRN IV HYPOGLYCEMIA PROTOCOL 12/23/24 14:30 01/22/25 14:29 Diltiazem HCl (CARDIzem 120MG CD) 120 mg DAILY PO 12/25/24 09:00 01/24/25 08:59 12/29/24 08:41 120 MG Docusate Sodium (COLace 100MG CAP) 100 mg DAILY PO 12/29/24 09:00 01/28/25 08:59 Famotidine (Pepcid 20mg Vial) 20 mg BID IV 12/23/24 21:00 12/24/24 10:06 DC 12/24/24 09:45 20 MG Glucagon (Glucagon 1mg Kit) 1 mg AD PRN IM HYPOGLYCEMIA PROTOCOL 12/23/24 14:30 01/22/25 14:29 Hydralazine HCl (APRESOLine 20MG INJ) 10 mg Q6H PRN IV ADMINISTER FOR SBP > 160 12/23/24 09:30 01/22/25 09:29 12/27/24 23:37 10 MG Hydralazine HCl ([id number] TAB) 50 mg BID PO 12/24/24 21:00 12/25/24 09:49 DC 12/25/24 09:43 50 MG Hydralazine HCl ([id number] TAB) 50 mg QID PO 12/26/24 12:00 12/28/24 10:24 DC 12/28/24 08:16 50 MG Hydralazine HCl ([id number] TAB) 50 mg TID PO 12/25/24 10:00 12/26/24 11:40 DC 12/26/24 09:09 50 MG Hydralazine HCl ([id number] TAB) 75 mg QID PO 12/28/24 13:00 01/27/25 12:59 12/29/24 12:40 75 MG Insulin Human Regular (humuLIN R 100 UNIT/ML 3ML) INSULIN SLIDING SCAL... ACHS SQ 12/23/24 16:30 01/22/25 16:29 12/29/24 11:44 10 UNIT Lactulose (Constulose 20gm/ 30ml Udcup) 20 gm BID PRN PO CONSTIPATION 12/28/24 16:30 01/27/25 16:29 12/28/24 16:48 20 GM Levothyroxine Sodium (SYNTHroid 150MCG TAB) 150 mcg SYN PO 12/25/24 06:30 01/24/25 06:29 12/28/24 06:01 150 MCG Metoprolol Tartrate (loprESSOR) 12.5 mg BID PO 12/23/24 09:30 12/23/24 16:08 DC 12/23/24 09:43 12.5 MG Metoprolol Tartrate (loprESSOR) 25 mg BID PO 12/23/24 21:00 12/24/24 10:44 DC 12/24/24 09:45 25 MG Metoprolol Tartrate (loprESSOR) 100 mg BID PO 12/24/24 21:00 01/23/25 20:59 12/29/24 08:43 100 MG Morphine Sulfate (morPHINE 2MG SYG) 2 mg Q6H PRN IVP SEVERE PAIN (7-10) 12/23/24 09:30 12/28/24 12:29 DC Nitroglycerin (Nitrostat) 0.4 mg AD PRN SL CHEST PAIN 12/23/24 09:30 01/22/25 09:29 Ondansetron HCl (zoFRAN 4MG INJ) 4 mg Q8H PRN IVP NAUSEA/VOMITING 12/23/24 09:30 01/22/25 09:29 Pantoprazole Sodium (PROTonix 40MG TAB) 40 mg DAILY PO 12/25/24 09:00 01/24/25 08:59 12/29/24 08:42 40 MG Sertraline HCl (ZOloft 50 mg tab) 50 mg DAILY PO 12/25/24 09:00 01/24/25 08:59 12/29/24 08:43 50 MG Sodium Chloride 1,000 ml @ 75 mls/hr [id number] IV 12/23/24 14:30 12/27/24 21:49 DC 12/24/24 07:31 75 MLS/HR Spironolactone (Aldactone 25mg) 50 mg DAILY PO 12/25/24 09:00 01/24/25 08:59 12/29/24 08:40 50 MG DIAGNOSTICS / RADIOLOGY: [ ] Assessment: Uncontrolled hypertension POA- improving Chest pain, ruled out ACS POA suspected unc HTN related Hyponatremia POA - improving Atrial fibrillation POA Type 2 diabetes POA Anemia POA CAD Hyperlipidemia Hypothyroidism Anxiety PLAN: Admit patient to telemetry floor under hospitalist team C/w patient's home medication , we will continue to adjust hydralazine now duodenal 100 mg p.o. q.i.d. NTG SL p.r.n. chest pain 2D echo showed 60-65%, stage I diastolic dysfunction, we will continue to monitor C/w patient on atorvastatin 40 mg at bedtime ADA/heart healthy diet Continue with IVF with NS at 75 mL/hour. Follow up chemistry. SSI coverage. Glucometer checks a.c. and HS. Hypoglycemic precautions per protocol. Obtain anemia panel. Continue home Eliquis for DVT prophylaxis Pepcid for GI prophylaxis P.r.n. medications for fever, pain, nausea, constipation Follow-up a.m. labs Further orders per hospital course Patient can probably be discharged in the next24 hours if his blood pressure remained systolic in the 150s to 160 Case seen and examined with Dr. Coello, above plan was formulated ATTESTATION BY PHYSICIAN I have seen and examined the patient. I reviewed the documentation, medical decision making, and treatment plan as noted by the mid-level provider above. I agree with the findings and plan of care. Stephanie Coello MD, [facility] Dec 29, 2024 13:07
[2024-12-29 16:00] VITALS: BP 173/77; PULSE 69; RESP 17; TEMP 98.1
[2024-12-29] MEDS: hydrALAZine 25MG TABLET PO SCH (16:44)
[2024-12-29 20:00] VITALS: BP 179/77; PULSE 74; RESP 19; TEMP 98.1
[2024-12-30] VITALS: BP 165/49; PULSE 66; RESP 19; TEMP 97.9
[2024-12-30 03:40] LABS: HEMATOCRIT 25.3 % (42-54); MEAN CORPUSCULAR HEMOGLOBIN 26.6 pg (27.0-33.0); MEAN CORPUSCULAR HGB CONC 32.4 g/dL (32.0-36.0); MEAN CORPUSCULAR VOLUME 82.1 fL (79-99); RED BLOOD CELL COUNT(AUTO) 3.08 MIL/uL (4.50-6.20); RED CELL DISTRIBUTION WIDTH 13.8 % (11.0-15.5); WHITE BLOOD COUNT (AUTO) 8.3 K/uL (4.8-10.8)
[2024-12-30 03:49] LABS: CREATININE 1.3 mg/dL (0.5-1.3); POTASSIUM 3.6 mmol/L (3.5-5.1)
[2024-12-30 04:00] VITALS: BP 196/80; PULSE 69; RESP 16; TEMP 97.6
[2024-12-30 08:00] VITALS: BP_SYST 174; BP_SYST 195; BP_DIAS 76; BP_DIAS 83; PULSE 65; PULSE 69; RESP 18; TEMP 97.5; TEMP 97.7; O2SAT 88
--- NOTE | 2024-12-30 10:09 | PN ---
[facility] PROGRESS NOTE Date of Service: Dec 30, 2024 Time of Service: 10:09 SUBJECTIVE: [59-year-old male with history of CKD, hyponatremia. Patient was admitted as patient complained of symptoms of bilateral lower extremity edema, shortness of breaths and weakness. Patient's lab reviewed, continues with hyponatremia with improvement in his sodium level at 130. Patient continues to have bilateral lower extremity edema 4+ noted. His blood pressure is still elevated despite different antihypertensive on board. We will adjust hydralazine 50 mg b.i.d. to t.i.d.. Otherwise patient denies any shortness of breaths or chest pain. 12/26/24 Patient was evaluated in the room, he reported that he feels a weak due to having his BP elevated this morning. Patient continues with current medication regimen, we will readjust medication- He will take Hydralazine 75 mg PO x1. Then patient will continue Hydralazine 50 mg now for QID. No other complaints. He can be dc today once his BP improved <150 mmHg, systolic. ] 12/28 the patient was seen and evaluated today. Apparently patient was not discharged as scheduled two days ago due to uncontrolled hypertension. We have been adjusting hydralazine, 50 mg q.i.d. has been given but today we will start patient on [id number] mg p.o. q.i.d. discussed this plan with the patient for which he agreed and verbalized understanding. 12/29/24 patient was examined today, patient spiked up with his blood pressure again this morning systolic in the 180's. We will readjust hydralazine now 100 mg q.i.d.. Plan on discharging the next24 hours if his blood pressure between 150-160 systolic 12/30/24 patient has persistent elevated blood pressure. Adjustment on medication has been done. At this point, we will be consulting medical physicist for further recommendations. REVIEW OF SYSTEMS CONSTITUTIONAL: Denies fevers, chills, or night sweats. No unintentional weight loss reported. NEUROLOGICAL: Denies headache, amaurosis fugax, motor weakness, sensory deficit, vertigo/spinning sensation, gait abnormalities, or tremors. ENT: No hearing loss, otalgia, otorrhea, rhinitis, rhinorrhea, hoarseness, or sore throat. CARDIOVASCULAR: As mentioned in HPI PULMONARY: Denies any shortness of breath, cough, phlegm/sputum, hemoptysis, pleuritic chest pain. SLEEP: Denies morning headaches, daytime somnolence or napping. Denies difficulty falling asleep, staying asleep, waking from sleep. Denies knowledge of snoring. GASTROINTESTINAL: Denies any type of dysphagia to either liquids or solids. Denies nausea, vomiting, pyrosis, early satiety, abdominal pain, diarrhea, constipation, or changes in stool consistency or caliber. Denies coffee-ground emesis, hematemesis, hematochezia, or melanotic stools. GENITOURINARY: Denies frequency, urgency, nocturia, hematuria or incontinence (Storage/Irritative symptoms.) Low urinary stream, straining to void, urinary intermittency or hesitancy, splitting of the voiding stream, terminal dribbling. ENDOCRINOLOGIC: Denies polyuria, polydipsia, polyphagia or heat/cold intolerances. HEMATOLOGIC: Denies thrombophilia/previous clots, or coagulopathy/bleeding disorders. ONCOLOGIC: Denies personal history of malignancy. DERMATOLOGIC: Denies rashes or pruritus. PSYCHIATRIC: Denies any suicidal or homicidal ideation. Denies hallucinations. PHYSICAL EXAM GENERAL APPEARANCE: The patient is awake, alert, and oriented, in no acute cardiopulmonary distress. NEUROLOGICAL: Cranial nerves II-XII grossly intact. Motor is 5/5 in bilateral upper and lower extremities proximal to distal. No sensory deficits. HEENT: Face is symmetric. Pupils are equal and reactive. Extraocular movements are intact. NECK: Supple. No JVD. No thyromegaly. No submental, submandibular, pre- /postauricular, occipital or supraclavicular lymphadenopathy. CHEST: Normal chest expansion. No Telemetry. LUNGS: Absence of any rales, rhonchi or any wheezing. CARDIOVASCULAR: Regular. S1 and S2 normal. No appreciable rubs, murmurs or gallops. ABDOMEN: Soft, nontender, and nondistended. There is no rebound, voluntary guarding, or rigidity. : Deferred. No Finley. EXTREMITIES: Non-edematous and not cyanotic. No clubbing. Good capillary refill. SKIN: No skin breakdown. Vital Signs (last 8hr) Date Time Temp Pulse Resp B/P (MAP) Pulse Ox O2 Delivery O2 Flow Rate FiO2 12/30/24 04:00 97.5 69 16 196/80 93 Room Air LABS: Laboratory: Test 12/30/24 05:18 12/30/24 03:28 12/29/24 16:07 Range/Units Whole Blood Glucose 130 H 70-110 MG/DL White Blood Count 8.3 # 4.8-10.8 K/uL Red Blood Count 3.08 L 4.50-6.20 MIL/uL Hemoglobin 8.2 L 14.0-18.0 g/dL Hematocrit 25.3 L 42-54 % Mean Corpuscular Volume 82.1 79-99 fL Mean Corpuscular Hemoglobin 26.6 L 27.0-33.0 pg Mean Corpuscular Hemoglobin Concent 32.4 32.0-36.0 g/dL Red Cell Distribution Width 13.8 11.0-15.5 % Platelet Count 289 130-400 K/uL Mean Platelet Volume 8.6 7.5-10.5 fL Nucleated Red Blood Cells 0.0 0.0-0.19 % Sodium Level 128 L 136-145 mmol/L Potassium Level 3.6 3.5-5.1 mmol/L Chloride Level 97 L 101-111 mmol/L Carbon Dioxide Level 22 21-32 mmol/L Blood Urea Nitrogen 29 H 7-18 mg/dL Creatinine 1.3 0.5-1.3 mg/dL Glomerular Filtration Rate Calc 63 >90 mL/min Random Glucose 140 H 70-105 mg/dL Total Calcium 8.2 L 8.5-10.1 mg/dL Bedside Glucose Comment Notified Nurse Current Medications Medications (Trade) Dose Ordered Sig/Jose A Route PRN Reason Start Time Stop Time Status Last Admin Dose Admin Acetaminophen (TYLenol 325MG TAB) 650 mg Q6H PRN PO MILD PAIN (1-3) 12/23/24 09:30 01/22/25 09:29 12/30/24 08:36 650 MG Apixaban (EliquIS) 5 mg BID PO 12/23/24 09:30 01/22/25 09:29 12/30/24 08:27 5 MG Atorvastatin Calcium (LIPItor 40MG) 40 mg HS PO 12/23/24 21:00 01/22/25 20:59 12/29/24 20:45 40 MG Dextrose (D50w) 50 ml AD PRN IV HYPOGLYCEMIA PROTOCOL 12/23/24 14:30 01/22/25 14:29 Diltiazem HCl (CARDIzem 120MG CD) 120 mg DAILY PO 12/25/24 09:00 01/24/25 08:59 12/30/24 08:27 120 MG Docusate Sodium (COLace 100MG CAP) 100 mg DAILY PO 12/29/24 09:00 01/28/25 08:59 12/30/24 08:27 100 MG Famotidine (Pepcid 20mg Vial) 20 mg BID IV 12/23/24 21:00 12/24/24 10:06 DC 12/24/24 09:45 20 MG Glucagon (Glucagon 1mg Kit) 1 mg AD PRN IM HYPOGLYCEMIA PROTOCOL 12/23/24 14:30 01/22/25 14:29 Hydralazine HCl (APRESOLine 20MG INJ) 10 mg Q6H PRN IV ADMINISTER FOR SBP > 160 12/23/24 09:30 01/22/25 09:29 12/27/24 23:37 10 MG Hydralazine HCl ([id number] TAB) 50 mg BID PO 12/24/24 21:00 12/25/24 09:49 DC 12/25/24 09:43 50 MG Hydralazine HCl ([id number] TAB) 50 mg QID PO 12/26/24 12:00 12/28/24 10:24 DC 12/28/24 08:16 50 MG Hydralazine HCl ([id number] TAB) 50 mg TID PO 12/25/24 10:00 12/26/24 11:40 DC 12/26/24 09:09 50 MG Hydralazine HCl ([id number] TAB) 75 mg QID PO 12/28/24 13:00 12/29/24 13:05 DC 12/29/24 12:40 75 MG Hydralazine HCl ([id number] TAB) 100 mg QID PO 12/29/24 17:00 01/28/25 16:59 12/30/24 08:26 100 MG Insulin Human Regular (humuLIN R 100 UNIT/ML 3ML) INSULIN SLIDING SCAL... ACHS SQ 12/23/24 16:30 01/22/25 16:29 12/29/24 20:50 8 UNIT Lactulose (Constulose 20gm/ 30ml Udcup) 20 gm BID PRN PO CONSTIPATION 12/28/24 16:30 01/27/25 16:29 12/28/24 16:48 20 GM Levothyroxine Sodium (SYNTHroid 150MCG TAB) 150 mcg SYN PO 12/25/24 06:30 01/24/25 06:29 12/30/24 05:37 150 MCG Metoprolol Tartrate (loprESSOR) 12.5 mg BID PO 12/23/24 09:30 12/23/24 16:08 DC 12/23/24 09:43 12.5 MG Metoprolol Tartrate (loprESSOR) 25 mg BID PO 12/23/24 21:00 12/24/24 10:44 DC 12/24/24 09:45 25 MG Metoprolol Tartrate (loprESSOR) 100 mg BID PO 12/24/24 21:00 01/23/25 20:59 12/30/24 08:27 100 MG Morphine Sulfate (morPHINE 2MG SYG) 2 mg Q6H PRN IVP SEVERE PAIN (7-10) 12/23/24 09:30 12/28/24 12:29 DC Nitroglycerin (Nitrostat) 0.4 mg AD PRN SL CHEST PAIN 12/23/24 09:30 01/22/25 09:29 Ondansetron HCl (zoFRAN 4MG INJ) 4 mg Q8H PRN IVP NAUSEA/VOMITING 12/23/24 09:30 01/22/25 09:29 Pantoprazole Sodium (PROTonix 40MG TAB) 40 mg DAILY PO 12/25/24 09:00 01/24/25 08:59 12/30/24 08:27 40 MG Sertraline HCl (ZOloft 50 mg tab) 50 mg DAILY PO 12/25/24 09:00 01/24/25 08:59 12/30/24 08:27 50 MG Sodium Chloride 1,000 ml @ 75 mls/hr [id number] IV 12/23/24 14:30 12/27/24 21:49 DC 12/24/24 07:31 75 MLS/HR Spironolactone (Aldactone 25mg) 50 mg DAILY PO 12/25/24 09:00 01/24/25 08:59 12/30/24 08:27 50 MG DIAGNOSTICS / RADIOLOGY: [ ] Assessment: Uncontrolled hypertension POA- improving Chest pain, ruled out ACS POA suspected unc HTN related Hyponatremia POA - improving Atrial fibrillation POA Type 2 diabetes POA Anemia POA CAD Hyperlipidemia Hypothyroidism Anxiety PLAN: Admit patient to telemetry floor under hospitalist team C/w patient's home medication , we will continue to adjust hydralazine now 100 mg p.o. q.i.d., metoprolol 100 mg p.o. b.i.d. now t.i.d. Cardizem 120 SR from daily now to be ID NTG SL p.r.n. chest pain 2D echo showed 60-65%, stage I diastolic dysfunction, we will continue to monitor C/w patient on atorvastatin 40 mg at bedtime ADA/heart healthy diet Continue with IVF with NS at 75 mL/hour. Follow up chemistry. SSI coverage. Glucometer checks a.c. and HS. Hypoglycemic precautions per protocol. Obtain anemia panel. Continue home Eliquis for DVT prophylaxis Pepcid for GI prophylaxis P.r.n. medications for fever, pain, nausea, constipation Follow-up a.m. labs Further orders per hospital course Patient can probably be discharged in the next24 hours if his blood pressure remained systolic in the 150s to 160 Case seen and examined with Dr. Coello, above plan was formulated ATTESTATION BY PHYSICIAN I have seen and examined the patient. I reviewed the documentation, medical decision making, and treatment plan as noted by the mid-level provider above. I agree with the findings and plan of care. Stephanie Coello MD, [facility] Dec 30, 2024 10:09
[2024-12-30] MEDS: metoPROLOL tartRATE 50 MG TAB PO SCH (11:33)
[2024-12-30] MEDS: dilTIAZem 120MG SR CAP PO SCH (11:34)
[2024-12-30 12:00] VITALS: BP 174/76; PULSE 65; RESP 18; TEMP 97.7
[2024-12-30] MEDS ORDERED: LACTULOSE 20 GM/30 ML UDCUP PO PRN (14:30)
--- NOTE | 2024-12-30 15:28 | CONS ---
NEPHROLOGY CONSULTATION NOTE Date/Time Patient Seen: Dec 30, 2024 1430 Reason for Consultation: Renal failure HISTORY OF PRESENT ILLNESS: This is a 59-year-old male with a past medical history of atrial fibrillation on chronic anticoagulation, chronic hyponatremia, diabetes mellitus type 2, o bstructive sleep apnea, hypothyroidism, hypertension, obesity, congestive heart failure, chronic kidney disease, and anemia. He presents to the emergency department with complaints of chest pain In the emergency room he was to have hyponatremia, elevated BUN/creatinine, and anemia We are consulted for renal failure Renal function remains elevated Renal ultrasound showed normal renal and bladder sonogram. No hydronephrosis on January 2024. He is complaining of dizziness. He was seen in the medical floor, in no acute distress No family at the bedside Prognosis remains guarded REVIEW OF SYSTEMS: GENERAL: Positive for chest pain and dizziness NEUROLOGIC: Negative for any blurry vision, blind spots, double vision, facial asymmetry, dysphagia, dysarthria, hemiparesis, hemisensory deficits, vertigo, ataxia. HEENT: Negative for any head trauma, neck trauma, neck stiffness, photophobia, phonophobia, sinusitis, rhinitis. CARDIAC: Negative for any chest pain, dyspnea on exertion, paroxysmal nocturnal dyspnea, peripheral edema. PULMONARY: Negative for any shortness of breath, wheezing, COPD, or TB exposure. GASTROINTESTINAL: Negative for any abdominal pain, nausea, vomiting, bright red blood per rectum, melena. GENITOURINARY: Negative for any dysuria, hematuria, incontinence. INTEGUMENTARY: Negative for any rashes, cuts, insect bites. RHEUMATOLOGIC: Negative for any joint pains, photosensitive rashes, history of vasculitis or kidney problems. HEMATOLOGIC: Negative for any abnormal bruising, frequent infections or bleeding. PAST MEDICAL HISTORY: Atrial fibrillation Chronic hyponatremia Diabetes mellitus type 2 Obstructive sleep apnea Hypothyroidism Hypertension Obesity Congestive heart failure Chronic kidney disease Anemia PAST SURGICAL HISTORY: Left clavicle repair PAST SOCIAL HISTORY: Drinks 2-3 beers, heavy liquor a week Occasionally vapes Denies any illicit drug use FAMILY HISTORY: Noncontributory PHYSICAL EXAM: GENERAL: Alert and oriented x 3. No acute distress. Well-nourished. EYES: EOMI. Anicteric. HENT: Moist mucous membranes. No scleral icterus. No cervical lymphadenopathy. LUNGS: Clear to auscultation bilaterally. No accessory muscle use. CARDIOVASCULAR: Regular rate and rhythm. No murmur. No JVD. ABDOMEN: Soft, non-tender and non-distended. No palpable masses. EXTREMITIES: No edema. Non-tender. SKIN: No rashes or lesions. Warm. NEUROLOGIC: No focal neurological deficits. CN II-XII grossly intact, but not individually tested. PSYCHIATRIC: Cooperative. Appropriate mood and affect. MEDICATIONS: [ ] Current Medications Medications (Trade) Dose Ordered Sig/Jose A Route PRN Reason Start Time Stop Time Status Last Admin Dose Admin Acetaminophen (TYLenol 325MG TAB) 650 mg Q6H PRN PO MILD PAIN (1-3) 12/23/24 09:30 01/22/25 09:29 12/30/24 08:36 650 MG Apixaban (EliquIS) 5 mg BID PO 12/23/24 09:30 01/22/25 09:29 12/30/24 08:27 5 MG Atorvastatin Calcium (LIPItor 40MG) 40 mg HS PO 12/23/24 21:00 01/22/25 20:59 12/29/24 20:45 40 MG Dextrose (D50w) 50 ml AD PRN IV HYPOGLYCEMIA PROTOCOL 12/23/24 14:30 01/22/25 14:29 Diltiazem HCl (CARDIzem 120MG CD) 120 mg BID PO 12/30/24 10:30 01/24/25 08:59 12/30/24 11:34 120 MG Diltiazem HCl (CARDIzem 120MG CD) 120 mg DAILY PO 12/25/24 09:00 12/30/24 10:09 DC 12/30/24 08:27 120 MG Docusate Sodium (COLace 100MG CAP) 100 mg DAILY PO 12/29/24 09:00 01/28/25 08:59 12/30/24 08:27 100 MG Famotidine (Pepcid 20mg Vial) 20 mg BID IV 12/23/24 21:00 12/24/24 10:06 DC 12/24/24 09:45 20 MG Glucagon (Glucagon 1mg Kit) 1 mg AD PRN IM HYPOGLYCEMIA PROTOCOL 12/23/24 14:30 01/22/25 14:29 Hydralazine HCl (APRESOLine 20MG INJ) 10 mg Q6H PRN IV ADMINISTER FOR SBP > 160 12/23/24 09:30 01/22/25 09:29 12/27/24 23:37 10 MG Hydralazine HCl ([id number] TAB) 50 mg BID PO 12/24/24 21:00 12/25/24 09:49 DC 12/25/24 09:43 50 MG Hydralazine HCl ([id number] TAB) 50 mg QID PO 12/26/24 12:00 12/28/24 10:24 DC 12/28/24 08:16 50 MG Hydralazine HCl ([id number] TAB) 50 mg TID PO 12/25/24 10:00 12/26/24 11:40 DC 12/26/24 09:09 50 MG Hydralazine HCl ([id number] TAB) 75 mg QID PO 12/28/24 13:00 12/29/24 13:05 DC 12/29/24 12:40 75 MG Hydralazine HCl ([id number] TAB) 100 mg QID PO 12/29/24 17:00 01/28/25 16:59 12/30/24 13:39 100 MG Insulin Human Regular (humuLIN R 100 UNIT/ML 3ML) INSULIN SLIDING SCAL... ACHS SQ 12/23/24 16:30 01/22/25 16:29 12/30/24 11:55 6 UNIT Lactulose (Constulose 20gm/ 30ml Udcup) 20 gm BID PRN PO CONSTIPATION 12/28/24 16:30 01/27/25 16:29 12/28/24 16:48 20 GM Lactulose (Constulose 20gm/ 30ml Udcup) 20 gm BID PRN PO CONSTIPATION 12/30/24 14:30 12/30/24 14:21 DC Levothyroxine Sodium (SYNTHroid 150MCG TAB) 150 mcg SYN PO 12/25/24 06:30 01/24/25 06:29 12/30/24 05:37 150 MCG Metoprolol Tartrate (loprESSOR) 12.5 mg BID PO 12/23/24 09:30 12/23/24 16:08 DC 12/23/24 09:43 12.5 MG Metoprolol Tartrate (loprESSOR) 25 mg BID PO 12/23/24 21:00 12/24/24 10:44 DC 12/24/24 09:45 25 MG Metoprolol Tartrate (loprESSOR) 100 mg BID PO 12/24/24 21:00 12/30/24 10:09 DC 12/30/24 08:27 100 MG Metoprolol Tartrate (loprESSOR) 100 mg TID PO 12/30/24 10:30 01/23/25 20:59 12/30/24 11:33 100 MG Morphine Sulfate (morPHINE 2MG SYG) 2 mg Q6H PRN IVP SEVERE PAIN (7-10) 12/23/24 09:30 12/28/24 12:29 DC Nitroglycerin (Nitrostat) 0.4 mg AD PRN SL CHEST PAIN 12/23/24 09:30 01/22/25 09:29 Ondansetron HCl (zoFRAN 4MG INJ) 4 mg Q8H PRN IVP NAUSEA/VOMITING 12/23/24 09:30 01/22/25 09:29 Pantoprazole Sodium (PROTonix 40MG TAB) 40 mg DAILY PO 12/25/24 09:00 01/24/25 08:59 12/30/24 08:27 40 MG Sertraline HCl (ZOloft 50 mg tab) 50 mg DAILY PO 12/25/24 09:00 01/24/25 08:59 12/30/24 08:27 50 MG Sodium Chloride 1,000 ml @ 75 mls/hr [id number] IV 12/23/24 14:30 12/27/24 21:49 DC 12/24/24 07:31 75 MLS/HR Spironolactone (Aldactone 25mg) 50 mg DAILY PO 12/25/24 09:00 01/24/25 08:59 12/30/24 08:27 50 MG Vital Signs (last 8hr) Date Time Temp Pulse Resp B/P (MAP) Pulse Ox O2 Delivery O2 Flow Rate FiO2 12/30/24 12:00 97.7 65 18 174/76 90 12/30/24 08:00 97.5 69 18 195/83 88 Room Air 12/30/24 08:00 88 Room Air* 0 21 DIAGNOSTICS / RADIOLOGY: REASON: Assess LV function ORDERING PHYSICIAN: OLGA IVAN PROCEDURE: ECHO CMP - ECHO 2-D COMPLETE APPROVED REPORT EXAM: Two-dimensional and M-mode echocardiogram with Doppler and color Doppler. INDICATION ICD: Assess LV Function 2D Dimensions RVDd 3.8 cm LVEF(%) 67.8 (>50%) LVED Vol(simp.) 121.6 mL IVSd 1.1 (0.7-1.1cm) FS(%) 37 % LVES Vol(simp.) 48.9 mL LVDd 3.6 (3.8-5.6cm) LA (2D) 4.0 (1.6-4.0cm) LVEF(%, simp.) 60 % PWd 1.1 (0.7-1.1cm) Ao Root(2D) 3.1 (2.0-3.7cm) LA ESV INDEX (BP) 40.63 mL/m2 LVDs 2.3 (2.5-4.0cm) LVOT diam 2.0 (1.8-2.4cm) IVC diam 2.0 cm Deformation Strain Apical 4 -16.4 % Apical 2 -14.1 % Apical 3 -17.5 % Global Strain -16.0 % M-Mode Dimensions EPSS 0.7 cm LA (MM) 4.4 (1.6-4.0cm) Ao Root(MM) 2.6 (2.0-3.7cm) Aortic Valve AoV Vmax 0.0 m/s Ao Peak GR 0.0 mmHg LVOT Vmax 1.4 m/s AoV VTI 0.5 m Ao Mean GR 9.4 mmHg LVOT VTI 0.33 m MIKE (VMAX) 2.15 cm2 MIKE (VTI) 2.2 cm2 Mitral Valve MV E Vmax 150.9 cm/s DECEL Time 169 ms MV A Vmax 117.9 cm/s P 1/2 T 43 ms E/A ratio 1.3 MVA (PHT) 5.2 cm2 TDI E/E' Medial 20.5 E/E' Lateral 18.1 Medial E' Peak V 7.35 cm/s Lateral E' Peak V 8.34 cm/s Pulmonary Valve PV Vmax 1.5 m/s PV Peak GR 8.9 mmHg Left Ventricle The left ventricle is normal size. No regional wall motion abnormalities noted. Mild concentric left ventricular hypertrophy. Left ventricular systolic function is normal, estimated LVEF is 60 to 65%. Stage II, diastolic dysfunction. Right Ventricle The right ventricle is normal size. The right ventricular systolic function is normal. Atria The left atrium is mildly dilated, 41 mL/m�. The right atrium size is normal. Aortic Valve Aortic valve is trileaflet. The leaflets are thickened and calcified. Trace aortic regurgitation. Mild aortic stenosis: Peak velocity 2.2 m/s, mean gradient 9 mmHg. Mitral Valve The mitral valve is normal in structure. The leaflets are mildly thickened and calcified. Trace mitral regurgitation. There is no mitral valve stenosis. Tricuspid Valve The tricuspid valve is normal in structure. Trace tricuspid regurgitation. RVSP is normal. Pulmonic Valve Pulmonic valve is not well visualized. Great Vessels The aortic root is normal in size. The IVC is normal in size and collapses >50% with inspiration. Pericardium There is no pericardial effusion. Conclusion The left atrium is mildly dilated, 41 mL/m�. Mild concentric left ventricular hypertrophy. No regional wall motion abnormalities noted. Left ventricular systolic function is normal, estimated LVEF is 60 to 65%. Stage II, diastolic dysfunction. Mild aortic stenosis: Peak velocity 2.2 m/s, mean gradient 9 mmHg. Trace aortic regurgitation. Trace mitral regurgitation. Trace tricuspid regurgitation. PASP is normal. There is no pericardial effusion. DICTATED BY: RENATO BILLS MD DATE: 12/24/24 0905 REASON: CHEST PAIN ORDERING PHYSICIAN: MUSTAPHA HERBERT MD PROCEDURE: CXR1VW - CHEST 1VW CHEST 1VW HISTORY: Chest pain COMPARISON: 08/14/2024 FINDINGS: A frontal projection of the chest was obtained. No acute pulmonary infiltrates is seen. The heart is borderline enlarged. Postop changes are seen of left clavicle. Aortic calcifications are seen. Prominent interstitial markings are seen. IMPRESSION: 1. No acute pulmonary infiltrate is seen. DICTATED BY: MICHELLE FRAZIER MD DATE: 12/23/24 0844 LABORATORY: [ ] Hematology Labs: Test 12/30/24 03:28 Range/Units White Blood Count 8.3 # 4.8-10.8 K/uL Red Blood Count 3.08 L 4.50-6.20 MIL/uL Hemoglobin 8.2 L 14.0-18.0 g/dL Hematocrit 25.3 L 42-54 % Mean Corpuscular Volume 82.1 79-99 fL Mean Corpuscular Hemoglobin 26.6 L 27.0-33.0 pg Mean Corpuscular Hemoglobin Concent 32.4 32.0-36.0 g/dL Red Cell Distribution Width 13.8 11.0-15.5 % Platelet Count 289 130-400 K/uL Mean Platelet Volume 8.6 7.5-10.5 fL Nucleated Red Blood Cells 0.0 0.0-0.19 % Chemistry Labs: Test 12/30/24 11:33 12/30/24 03:28 12/29/24 16:07 Range/Units Whole Blood Glucose 202 #H 70-110 MG/DL Sodium Level 128 L 136-145 mmol/L Potassium Level 3.6 3.5-5.1 mmol/L Chloride Level 97 L 101-111 mmol/L Carbon Dioxide Level 22 21-32 mmol/L Blood Urea Nitrogen 29 H 7-18 mg/dL Creatinine 1.3 0.5-1.3 mg/dL Glomerular Filtration Rate Calc 63 >90 mL/min Random Glucose 140 H 70-105 mg/dL Total Calcium 8.2 L 8.5-10.1 mg/dL Bedside Glucose Comment Notified Nurse ASSESSMENT: Hyponatremia Anemia Uncontrolled hypertension Chest pain, ruled out ACS POA Atrial fibrillation Type 2 diabetes CAD Hyperlipidemia Hypothyroidism Anxiety PLAN: Labs, diagnostic, radiologic exams reviewed and interpreted by myself and supervising physician. We have reviewed external records in detail Check blood pressure in sitting position Order orthostatic vital signs daily Obtain UA, urine electrolytes, urine creatinine, urine osmolality Start Nephro-Jennifer daily Require close monitoring of renal function and electrolytes Order CBC, CMP, uric acid, TSH , serum osmolality and electrolytes in am BiPAP as necessary, for respiratory distress Monitor blood pressure adjust medication doses as needed Avoid hypotensive episodes May use Dilaudid 0.5 mg IV every 6 hours as needed for severe pain Monitor blood sugars Strict intake, output, and daily weight should be monitored Please renally adjust medications Avoid nephrotoxic and nonsteroidal drugs Avoid contrast if possible Will continue to monitor renal function, anemia, electrolytes Treatment plan discussed with patient Questions were answered We have discussed with the other team physicians in detail about the care plan We will continue to monitor the patient closely Thank you for allowing us to participate in the care of this patient ATTESTATION BY PHYSICIAN I have seen and examined the patient. I reviewed the documentation, medical decision making, and treatment plan as noted by the mid-level provider above. I agree with the findings and plan of care. NOEMY SAMUELS MD, [facility] Dec 30, 2024 15:28
--- NOTE | 2024-12-30 15:53 | HMCIMG ---
CHEST 1VW HISTORY: Hypoxemia COMPARISON: 12/23/2024 FINDINGS: A frontal projection of the chest was obtained. There are bilateral pulmonary infiltrates suggestive of pulmonary vascular congestion with possible superimposed pneumonitis. The heart is enlarged. Postop changes are seen of left clavicle with orthopedic fixation plates and screws. No evidence of aortic calcification is seen. IMPRESSION: 1. Bilateral pulmonary infiltrates are seen suggestive of pulmonary vascular congestion with possible superimposed pneumonitis.
[2024-12-30 16:00] VITALS: BP 163/79; PULSE 61; RESP 18; TEMP 98
[2024-12-30 20:00] VITALS: BP 158/68; PULSE 67; RESP 18; TEMP 98.1; O2SAT 93
[2024-12-30] MEDS ORDERED: SIMETHICONE 80 MG TAB.CHEW PO PRN (22:00)
[2024-12-30] MEDS: PANTOPrazole 40 MG TAB DR PO ONE (22:09)
[2024-12-31] VITALS (8 sets, daily range): BP systolic 145–189; BP diastolic 71–86; PULSE 58–72; RESP 18; TEMP 97.4–98.6; O2SAT 93–98
[2024-12-31 05:18] LABS: HEMATOCRIT 25.8 % (42-54); MEAN CORPUSCULAR HEMOGLOBIN 26.3 pg (27.0-33.0); MEAN CORPUSCULAR HGB CONC 31.8 g/dL (32.0-36.0); MEAN CORPUSCULAR VOLUME 82.7 fL (79-99); RED BLOOD CELL COUNT(AUTO) 3.12 MIL/uL (4.50-6.20); RED CELL DISTRIBUTION WIDTH 13.7 % (11.0-15.5)
[2024-12-31 06:03] LABS: ALBUMIN 2.3 g/dL (3.5-5.0); BILIRUBIN,TOTAL 0.5 mg/dL (0.2-1.0); CREATININE 1.5 mg/dL (0.5-1.3); MAGNESIUM 1.8 mg/dL (1.80-2.40); THYROID STIMULATING HORMONE 3.09 uIU/mL (0.36-3.74); TOTAL PROTEIN, SERUM 6.1 g/dL (6.0-8.3); URIC ACID 7.2 mg/dL (2.6-7.2)
[2024-12-31 06:04] LABS: % IRON SATURATION 6.7 % (30-44)
[2024-12-31] MEDS: Vitamin B Complex/Vit C/Folic Acid PO SCH (08:01)
--- NOTE | 2024-12-31 11:16 | PN ---
[facility] PROGRESS NOTE Date of Service: Dec 31, 2024 Time of Service: 11:16 SUBJECTIVE: [59-year-old male with history of CKD, hyponatremia. Patient was admitted as patient complained of symptoms of bilateral lower extremity edema, shortness of breaths and weakness. Patient's lab reviewed, continues with hyponatremia with improvement in his sodium level at 130. Patient continues to have bilateral lower extremity edema 4+ noted. His blood pressure is still elevated despite different antihypertensive on board. We will adjust hydralazine 50 mg b.i.d. to t.i.d.. Otherwise patient denies any shortness of breaths or chest pain. 12/26/24 Patient was evaluated in the room, he reported that he feels a weak due to having his BP elevated this morning. Patient continues with current medication regimen, we will readjust medication- He will take Hydralazine 75 mg PO x1. Then patient will continue Hydralazine 50 mg now for QID. No other complaints. He can be dc today once his BP improved <150 mmHg, systolic. ] 12/28 the patient was seen and evaluated today. Apparently patient was not discharged as scheduled two days ago due to uncontrolled hypertension. We have been adjusting hydralazine, 50 mg q.i.d. has been given but today we will start patient on [id number] mg p.o. q.i.d. discussed this plan with the patient for which he agreed and verbalized understanding. 12/29/24 patient was examined today, patient spiked up with his blood pressure again this morning systolic in the 180's. We will readjust hydralazine now 100 mg q.i.d.. Plan on discharging the next24 hours if his blood pressure between 150-160 systolic 12/30/24 patient has persistent elevated blood pressure. Adjustment on medication has been done. At this point, we will be consulting wardrobe mistress for further recommendations. 12/31/24 Patient was evaluated in the room, AOx3. He is with shortness of breath, using accessory muscle. On oxygen at 2Lpm via NC. His BP remained elevated despite adjustment on meds. Cxray showed pulmonary infiltrates. Patient is swollen to extremities, 2-3+ REVIEW OF SYSTEMS CONSTITUTIONAL: Denies fevers, chills, or night sweats. No unintentional weight loss reported. NEUROLOGICAL: Denies headache, amaurosis fugax, motor weakness, sensory deficit, vertigo/spinning sensation, gait abnormalities, or tremors. ENT: No hearing loss, otalgia, otorrhea, rhinitis, rhinorrhea, hoarseness, or sore throat. CARDIOVASCULAR: As mentioned in HPI PULMONARY: Denies any shortness of breath, cough, phlegm/sputum, hemoptysis, pleuritic chest pain. SLEEP: Denies morning headaches, daytime somnolence or napping. Denies difficulty falling asleep, staying asleep, waking from sleep. Denies knowledge of snoring. GASTROINTESTINAL: Denies any type of dysphagia to either liquids or solids. Denies nausea, vomiting, pyrosis, early satiety, abdominal pain, diarrhea, constipation, or changes in stool consistency or caliber. Denies coffee-ground emesis, hematemesis, hematochezia, or melanotic stools. GENITOURINARY: Denies frequency, urgency, nocturia, hematuria or incontinence (Storage/Irritative symptoms.) Low urinary stream, straining to void, urinary intermittency or hesitancy, splitting of the voiding stream, terminal dribbling. ENDOCRINOLOGIC: Denies polyuria, polydipsia, polyphagia or heat/cold intolerances. HEMATOLOGIC: Denies thrombophilia/previous clots, or coagulopathy/bleeding disorders. ONCOLOGIC: Denies personal history of malignancy. DERMATOLOGIC: Denies rashes or pruritus. PSYCHIATRIC: Denies any suicidal or homicidal ideation. Denies hallucinations. PHYSICAL EXAM GENERAL APPEARANCE: The patient is awake, alert, and oriented, in no acute cardiopulmonary distress. NEUROLOGICAL: Cranial nerves II-XII grossly intact. Motor is 5/5 in bilateral upper and lower extremities proximal to distal. No sensory deficits. HEENT: Face is symmetric. Pupils are equal and reactive. Extraocular movements are intact. NECK: Supple. No JVD. No thyromegaly. No submental, submandibular, pre- /postauricular, occipital or supraclavicular lymphadenopathy. CHEST: Normal chest expansion. No Telemetry. LUNGS: Absence of any rales, rhonchi or any wheezing. CARDIOVASCULAR: Regular. S1 and S2 normal. No appreciable rubs, murmurs or gallops. ABDOMEN: Soft, nontender, and nondistended. There is no rebound, voluntary guarding, or rigidity. : Deferred. No Finley. EXTREMITIES: Non-edematous and not cyanotic. No clubbing. Good capillary refill. SKIN: No skin breakdown. Vital Signs (last 8hr) Date Time Temp Pulse Resp B/P (MAP) Pulse Ox O2 Delivery O2 Flow Rate FiO2 12/31/24 08:00 97.9 59 18 189/84 93 Room Air 12/31/24 08:00 93 Room Air* 0 21 12/31/24 04:00 97.5 58 18 162/79 99 Room Air LABS: Laboratory: Test 12/31/24 05:02 12/29/24 16:07 Range/Units White Blood Count 9.0 4.8-10.8 K/uL Red Blood Count 3.12 L 4.50-6.20 MIL/uL Hemoglobin 8.2 L 14.0-18.0 g/dL Hematocrit 25.8 L 42-54 % Mean Corpuscular Volume 82.7 79-99 fL Mean Corpuscular Hemoglobin 26.3 L 27.0-33.0 pg Mean Corpuscular Hemoglobin Concent 31.8 L 32.0-36.0 g/dL Red Cell Distribution Width 13.7 11.0-15.5 % Platelet Count 312 130-400 K/uL Mean Platelet Volume 8.4 7.5-10.5 fL Nucleated Red Blood Cells 0.0 0.0-0.19 % Sodium Level 125 L 136-145 mmol/L Potassium Level 4.0 3.5-5.1 mmol/L Chloride Level 95 L 101-111 mmol/L Carbon Dioxide Level 21 21-32 mmol/L Blood Urea Nitrogen 34 H 7-18 mg/dL Creatinine 1.5 H 0.5-1.3 mg/dL Glomerular Filtration Rate Calc 53 >90 mL/min Whole Blood Glucose 178 H 70-110 MG/DL Random Glucose 176 H 70-105 mg/dL Uric Acid 7.2 2.6-7.2 mg/dL Total Calcium 8.3 L 8.5-10.1 mg/dL Magnesium Level 1.80 1.80-2.40 mg/dL Iron Level 15 #L 65-175 mcg/dL Total Iron Binding Capacity 221 L 250-450 mcg/dL Percent Iron Saturation 6.7 L 30-44 % Ferritin 54 30-400 ng/mL Total Bilirubin 0.5 0.2-1.0 mg/dL Aspartate Amino Transf (AST/SGOT) 27 10-37 U/L Alanine Aminotransferase (ALT/SGPT) 23 12-78 U/L Alkaline Phosphatase 184 H 50-136 U/L Total Protein 6.1 6.0-8.3 g/dL Albumin 2.3 L 3.5-5.0 g/dL Thyroid Stimulating Hormone (TSH) 3.09 # 0.36-3.74 uIU/mL Bedside Glucose Comment Notified Nurse Current Medications Medications (Trade) Dose Ordered Sig/Jose A Route PRN Reason Start Time Stop Time Status Last Admin Dose Admin Acetaminophen (TYLenol 325MG TAB) 650 mg Q6H PRN PO MILD PAIN (1-3) 12/23/24 09:30 01/22/25 09:29 12/31/24 08:07 650 MG Apixaban (EliquIS) 5 mg BID PO 12/23/24 09:30 01/22/25 09:29 12/31/24 08:03 5 MG Atorvastatin Calcium (LIPItor 40MG) 40 mg HS PO 12/23/24 21:00 01/22/25 20:59 12/30/24 21:12 40 MG Dextrose (D50w) 50 ml AD PRN IV HYPOGLYCEMIA PROTOCOL 12/23/24 14:30 01/22/25 14:29 Diltiazem HCl (CARDIzem 120MG CD) 120 mg BID PO 12/30/24 10:30 01/24/25 08:59 12/31/24 08:01 120 MG Diltiazem HCl (CARDIzem 120MG CD) 120 mg DAILY PO 12/25/24 09:00 12/30/24 10:09 DC 12/30/24 08:27 120 MG Docusate Sodium (COLace 100MG CAP) 100 mg DAILY PO 12/29/24 09:00 01/28/25 08:59 12/30/24 08:27 100 MG Famotidine (Pepcid 20mg Vial) 20 mg BID IV 12/23/24 21:00 12/24/24 10:06 DC 12/24/24 09:45 20 MG Glucagon (Glucagon 1mg Kit) 1 mg AD PRN IM HYPOGLYCEMIA PROTOCOL 12/23/24 14:30 01/22/25 14:29 Hydralazine HCl (APRESOLine 20MG INJ) 10 mg Q6H PRN IV ADMINISTER FOR SBP > 160 12/23/24 09:30 01/22/25 09:29 12/27/24 23:37 10 MG Hydralazine HCl ([id number] TAB) 50 mg BID PO 12/24/24 21:00 12/25/24 09:49 DC 12/25/24 09:43 50 MG Hydralazine HCl ([id number] TAB) 50 mg QID PO 12/26/24 12:00 12/28/24 10:24 DC 12/28/24 08:16 50 MG Hydralazine HCl ([id number] TAB) 50 mg TID PO 12/25/24 10:00 12/26/24 11:40 DC 12/26/24 09:09 50 MG Hydralazine HCl ([id number] TAB) 75 mg QID PO 12/28/24 13:00 12/29/24 13:05 DC 12/29/24 12:40 75 MG Hydralazine HCl ([id number] TAB) 100 mg QID PO 12/29/24 17:00 01/28/25 16:59 12/31/24 08:08 100 MG Insulin Human Regular (humuLIN R 100 UNIT/ML 3ML) INSULIN SLIDING SCAL... ACHS SQ 12/23/24 16:30 01/22/25 16:29 12/31/24 06:14 4 UNIT Lactulose (Constulose 20gm/ 30ml Udcup) 20 gm BID PRN PO CONSTIPATION 12/28/24 16:30 01/27/25 16:29 12/28/24 16:48 20 GM Lactulose (Constulose 20gm/ 30ml Udcup) 20 gm BID PRN PO CONSTIPATION 12/30/24 14:30 12/30/24 14:21 DC Levothyroxine Sodium (SYNTHroid 150MCG TAB) 150 mcg SYN PO 12/25/24 06:30 01/24/25 06:29 12/31/24 06:13 150 MCG Metoprolol Tartrate (loprESSOR) 12.5 mg BID PO 12/23/24 09:30 12/23/24 16:08 DC 12/23/24 09:43 12.5 MG Metoprolol Tartrate (loprESSOR) 25 mg BID PO 12/23/24 21:00 12/24/24 10:44 DC 12/24/24 09:45 25 MG Metoprolol Tartrate (loprESSOR) 100 mg BID PO 12/24/24 21:00 12/30/24 10:09 DC 12/30/24 08:27 100 MG Metoprolol Tartrate (loprESSOR) 100 mg TID PO 12/30/24 10:30 01/23/25 20:59 12/31/24 08:19 100 MG Morphine Sulfate (morPHINE 2MG SYG) 2 mg Q6H PRN IVP SEVERE PAIN (7-10) 12/23/24 09:30 12/28/24 12:29 DC Nitroglycerin (Nitrostat) 0.4 mg AD PRN SL CHEST PAIN 12/23/24 09:30 01/22/25 09:29 Ondansetron HCl (zoFRAN 4MG INJ) 4 mg Q8H PRN IVP NAUSEA/VOMITING 12/23/24 09:30 01/22/25 09:29 Pantoprazole Sodium (PROTonix 40MG TAB) 40 mg DAILY PO 12/25/24 09:00 01/24/25 08:59 12/31/24 08:04 40 MG Sertraline HCl (ZOloft 50 mg tab) 50 mg DAILY PO 12/25/24 09:00 01/24/25 08:59 12/31/24 08:03 50 MG Simethicone (Mylicon) 80 mg BIDPRN PRN PO GI GAS 12/30/24 22:00 01/29/25 21:59 Sodium Chloride 1,000 ml @ 75 mls/hr [id number] IV 12/23/24 14:30 12/27/24 21:49 DC 12/24/24 07:31 75 MLS/HR Spironolactone (Aldactone 25mg) 50 mg DAILY PO 12/25/24 09:00 01/24/25 08:59 12/31/24 08:04 50 MG Vitamin B Complex/ Vit C/Folic Acid (Nephrovite Tablet) 1 cap DAILY PO 12/31/24 09:00 01/30/25 08:59 12/31/24 08:01 1 CAP DIAGNOSTICS / RADIOLOGY: [ ] Assessment: Pulmonary infiltrate by chest-xray Uncontrolled hypertension POA- improving Chest pain, ruled out ACS POA suspected unc HTN related Hyponatremia POA - improving Atrial fibrillation POA Type 2 diabetes POA Anemia POA CAD Hyperlipidemia Hypothyroidism Anxiety PLAN: Admit patient to telemetry floor under hospitalist team C/w patient's home medication , we will continue with current antihypertensive. We will start Rocephin 1 g IV, 2/2 pulmonary infiltrate on chest xray, he is sob. NTG SL p.r.n. chest pain 2D echo showed 60-65%, stage I diastolic dysfunction, we will continue to monitor C/w patient on atorvastatin 40 mg at bedtime ADA/heart healthy diet Continue with IVF with NS at 75 mL/hour. Follow up chemistry. SSI coverage. Glucometer checks a.c. and HS. Hypoglycemic precautions per protocol. Obtain anemia panel. Continue home Eliquis for DVT prophylaxis Pepcid for GI prophylaxis P.r.n. medications for fever, pain, nausea, constipation BNP today We will start daily weight, strict I&O Follow-up a.m. labs Further orders per hospital course Patient can probably be discharged in the next24 hours if his blood pressure remained systolic in the 150s to 160 Case seen and examined with Dr. Coello, above plan was formulated ATTESTATION BY PHYSICIAN I have seen and examined the patient. I reviewed the documentation, medical decision making, and treatment plan as noted by the mid-level provider above. I agree with the findings and plan of care. Stephanie Coello MD, [facility] Dec 31, 2024 11:16
[2024-12-31] MEDS: cefTRIAXone 1G VIAL IVPB SCH (11:52)
[2024-12-31 12:48] LABS: INFLUENZA TYPE A Negative For Type A (NEGATIVE); INFLUENZA TYPE B Negative For Type B (NEGATIVE)
[2024-12-31] MEDS ORDERED: IRON sUCROse COMPLEX 100 MG/5 ML VIAL IVP SCH (13:00)
[2024-12-31] MEDS ORDERED: COMPOUND IV MISC 1 EACH IVSOLN MISC PRN (13:30)
[2024-12-31] MEDS: furoSEMIDE 40MG VIAL IV SCH (14:14)
[2024-12-31] MEDS: IRON SUCROSE COMPLEX 300 MG+/NS 250ML IV SCH (14:36)
--- NOTE | 2024-12-31 14:41 | PN ---
NEPHROLOGY PROGRESS NOTE Date/Time Patient Seen: Dec 31, 2024 SUBJECTIVE: This is a 59-year-old male with a past medical history of atrial fibrillation on chronic anticoagulation, chronic hyponatremia, diabetes mellitus type 2, obstructive sleep apnea, hypothyroidism, hypertension, obesity, congestive heart failure, chronic kidney disease, and anemia. He presents to the emergency department with complaints of chest pain In the emergency room he was to have hyponatremia, elevated BUN/creatinine, and anemia We are consulted for renal failure Renal function remains elevated Electrolyte are stable Iron panel was noted. Renal ultrasound showed normal renal and bladder sonogram. No hydronephrosis on January 2024. He was seen in the medical floor, in no acute distress Complaining of shortness of breath No family at the bedside Prognosis remains guarded REVIEW OF SYSTEMS: GENERAL: Positive for chest pain and dizziness NEUROLOGIC: Negative for any blurry vision, blind spots, double vision, facial asymmetry, dysphagia, dysarthria, hemiparesis, hemisensory deficits, vertigo, ataxia. HEENT: Negative for any head trauma, neck trauma, neck stiffness, photophobia, phonophobia, sinusitis, rhinitis. CARDIAC: Negative for any chest pain, dyspnea on exertion, paroxysmal nocturnal dyspnea, peripheral edema. PULMONARY: Negative for any shortness of breath, wheezing, COPD, or TB exposure. GASTROINTESTINAL: Negative for any abdominal pain, nausea, vomiting, bright red blood per rectum, melena. GENITOURINARY: Negative for any dysuria, hematuria, incontinence. INTEGUMENTARY: Negative for any rashes, cuts, insect bites. RHEUMATOLOGIC: Negative for any joint pains, photosensitive rashes, history of vasculitis or kidney problems. HEMATOLOGIC: Negative for any abnormal bruising, frequent infections or bleeding. PHYSICAL EXAM: GENERAL: Alert and oriented x 3. No acute distress. Well-nourished. EYES: EOMI. Anicteric. HENT: Moist mucous membranes. No scleral icterus. No cervical lymphadenopathy. LUNGS: Clear to auscultation bilaterally. No accessory muscle use. CARDIOVASCULAR: Regular rate and rhythm. No murmur. No JVD. ABDOMEN: Soft, non-tender and non-distended. No palpable masses. EXTREMITIES: No edema. Non-tender. SKIN: No rashes or lesions. Warm. NEUROLOGIC: No focal neurological deficits. CN II-XII grossly intact, but not individually tested. PSYCHIATRIC: Cooperative. Appropriate mood and affect. LABORATORY: [ ] Hematology Labs: Test 12/31/24 05:02 Range/Units White Blood Count 9.0 4.8-10.8 K/uL Red Blood Count 3.12 L 4.50-6.20 MIL/uL Hemoglobin 8.2 L 14.0-18.0 g/dL Hematocrit 25.8 L 42-54 % Mean Corpuscular Volume 82.7 79-99 fL Mean Corpuscular Hemoglobin 26.3 L 27.0-33.0 pg Mean Corpuscular Hemoglobin Concent 31.8 L 32.0-36.0 g/dL Red Cell Distribution Width 13.7 11.0-15.5 % Platelet Count 312 130-400 K/uL Mean Platelet Volume 8.4 7.5-10.5 fL Nucleated Red Blood Cells 0.0 0.0-0.19 % Chemistry Labs: Test 12/31/24 11:15 12/31/24 05:02 12/29/24 16:07 Range/Units Whole Blood Glucose 327 #H 70-110 MG/DL Sodium Level 125 L 136-145 mmol/L Potassium Level 4.0 3.5-5.1 mmol/L Chloride Level 95 L 101-111 mmol/L Carbon Dioxide Level 21 21-32 mmol/L Blood Urea Nitrogen 34 H 7-18 mg/dL Creatinine 1.5 H 0.5-1.3 mg/dL Glomerular Filtration Rate Calc 53 >90 mL/min Random Glucose 176 H 70-105 mg/dL Serum Osmolality 273 L 278-305 mOsm/kg Uric Acid 7.2 2.6-7.2 mg/dL Total Calcium 8.3 L 8.5-10.1 mg/dL Magnesium Level 1.80 1.80-2.40 mg/dL Iron Level 15 #L 65-175 mcg/dL Total Iron Binding Capacity 221 L 250-450 mcg/dL Percent Iron Saturation 6.7 L 30-44 % Ferritin 54 30-400 ng/mL Total Bilirubin 0.5 0.2-1.0 mg/dL Aspartate Amino Transf (AST/SGOT) 27 10-37 U/L Alanine Aminotransferase (ALT/SGPT) 23 12-78 U/L Alkaline Phosphatase 184 H 50-136 U/L Total Protein 6.1 6.0-8.3 g/dL Albumin 2.3 L 3.5-5.0 g/dL Thyroid Stimulating Hormone (TSH) 3.09 # 0.36-3.74 uIU/mL Bedside Glucose Comment Notified Nurse DIAGNOSTICS / RADIOLOGY: REASON: hypoxemia ORDERING PHYSICIAN: ADRI WOMACK PROCEDURE: CXR1VW - CHEST 1VW CHEST 1VW HISTORY: Hypoxemia COMPARISON: 12/23/2024 FINDINGS: A frontal projection of the chest was obtained. There are bilateral pulmonary infiltrates suggestive of pulmonary vascular congestion with possible superimposed pneumonitis. The heart is enlarged. Postop changes are seen of left clavicle with orthopedic fixation plates and screws. No evidence of aortic calcification is seen. IMPRESSION: 1. Bilateral pulmonary infiltrates are seen suggestive of pulmonary vascular congestion with possible superimposed pneumonitis. DICTATED BY: MICHELLE FRAZIER MD DATE: 12/30/24 1550 REASON: Assess LV function ORDERING PHYSICIAN: OLGA IVAN PROCEDURE: ECHO [facility] - ECHO 2-D COMPLETE APPROVED REPORT EXAM: Two-dimensional and M-mode echocardiogram with Doppler and color Doppler. INDICATION ICD: Assess LV Function 2D Dimensions RVDd 3.8 cm LVEF(%) 67.8 (>50%) LVED Vol(simp.) 121.6 mL IVSd 1.1 (0.7-1.1cm) FS(%) 37 % LVES Vol(simp.) 48.9 mL LVDd 3.6 (3.8-5.6cm) LA (2D) 4.0 (1.6-4.0cm) LVEF(%, simp.) 60 % PWd 1.1 (0.7-1.1cm) Ao Root(2D) 3.1 (2.0-3.7cm) LA ESV INDEX (BP) 40.63 mL/m2 LVDs 2.3 (2.5-4.0cm) LVOT diam 2.0 (1.8-2.4cm) IVC diam 2.0 cm Deformation Strain Apical 4 -16.4 % Apical 2 -14.1 % Apical 3 -17.5 % Global Strain -16.0 % M-Mode Dimensions EPSS 0.7 cm LA (MM) 4.4 (1.6-4.0cm) Ao Root(MM) 2.6 (2.0-3.7cm) Aortic Valve AoV Vmax 0.0 m/s Ao Peak GR 0.0 mmHg LVOT Vmax 1.4 m/s AoV VTI 0.5 m Ao Mean GR 9.4 mmHg LVOT VTI 0.33 m MIKE (VMAX) 2.15 cm2 MIKE (VTI) 2.2 cm2 Mitral Valve MV E Vmax 150.9 cm/s DECEL Time 169 ms MV A Vmax 117.9 cm/s P 1/2 T 43 ms E/A ratio 1.3 MVA (PHT) 5.2 cm2 TDI E/E' Medial 20.5 E/E' Lateral 18.1 Medial E' Peak V 7.35 cm/s Lateral E' Peak V 8.34 cm/s Pulmonary Valve PV Vmax 1.5 m/s PV Peak GR 8.9 mmHg Left Ventricle The left ventricle is normal size. No regional wall motion abnormalities noted. Mild concentric left ventricular hypertrophy. Left ventricular systolic function is normal, estimated LVEF is 60 to 65%. Stage II, diastolic dysfunction. Right Ventricle The right ventricle is normal size. The right ventricular systolic function is normal. Atria The left atrium is mildly dilated, 41 mL/m�. The right atrium size is normal. Aortic Valve Aortic valve is trileaflet. The leaflets are thickened and calcified. Trace aortic regurgitation. Mild aortic stenosis: Peak velocity 2.2 m/s, mean gradient 9 mmHg. Mitral Valve The mitral valve is normal in structure. The leaflets are mildly thickened and calcified. Trace mitral regurgitation. There is no mitral valve stenosis. Tricuspid Valve The tricuspid valve is normal in structure. Trace tricuspid regurgitation. RVSP is normal. Pulmonic Valve Pulmonic valve is not well visualized. Great Vessels The aortic root is normal in size. The IVC is normal in size and collapses >50% with inspiration. Pericardium There is no pericardial effusion. Conclusion The left atrium is mildly dilated, 41 mL/m�. Mild concentric left ventricular hypertrophy. No regional wall motion abnormalities noted. Left ventricular systolic function is normal, estimated LVEF is 60 to 65%. Stage II, diastolic dysfunction. Mild aortic stenosis: Peak velocity 2.2 m/s, mean gradient 9 mmHg. Trace aortic regurgitation. Trace mitral regurgitation. Trace tricuspid regurgitation. PASP is normal. There is no pericardial effusion. DICTATED BY: RENATO BILLS MD DATE: 12/24/2405 REASON: CHEST PAIN ORDERING PHYSICIAN: MUSTAPHA HERBERT MD PROCEDURE: CXR1VW - CHEST 1VW CHEST 1VW HISTORY: Chest pain COMPARISON: 08/14/2024 FINDINGS: A frontal projection of the chest was obtained. No acute pulmonary infiltrates is seen. The heart is borderline enlarged. Postop changes are seen of left clavicle. Aortic calcifications are seen. Prominent interstitial markings are seen. IMPRESSION: 1. No acute pulmonary infiltrate is seen. DICTATED BY: MICHELLE FRAZIER MD DATE: 12/23/24 0844 ASSESSMENT: Hyponatremia Anemia Uncontrolled hypertension Chest pain, ruled out ACS POA Atrial fibrillation Type 2 diabetes CAD Hyperlipidemia Hypothyroidism Anxiety PLAN: Labs, diagnostic, radiologic exams reviewed and interpreted by myself and supervising physician. We have reviewed external records in detail Start Lasix 40 mg IV BID Start Venofer 300 mg IV Daily x 3 doses Require close monitoring of renal function and electrolytes Order CBC, CMP, and electrolytes in am BiPAP as necessary, for respiratory distress Monitor blood pressure adjust medication doses as needed Avoid hypotensive episodes May use Dilaudid 0.5 mg IV every 6 hours as needed for severe pain Monitor blood sugars Strict intake, output, and daily weight should be monitored Please renally adjust medications Avoid nephrotoxic and nonsteroidal drugs Avoid contrast if possible Will continue to monitor renal function, anemia, electrolytes Treatment plan discussed with patient Questions were answered We have discussed with the other team physicians in detail about the care plan We will continue to monitor the patient closely ATTESTATION BY PHYSICIAN I have seen and examined the patient. I reviewed the documentation, medical decision making, and treatment plan as noted by the mid-level provider above. I agree with the findings and plan of care. NOEMY SAMUELS MD, [facility] Dec 31, 2024 14:41
[2024-12-31 15:01] LABS: APPEARANCE,URINE CLEAR (CLEAR); BILIRUBIN,URINE NEGATIVE (NEGATIVE); COLOR,URINE YELLOW (YELLOW); GLUCOSE, URINE (UA) 500 mg/dL (NEGATIVE); KETONES,URINE NEGATIVE (NEGATIVE); LEUKOCYTE ESTERASE ,URINE NEGATIVE Leu/uL (NEGATIVE); NITRATE,URINE NEGATIVE (NEGATIVE); OCCULT BLOOD,URINE NEGATIVE (NEGATIVE); PH,URINE 5.5 (5.0-8.0); PROTEIN,URINE 200 mg/dL (NEGATIVE); UROBILINOGEN,URINE 0.2 mg/dL (0.2-1.0)
[2024-12-31 15:11] LABS: CHLORIDE,URINE RANDOM 32 mmol/L (110-250); POTASSIUM,URINE RANDOM 28 mmol/L (25-125); SODIUM,URINE RANDOM 19 mmol/l (40-220)
[2024-12-31 15:14] LABS: CREATININE,URINE RANDOM 132.71 mg/dL (30-135)
[2024-12-31 15:40] LABS: ADD UA MICROSCOPIC YES
[2024-12-31 15:42] LABS: SQUAMOUS EPITHELIAL CELL,UR RARE /HPF (0-2)
[2024-12-31 16:37] LABS: PROTEIN,URINE RANDOM 241.7 mg/dL (0-11.9)
[2025-01-01] VITALS (9 sets, daily range): BP systolic 128–189; BP diastolic 41–79; PULSE 58–76; RESP 16–18; TEMP 97.8–98.6
[2025-01-01 05:34] LABS: HEMATOCRIT 28.1 % (42-54); MEAN CORPUSCULAR HEMOGLOBIN 26.5 pg (27.0-33.0); MEAN CORPUSCULAR HGB CONC 32.4 g/dL (32.0-36.0); MEAN CORPUSCULAR VOLUME 81.7 fL (79-99); RED BLOOD CELL COUNT(AUTO) 3.44 MIL/uL (4.50-6.20); RED CELL DISTRIBUTION WIDTH 13.5 % (11.0-15.5); WHITE BLOOD COUNT (AUTO) 8.4 K/uL (4.8-10.8)
[2025-01-01 05:42] LABS: CREATININE 1.5 mg/dL (0.5-1.3); MAGNESIUM 1.5 mg/dL (1.80-2.40); POTASSIUM 3.9 mmol/L (3.5-5.1)
--- NOTE | 2025-01-01 06:00 | NUR ---
IV: IV TO LEFT UPPER ARM LEAKING, IV DISCONTINUED. NEW 22G IV STARTED TO LEFT WRIST, IV FLUSHING WELL. HYDRALAZINE 10 MG IV PRN GIVEN. PT STATES HE DOES NOT LIKE POSITION OF IV ON WRIST AND ASKED NURSE TO REMOVE.
--- NOTE | 2025-01-01 13:12 | PN ---
[facility] PROGRESS NOTE Date of Service: Jan 01, 2025 Time of Service: 13:06 SUBJECTIVE: [59-year-old male with history of CKD, hyponatremia. Patient was admitted as patient complained of symptoms of bilateral lower extremity edema, shortness of breaths and weakness. Patient's lab reviewed, continues with hyponatremia with improvement in his sodium level at 130. Patient continues to have bilateral lower extremity edema 4+ noted. His blood pressure is still elevated despite different antihypertensive on board. We will adjust hydralazine 50 mg b.i.d. to t.i.d.. Otherwise patient denies any shortness of breaths or chest pain. 12/26/24 Patient was evaluated in the room, he reported that he feels a weak due to having his BP elevated this morning. Patient continues with current medication regimen, we will readjust medication- He will take Hydralazine 75 mg PO x1. Then patient will continue Hydralazine 50 mg now for QID. No other complaints. He can be dc today once his BP improved <150 mmHg, systolic. ] 12/28 the patient was seen and evaluated today. Apparently patient was not discharged as scheduled two days ago due to uncontrolled hypertension. We have been adjusting hydralazine, 50 mg q.i.d. has been given but today we will start patient on [id number] mg p.o. q.i.d. discussed this plan with the patient for which he agreed and verbalized understanding. 12/29/24 patient was examined today, patient spiked up with his blood pressure again this morning systolic in the 180's. We will readjust hydralazine now 100 mg q.i.d.. Plan on discharging the next24 hours if his blood pressure between 150-160 systolic 12/30/24 patient has persistent elevated blood pressure. Adjustment on medication has been done. At this point, we will be consulting drawer in for further recommendations. 12/31/24 Patient was evaluated in the room, AOx3. He is with shortness of breath, using accessory muscle. On oxygen at 2Lpm via NC. His BP remained elevated despite adjustment on meds. Cxray showed pulmonary infiltrates. Patient is swollen to extremities, 2-3+ 01/01/25 patient was evaluated he is on room air, he still needs oxygen supplementation. His bilateral lower extremities four to 5+ edema. Patient was started with Lasix 40 mg IV b.i.d. since yesterday. His blood pressure is still elevated, systolic in the 170s, but diastolic is in the low side on the 40s. REVIEW OF SYSTEMS CONSTITUTIONAL: Denies fevers, chills, or night sweats. No unintentional weight loss reported. NEUROLOGICAL: Denies headache, amaurosis fugax, motor weakness, sensory deficit, vertigo/spinning sensation, gait abnormalities, or tremors. ENT: No hearing loss, otalgia, otorrhea, rhinitis, rhinorrhea, hoarseness, or sore throat. CARDIOVASCULAR: As mentioned in HPI PULMONARY: Denies any shortness of breath, cough, phlegm/sputum, hemoptysis, pleuritic chest pain. SLEEP: Denies morning headaches, daytime somnolence or napping. Denies difficulty falling asleep, staying asleep, waking from sleep. Denies knowledge of snoring. GASTROINTESTINAL: Denies any type of dysphagia to either liquids or solids. Denies nausea, vomiting, pyrosis, early satiety, abdominal pain, diarrhea, constipation, or changes in stool consistency or caliber. Denies coffee-ground emesis, hematemesis, hematochezia, or melanotic stools. GENITOURINARY: Denies frequency, urgency, nocturia, hematuria or incontinence (Storage/Irritative symptoms.) Low urinary stream, straining to void, urinary intermittency or hesitancy, splitting of the voiding stream, terminal dribbling. ENDOCRINOLOGIC: Denies polyuria, polydipsia, polyphagia or heat/cold intolerances. HEMATOLOGIC: Denies thrombophilia/previous clots, or coagulopathy/bleeding disorders. ONCOLOGIC: Denies personal history of malignancy. DERMATOLOGIC: Denies rashes or pruritus. PSYCHIATRIC: Denies any suicidal or homicidal ideation. Denies hallucinations. PHYSICAL EXAM GENERAL APPEARANCE: The patient is awake, alert, and oriented, in no acute cardiopulmonary distress. NEUROLOGICAL: Cranial nerves II-XII grossly intact. Motor is 5/5 in bilateral upper and lower extremities proximal to distal. No sensory deficits. HEENT: Face is symmetric. Pupils are equal and reactive. Extraocular movements are intact. NECK: Supple. No JVD. No thyromegaly. No submental, submandibular, pre- /postauricular, occipital or supraclavicular lymphadenopathy. CHEST: Normal chest expansion. No Telemetry. LUNGS: Absence of any rales, rhonchi or any wheezing. CARDIOVASCULAR: Regular. S1 and S2 normal. No appreciable rubs, murmurs or gallops. ABDOMEN: Soft, nontender, and nondistended. There is no rebound, voluntary guarding, or rigidity. : Deferred. No Finley. EXTREMITIES: Non-edematous and not cyanotic. No clubbing. Good capillary refill. SKIN: No skin breakdown. Vital Signs (last 8hr) Date Time Temp Pulse Resp B/P (MAP) Pulse Ox O2 Delivery O2 Flow Rate FiO2 01/01/25 11:55 97.9 65 17 128/71 95 Room Air 01/01/25 08:06 98.1 60 16 179/49 94 Room Air LABS: Laboratory: Test 01/01/25 11:26 01/01/25 05:01 12/31/24 14:05 12/31/24 12:21 Range/Units Whole Blood Glucose 282 #H 70-110 MG/DL Bedside Glucose Comment Notified Nurse White Blood Count 8.4 4.8-10.8 K/uL Red Blood Count 3.44 L 4.50-6.20 MIL/uL Hemoglobin 9.1 L 14.0-18.0 g/dL Hematocrit 28.1 L 42-54 % Mean Corpuscular Volume 81.7 79-99 fL Mean Corpuscular Hemoglobin 26.5 L 27.0-33.0 pg Mean Corpuscular Hemoglobin Concent 32.4 32.0-36.0 g/dL Red Cell Distribution Width 13.5 11.0-15.5 % Platelet Count 188 # 130-400 K/uL Mean Platelet Volume 10.7 H 7.5-10.5 fL Nucleated Red Blood Cells 0.0 0.0-0.19 % Sodium Level 125 L 136-145 mmol/L Potassium Level 3.9 3.5-5.1 mmol/L Chloride Level 94 L 101-111 mmol/L Carbon Dioxide Level 21 21-32 mmol/L Blood Urea Nitrogen 30 H 7-18 mg/dL Creatinine 1.5 H 0.5-1.3 mg/dL Glomerular Filtration Rate Calc 53 >90 mL/min Random Glucose 152 H 70-105 mg/dL Total Calcium 8.4 L 8.5-10.1 mg/dL Magnesium Level 1.50 L 1.80-2.40 mg/dL Urine Color YELLOW YELLOW Urine Appearance CLEAR CLEAR Urine pH 5.5 5.0-8.0 Urine Specific [place] 1.014 1.001-1.031 Urine Protein 200 H NEGATIVE mg/dL Urine Glucose (UA) 500 H NEGATIVE mg/dL Urine Ketones NEGATIVE NEGATIVE mg/dL Urine Occult Blood NEGATIVE NEGATIVE Urine Nitrate NEGATIVE NEGATIVE Urine Bilirubin NEGATIVE NEGATIVE mg/dL Urine Urobilinogen 0.2 0.2-1.0 mg/dL Urine Leukocyte Esterase NEGATIVE NEGATIVE Komal/uL Urine RBC 2-5 H 0-1 /HPF Urine WBC 2-5 H 0-1 /HPF Urine Squamous Epithelial Cells RARE 0-2 /HPF Urine Bacteria None None Seen /HPF Urine Random Creatinine 132.71 30-135 mg/dL Urine Random Total Protein 241.7 #H 0-11.9 mg/dL Urine Random Sodium 19 L 40-220 mmol/l Urine Random Potassium 28 25-125 mmol/L Urine Random Chloride 32 L 110-250 mmol/L Influenza Type A Antigen Negative For Type A NEGATIVE Influenza Type B Antigen Negative For Type B NEGATIVE Test 12/31/24 05:02 Range/Units Serum Osmolality 273 L 278-305 mOsm/kg Uric Acid 7.2 2.6-7.2 mg/dL Iron Level 15 #L 65-175 mcg/dL Total Iron Binding Capacity 221 L 250-450 mcg/dL Percent Iron Saturation 6.7 L 30-44 % Ferritin 54 30-400 ng/mL Total Bilirubin 0.5 0.2-1.0 mg/dL Aspartate Amino Transf (AST/SGOT) 27 10-37 U/L Alanine Aminotransferase (ALT/SGPT) 23 12-78 U/L Alkaline Phosphatase 184 H 50-136 U/L Total Protein 6.1 6.0-8.3 g/dL Albumin 2.3 L 3.5-5.0 g/dL Thyroid Stimulating Hormone (TSH) 3.09 # 0.36-3.74 uIU/mL Current Medications Medications (Trade) Dose Ordered Sig/Jose A Route PRN Reason Start Time Stop Time Status Last Admin Dose Admin Acetaminophen (TYLenol 325MG TAB) 650 mg Q6H PRN PO MILD PAIN (1-3) 12/23/24 09:30 01/22/25 09:29 12/31/24 08:07 650 MG Apixaban (EliquIS) 5 mg BID PO 12/23/24 09:30 01/22/25 09:29 01/01/25 10:15 5 MG Atorvastatin Calcium (LIPItor 40MG) 40 mg HS PO 12/23/24 21:00 01/22/25 20:59 12/31/24 21:03 40 MG Ceftriaxone Sodium (ROCEphine 1G INJ) 1 gm Q24H IVPB 12/31/24 11:30 01/10/25 11:29 01/01/25 12:54 1 GM Dextrose (D50w) 50 ml AD PRN IV HYPOGLYCEMIA PROTOCOL 12/23/24 14:30 01/22/25 14:29 Diltiazem HCl (CARDIzem 120MG CD) 120 mg BID PO 12/30/24 10:30 01/24/25 08:59 01/01/25 10:15 120 MG Diltiazem HCl (CARDIzem 120MG CD) 120 mg DAILY PO 12/25/24 09:00 12/30/24 10:09 DC 12/30/24 08:27 120 MG Docusate Sodium (COLace 100MG CAP) 100 mg DAILY PO 12/29/24 09:00 01/28/25 08:59 12/30/24 08:27 100 MG Famotidine (Pepcid 20mg Vial) 20 mg BID IV 12/23/24 21:00 12/24/24 10:06 DC 12/24/24 09:45 20 MG Furosemide (LASix 40MG VIAL) 40 mg BID IV 12/31/24 13:00 01/30/25 12:59 01/01/25 10:16 40 MG Glucagon (Glucagon 1mg Kit) 1 mg AD PRN IM HYPOGLYCEMIA PROTOCOL 12/23/24 14:30 01/22/25 14:29 Hydralazine HCl (APRESOLine 20MG INJ) 10 mg Q6H PRN IV ADMINISTER FOR SBP > 160 12/23/24 09:30 01/22/25 09:29 01/01/25 05:59 10 MG Hydralazine HCl ([id number] TAB) 50 mg BID PO 12/24/24 21:00 12/25/24 09:49 DC 12/25/24 09:43 50 MG Hydralazine HCl ([id number] TAB) 50 mg QID PO 12/26/24 12:00 12/28/24 10:24 DC 12/28/24 08:16 50 MG Hydralazine HCl ([id number] TAB) 50 mg TID PO 12/25/24 10:00 12/26/24 11:40 DC 12/26/24 09:09 50 MG Hydralazine HCl ([id number] TAB) 75 mg QID PO 12/28/24 13:00 12/29/24 13:05 DC 12/29/24 12:40 75 MG Hydralazine HCl ([id number] TAB) 100 mg QID PO 12/29/24 17:00 01/28/25 16:59 01/01/25 10:18 100 MG Insulin Human Regular (humuLIN R 100 UNIT/ML 3ML) INSULIN SLIDING SCAL... ACHS SQ 12/23/24 16:30 01/22/25 16:29 01/01/25 12:53 12 UNIT Iron Sucrose (VenoFER) 300 mg Q24H IVP 12/31/24 13:00 12/31/24 12:43 DC Iron Sucrose 300 mg/Sodium Chloride 250 ml @ 83 mls/hr Q24H IV 12/31/24 13:00 01/02/25 16:01 12/31/24 14:36 83 MLS/HR Lactulose (Constulose 20gm/ 30ml Udcup) 20 gm BID PRN PO CONSTIPATION 12/28/24 16:30 01/27/25 16:29 12/28/24 16:48 20 GM Lactulose (Constulose 20gm/ 30ml Udcup) 20 gm BID PRN PO CONSTIPATION 12/30/24 14:30 12/30/24 14:21 DC Levothyroxine Sodium (SYNTHroid 150MCG TAB) 150 mcg SYN PO 12/25/24 06:30 01/24/25 06:29 01/01/25 05:59 150 MCG Metoprolol Tartrate (loprESSOR) 12.5 mg BID PO 12/23/24 09:30 12/23/24 16:08 DC 12/23/24 09:43 12.5 MG Metoprolol Tartrate (loprESSOR) 25 mg BID PO 12/23/24 21:00 12/24/24 10:44 DC 12/24/24 09:45 25 MG Metoprolol Tartrate (loprESSOR) 100 mg BID PO 12/24/24 21:00 12/30/24 10:09 DC 12/30/24 08:27 100 MG Metoprolol Tartrate (loprESSOR) 100 mg TID PO 12/30/24 10:30 01/23/25 20:59 01/01/25 10:18 100 MG Morphine Sulfate (morPHINE 2MG SYG) 2 mg Q6H PRN IVP SEVERE PAIN (7-10) 12/23/24 09:30 12/28/24 12:29 DC Nitroglycerin (Nitrostat) 0.4 mg AD PRN SL CHEST PAIN 12/23/24 09:30 01/22/25 09:29 Ondansetron HCl (zoFRAN 4MG INJ) 4 mg Q8H PRN IVP NAUSEA/VOMITING 12/23/24 09:30 01/22/25 09:29 Pantoprazole Sodium (PROTonix 40MG TAB) 40 mg DAILY PO 12/25/24 09:00 01/24/25 08:59 01/01/25 10:15 40 MG Sertraline HCl (ZOloft 50 mg tab) 50 mg DAILY PO 12/25/24 09:00 01/24/25 08:59 01/01/25 10:15 50 MG Simethicone (Mylicon) 80 mg BIDPRN PRN PO GI GAS 12/30/24 22:00 01/29/25 21:59 Sodium Chloride 1,000 ml @ 75 mls/hr [id number] IV 12/23/24 14:30 12/27/24 21:49 DC 12/24/24 07:31 75 MLS/HR Spironolactone (Aldactone 25mg) 50 mg DAILY PO 12/25/24 09:00 01/24/25 08:59 01/01/25 10:15 50 MG Vitamin B Complex/ Vit C/Folic Acid (Nephrovite Tablet) 1 cap DAILY PO 12/31/24 09:00 01/30/25 08:59 01/01/25 10:14 1 CAP DIAGNOSTICS / RADIOLOGY: [ ] Assessment: Pulmonary infiltrate by chest-xray Uncontrolled hypertension POA- improving Chest pain, ruled out ACS POA suspected unc HTN related Hyponatremia POA - improving Atrial fibrillation POA Type 2 diabetes POA Anemia POA CAD Hyperlipidemia Hypothyroidism Anxiety PLAN: Admit patient to telemetry floor under hospitalist team C/w patient's home medication , we will continue with current antihypertensive. We will continue to follow recommendations from drawer in Patient was noted with anemia, patient was receiving iron sucrose IV Continue Rocephin 1 g IV, 2/2 pulmonary infiltrate on chest xray, he is sob. Patient was started with IV Lasix with 40 mg b.i.d. NTG SL p.r.n. chest pain 2D echo showed 60-65%, stage I diastolic dysfunction, we will continue to monitor C/w patient on atorvastatin 40 mg at bedtime ADA/heart healthy diet SSI coverage. Glucometer checks a.c. and HS. Hypoglycemic precautions per protocol. Continue home Eliquis for DVT prophylaxis Pepcid for GI prophylaxis P.r.n. medications for fever, pain, nausea, constipation BNP today We will start daily weight, strict I&O Follow-up a.m. labs Further orders per hospital course Case seen and examined with Dr. Coello, above plan was formulated ATTESTATION BY PHYSICIAN I have seen and examined the patient. I reviewed the documentation, medical decision making, and treatment plan as noted by the mid-level provider above. I agree with the findings and plan of care. Stephanie Coello MD, [facility] Jan 01, 2025 13:12
[2025-01-01] MEDS: furoSEMIDE 40MG VIAL IV ONE ×2 (20:45→20:51)
[2025-01-02] VITALS (9 sets, daily range): BP systolic 110–174; BP diastolic 47–70; PULSE 54–65; RESP 16–21; TEMP 97.6–98.3; O2SAT 93–98
[2025-01-02 04:40] LABS: BASOPHILS # (AUTO) 0.03 K/uL (0.00-0.20); BASOPHILS % (AUTO) 0.3 % (0.0-5.0); EOSINOPHILS # (AUTO) 0.14 K/uL (0.00-0.70); EOSINOPHILS % (AUTO) 1.5 % (0.0-8.0); HEMATOCRIT 28.4 % (42-54); IMMATURE GRANULOCYTE ABSOLUTE 0.06 K/uL (0-1); LYMPHOCYTES # (AUTO) 1.1 K/uL (1.0-4.8); LYMPHOCYTES % (AUTO) 11.5 % (21.0-51.0); MEAN CORPUSCULAR HEMOGLOBIN 26.3 pg (27.0-33.0); MEAN CORPUSCULAR VOLUME 82.1 fL (79-99); MONOCYTES # (AUTO) 1.3 K/uL (0.1-1.0); MONOCYTES % (AUTO) 13.6 % (3.0-13.0); NEUTROPHILS % (AUTO) 72.5 % (40.0-77.0); PLATELET COUNT (AUTO) 325 K/uL (130-400); RED BLOOD CELL COUNT(AUTO) 3.46 MIL/uL (4.50-6.20); RED CELL DISTRIBUTION WIDTH 13.5 % (11.0-15.5); WHITE BLOOD COUNT (AUTO) 9.6 K/uL (4.8-10.8)
[2025-01-02 04:55] LABS: CREATININE 1.4 mg/dL (0.5-1.3); PHOSPHORUS 4.1 mg/dL (2.5-4.9); POTASSIUM 3.6 mmol/L (3.5-5.1)
--- NOTE | 2025-01-02 06:11 | PN ---
SUBJECTIVE: This patient has multiple problems including renal failure, edema. The patient has been on diuretics, elevated blood pressure. The patient has underlying multiple other comorbidities. He has underlying hypertension, chest pain, hyponatremia, atrial fibrillation, diabetic nephropathy, anemia, hyperlipidemia, hypothyroidism, and anxiety. The patient remains generally weak. Other systemic review is unchanged. No other associated finding. No other aggravating or relieving factor. PHYSICAL EXAMINATION: GENERAL: Pale, in no other distress. VITAL SIGNS: Blood pressure is 179/49, pulse is 60, respiratory rate is 16. HEENT: Head is atraumatic. Pupils are round and reactive. Sclerae are anicteric. Conjunctivae not pale. Oral mucosa is not dry. NECK: Without masses or bruits. Thyroid is palpable. Neck has no bruits. CHEST: Shows equal thoracic percussion note being resonant in all areas. CARDIAC: Regular rhythm. No rub. No S3, S4. No parasternal heave. ABDOMEN: With no guarding or tenderness. Bowel sounds are normoactive. No free fluid. EXTREMITIES: With no edema and no cyanosis, clubbing. BACK: No tenderness or back deformities. LABORATORY DATA: Labs have been reviewed. Urine has shown some proteinuria. The patient has elevated creatinine. Old records reviewed. IMAGING STUDIES: Personally reviewed. PROBLEMS: * Renal failure. * Has fluid overload. * Underlying diabetic nephropathy. * Severe hypertension. * Chest pain . * History of atrial fibrillation. * Anemia. * Coronary artery disease. * Hyperlipidemia. * Hypothyroidism. * Anxiety. RECOMMENDATIONS: * The patient has been on IV diuretics now. Monitor weight and electrolytes. * The patient has been getting IV iron, as needed Epogen. * We reviewed the lab, x-rays personally. Continued monitoring of electrolytes. The patient will have followup on sugars, insulin coverage, and blood pressure to be monitored, anti-hypertensives to be adjusted. ANUJ inhibitor eventually could be given if he remains stable. Nonsteroidal drugs to be avoided. Detailed dietary counseling done. IV Dilaudid can be used for pain 0.5 q. 6 hours. We have discussed with the team physician. Old record, x-rays, and imaging studies are personally reviewed. Thank you for this patient. TID: [id number] RECEIPT: [id number]
[2025-01-02] MEDS: furoSEMIDE 40MG VIAL IV SCH (11:51)
--- NOTE | 2025-01-02 14:47 | PN ---
NEPHROLOGY PROGRESS NOTE Date/Time Patient Seen: January 02, 2025 SUBJECTIVE: This is a 59-year-old male with a past medical history of atrial fibrillation on chronic anticoagulation, chronic hyponatremia, diabetes mellitus type 2, obstructive sleep apnea, hypothyroidism, hypertension, obesity, congestive heart failure, chronic kidney disease, and anemia. He presents to the emergency department with complaints of chest pain In the emergency room he was to have hyponatremia, elevated BUN/creatinine, and anemia We are consulted for renal failure Renal function is stable Electrolyte are stable Iron panel was noted. Continues on IV iron. Renal ultrasound showed normal renal and bladder sonogram. No hydronephrosis on January 2024. He was seen in the medical floor, in no acute distress Complaining of shortness of breath No family at the bedside Prognosis remains guarded REVIEW OF SYSTEMS: GENERAL: Positive for chest pain and dizziness NEUROLOGIC: Negative for any blurry vision, blind spots, double vision, facial asymmetry, dysphagia, dysarthria, hemiparesis, hemisensory deficits, vertigo, ataxia. HEENT: Negative for any head trauma, neck trauma, neck stiffness, photophobia, phonophobia, sinusitis, rhinitis. CARDIAC: Negative for any chest pain, dyspnea on exertion, paroxysmal nocturnal dyspnea, peripheral edema. PULMONARY: Negative for any shortness of breath, wheezing, COPD, or TB exposure. GASTROINTESTINAL: Negative for any abdominal pain, nausea, vomiting, bright red blood per rectum, melena. GENITOURINARY: Negative for any dysuria, hematuria, incontinence. INTEGUMENTARY: Negative for any rashes, cuts, insect bites. RHEUMATOLOGIC: Negative for any joint pains, photosensitive rashes, history of vasculitis or kidney problems. HEMATOLOGIC: Negative for any abnormal bruising, frequent infections or bleeding. PHYSICAL EXAM: GENERAL: Alert and oriented x 3. No acute distress. Well-nourished. EYES: EOMI. Anicteric. HENT: Moist mucous membranes. No scleral icterus. No cervical lymphadenopathy. LUNGS: Clear to auscultation bilaterally. No accessory muscle use. CARDIOVASCULAR: Regular rate and rhythm. No murmur. No JVD. ABDOMEN: Soft, non-tender and non-distended. No palpable masses. EXTREMITIES: No edema. Non-tender. SKIN: No rashes or lesions. Warm. NEUROLOGIC: No focal neurological deficits. CN II-XII grossly intact, but not individually tested. PSYCHIATRIC: Cooperative. Appropriate mood and affect. LABORATORY: [ ] Hematology Labs: Test 01/02/25 03:00 Range/Units White Blood Count 9.6 4.8-10.8 K/uL Red Blood Count 3.46 L 4.50-6.20 MIL/uL Hemoglobin 9.1 L 14.0-18.0 g/dL Hematocrit 28.4 L 42-54 % Mean Corpuscular Volume 82.1 79-99 fL Mean Corpuscular Hemoglobin 26.3 L 27.0-33.0 pg Mean Corpuscular Hemoglobin Concent 32.0 32.0-36.0 g/dL Red Cell Distribution Width 13.5 11.0-15.5 % Platelet Count 325 # 130-400 K/uL Mean Platelet Volume 8.8 7.5-10.5 fL Immature Granulocyte % (Auto) 0.6 0-1 % Neutrophils (%) (Auto) 72.5 40.0-77.0 % Lymphocytes (%) (Auto) 11.5 L 21.0-51.0 % Monocytes (%) (Auto) 13.6 H 3.0-13.0 % Eosinophils (%) (Auto) 1.5 0.0-8.0 % Basophils (%) (Auto) 0.3 0.0-5.0 % Neutrophils # (Auto) 7.0 1.8-7.7 K/uL Lymphocytes # (Auto) 1.1 1.0-4.8 K/uL Monocytes # (Auto) 1.3 H 0.1-1.0 K/uL Eosinophils # (Auto) 0.14 0.00-0.70 K/uL Basophils # (Auto) 0.03 0.00-0.20 K/uL Absolute Immature Granulocyte (auto 0.06 0-1 K/uL Nucleated Red Blood Cells 0.0 0.0-0.19 % Chemistry Labs: Test 01/02/25 12:47 01/02/25 03:00 01/01/25 16:21 01/01/25 05:01 Range/Units Whole Blood Glucose 433 #*H 70-110 MG/DL Sodium Level 128 L 136-145 mmol/L Potassium Level 3.6 3.5-5.1 mmol/L Chloride Level 94 L 101-111 mmol/L Carbon Dioxide Level 24 21-32 mmol/L Blood Urea Nitrogen 29 H 7-18 mg/dL Creatinine 1.4 H 0.5-1.3 mg/dL Glomerular Filtration Rate Calc 58 >90 mL/min Random Glucose 139 H 70-105 mg/dL Total Calcium 8.6 8.5-10.1 mg/dL Phosphorus Level 4.1 2.5-4.9 mg/dL Bedside Glucose Comment Notified Nurse Magnesium Level 1.50 L 1.80-2.40 mg/dL DIAGNOSTICS / RADIOLOGY: REASON: hypoxemia ORDERING PHYSICIAN: ADRI WOMACK PROCEDURE: CXR1VW - CHEST 1VW CHEST 1VW HISTORY: Hypoxemia COMPARISON: 12/23/2024 FINDINGS: A frontal projection of the chest was obtained. There are bilateral pulmonary infiltrates suggestive of pulmonary vascular congestion with possible superimposed pneumonitis. The heart is enlarged. Postop changes are seen of left clavicle with orthopedic fixation plates and screws. No evidence of aortic calcification is seen. IMPRESSION: 1. Bilateral pulmonary infiltrates are seen suggestive of pulmonary vascular congestion with possible superimposed pneumonitis. DICTATED BY: MICHELLE FRAZIER MD DATE: 12/30/24 1550 REASON: Assess LV function ORDERING PHYSICIAN: OLGA IVAN PROCEDURE: ECHO CMP - ECHO 2-D COMPLETE APPROVED REPORT EXAM: Two-dimensional and M-mode echocardiogram with Doppler and color Doppler. INDICATION ICD: Assess LV Function 2D Dimensions RVDd 3.8 cm LVEF(%) 67.8 (>50%) LVED Vol(simp.) 121.6 mL IVSd 1.1 (0.7-1.1cm) FS(%) 37 % LVES Vol(simp.) 48.9 mL LVDd 3.6 (3.8-5.6cm) LA (2D) 4.0 (1.6-4.0cm) LVEF(%, simp.) 60 % PWd 1.1 (0.7-1.1cm) Ao Root(2D) 3.1 (2.0-3.7cm) LA ESV INDEX (BP) 40.63 mL/m2 LVDs 2.3 (2.5-4.0cm) LVOT diam 2.0 (1.8-2.4cm) IVC diam 2.0 cm Deformation Strain Apical 4 -16.4 % Apical 2 -14.1 % Apical 3 -17.5 % Global Strain -16.0 % M-Mode Dimensions EPSS 0.7 cm LA (MM) 4.4 (1.6-4.0cm) Ao Root(MM) 2.6 (2.0-3.7cm) Aortic Valve AoV Vmax 0.0 m/s Ao Peak GR 0.0 mmHg LVOT Vmax 1.4 m/s AoV VTI 0.5 m Ao Mean GR 9.4 mmHg LVOT VTI 0.33 m MIKE (VMAX) 2.15 cm2 MIKE (VTI) 2.2 cm2 Mitral Valve MV E Vmax 150.9 cm/s DECEL Time 169 ms MV A Vmax 117.9 cm/s P 1/2 T 43 ms E/A ratio 1.3 MVA (PHT) 5.2 cm2 TDI E/E' Medial 20.5 E/E' Lateral 18.1 Medial E' Peak V 7.35 cm/s Lateral E' Peak V 8.34 cm/s Pulmonary Valve PV Vmax 1.5 m/s PV Peak GR 8.9 mmHg Left Ventricle The left ventricle is normal size. No regional wall motion abnormalities noted. Mild concentric left ventricular hypertrophy. Left ventricular systolic function is normal, estimated LVEF is 60 to 65%. Stage II, diastolic dysfunction. Right Ventricle The right ventricle is normal size. The right ventricular systolic function is normal. Atria The left atrium is mildly dilated, 41 mL/m�. The right atrium size is normal. Aortic Valve Aortic valve is trileaflet. The leaflets are thickened and calcified. Trace aortic regurgitation. Mild aortic stenosis: Peak velocity 2.2 m/s, mean gradient 9 mmHg. Mitral Valve The mitral valve is normal in structure. The leaflets are mildly thickened and calcified. Trace mitral regurgitation. There is no mitral valve stenosis. Tricuspid Valve The tricuspid valve is normal in structure. Trace tricuspid regurgitation. RVSP is normal. Pulmonic Valve Pulmonic valve is not well visualized. Great Vessels The aortic root is normal in size. The IVC is normal in size and collapses >50% with inspiration. Pericardium There is no pericardial effusion. Conclusion The left atrium is mildly dilated, 41 mL/m�. Mild concentric left ventricular hypertrophy. No regional wall motion abnormalities noted. Left ventricular systolic function is normal, estimated LVEF is 60 to 65%. Stage II, diastolic dysfunction. Mild aortic stenosis: Peak velocity 2.2 m/s, mean gradient 9 mmHg. Trace aortic regurgitation. Trace mitral regurgitation. Trace tricuspid regurgitation. PASP is normal. There is no pericardial effusion. DICTATED BY: RENATO BILLS MD DATE: 12/24/2405 REASON: CHEST PAIN ORDERING PHYSICIAN: MUSTAPHA HERBERT MD PROCEDURE: CXR1VW - CHEST 1VW CHEST 1VW HISTORY: Chest pain COMPARISON: 08/14/2024 FINDINGS: A frontal projection of the chest was obtained. No acute pulmonary infiltrates is seen. The heart is borderline enlarged. Postop changes are seen of left clavicle. Aortic calcifications are seen. Prominent interstitial markings are seen. IMPRESSION: 1. No acute pulmonary infiltrate is seen. DICTATED BY: MICHELLE FRAZIER MD DATE: 12/23/24 0844 ASSESSMENT: Hyponatremia Anemia Uncontrolled hypertension Chest pain, ruled out ACS POA Atrial fibrillation Type 2 diabetes CAD Hyperlipidemia Hypothyroidism Anxiety PLAN: Labs, diagnostic, radiologic exams reviewed and interpreted by myself and supervising physician. We have reviewed external records in detail Continue Lasix 40 mg IV BID Require close monitoring of renal function and electrolytes Order CBC, CMP, and electrolytes in am BiPAP as necessary, for respiratory distress Monitor blood pressure adjust medication doses as needed Avoid hypotensive episodes May use Dilaudid 0.5 mg IV every 6 hours as needed for severe pain Monitor blood sugars Strict intake, output, and daily weight should be monitored Please renally adjust medications Avoid nephrotoxic and nonsteroidal drugs Avoid contrast if possible Will continue to monitor renal function, anemia, electrolytes Treatment plan discussed with patient Questions were answered We have discussed with the other team physicians in detail about the care plan We will continue to monitor the patient closely ATTESTATION BY PHYSICIAN I have seen and examined the patient. I reviewed the documentation, medical decision making, and treatment plan as noted by the mid-level provider above. I agree with the findings and plan of care. NOEMY SAMUELS MD, [facility] January 02, 2025 14:47
--- NOTE | 2025-01-02 16:49 | PN ---
[facility] PROGRESS NOTE Date of Service: January 02, 2025 Time of Service: 16:48 SUBJECTIVE: [59-year-old male with history of CKD, hyponatremia. Patient was admitted as patient complained of symptoms of bilateral lower extremity edema, shortness of breaths and weakness. Patient's lab reviewed, continues with hyponatremia with improvement in his sodium level at 130. Patient continues to have bilateral lower extremity edema 4+ noted. His blood pressure is still elevated despite different antihypertensive on board. We will adjust hydralazine 50 mg b.i.d. to t.i.d.. Otherwise patient denies any shortness of breaths or chest pain. 12/26/24 Patient was evaluated in the room, he reported that he feels a weak due to having his BP elevated this morning. Patient continues with current medication regimen, we will readjust medication- He will take Hydralazine 75 mg PO x1. Then patient will continue Hydralazine 50 mg now for QID. No other complaints. He can be dc today once his BP improved <150 mmHg, systolic. ] 12/28 the patient was seen and evaluated today. Apparently patient was not discharged as scheduled two days ago due to uncontrolled hypertension. We have been adjusting hydralazine, 50 mg q.i.d. has been given but today we will start patient on [id number] mg p.o. q.i.d. discussed this plan with the patient for which he agreed and verbalized understanding. 12/29/24 patient was examined today, patient spiked up with his blood pressure again this morning systolic in the 180's. We will readjust hydralazine now 100 mg q.i.d.. Plan on discharging the next24 hours if his blood pressure between 150-160 systolic 12/30/24 patient has persistent elevated blood pressure. Adjustment on medication has been done. At this point, we will be consulting agriculture engineer for further recommendations. 12/31/24 Patient was evaluated in the room, AOx3. He is with shortness of breath, using accessory muscle. On oxygen at 2Lpm via NC. His BP remained elevated despite adjustment on meds. Cxray showed pulmonary infiltrates. Patient is swollen to extremities, 2-3+ 01/01/25 patient was evaluated he is on room air, he still needs oxygen supplementation. His bilateral lower extremities four to 5+ edema. Patient was started with Lasix 40 mg IV b.i.d. since yesterday. His blood pressure is still elevated, systolic in the 170s, but diastolic is in the low side on the 40s. 01/02/25 patient was seen and examined. Case discussed with the RN his bilateral lower extremity 4+ edema slowly improving. Continue Lasix. Monitor electrolytes REVIEW OF SYSTEMS CONSTITUTIONAL: Denies fevers, chills, or night sweats. No unintentional weight loss reported. NEUROLOGICAL: Denies headache, amaurosis fugax, motor weakness, sensory deficit, vertigo/spinning sensation, gait abnormalities, or tremors. ENT: No hearing loss, otalgia, otorrhea, rhinitis, rhinorrhea, hoarseness, or sore throat. CARDIOVASCULAR: As mentioned in HPI PULMONARY: Denies any shortness of breath, cough, phlegm/sputum, hemoptysis, pleuritic chest pain. SLEEP: Denies morning headaches, daytime somnolence or napping. Denies difficulty falling asleep, staying asleep, waking from sleep. Denies knowledge of snoring. GASTROINTESTINAL: Denies any type of dysphagia to either liquids or solids. Denies nausea, vomiting, pyrosis, early satiety, abdominal pain, diarrhea, constipation, or changes in stool consistency or caliber. Denies coffee-ground emesis, hematemesis, hematochezia, or melanotic stools. GENITOURINARY: Denies frequency, urgency, nocturia, hematuria or incontinence (Storage/Irritative symptoms.) Low urinary stream, straining to void, urinary intermittency or hesitancy, splitting of the voiding stream, terminal dribbling. ENDOCRINOLOGIC: Denies polyuria, polydipsia, polyphagia or heat/cold intolerances. HEMATOLOGIC: Denies thrombophilia/previous clots, or coagulopathy/bleeding disorders. ONCOLOGIC: Denies personal history of malignancy. DERMATOLOGIC: Denies rashes or pruritus. PSYCHIATRIC: Denies any suicidal or homicidal ideation. Denies hallucinations. PHYSICAL EXAM GENERAL APPEARANCE: The patient is awake, alert, and oriented, in no acute cardiopulmonary distress. NEUROLOGICAL: Cranial nerves II-XII grossly intact. Motor is 5/5 in bilateral upper and lower extremities proximal to distal. No sensory deficits. HEENT: Face is symmetric. Pupils are equal and reactive. Extraocular movements are intact. NECK: Supple. No JVD. No thyromegaly. No submental, submandibular, pre- /postauricular, occipital or supraclavicular lymphadenopathy. CHEST: Normal chest expansion. No Telemetry. LUNGS: Absence of any rales, rhonchi or any wheezing. CARDIOVASCULAR: Regular. S1 and S2 normal. No appreciable rubs, murmurs or gallops. ABDOMEN: Soft, nontender, and nondistended. There is no rebound, voluntary guarding, or rigidity. : Deferred. No Finley. EXTREMITIES: Non-edematous and not cyanotic. No clubbing. Good capillary refill. SKIN: No skin breakdown. Vital Signs (last 8hr) Date Time Temp Pulse Resp B/P (MAP) Pulse Ox O2 Delivery O2 Flow Rate FiO2 01/02/25 12:00 98.2 65 17 140/54 97 Room Air LABS: Laboratory: Test 01/02/25 12:47 01/02/25 03:00 01/01/25 16:21 01/01/25 05:01 Range/Units Whole Blood Glucose 433 #*H 70-110 MG/DL White Blood Count 9.6 4.8-10.8 K/uL Red Blood Count 3.46 L 4.50-6.20 MIL/uL Hemoglobin 9.1 L 14.0-18.0 g/dL Hematocrit 28.4 L 42-54 % Mean Corpuscular Volume 82.1 79-99 fL Mean Corpuscular Hemoglobin 26.3 L 27.0-33.0 pg Mean Corpuscular Hemoglobin Concent 32.0 32.0-36.0 g/dL Red Cell Distribution Width 13.5 11.0-15.5 % Platelet Count 325 # 130-400 K/uL Mean Platelet Volume 8.8 7.5-10.5 fL Immature Granulocyte % (Auto) 0.6 0-1 % Neutrophils (%) (Auto) 72.5 40.0-77.0 % Lymphocytes (%) (Auto) 11.5 L 21.0-51.0 % Monocytes (%) (Auto) 13.6 H 3.0-13.0 % Eosinophils (%) (Auto) 1.5 0.0-8.0 % Basophils (%) (Auto) 0.3 0.0-5.0 % Neutrophils # (Auto) 7.0 1.8-7.7 K/uL Lymphocytes # (Auto) 1.1 1.0-4.8 K/uL Monocytes # (Auto) 1.3 H 0.1-1.0 K/uL Eosinophils # (Auto) 0.14 0.00-0.70 K/uL Basophils # (Auto) 0.03 0.00-0.20 K/uL Absolute Immature Granulocyte (auto 0.06 0-1 K/uL Nucleated Red Blood Cells 0.0 0.0-0.19 % Sodium Level 128 L 136-145 mmol/L Potassium Level 3.6 3.5-5.1 mmol/L Chloride Level 94 L 101-111 mmol/L Carbon Dioxide Level 24 21-32 mmol/L Blood Urea Nitrogen 29 H 7-18 mg/dL Creatinine 1.4 H 0.5-1.3 mg/dL Glomerular Filtration Rate Calc 58 >90 mL/min Random Glucose 139 H 70-105 mg/dL Total Calcium 8.6 8.5-10.1 mg/dL Phosphorus Level 4.1 2.5-4.9 mg/dL Bedside Glucose Comment Notified Nurse Magnesium Level 1.50 L 1.80-2.40 mg/dL Current Medications Medications (Trade) Dose Ordered Sig/Jose A Route PRN Reason Start Time Stop Time Status Last Admin Dose Admin Acetaminophen (TYLenol 325MG TAB) 650 mg Q6H PRN PO MILD PAIN (1-3) 12/23/24 09:30 01/22/25 09:29 12/31/24 08:07 650 MG Apixaban (EliquIS) 5 mg BID PO 12/23/24 09:30 01/22/25 09:29 01/02/25 11:52 5 MG Atorvastatin Calcium (LIPItor 40MG) 40 mg HS PO 12/23/24 21:00 01/22/25 20:59 01/01/25 20:53 40 MG Ceftriaxone Sodium (ROCEphine 1G INJ) 1 gm Q24H IVPB 12/31/24 11:30 01/10/25 11:29 01/02/25 11:55 1 GM Dextrose (D50w) 50 ml AD PRN IV HYPOGLYCEMIA PROTOCOL 12/23/24 14:30 01/22/25 14:29 Diltiazem HCl (CARDIzem 120MG CD) 120 mg BID PO 12/30/24 10:30 01/24/25 08:59 01/02/25 11:52 120 MG Diltiazem HCl (CARDIzem 120MG CD) 120 mg DAILY PO 12/25/24 09:00 12/30/24 10:09 DC 12/30/24 08:27 120 MG Docusate Sodium (COLace 100MG CAP) 100 mg DAILY PO 12/29/24 09:00 01/28/25 08:59 01/02/25 11:52 100 MG Famotidine (Pepcid 20mg Vial) 20 mg BID IV 12/23/24 21:00 12/24/24 10:06 DC 12/24/24 09:45 20 MG Furosemide (LASix 40MG VIAL) 40 mg BID IV 12/31/24 13:00 01/01/25 13:38 DC 01/01/25 10:16 40 MG Furosemide (LASix 40MG VIAL) 40 mg Q12H IV 01/02/25 06:00 02/01/25 05:59 01/02/25 11:51 40 MG Glucagon (Glucagon 1mg Kit) 1 mg AD PRN IM HYPOGLYCEMIA PROTOCOL 12/23/24 14:30 01/22/25 14:29 Hydralazine HCl (APRESOLine 20MG INJ) 10 mg Q6H PRN IV ADMINISTER FOR SBP > 160 12/23/24 09:30 01/22/25 09:29 01/01/25 05:59 10 MG Hydralazine HCl ([id number] TAB) 50 mg BID PO 12/24/24 21:00 12/25/24 09:49 DC 12/25/24 09:43 50 MG Hydralazine HCl ([id number] TAB) 50 mg QID PO 12/26/24 12:00 12/28/24 10:24 DC 12/28/24 08:16 50 MG Hydralazine HCl ([id number] TAB) 50 mg TID PO 12/25/24 10:00 12/26/24 11:40 DC 12/26/24 09:09 50 MG Hydralazine HCl ([id number] TAB) 75 mg QID PO 12/28/24 13:00 12/29/24 13:05 DC 12/29/24 12:40 75 MG Hydralazine HCl ([id number] TAB) 100 mg QID PO 12/29/24 17:00 01/28/25 16:59 01/02/25 11:51 100 MG Insulin Human Regular (humuLIN R 100 UNIT/ML 3ML) INSULIN SLIDING SCAL... ACHS SQ 12/23/24 16:30 01/02/25 13:42 DC 01/02/25 13:11 16 UNIT Insulin Human Regular (humuLIN R 100 UNIT/ML 3ML) INSULIN SLIDING SCAL... ACHS SQ 01/02/25 16:30 02/01/25 16:29 Iron Sucrose (VenoFER) 300 mg Q24H IVP 12/31/24 13:00 12/31/24 12:43 DC Iron Sucrose 300 mg/Sodium Chloride 250 ml @ 83 mls/hr Q24H IV 12/31/24 13:00 01/02/25 16:01 DC 01/02/25 13:53 83 MLS/HR Lactulose (Constulose 20gm/ 30ml Udcup) 20 gm BID PRN PO CONSTIPATION 12/28/24 16:30 01/27/25 16:29 12/28/24 16:48 20 GM Lactulose (Constulose 20gm/ 30ml Udcup) 20 gm BID PRN PO CONSTIPATION 12/30/24 14:30 12/30/24 14:21 DC Levothyroxine Sodium (SYNTHroid 150MCG TAB) 150 mcg SYN PO 12/25/24 06:30 01/24/25 06:29 01/02/25 11:55 150 MCG Metoprolol Tartrate (loprESSOR) 12.5 mg BID PO 12/23/24 09:30 12/23/24 16:08 DC 12/23/24 09:43 12.5 MG Metoprolol Tartrate (loprESSOR) 25 mg BID PO 12/23/24 21:00 12/24/24 10:44 DC 12/24/24 09:45 25 MG Metoprolol Tartrate (loprESSOR) 100 mg BID PO 12/24/24 21:00 12/30/24 10:09 DC 12/30/24 08:27 100 MG Metoprolol Tartrate (loprESSOR) 100 mg TID PO 12/30/24 10:30 01/23/25 20:59 01/02/25 11:52 100 MG Morphine Sulfate (morPHINE 2MG SYG) 2 mg Q6H PRN IVP SEVERE PAIN (7-10) 12/23/24 09:30 12/28/24 12:29 DC Nitroglycerin (Nitrostat) 0.4 mg AD PRN SL CHEST PAIN 12/23/24 09:30 01/22/25 09:29 Ondansetron HCl (zoFRAN 4MG INJ) 4 mg Q8H PRN IVP NAUSEA/VOMITING 12/23/24 09:30 01/22/25 09:29 Pantoprazole Sodium (PROTonix 40MG TAB) 40 mg DAILY PO 12/25/24 09:00 01/24/25 08:59 01/02/25 11:52 40 MG Sertraline HCl (ZOloft 50 mg tab) 50 mg DAILY PO 12/25/24 09:00 01/24/25 08:59 01/02/25 11:52 50 MG Simethicone (Mylicon) 80 mg BIDPRN PRN PO GI GAS 12/30/24 22:00 01/29/25 21:59 Sodium Chloride 1,000 ml @ 75 mls/hr [id number] IV 12/23/24 14:30 12/27/24 21:49 DC 12/24/24 07:31 75 MLS/HR Spironolactone (Aldactone 25mg) 50 mg DAILY PO 12/25/24 09:00 01/24/25 08:59 01/02/25 11:55 50 MG Vitamin B Complex/ Vit C/Folic Acid (Nephrovite Tablet) 1 cap DAILY PO 12/31/24 09:00 01/30/25 08:59 01/02/25 11:51 1 CAP DIAGNOSTICS / RADIOLOGY: [ ] Assessment: Pulmonary infiltrate by chest-xray Uncontrolled hypertension POA- improving Chest pain, ruled out ACS POA suspected unc HTN related Hyponatremia POA - improving Atrial fibrillation POA Type 2 diabetes POA Anemia POA CAD Hyperlipidemia Hypothyroidism Anxiety PLAN: Admit patient to telemetry floor under hospitalist team C/w patient's home medication , we will continue with current antihypertensive. We will continue to follow recommendations from agriculture engineer Patient was noted with anemia, patient was receiving iron sucrose IV Continue Rocephin 1 g IV, 2/2 pulmonary infiltrate on chest xray, he is sob. Patient was started with IV Lasix with 40 mg b.i.d. NTG SL p.r.n. chest pain 2D echo showed 60-65%, stage I diastolic dysfunction, we will continue to monitor C/w patient on atorvastatin 40 mg at bedtime ADA/heart healthy diet SSI coverage. Glucometer checks a.c. and HS. Hypoglycemic precautions per protocol. Continue home Eliquis for DVT prophylaxis Pepcid for GI prophylaxis P.r.n. medications for fever, pain, nausea, constipation BNP today We will start daily weight, strict I&O Follow-up a.m. labs Further orders per hospital course Case seen and examined with Dr. Coello, above plan was formulated CORNELIO COELLO MD January 02, 2025 16:49
[2025-01-02] MEDS: INSULIN humuLIN R 100 UNIT/ML 3ML SQ SCH (17:55)
[2025-01-03] VITALS (8 sets, daily range): BP systolic 149–189; BP diastolic 43–76; PULSE 58–64; RESP 18–20; TEMP 97.7–98.8; O2SAT 97
[2025-01-03 04:12] LABS: HEMATOCRIT 26.8 % (42-54); MEAN CORPUSCULAR HEMOGLOBIN 26.2 pg (27.0-33.0); MEAN CORPUSCULAR HGB CONC 32.1 g/dL (32.0-36.0); MEAN CORPUSCULAR VOLUME 81.7 fL (79-99); NUCLEATED RED BLOOD CELLS 0.2 % (0.0-0.19); RED BLOOD CELL COUNT(AUTO) 3.28 MIL/uL (4.50-6.20); RED CELL DISTRIBUTION WIDTH 13.3 % (11.0-15.5); WHITE BLOOD COUNT (AUTO) 11.7 K/uL (4.8-10.8)
[2025-01-03 04:44] LABS: CREATININE 1.6 mg/dL (0.5-1.3); MAGNESIUM 1.2 mg/dL (1.80-2.40); PHOSPHORUS 4.7 mg/dL (2.5-4.9); POTASSIUM 3.5 mmol/L (3.5-5.1)
--- NOTE | 2025-01-03 13:43 | PN ---
[facility] PROGRESS NOTE Date of Service: January 03, 2025 Time of Service: 13:42 SUBJECTIVE: [59-year-old male with history of CKD, hyponatremia. Patient was admitted as patient complained of symptoms of bilateral lower extremity edema, shortness of breaths and weakness. Patient's lab reviewed, continues with hyponatremia with improvement in his sodium level at 130. Patient continues to have bilateral lower extremity edema 4+ noted. His blood pressure is still elevated despite different antihypertensive on board. We will adjust hydralazine 50 mg b.i.d. to t.i.d.. Otherwise patient denies any shortness of breaths or chest pain. 12/26/24 Patient was evaluated in the room, he reported that he feels a weak due to having his BP elevated this morning. Patient continues with current medication regimen, we will readjust medication- He will take Hydralazine 75 mg PO x1. Then patient will continue Hydralazine 50 mg now for QID. No other complaints. He can be dc today once his BP improved <150 mmHg, systolic. ] 12/28 the patient was seen and evaluated today. Apparently patient was not discharged as scheduled two days ago due to uncontrolled hypertension. We have been adjusting hydralazine, 50 mg q.i.d. has been given but today we will start patient on mg p.o. q.i.d. discussed this plan with the patient for which he agreed and verbalized understanding. 12/29/24 patient was examined today, patient spiked up with his blood pressure again this morning systolic in the 180's. We will readjust hydralazine now 100 mg q.i.d.. Plan on discharging the next24 hours if his blood pressure between 150-160 systolic 12/30/24 patient has persistent elevated blood pressure. Adjustment on medication has been done. At this point, we will be consulting junior web developer for further recommendations. 12/31/24 Patient was evaluated in the room, AOx3. He is with shortness of breath, using accessory muscle. On oxygen at 2Lpm via NC. His BP remained elevated despite adjustment on meds. Cxray showed pulmonary infiltrates. Patient is swollen to extremities, 2-3+ 01/01/25 patient was evaluated he is on room air, he still needs oxygen supplementation. His bilateral lower extremities four to 5+ edema. Patient was started with Lasix 40 mg IV b.i.d. since yesterday. His blood pressure is still elevated, systolic in the 170s, but diastolic is in the low side on the 40s. 01/02/25 patient was seen and examined. Case discussed with the RN his bilateral lower extremity 4+ edema slowly improving. Continue Lasix. Monitor electrolytes 01/03/25 patient was seen and examined. Case discussed with the RN his bilateral lower extremity 2+ edema slowly improving. Continue Lasix. Monitor electrolytes BP running high/use hydralazine REVIEW OF SYSTEMS CONSTITUTIONAL: Denies fevers, chills, or night sweats. No unintentional weight loss reported. NEUROLOGICAL: Denies headache, amaurosis fugax, motor weakness, sensory deficit, vertigo/spinning sensation, gait abnormalities, or tremors. ENT: No hearing loss, otalgia, otorrhea, rhinitis, rhinorrhea, hoarseness, or sore throat. CARDIOVASCULAR: As mentioned in HPI PULMONARY: Denies any shortness of breath, cough, phlegm/sputum, hemoptysis, pleuritic chest pain. SLEEP: Denies morning headaches, daytime somnolence or napping. Denies difficulty falling asleep, staying asleep, waking from sleep. Denies knowledge of snoring. GASTROINTESTINAL: Denies any type of dysphagia to either liquids or solids. Denies nausea, vomiting, pyrosis, early satiety, abdominal pain, diarrhea, co nstipation, or changes in stool consistency or caliber. Denies coffee-ground emesis, hematemesis, hematochezia, or melanotic stools. GENITOURINARY: Denies frequency, urgency, nocturia, hematuria or incontinence (Storage/Irritative symptoms.) Low urinary stream, straining to void, urinary intermittency or hesitancy, splitting of the voiding stream, terminal dribbling. ENDOCRINOLOGIC: Denies polyuria, polydipsia, polyphagia or heat/cold intolerances. HEMATOLOGIC: Denies thrombophilia/previous clots, or coagulopathy/bleeding disorders. ONCOLOGIC: Denies personal history of malignancy. DERMATOLOGIC: Denies rashes or pruritus. PSYCHIATRIC: Denies any suicidal or homicidal ideation. Denies hallucinations. PHYSICAL EXAM GENERAL APPEARANCE: The patient is awake, alert, and oriented, in no acute car diopulmonary distress. NEUROLOGICAL: Cranial nerves II-XII grossly intact. Motor is 5/5 in bilateral upper and lower extremities proximal to distal. No sensory deficits. HEENT: Face is symmetric. Pupils are equal and reactive. Extraocular movements are intact. NECK: Supple. No JVD. No thyromegaly. No submental, submandibular, pre- /postauricular, occipital or supraclavicular lymphadenopathy. CHEST: Normal chest expansion. No Telemetry. LUNGS: Absence of any rales, rhonchi or any wheezing. CARDIOVASCULAR: Regular. S1 and S2 normal. No appreciable rubs, murmurs or gallops. ABDOMEN: Soft, nontender, and nondistended. There is no rebound, voluntary guarding, or rigidity. : Deferred. No Finley. EXTREMITIES: Non-edematous and not cyanotic. No clubbing. Good capillary refill. SKIN: No skin breakdown. Vital Signs (last 8hr) Date Time Temp Pulse Resp B/P (MAP) Pulse Ox O2 Delivery O2 Flow Rate FiO2 01/03/25 11:34 98.1 58 19 169/65 100 Room Air 21 01/03/25 08:00 185/57 182/71 01/03/25 08:00 97.7 60 18 189/43 97 Room Air 21 LABS: Laboratory: Test 01/03/25 11:01 01/03/25 03:47 01/02/25 03:00 Range/Units Whole Blood Glucose 315 #H 70-110 MG/DL Bedside Glucose Comment Notified Nurse White Blood Count 11.7 H 4.8-10.8 K/uL Red Blood Count 3.28 L 4.50-6.20 MIL/uL Hemoglobin 8.6 L 14.0-18.0 g/dL Hematocrit 26.8 L 42-54 % Mean Corpuscular Volume 81.7 79-99 fL Mean Corpuscular Hemoglobin 26.2 L 27.0-33.0 pg Mean Corpuscular Hemoglobin Concent 32.1 32.0-36.0 g/dL Red Cell Distribution Width 13.3 11.0-15.5 % Platelet Count 289 130-400 K/uL Mean Platelet Volume 8.6 7.5-10.5 fL Nucleated Red Blood Cells 0.2 H 0.0-0.19 % Sodium Level 129 L 136-145 mmol/L Potassium Level 3.5 3.5-5.1 mmol/L Chloride Level 94 L 101-111 mmol/L Carbon Dioxide Level 28 21-32 mmol/L Blood Urea Nitrogen 29 H 7-18 mg/dL Creatinine 1.6 H 0.5-1.3 mg/dL Glomerular Filtration Rate Calc 49 >90 mL/min Random Glucose 125 H 70-105 mg/dL Total Calcium 8.1 L 8.5-10.1 mg/dL Phosphorus Level 4.7 2.5-4.9 mg/dL Magnesium Level 1.20 L 1.80-2.40 mg/dL Immature Granulocyte % (Auto) 0.6 0-1 % Neutrophils (%) (Auto) 72.5 40.0-77.0 % Lymphocytes (%) (Auto) 11.5 L 21.0-51.0 % Monocytes (%) (Auto) 13.6 H 3.0-13.0 % Eosinophils (%) (Auto) 1.5 0.0-8.0 % Basophils (%) (Auto) 0.3 0.0-5.0 % Neutrophils # (Auto) 7.0 1.8-7.7 K/uL Lymphocytes # (Auto) 1.1 1.0-4.8 K/uL Monocytes # (Auto) 1.3 H 0.1-1.0 K/uL Eosinophils # (Auto) 0.14 0.00-0.70 K/uL Basophils # (Auto) 0.03 0.00-0.20 K/uL Absolute Immature Granulocyte (auto 0.06 0-1 K/uL Current Medications Medications (Trade) Dose Ordered Sig/Jose A Route PRN Reason Start Time Stop Time Status Last Admin Dose Admin Acetaminophen (TYLenol 325MG TAB) 650 mg Q6H PRN PO MILD PAIN (1-3) 12/23/24 09:30 01/22/25 09:29 12/31/24 08:07 650 MG Apixaban (EliquIS) 5 mg BID PO 12/23/24 09:30 01/22/25 09:29 01/03/25 08:29 5 MG Atorvastatin Calcium (LIPItor 40MG) 40 mg HS PO 12/23/24 21:00 01/22/25 20:59 01/02/25 20:33 40 MG Ceftriaxone Sodium (ROCEphine 1G INJ) 1 gm Q24H IVPB 12/31/24 11:30 01/10/25 11:29 01/03/25 12:04 1 GM Dextrose (D50w) 50 ml AD PRN IV HYPOGLYCEMIA PROTOCOL 12/23/24 14:30 01/22/25 14:29 Diltiazem HCl (CARDIzem 120MG CD) 120 mg BID PO 12/30/24 10:30 01/24/25 08:59 01/03/25 08:29 120 MG Diltiazem HCl (CARDIzem 120MG CD) 120 mg DAILY PO 12/25/24 09:00 12/30/24 10:09 DC 12/30/24 08:27 120 MG Docusate Sodium (COLace 100MG CAP) 100 mg DAILY PO 12/29/24 09:00 01/28/25 08:59 01/03/25 08:30 100 MG Famotidine (Pepcid 20mg Vial) 20 mg BID IV 12/23/24 21:00 12/24/24 10:06 DC 12/24/24 09:45 20 MG Furosemide (LASix 40MG VIAL) 40 mg BID IV 12/31/24 13:00 01/01/25 13:38 DC 01/01/25 10:16 40 MG Furosemide (LASix 40MG VIAL) 40 mg Q12H IV 01/02/25 06:00 02/01/25 05:59 01/03/25 05:08 40 MG Glucagon (Glucagon 1mg Kit) 1 mg AD PRN IM HYPOGLYCEMIA PROTOCOL 12/23/24 14:30 01/22/25 14:29 Hydralazine HCl (APRESOLine 20MG INJ) 10 mg Q6H PRN IV ADMINISTER FOR SBP > 160 12/23/24 09:30 01/22/25 09:29 01/03/25 12:15 10 MG Hydralazine HCl ([id number] TAB) 50 mg BID PO 12/24/24 21:00 12/25/24 09:49 DC 12/25/24 09:43 50 MG Hydralazine HCl ([id number] TAB) 50 mg QID PO 12/26/24 12:00 12/28/24 10:24 DC 12/28/24 08:16 50 MG Hydralazine HCl ([id number] TAB) 50 mg TID PO 12/25/24 10:00 12/26/24 11:40 DC 12/26/24 09:09 50 MG Hydralazine HCl ([id number] TAB) 75 mg QID PO 12/28/24 13:00 12/29/24 13:05 DC 12/29/24 12:40 75 MG Hydralazine HCl ([id number] TAB) 100 mg QID PO 12/29/24 17:00 01/28/25 16:59 01/03/25 08:30 100 MG Insulin Human Regular (humuLIN R 100 UNIT/ML 3ML) INSULIN SLIDING SCAL... ACHS SQ 12/23/24 16:30 01/02/25 13:42 DC 01/02/25 13:11 16 UNIT Insulin Human Regular (humuLIN R 100 UNIT/ML 3ML) INSULIN SLIDING SCAL... ACHS SQ 01/02/25 16:30 02/01/25 16:29 01/03/25 12:11 16 UNIT Iron Sucrose (VenoFER) 300 mg Q24H IVP 12/31/24 13:00 12/31/24 12:43 DC Iron Sucrose 300 mg/Sodium Chloride 250 ml @ 83 mls/hr Q24H IV 12/31/24 13:00 01/02/25 16:01 DC 01/02/25 13:53 83 MLS/HR Lactulose (Constulose 20gm/ 30ml Udcup) 20 gm BID PRN PO CONSTIPATION 12/28/24 16:30 01/27/25 16:29 12/28/24 16:48 20 GM Lactulose (Constulose 20gm/ 30ml Udcup) 20 gm BID PRN PO CONSTIPATION 12/30/24 14:30 12/30/24 14:21 DC Levothyroxine Sodium (SYNTHroid 150MCG TAB) 150 mcg SYN PO 12/25/24 06:30 01/24/25 06:29 01/03/25 05:09 150 MCG Metoprolol Tartrate (loprESSOR) 12.5 mg BID PO 12/23/24 09:30 12/23/24 16:08 DC 12/23/24 09:43 12.5 MG Metoprolol Tartrate (loprESSOR) 25 mg BID PO 12/23/24 21:00 12/24/24 10:44 DC 12/24/24 09:45 25 MG Metoprolol Tartrate (loprESSOR) 100 mg BID PO 12/24/24 21:00 12/30/24 10:09 DC 12/30/24 08:27 100 MG Metoprolol Tartrate (loprESSOR) 100 mg TID PO 12/30/24 10:30 01/23/25 20:59 01/03/25 08:30 100 MG Morphine Sulfate (morPHINE 2MG SYG) 2 mg Q6H PRN IVP SEVERE PAIN (7-10) 12/23/24 09:30 12/28/24 12:29 DC Nitroglycerin (Nitrostat) 0.4 mg AD PRN SL CHEST PAIN 12/23/24 09:30 01/22/25 09:29 Ondansetron HCl (zoFRAN 4MG INJ) 4 mg Q8H PRN IVP NAUSEA/VOMITING 12/23/24 09:30 01/22/25 09:29 Pantoprazole Sodium (PROTonix 40MG TAB) 40 mg DAILY PO 12/25/24 09:00 01/24/25 08:59 01/03/25 08:30 40 MG Sertraline HCl (ZOloft 50 mg tab) 50 mg DAILY PO 12/25/24 09:00 01/24/25 08:59 01/03/25 08:30 50 MG Simethicone (Mylicon) 80 mg BIDPRN PRN PO GI GAS 12/30/24 22:00 01/29/25 21:59 Sodium Chloride 1,000 ml @ 75 mls/hr [id number] IV 12/23/24 14:30 12/27/24 21:49 DC 12/24/24 07:31 75 MLS/HR Spironolactone (Aldactone 25mg) 50 mg DAILY PO 12/25/24 09:00 01/24/25 08:59 01/03/25 08:30 50 MG Vitamin B Complex/ Vit C/Folic Acid (Nephrovite Tablet) 1 cap DAILY PO 12/31/24 09:00 01/30/25 08:59 01/03/25 08:30 1 CAP DIAGNOSTICS / RADIOLOGY: [ ] Assessment: Pulmonary infiltrate by chest-xray Uncontrolled hypertension POA- improving Chest pain, ruled out ACS POA suspected unc HTN related Hyponatremia POA - improving Atrial fibrillation POA Type 2 diabetes POA Anemia POA CAD Hyperlipidemia Hypothyroidism Anxiety PLAN: Admit patient to telemetry floor under hospitalist team C/w patient's home medication , we will continue with current antihypertensive. We will continue to follow recommendations from junior web developer Patient was noted with anemia, patient was receiving iron sucrose IV Continue Rocephin 1 g IV, 2/2 pulmonary infiltrate on chest xray, he is sob. Patient was started with IV Lasix with 40 mg b.i.d. NTG SL p.r.n. chest pain 2D echo showed 60-65%, stage I diastolic dysfunction, we will continue to monitor C/w patient on atorvastatin 40 mg at bedtime ADA/heart healthy diet SSI coverage. Glucometer checks a.c. and HS. Hypoglycemic precautions per protocol. Continue home Eliquis for DVT prophylaxis Pepcid for GI prophylaxis P.r.n. medications for fever, pain, nausea, constipation BNP today We will start daily weight, strict I&O Follow-up a.m. labs Further orders per hospital course Case seen and examined with Dr. Coello, above plan was formulated CORNELIO COELLO MD January 03, 2025 13:43
--- NOTE | 2025-01-03 15:22 | PN ---
NEPHROLOGY PROGRESS NOTE Date/Time Patient Seen: January 03, 2025 SUBJECTIVE: This is a 59-year-old male with a past medical history of atrial fibrillation on chronic anticoagulation, chronic hyponatremia, diabetes mellitus type 2, obstructive sleep apnea, hypothyroidism, hypertension, obesity, congestive heart failure, chronic kidney disease, and anemia. He presents to the emergency department with complaints of chest pain In the emergency room he was to have hyponatremia, elevated BUN/creatinine, and anemia We are consulted for renal failure Renal function is stable Electrolyte are stable Renal ultrasound showed normal renal and bladder sonogram. No hydronephrosis on January 2024. He was seen in the medical floor, in no acute distress Complaining of shortness of breath No family at the bedside Prognosis remains guarded REVIEW OF SYSTEMS: GENERAL: Positive for chest pain and dizziness NEUROLOGIC: Negative for any blurry vision, blind spots, double vision, facial asymmetry, dysphagia, dysarthria, hemiparesis, hemisensory deficits, vertigo, ataxia. HEENT: Negative for any head trauma, neck trauma, neck stiffness, photophobia, phonophobia, sinusitis, rhinitis. CARDIAC: Negative for any chest pain, dyspnea on exertion, paroxysmal nocturnal dyspnea, peripheral edema. PULMONARY: Negative for any shortness of breath, wheezing, COPD, or TB exposure. GASTROINTESTINAL: Negative for any abdominal pain, nausea, vomiting, bright red blood per rectum, melena. GENITOURINARY: Negative for any dysuria, hematuria, incontinence. INTEGUMENTARY: Negative for any rashes, cuts, insect bites. RHEUMATOLOGIC: Negative for any joint pains, photosensitive rashes, history of vasculitis or kidney problems. HEMATOLOGIC: Negative for any abnormal bruising, frequent infections or bleeding. PHYSICAL EXAM: GENERAL: Alert and oriented x 3. No acute distress. Well-nourished. EYES: EOMI. Anicteric. HENT: Moist mucous membranes. No scleral icterus. No cervical lymphadenopathy. LUNGS: Clear to auscultation bilaterally. No accessory muscle use. CARDIOVASCULAR: Regular rate and rhythm. No murmur. No JVD. ABDOMEN: Soft, non-tender and non-distended. No palpable masses. EXTREMITIES: No edema. Non-tender. SKIN: No rashes or lesions. Warm. NEUROLOGIC: No focal neurological deficits. CN II-XII grossly intact, but not individually tested. PSYCHIATRIC: Cooperative. Appropriate mood and affect. LABORATORY: [ ] Hematology Labs: Test 01/03/25 03:47 01/02/25 03:00 Range/Units White Blood Count 11.7 H 4.8-10.8 K/uL Red Blood Count 3.28 L 4.50-6.20 MIL/uL Hemoglobin 8.6 L 14.0-18.0 g/dL Hematocrit 26.8 L 42-54 % Mean Corpuscular Volume 81.7 79-99 fL Mean Corpuscular Hemoglobin 26.2 L 27.0-33.0 pg Mean Corpuscular Hemoglobin Concent 32.1 32.0-36.0 g/dL Red Cell Distribution Width 13.3 11.0-15.5 % Platelet Count 289 130-400 K/uL Mean Platelet Volume 8.6 7.5-10.5 fL Nucleated Red Blood Cells 0.2 H 0.0-0.19 % Immature Granulocyte % (Auto) 0.6 0-1 % Neutrophils (%) (Auto) 72.5 40.0-77.0 % Lymphocytes (%) (Auto) 11.5 L 21.0-51.0 % Monocytes (%) (Auto) 13.6 H 3.0-13.0 % Eosinophils (%) (Auto) 1.5 0.0-8.0 % Basophils (%) (Auto) 0.3 0.0-5.0 % Neutrophils # (Auto) 7.0 1.8-7.7 K/uL Lymphocytes # (Auto) 1.1 1.0-4.8 K/uL Monocytes # (Auto) 1.3 H 0.1-1.0 K/uL Eosinophils # (Auto) 0.14 0.00-0.70 K/uL Basophils # (Auto) 0.03 0.00-0.20 K/uL Absolute Immature Granulocyte (auto 0.06 0-1 K/uL Chemistry Labs: Test 01/03/25 11:01 01/03/25 03:47 Range/Units Whole Blood Glucose 315 #H 70-110 MG/DL Bedside Glucose Comment Notified Nurse Sodium Level 129 L 136-145 mmol/L Potassium Level 3.5 3.5-5.1 mmol/L Chloride Level 94 L 101-111 mmol/L Carbon Dioxide Level 28 21-32 mmol/L Blood Urea Nitrogen 29 H 7-18 mg/dL Creatinine 1.6 H 0.5-1.3 mg/dL Glomerular Filtration Rate Calc 49 >90 mL/min Random Glucose 125 H 70-105 mg/dL Total Calcium 8.1 L 8.5-10.1 mg/dL Phosphorus Level 4.7 2.5-4.9 mg/dL Magnesium Level 1.20 L 1.80-2.40 mg/dL DIAGNOSTICS / RADIOLOGY: REASON: hypoxemia ORDERING PHYSICIAN: ADRI WOMACK PROCEDURE: CXR1VW - CHEST 1VW CHEST 1VW HISTORY: Hypoxemia COMPARISON: 12/23/2024 FINDINGS: A frontal projection of the chest was obtained. There are bilateral pulmonary infiltrates suggestive of pulmonary vascular congestion with possible superimposed pneumonitis. The heart is enlarged. Postop changes are seen of left clavicle with orthopedic fixation plates and screws. No evidence of aortic calcification is seen. IMPRESSION: 1. Bilateral pulmonary infiltrates are seen suggestive of pulmonary vascular congestion with possible superimposed pneumonitis. DICTATED BY: MICHELLE FRAZIER MD DATE: 12/30/24 1550 REASON: Assess LV function ORDERING PHYSICIAN: OLGA IVAN PROCEDURE: ECHO CMP - ECHO 2-D COMPLETE APPROVED REPORT EXAM: Two-dimensional and M-mode echocardiogram with Doppler and color Doppler. INDICATION ICD: Assess LV Function 2D Dimensions RVDd 3.8 cm LVEF(%) 67.8 (>50%) LVED Vol(simp.) 121.6 mL IVSd 1.1 (0.7-1.1cm) FS(%) 37 % LVES Vol(simp.) 48.9 mL LVDd 3.6 (3.8-5.6cm) LA (2D) 4.0 (1.6-4.0cm) LVEF(%, simp.) 60 % PWd 1.1 (0.7-1.1cm) Ao Root(2D) 3.1 (2.0-3.7cm) LA ESV INDEX (BP) 40.63 mL/m2 LVDs 2.3 (2.5-4.0cm) LVOT diam 2.0 (1.8-2.4cm) IVC diam 2.0 cm Deformation Strain Apical 4 -16.4 % Apical 2 -14.1 % Apical 3 -17.5 % Global Strain -16.0 % M-Mode Dimensions EPSS 0.7 cm LA (MM) 4.4 (1.6-4.0cm) Ao Root(MM) 2.6 (2.0-3.7cm) Aortic Valve AoV Vmax 0.0 m/s Ao Peak GR 0.0 mmHg LVOT Vmax 1.4 m/s AoV VTI 0.5 m Ao Mean GR 9.4 mmHg LVOT VTI 0.33 m MIKE (VMAX) 2.15 cm2 MIKE (VTI) 2.2 cm2 Mitral Valve MV E Vmax 150.9 cm/s DECEL Time 169 ms MV A Vmax 117.9 cm/s P 1/2 T 43 ms E/A ratio 1.3 MVA (PHT) 5.2 cm2 TDI E/E' Medial 20.5 E/E' Lateral 18.1 Medial E' Peak V 7.35 cm/s Lateral E' Peak V 8.34 cm/s Pulmonary Valve PV Vmax 1.5 m/s PV Peak GR 8.9 mmHg Left Ventricle The left ventricle is normal size. No regional wall motion abnormalities noted. Mild concentric left ventricular hypertrophy. Left ventricular systolic function is normal, estimated LVEF is 60 to 65%. Stage II, diastolic dysfunction. Right Ventricle The right ventricle is normal size. The right ventricular systolic function is normal. Atria The left atrium is mildly dilated, 41 mL/m�. The right atrium size is normal. Aortic Valve Aortic valve is trileaflet. The leaflets are thickened and calcified. Trace aortic regurgitation. Mild aortic stenosis: Peak velocity 2.2 m/s, mean gradient 9 mmHg. Mitral Valve The mitral valve is normal in structure. The leaflets are mildly thickened and calcified. Trace mitral regurgitation. There is no mitral valve stenosis. Tricuspid Valve The tricuspid valve is normal in structure. Trace tricuspid regurgitation. RVSP is normal. Pulmonic Valve Pulmonic valve is not well visualized. Great Vessels The aortic root is normal in size. The IVC is normal in size and collapses >50% with inspiration. Pericardium There is no pericardial effusion. Conclusion The left atrium is mildly dilated, 41 mL/m�. Mild concentric left ventricular hypertrophy. No regional wall motion abnormalities noted. Left ventricular systolic function is normal, estimated LVEF is 60 to 65%. Stage II, diastolic dysfunction. Mild aortic stenosis: Peak velocity 2.2 m/s, mean gradient 9 mmHg. Trace aortic regurgitation. Trace mitral regurgitation. Trace tricuspid regurgitation. PASP is normal. There is no pericardial effusion. DICTATED BY: RENATO BILLS MD DATE: 12/24/2405 REASON: CHEST PAIN ORDERING PHYSICIAN: MUSTAPHA HERBERT MD PROCEDURE: CXR1VW - CHEST 1VW CHEST 1VW HISTORY: Chest pain COMPARISON: 08/14/2024 FINDINGS: A frontal projection of the chest was obtained. No acute pulmonary infiltrates is seen. The heart is borderline enlarged. Postop changes are seen of left clavicle. Aortic calcifications are seen. Prominent interstitial markings are seen. IMPRESSION: 1. No acute pulmonary infiltrate is seen. DICTATED BY: MICHELLE FRAZIER MD DATE: 12/23/2444 ASSESSMENT: Hyponatremia Anemia Uncontrolled hypertension Chest pain, ruled out ACS POA Atrial fibrillation Type 2 diabetes CAD Hyperlipidemia Hypothyroidism Anxiety PLAN: Labs, diagnostic, radiologic exams reviewed and interpreted by myself and supervising physician. We have reviewed external records in detail Transition Lasix to 40 mg PO BID Order daily orthostatic Require close monitoring of renal function and electrolytes Order CBC, CMP, and electrolytes in am BiPAP as necessary, for respiratory distress Monitor blood pressure adjust medication doses as needed Avoid hypotensive episodes May use Dilaudid 0.5 mg IV every 6 hours as needed for severe pain Monitor blood sugars Strict intake, output, and daily weight should be monitored Please renally adjust medications Avoid nephrotoxic and nonsteroidal drugs Avoid contrast if possible Will continue to monitor renal function, anemia, electrolytes Treatment plan discussed with patient Questions were answered We have discussed with the other team physicians in detail about the care plan We will continue to monitor the patient closely ATTESTATION BY PHYSICIAN I have seen and examined the patient. I reviewed the documentation, medical decision making, and treatment plan as noted by the mid-level provider above. I agree with the findings and plan of care. NOEMY SAMUELS MD, [facility] [employer] January 03, 2025 15:22
[2025-01-03] MEDS: furoSEMIDE 40 MG TABLET PO SCH (17:51)
[2025-01-04] VITALS (10 sets, daily range): BP systolic 152–181; BP diastolic 37–80; PULSE 60–69; RESP 18–20; TEMP 97.5–98.3; O2SAT 95–96
[2025-01-04 04:11] LABS: HEMATOCRIT 24.9 % (42-54); MEAN CORPUSCULAR HEMOGLOBIN 26.8 pg (27.0-33.0); MEAN CORPUSCULAR HGB CONC 33.3 g/dL (32.0-36.0); MEAN CORPUSCULAR VOLUME 80.3 fL (79-99); PLATELET COUNT (AUTO) 240 K/uL (130-400); RED CELL DISTRIBUTION WIDTH 13.7 % (11.0-15.5); WHITE BLOOD COUNT (AUTO) 11.6 K/uL (4.8-10.8)
[2025-01-04 04:34] LABS: ALBUMIN 2.3 g/dL (3.5-5.0); BILIRUBIN,TOTAL 0.2 mg/dL (0.2-1.0); CREATININE 1.7 mg/dL (0.5-1.3); MAGNESIUM 1.3 mg/dL (1.80-2.40); PHOSPHORUS 4.3 mg/dL (2.5-4.9); POTASSIUM 3.4 mmol/L (3.5-5.1); TOTAL PROTEIN, SERUM 5.8 g/dL (6.0-8.3)
[2025-01-04 04:55] LABS: EOSINOPHILS % (MANUAL) 2 % (1-6); LYMPHOCYTES % (MANUAL) 5 % (22-44); MAN.DIFF COMMENT-IMPRESSION MANUAL DIFFERENTIAL; MONOCYTES % (MANUAL) 12 % (2-9); PLATELET MORPHOLOGY COMMENT ADEQUATE; REACTIVE LYMPHOCYTES 3 % (0-0); SEGMENTED NEUTROPHILS % 78 % (40-70); TOTAL CELLS COUNTED 100
--- NOTE | 2025-01-04 06:24 | NUR ---
Pt. is a daily weight; refuses to be weighed @ this time.
--- NOTE | 2025-01-04 10:21 | PN ---
NEPHROLOGY PROGRESS NOTE Date/Time Patient Seen: January 04, 2025 SUBJECTIVE: This is a 59-year-old male with a past medical history of atrial fibrillation on chronic anticoagulation, chronic hyponatremia, diabetes mellitus type 2, obstructive sleep apnea, hypothyroidism, hypertension, obesity, congestive heart failure, chronic kidney disease, and anemia. He presents to the emergency department with complaints of chest pain In the emergency room he was to have hyponatremia, elevated BUN/creatinine, and anemia We are consulted for renal failure Renal function and electrolyte are stable Renal ultrasound showed normal renal and bladder sonogram. No hydronephrosis on January 2024. He has been transitioned to p.o. diuretics He was seen in the medical floor, in no acute distress No family at the bedside Prognosis remains guarded REVIEW OF SYSTEMS: GENERAL: Positive for chest pain and dizziness NEUROLOGIC: Negative for any blurry vision, blind spots, double vision, facial asymmetry, dysphagia, dysarthria, hemiparesis, hemisensory deficits, vertigo, ataxia. HEENT: Negative for any head trauma, neck trauma, neck stiffness, photophobia, phonophobia, sinusitis, rhinitis. CARDIAC: Negative for any chest pain, dyspnea on exertion, paroxysmal nocturnal dyspnea, peripheral edema. PULMONARY: Negative for any shortness of breath, wheezing, COPD, or TB exposure. GASTROINTESTINAL: Negative for any abdominal pain, nausea, vomiting, bright red blood per rectum, melena. GENITOURINARY: Negative for any dysuria, hematuria, incontinence. INTEGUMENTARY: Negative for any rashes, cuts, insect bites. RHEUMATOLOGIC: Negative for any joint pains, photosensitive rashes, history of vasculitis or kidney problems. HEMATOLOGIC: Negative for any abnormal bruising, frequent infections or bleeding. PHYSICAL EXAM: GENERAL: Alert and oriented x 3. No acute distress. Well-nourished. EYES: EOMI. Anicteric. HENT: Moist mucous membranes. No scleral icterus. No cervical lymphadenopathy. LUNGS: Clear to auscultation bilaterally. No accessory muscle use. CARDIOVASCULAR: Regular rate and rhythm. No murmur. No JVD. ABDOMEN: Soft, non-tender and non-distended. No palpable masses. EXTREMITIES: No edema. Non-tender. SKIN: No rashes or lesions. Warm. NEUROLOGIC: No focal neurological deficits. CN II-XII grossly intact, but not individually tested. PSYCHIATRIC: Cooperative. Appropriate mood and affect. LABORATORY: [ ] Hematology Labs: Test 01/04/25 04:02 Range/Units White Blood Count 11.6 H 4.8-10.8 K/uL Red Blood Count 3.10 L 4.50-6.20 MIL/uL Hemoglobin 8.3 L 14.0-18.0 g/dL Hematocrit 24.9 L 42-54 % Mean Corpuscular Volume 80.3 79-99 fL Mean Corpuscular Hemoglobin 26.8 L 27.0-33.0 pg Mean Corpuscular Hemoglobin Concent 33.3 32.0-36.0 g/dL Red Cell Distribution Width 13.7 11.0-15.5 % Platelet Count 240 130-400 K/uL Mean Platelet Volume 8.7 7.5-10.5 fL Segmented Neutrophils % 78 H 40-70 % Lymphocytes % (Manual) 5 L 22-44 % Monocytes % (Manual) 12 H 2-9 % Eosinophils % (Manual) 2 1-6 % Nucleated Red Blood Cells 0.0 0.0-0.19 % Differential Comment MANUAL DIFFERENTIAL Reactive Lymphocytes 3 H 0-0 % White Cell Morphology Comment See comments Platelet Morphology Comment ADEQUATE Red Blood Cell Morphology HYPOCHROM CELLS 1+ Chemistry Labs: Test 01/04/25 05:11 01/04/25 04:02 01/03/25 11:01 Range/Units Whole Blood Glucose 147 #H 70-110 MG/DL Sodium Level 129 L 136-145 mmol/L Potassium Level 3.4 L 3.5-5.1 mmol/L Chloride Level 95 L 101-111 mmol/L Carbon Dioxide Level 26 21-32 mmol/L Blood Urea Nitrogen 35 H 7-18 mg/dL Creatinine 1.7 H 0.5-1.3 mg/dL Glomerular Filtration Rate Calc 46 >90 mL/min Random Glucose 155 H 70-105 mg/dL Total Calcium 8.1 L 8.5-10.1 mg/dL Phosphorus Level 4.3 2.5-4.9 mg/dL Magnesium Level 1.30 L 1.80-2.40 mg/dL Total Bilirubin 0.2 0.2-1.0 mg/dL Aspartate Amino Transf (AST/SGOT) 26 10-37 U/L Alanine Aminotransferase (ALT/SGPT) 26 12-78 U/L Alkaline Phosphatase 157 H 50-136 U/L Total Protein 5.8 L 6.0-8.3 g/dL Albumin 2.3 L 3.5-5.0 g/dL Bedside Glucose Comment Notified Nurse DIAGNOSTICS / RADIOLOGY: REASON: hypoxemia ORDERING PHYSICIAN: ADRI WOMACK PROCEDURE: CXR1VW - CHEST 1VW CHEST 1VW HISTORY: Hypoxemia COMPARISON: 12/23/2024 FINDINGS: A frontal projection of the chest was obtained. There are bilateral pulmonary infiltrates suggestive of pulmonary vascular congestion with possible superimposed pneumonitis. The heart is enlarged. Postop changes are seen of left clavicle with orthopedic fixation plates and screws. No evidence of aortic calcification is seen. IMPRESSION: 1. Bilateral pulmonary infiltrates are seen suggestive of pulmonary vascular congestion with possible superimposed pneumonitis. DICTATED BY: MICHELLE FRAZIER MD DATE: 12/30/24 1550 REASON: Assess LV function ORDERING PHYSICIAN: OLGA IVAN PROCEDURE: ECHO CMP - ECHO 2-D COMPLETE APPROVED REPORT EXAM: Two-dimensional and M-mode echocardiogram with Doppler and color Doppler. INDICATION ICD: Assess LV Function 2D Dimensions RVDd 3.8 cm LVEF(%) 67.8 (>50%) LVED Vol(simp.) 121.6 mL IVSd 1.1 (0.7-1.1cm) FS(%) 37 % LVES Vol(simp.) 48.9 mL LVDd 3.6 (3.8-5.6cm) LA (2D) 4.0 (1.6-4.0cm) LVEF(%, simp.) 60 % PWd 1.1 (0.7-1.1cm) Ao Root(2D) 3.1 (2.0-3.7cm) LA ESV INDEX (BP) 40.6 3 mL/m2 LVDs 2.3 (2.5-4.0cm) LVOT diam 2.0 (1.8-2.4cm) IVC diam 2.0 cm Deformation Strain Apical 4 -16.4 % Apical 2 -14.1 % Apical 3 -17.5 % Global Strain -16.0 % M-Mode Dimensions EPSS 0.7 cm LA (MM) 4.4 (1.6-4.0cm) Ao Root(MM) 2.6 (2.0-3.7cm) Aortic Valve AoV Vmax 0.0 m/s Ao Peak GR 0.0 mmHg LVOT Vmax 1.4 m/s AoV VTI 0.5 m Ao Mean GR 9.4 mmHg LVOT VTI 0.33 m MIKE (VMAX) 2.15 cm2 MIKE (VTI) 2.2 cm2 Mitral Valve MV E Vmax 150.9 cm/s DECEL Time 169 ms MV A Vmax 117.9 cm/s P 1/2 T 43 ms E/A ratio 1.3 MVA (PHT) 5.2 cm2 TDI E/E' Medial 20.5 E/E' Lateral 18.1 Medial E' Peak V 7.35 cm/s Lateral E' Peak V 8.34 cm/s Pulmonary Valve PV Vmax 1.5 m/s PV Peak GR 8.9 mmHg Left Ventricle The left ventricle is normal size. No regional wall motion abnormalities noted. Mild concentric left ventricular hypertrophy. Left ventricular systolic function is normal, estimated LVEF is 60 to 65%. Stage II, diastolic dysfunction. Right Ventricle The right ventricle is normal size. The right ventricular systolic function is normal. Atria The left atrium is mildly dilated, 41 mL/m�. The right atrium size is normal. Aortic Valve Aortic valve is trileaflet. The leaflets are thickened and calcified. Trace ao rtic regurgitation. Mild aortic stenosis: Peak velocity 2.2 m/s, mean gradient 9 mmHg. Mitral Valve The mitral valve is normal in structure. The leaflets are mildly thickened and calcified. Trace mitral regurgitation. There is no mitral valve stenosis. Tricuspid Valve The tricuspid valve is normal in structure. Trace tricuspid regurgitation. RVSP is normal. Pulmonic Valve Pulmonic valve is not well visualized. Great Vessels The aortic root is normal in size. The IVC is normal in size and collapses >50% with inspiration. Pericardium There is no pericardial effusion. Conclusion The left atrium is mildly dilated, 41 mL/m�. Mild concentric left ventricular hypertrophy. No regional wall motion abnormalities noted. Left ventricular systolic function is normal, estimated LVEF is 60 to 65%. Stage II, diastolic dysfunction. Mild aortic stenosis: Peak velocity 2.2 m/s, mean gradient 9 mmHg. Trace aortic regurgitation. Trace mitral regurgitation. Trace tricuspid regurgitation. PASP is normal. There is no pericardial effusion. DICTATED BY: RENATO BILLS MD DATE: 12/24/2405 REASON: CHEST PAIN ORDERING PHYSICIAN: MUSTAPHA HERBERT MD PROCEDURE: CXR1VW - CHEST 1VW CHEST 1VW HISTORY: Chest pain COMPARISON: 08/14/2024 FINDINGS: A frontal projection of the chest was obtained. No acute pulmonary infiltrates is seen. The heart is borderline enlarged. Postop changes are seen of left clavicle. Aortic calcifications are seen. Prominent interstitial markings are seen. IMPRESSION: 1. No acute pulmonary infiltrate is seen. DICTATED BY: MICHELLE FRAZIER MD DATE: 12/23/2444 ASSESSMENT: Hyponatremia Anemia Uncontrolled hypertension Chest pain, ruled out ACS POA Atrial fibrillation Type 2 diabetes CAD Hyperlipidemia Hypothyroidism Anxiety PLAN: Labs, diagnostic, radiologic exams reviewed and interpreted by myself and supervising physician. We have reviewed external records in detail Continue with the p.o. diuretics. Start Epogen 34482 units subQ weekly, 1st dose now Require close monitoring of renal function and electrolytes Order CBC, CMP, and electrolytes in am BiPAP as necessary, for respiratory distress Monitor blood pressure adjust medication doses as needed Avoid hypotensive episodes May use Dilaudid 0.5 mg IV every 6 hours as needed for severe pain Monitor blood sugars Strict intake, output, and daily weight should be monitored Please renally adjust medications Avoid nephrotoxic and nonsteroidal drugs Avoid contrast if possible Will continue to monitor renal function, anemia, electrolytes Treatment plan discussed with patient Questions were answered We have discussed with the other team physicians in detail about the care plan We will continue to monitor the patient closely ATTESTATION BY PHYSICIAN I have seen and examined the patient. I reviewed the documentation, medical dec ision making, and treatment plan as noted by the mid-level provider above. I agree with the findings and plan of care. NOEMY SAMUELS MD, ELIZABETH WIRE GALVANIZER January 04, 2025 10:21
--- NOTE | 2025-01-04 15:05 | PN ---
[facility] PROGRESS NOTE Date of Service: January 04, 2025 Time of Service: 15:04 SUBJECTIVE: [59-year-old male with history of CKD, hyponatremia. Patient was admitted as patient complained of symptoms of bilateral lower extremity edema, shortness of breaths and weakness. Patient's lab reviewed, continues with hyponatremia with improvement in his sodium level at 130. Patient continues to have bilateral lower extremity edema 4+ noted. His blood pressure is still elevated despite different antihypertensive on board. We will adjust hydralazine 50 mg b.i.d. to t.i.d.. Otherwise patient denies any shortness of breaths or chest pain. 12/26/24 Patient was evaluated in the room, he reported that he feels a weak due to having his BP elevated this morning. Patient continues with current medication regimen, we will readjust medication- He will take Hydralazine 75 mg PO x1. Then patient will continue Hydralazine 50 mg now for QID. No other complaints. He can be dc today once his BP improved <150 mmHg, systolic. ] 12/28 the patient was seen and evaluated today. Apparently patient was not discharged as scheduled two days ago due to uncontrolled hypertension. We have been adjusting hydralazine, 50 mg q.i.d. has been given but today we will start patient on [id number] mg p.o. q.i.d. discussed this plan with the patient for which he agreed and verbalized understanding. 12/29/24 patient was examined today, patient spiked up with his blood pressure again this morning systolic in the 180's. We will readjust hydralazine now 100 mg q.i.d.. Plan on discharging the next24 hours if his blood pressure between 150-160 systolic 12/30/24 patient has persistent elevated blood pressure. Adjustment on medication has been done. At this point, we will be consulting environmental associate for further recommendations. 12/31/24 Patient was evaluated in the room, AOx3. He is with shortness of breath, using accessory muscle. On oxygen at 2Lpm via NC. His BP remained elevated despite adjustment on meds. Cxray showed pulmonary infiltrates. Patient is swollen to extremities, 2-3+ 01/01/25 patient was evaluated he is on room air, he still needs oxygen supplementation. His bilateral lower extremities four to 5+ edema. Patient was started with Lasix 40 mg IV b.i.d. since yesterday. His blood pressure is still elevated, systolic in the 170s, but diastolic is in the low side on the 40s. 01/02/25 patient was seen and examined. Case discussed with the RN his bilateral lower extremity 4+ edema slowly improving. Continue Lasix. Monitor electrolytes 01/03/25 patient was seen and examined. Case discussed with the RN his bilateral lower extremity 2+ edema slowly improving. Continue Lasix. Monitor electrolytes BP running high/use hydralazine 01/04/25 patient was seen and examined. Case discussed with the RN. Nephrology is following the patient. He was extremity edema is improving however his blood pressure is remaining high despite high doses of hydralazine and metoprolol. I will add amlodipine 10 mg REVIEW OF SYSTEMS CONSTITUTIONAL: Denies fevers, chills, or night sweats. No unintentional weight loss reported. NEUROLOGICAL: Denies headache, amaurosis fugax, motor weakness, sensory deficit, vertigo/spinning sensation, gait abnormalities, or tremors. ENT: No hearing loss, otalgia, otorrhea, rhinitis, rhinorrhea, hoarseness, or sore throat. CARDIOVASCULAR: As mentioned in HPI PULMONARY: Denies any shortness of breath, cough, phlegm/sputum, hemoptysis, pleuritic chest pain. SLEEP: Denies morning headaches, daytime somnolence or napping. Denies diffic ulty falling asleep, staying asleep, waking from sleep. Denies knowledge of snoring. GASTROINTESTINAL: Denies any type of dysphagia to either liquids or solids. Denies nausea, vomiting, pyrosis, early satiety, abdominal pain, diarrhea, constipation, or changes in stool consistency or caliber. Denies coffee-ground emesis, hematemesis, hematochezia, or melanotic stools. GENITOURINARY: Denies frequency, urgency, nocturia, hematuria or incontinence (Storage/Irritative symptoms.) Low urinary stream, straining to void, urinary intermittency or hesitancy, splitting of the voiding stream, terminal dribbling. ENDOCRINOLOGIC: Denies polyuria, polydipsia, polyphagia or heat/cold into lerances. HEMATOLOGIC: Denies thrombophilia/previous clots, or coagulopathy/bleeding disorders. ONCOLOGIC: Denies personal history of malignancy. DERMATOLOGIC: Denies rashes or pruritus. PSYCHIATRIC: Denies any suicidal or homicidal ideation. Denies hallucinations. PHYSICAL EXAM GENERAL APPEARANCE: The patient is awake, alert, and oriented, in no acute cardiopulmonary distress. NEUROLOGICAL: Cranial nerves II-XII grossly intact. Motor is 5/5 in bilateral upper and lower extremities proximal to distal. No sensory deficits. HEENT: Face is symmetric. Pupils are equal and reactive. Extraocular movements are intact. NECK: Supple. No JVD. No thyromegaly. No submental, submandibular, pre- /postauricular, occipital or supraclavicular lymphadenopathy. CHEST: Normal chest expansion. No Telemetry. LUNGS: Absence of any rales, rhonchi or any wheezing. CARDIOVASCULAR: Regular. S1 and S2 normal. No appreciable rubs, murmurs or gallops. ABDOMEN: Soft, nontender, and nondistended. There is no rebound, voluntary guarding, or rigidity. : Deferred. No Finley. EXTREMITIES: Non-edematous and not cyanotic. No clubbing. Good capillary refill. SKIN: No skin breakdown. Vital Signs (last 8hr) Date Time Temp Pulse Resp B/P (MAP) Pulse Ox O2 Delivery O2 Flow Rate FiO2 01/04/25 11:28 97.5 69 18 176/72 94 Nasal Cannula 2.0 24 01/04/25 11:28 170/80 168/73 01/04/25 07:46 97.5 64 19 159/60 95 Room Air 21 LABS: Laboratory: Test 01/04/25 14:53 01/04/25 04:02 01/03/25 11:01 Range/Units Whole Blood Glucose 352 H 70-110 MG/DL White Blood Count 11.6 H 4.8-10.8 K/uL Red Blood Count 3.10 L 4.50-6.20 MIL/uL Hemoglobin 8.3 L 14.0-18.0 g/dL Hematocrit 24.9 L 42-54 % Mean Corpuscular Volume 80.3 79-99 fL Mean Corpuscular Hemoglobin 26.8 L 27.0-33.0 pg Mean Corpuscular Hemoglobin Concent 33.3 32.0-36.0 g/dL Red Cell Distribution Width 13.7 11.0-15.5 % Platelet Count 240 130-400 K/uL Mean Platelet Volume 8.7 7.5-10.5 fL Segmented Neutrophils % 78 H 40-70 % Lymphocytes % (Manual) 5 L 22-44 % Monocytes % (Manual) 12 H 2-9 % Eosinophils % (Manual) 2 1-6 % Nucleated Red Blood Cells 0.0 0.0-0.19 % Differential Comment MANUAL DIFFERENTIAL Reactive Lymphocytes 3 H 0-0 % White Cell Morphology Comment See comments Platelet Morphology Comment ADEQUATE Red Blood Cell Morphology HYPOCHROM CELLS 1+ Sodium Level 129 L 136-145 mmol/L Potassium Level 3.4 L 3.5-5.1 mmol/L Chloride Level 95 L 101-111 mmol/L Carbon Dioxide Level 26 21-32 mmol/L Blood Urea Nitrogen 35 H 7-18 mg/dL Creatinine 1.7 H 0.5-1.3 mg/dL Glomerular Filtration Rate Calc 46 >90 mL/min Random Glucose 155 H 70-105 mg/dL Total Calcium 8.1 L 8.5-10.1 mg/dL Phosphorus Level 4.3 2.5-4.9 mg/dL Magnesium Level 1.30 L 1.80-2.40 mg/dL Total Bilirubin 0.2 0.2-1.0 mg/dL Aspartate Amino Transf (AST/SGOT) 26 10-37 U/L Alanine Aminotransferase (ALT/SGPT) 26 12-78 U/L Alkaline Phosphatase 157 H 50-136 U/L Total Protein 5.8 L 6.0-8.3 g/dL Albumin 2.3 L 3.5-5.0 g/dL Bedside Glucose Comment Notified Nurse Current Medications Medications (Trade) Dose Ordered Sig/Jose A Route PRN Reason Start Time Stop Time Status Last Admin Dose Admin Acetaminophen (TYLenol 325MG TAB) 650 mg Q6H PRN PO MILD PAIN (1-3) 12/23/24 09:30 01/22/25 09:29 12/31/24 08:07 650 MG Amlodipine Besylate (NorvASC 5MG TAB) 10 mg DAILY PO 01/05/25 09:00 02/04/25 08:59 Apixaban (EliquIS) 5 mg BID PO 12/23/24 09:30 01/22/25 09:29 01/04/25 09:05 5 MG Atorvastatin Calcium (LIPItor 40MG) 40 mg HS PO 12/23/24 21:00 01/22/25 20:59 01/03/25 21:03 40 MG Ceftriaxone Sodium (ROCEphine 1G INJ) 1 gm Q24H IVPB 12/31/24 11:30 01/10/25 11:29 01/04/25 11:24 1 GM Dextrose (D50w) 50 ml AD PRN IV HYPOGLYCEMIA PROTOCOL 12/23/24 14:30 01/22/25 14:29 Diltiazem HCl (CARDIzem 120MG CD) 120 mg BID PO 12/30/24 10:30 01/24/25 08:59 01/04/25 09:05 120 MG Diltiazem HCl (CARDIzem 120MG CD) 120 mg DAILY PO 12/25/24 09:00 12/30/24 10:09 DC 12/30/24 08:27 120 MG Docusate Sodium (COLace 100MG CAP) 100 mg DAILY PO 12/29/24 09:00 01/28/25 08:59 01/04/25 09:05 100 MG Famotidine (Pepcid 20mg Vial) 20 mg BID IV 12/23/24 21:00 12/24/24 10:06 DC 12/24/24 09:45 20 MG Furosemide (LASix 40MG TAB) 40 mg BID@09,17 PO 01/03/25 17:00 02/02/25 16:59 01/04/25 09:04 40 MG Furosemide (LASix 40MG VIAL) 40 mg BID IV 12/31/24 13:00 01/01/25 13:38 DC 01/01/25 10:16 40 MG Furosemide (LASix 40MG VIAL) 40 mg Q12H IV 01/02/25 06:00 01/03/25 13:41 DC 01/03/25 05:08 40 MG Glucagon (Glucagon 1mg Kit) 1 mg AD PRN IM HYPOGLYCEMIA PROTOCOL 12/23/24 14:30 01/22/25 14:29 Hydralazine HCl (APRESOLine 20MG INJ) 10 mg Q6H PRN IV ADMINISTER FOR SBP > 160 12/23/24 09:30 01/22/25 09:29 01/04/25 04:20 10 MG Hydralazine HCl ([id number] TAB) 50 mg BID PO 12/24/24 21:00 12/25/24 09:49 DC 12/25/24 09:43 50 MG Hydralazine HCl ([id number] TAB) 50 mg QID PO 12/26/24 12:00 12/28/24 10:24 DC 12/28/24 08:16 50 MG Hydralazine HCl ([id number] TAB) 50 mg TID PO 12/25/24 10:00 12/26/24 11:40 DC 12/26/24 09:09 50 MG Hydralazine HCl ([id number] TAB) 75 mg QID PO 12/28/24 13:00 12/29/24 13:05 DC 12/29/24 12:40 75 MG Hydralazine HCl ([id number] TAB) 100 mg QID PO 12/29/24 17:00 01/28/25 16:59 01/04/25 13:27 100 MG Insulin Human Regular (humuLIN R 100 UNIT/ML 3ML) INSULIN SLIDING SCAL... ACHS SQ 12/23/24 16:30 01/02/25 13:42 DC 01/02/25 13:11 16 UNIT Insulin Human Regular (humuLIN R 100 UNIT/ML 3ML) INSULIN SLIDING SCAL... ACHS SQ 01/02/25 16:30 02/01/25 16:29 01/04/25 11:39 20 UNIT Iron Sucrose (VenoFER) 300 mg Q24H IVP 12/31/24 13:00 12/31/24 12:43 DC Iron Sucrose 300 mg/Sodium Chloride 250 ml @ 83 mls/hr Q24H IV 12/31/24 13:00 01/02/25 16:01 DC 01/02/25 13:53 83 MLS/HR Lactulose (Constulose 20gm/ 30ml Udcup) 20 gm BID PRN PO CONSTIPATION 12/28/24 16:30 01/27/25 16:29 12/28/24 16:48 20 GM Lactulose (Constulose 20gm/ 30ml Udcup) 20 gm BID PRN PO CONSTIPATION 12/30/24 14:30 12/30/24 14:21 DC Levothyroxine Sodium (SYNTHroid 150MCG TAB) 150 mcg SYN PO 12/25/24 06:30 01/24/25 06:29 01/04/25 06:14 150 MCG Metoprolol Tartrate (loprESSOR) 12.5 mg BID PO 12/23/24 09:30 12/23/24 16:08 DC 12/23/24 09:43 12.5 MG Metoprolol Tartrate (loprESSOR) 25 mg BID PO 12/23/24 21:00 12/24/24 10:44 DC 12/24/24 09:45 25 MG Metoprolol Tartrate (loprESSOR) 100 mg BID PO 12/24/24 21:00 12/30/24 10:09 DC 12/30/24 08:27 100 MG Metoprolol Tartrate (loprESSOR) 100 mg TID PO 12/30/24 10:30 01/23/25 20:59 01/04/25 13:27 100 MG Morphine Sulfate (morPHINE 2MG SYG) 2 mg Q6H PRN IVP SEVERE PAIN (7-10) 12/23/24 09:30 12/28/24 12:29 DC Nitroglycerin (Nitrostat) 0.4 mg AD PRN SL CHEST PAIN 12/23/24 09:30 01/22/25 09:29 Ondansetron HCl (zoFRAN 4MG INJ) 4 mg Q8H PRN IVP NAUSEA/VOMITING 12/23/24 09:30 01/22/25 09:29 Pantoprazole Sodium (PROTonix 40MG TAB) 40 mg DAILY PO 12/25/24 09:00 01/24/25 08:59 01/04/25 09:05 40 MG Sertraline HCl (ZOloft 50 mg tab) 50 mg DAILY PO 12/25/24 09:00 01/24/25 08:59 01/04/25 09:05 50 MG Simethicone (Mylicon) 80 mg BIDPRN PRN PO GI GAS 12/30/24 22:00 01/29/25 21:59 Sodium Chloride 1,000 ml @ 75 mls/hr [id number] IV 12/23/24 14:30 12/27/24 21:49 DC 12/24/24 07:31 75 MLS/HR Spironolactone (Aldactone 25mg) 50 mg DAILY PO 12/25/24 09:00 01/24/25 08:59 01/04/25 09:04 50 MG Vitamin B Complex/ Vit C/Folic Acid (Nephrovite Tablet) 1 cap DAILY PO 12/31/24 09:00 01/30/25 08:59 01/04/25 09:04 1 CAP DIAGNOSTICS / RADIOLOGY: [ ] Assessment: Pulmonary infiltrate by chest-xray Uncontrolled hypertension POA- improving Chest pain, ruled out ACS POA suspected unc HTN related Hyponatremia POA - improving Atrial fibrillation POA Type 2 diabetes POA Anemia POA CAD Hyperlipidemia Hypothyroidism Anxiety PLAN: Admit patient to telemetry floor under hospitalist team C/w patient's home medication , we will continue with current antihypertensive. We will continue to follow recommendations from environmental associate Patient was noted with anemia, patient was receiving iron sucrose IV Continue Rocephin 1 g IV, 2/2 pulmonary infiltrate on chest xray, he is sob. Patient was started with IV Lasix with 40 mg b.i.d. NTG SL p.r.n. chest pain 2D echo showed 60-65%, stage I diastolic dysfunction, we will continue to monitor C/w patient on atorvastatin 40 mg at bedtime ADA/heart healthy diet SSI coverage. Glucometer checks a.c. and HS. Hypoglycemic precautions per protocol. Continue home Eliquis for DVT prophylaxis Pepcid for GI prophylaxis P.r.n. medications for fever, pain, nausea, constipation BNP today We will start daily weight, strict I&O Follow-up a.m. labs Further orders per hospital course Case seen and examined with Dr. Coello, above plan was formulated CORNELIO COELLO MD January 04, 2025 15:05
[2025-01-04] MEDS: EPOETIN ALFA-EPBX (NON-ESRD) 10,000 UNIT/ML VIAL SQ ONE (17:35)
[2025-01-05] VITALS: BP 162/88; PULSE 55; RESP 20; TEMP 97.5
[2025-01-05 04:00] VITALS: BP 136/70; PULSE 60; RESP 18; TEMP 97.7
[2025-01-05 05:03] LABS: BASOPHILS # (AUTO) 0.05 K/uL (0.00-0.20); BASOPHILS % (AUTO) 0.4 % (0.0-5.0); EOSINOPHILS # (AUTO) 0.19 K/uL (0.00-0.70); EOSINOPHILS % (AUTO) 1.7 % (0.0-8.0); HEMATOCRIT 26.6 % (42-54); IMMATURE GRANULOCYTE ABSOLUTE 0.14 K/uL (0-1); LYMPHOCYTES # (AUTO) 1.6 K/uL (1.0-4.8); LYMPHOCYTES % (AUTO) 13.8 % (21.0-51.0); MEAN CORPUSCULAR HEMOGLOBIN 26.8 pg (27.0-33.0); MEAN CORPUSCULAR HGB CONC 32.3 g/dL (32.0-36.0); MEAN CORPUSCULAR VOLUME 82.9 fL (79-99); MONOCYTES # (AUTO) 1.4 K/uL (0.1-1.0); MONOCYTES % (AUTO) 12.8 % (3.0-13.0); NEUTROPHILS # (AUTO) 7.8 K/uL (1.8-7.7); PLATELET COUNT (AUTO) 246 K/uL (130-400); RED BLOOD CELL COUNT(AUTO) 3.21 MIL/uL (4.50-6.20); RED CELL DISTRIBUTION WIDTH 14.1 % (11.0-15.5); WHITE BLOOD COUNT (AUTO) 11.2 K/uL (4.8-10.8)
[2025-01-05 05:21] LABS: ALBUMIN 2.4 g/dL (3.5-5.0); BILIRUBIN,TOTAL 0.2 mg/dL (0.2-1.0); CREATININE 1.4 mg/dL (0.5-1.3); PHOSPHORUS 3.7 mg/dL (2.5-4.9); POTASSIUM 3.4 mmol/L (3.5-5.1)
[2025-01-05 08:00] VITALS: BP_SYST 121; BP_SYST 149; BP_SYST 163; BP_DIAS 35; BP_DIAS 55; BP_DIAS 63; PULSE 63; RESP 18; TEMP 98.2
[2025-01-05] MEDS: amLODIPine 5 MG TAB PO SCH (09:32)
--- NOTE | 2025-01-05 10:20 | PN ---
NEPHROLOGY PROGRESS NOTE Date/Time Patient Seen: January 05, 2025 SUBJECTIVE: This is a 59-year-old male with a past medical history of atrial fibrillation on chronic anticoagulation, chronic hyponatremia, diabetes mellitus type 2, obstructive sleep apnea, hypothyroidism, hypertension, obesity, congestive heart failure, chronic kidney disease, and anemia. He presents to the emergency department with complaints of chest pain In the emergency room he was to have hyponatremia, elevated BUN/creatinine, and anemia We are consulted for renal failure Renal function is stable Electrolytes are stable Renal ultrasound showed normal renal and bladder sonogram. No hydronephrosis on January 2024. He has been transitioned to p.o. diuretics He has been started on amlodipine for blood pressure control. He was seen in the medical floor, in no acute distress No family at the bedside Prognosis remains guarded REVIEW OF SYSTEMS: GENERAL: Positive for chest pain and dizziness NEUROLOGIC: Negative for any blurry vision, blind spots, double vision, facial asymmetry, dysphagia, dysarthria, hemiparesis, hemisensory deficits, vertigo, ataxia. HEENT: Negative for any head trauma, neck trauma, neck stiffness, photophobia, phonophobia, sinusitis, rhinitis. CARDIAC: Negative for any chest pain, dyspnea on exertion, paroxysmal nocturnal dyspnea, peripheral edema. PULMONARY: Negative for any shortness of breath, wheezing, COPD, or TB exposure. GASTROINTESTINAL: Negative for any abdominal pain, nausea, vomiting, bright red blood per rectum, melena. GENITOURINARY: Negative for any dysuria, hematuria, incontinence. INTEGUMENTARY: Negative for any rashes, cuts, insect bites. RHEUMATOLOGIC: Negative for any joint pains, photosensitive rashes, history of vasculitis or kidney problems. HEMATOLOGIC: Negative for any abnormal bruising, frequent infections or bleeding. PHYSICAL EXAM: GENERAL: Alert and oriented x 3. No acute distress. Well-nourished. EYES: EOMI. Anicteric. HENT: Moist mucous membranes. No scleral icterus. No cervical lymphadenopathy. LUNGS: Clear to auscultation bilaterally. No accessory muscle use. CARDIOVASCULAR: Regular rate and rhythm. No murmur. No JVD. ABDOMEN: Soft, non-tender and non-distended. No palpable masses. EXTREMITIES: No edema. Non-tender. SKIN: No rashes or lesions. Warm. NEUROLOGIC: No focal neurological deficits. CN II-XII grossly intact, but not individually tested. PSYCHIATRIC: Cooperative. Appropriate mood and affect. LABORATORY: [ ] Hematology Labs: Test 01/05/25 04:09 01/04/25 04:02 Range/Units White Blood Count 11.2 H 4.8-10.8 K/uL Red Blood Count 3.21 L 4.50-6.20 MIL/uL Hemoglobin 8.6 L 14.0-18.0 g/dL Hematocrit 26.6 L 42-54 % Mean Corpuscular Volume 82.9 79-99 fL Mean Corpuscular Hemoglobin 26.8 L 27.0-33.0 pg Mean Corpuscular Hemoglobin Concent 32.3 32.0-36.0 g/dL Red Cell Distribution Width 14.1 11.0-15.5 % Platelet Count 246 130-400 K/uL Mean Platelet Volume 8.8 7.5-10.5 fL Immature Granulocyte % (Auto) 1.3 H 0-1 % Neutrophils (%) (Auto) 70.0 40.0-77.0 % Lymphocytes (%) (Auto) 13.8 L 21.0-51.0 % Monocytes (%) (Auto) 12.8 3.0-13.0 % Eosinophils (%) (Auto) 1.7 0.0-8.0 % Basophils (%) (Auto) 0.4 0.0-5.0 % Neutrophils # (Auto) 7.8 H 1.8-7.7 K/uL Lymphocytes # (Auto) 1.6 1.0-4.8 K/uL Monocytes # (Auto) 1.4 H 0.1-1.0 K/uL Eosinophils # (Auto) 0.19 0.00-0.70 K/uL Basophils # (Auto) 0.05 0.00-0.20 K/uL Absolute Immature Granulocyte (auto 0.14 0-1 K/uL Nucleated Red Blood Cells 0.0 0.0-0.19 % Segmented Neutrophils % 78 H 40-70 % Lymphocytes % (Manual) 5 L 22-44 % Monocytes % (Manual) 12 H 2-9 % Eosinophils % (Manual) 2 1-6 % Differential Comment MANUAL DIFFERENTIAL Reactive Lymphocytes 3 H 0-0 % White Cell Morphology Comment See comments Platelet Morphology Comment ADEQUATE Red Blood Cell Morphology HYPOCHROM CELLS 1+ Chemistry Labs: Test 01/05/25 05:50 01/05/25 04:09 01/04/25 04:02 01/03/25 11:01 Range/Units Whole Blood Glucose 126 #H 70-110 MG/DL Sodium Level 133 L 136-145 mmol/L Potassium Level 3.4 L 3.5-5.1 mmol/L Chloride Level 98 L 101-111 mmol/L Carbon Dioxide Level 27 21-32 mmol/L Blood Urea Nitrogen 34 H 7-18 mg/dL Creatinine 1.4 H 0.5-1.3 mg/dL Glomerular Filtration Rate Calc 58 >90 mL/min Random Glucose 112 H 70-105 mg/dL Total Calcium 8.5 8.5-10.1 mg/dL Phosphorus Level 3.7 2.5-4.9 mg/dL Total Bilirubin 0.2 0.2-1.0 mg/dL Aspartate Amino Transf (AST/SGOT) 31 10-37 U/L Alanine Aminotransferase (ALT/SGPT) 29 12-78 U/L Alkaline Phosphatase 168 H 50-136 U/L Total Protein 6.0 6.0-8.3 g/dL Albumin 2.4 L 3.5-5.0 g/dL Magnesium Level 1.30 L 1.80-2.40 mg/dL Bedside Glucose Comment Notified Nurse DIAGNOSTICS / RADIOLOGY: REASON: hypoxemia ORDERING PHYSICIAN: ADRI WOMCAK PROCEDURE: CXR1VW - CHEST 1VW CHEST 1VW HISTORY: Hypoxemia COMPARISON: 12/23/2024 FINDINGS: A frontal projection of the chest was obtained. There are bilateral pulmonary infiltrates suggestive of pulmonary vascular congestion with possible superimposed pneumonitis. The heart is enlarged. Postop changes are seen of left clavicle with orthopedic fixation plates and screws. No evidence of aortic calcification is seen. IMPRESSION: 1. Bilateral pulmonary infiltrates are seen suggestive of pulmonary vascular congestion with possible superimposed pneumonitis. DICTATED BY: MICHELLE FRAZIER MD DATE: 12/30/24 1240 REASON: Assess LV function ORDERING PHYSICIAN: OLGA IVAN PROCEDURE: ECHO CMP - ECHO 2-D COMPLETE APPROVED REPORT EXAM: Two-dimensional and M-mode echocardiogram with Doppler and color Doppler. INDICATION ICD: Assess LV Function 2D Dimensions RVDd 3.8 cm LVEF(%) 67.8 (>50%) LVED Vol(simp.) 121.6 mL IVSd 1.1 (0.7-1.1cm) FS(%) 37 % LVES Vol(simp.) 48.9 mL LVDd 3.6 (3.8-5.6cm) LA (2D) 4.0 (1.6-4.0cm) LVEF(%, simp.) 60 % PWd 1.1 (0.7-1.1cm) Ao Root(2D) 3.1 (2.0-3.7cm) LA ESV INDEX (BP) 40.63 mL/m2 LVDs 2.3 (2.5-4.0cm) LVOT diam 2.0 (1.8-2.4cm) IVC diam 2.0 cm Deformation Strain Apical 4 -16.4 % Apical 2 -14.1 % Apical 3 -17.5 % Global Strain -16.0 % M-Mode Dimensions EPSS 0.7 cm LA (MM) 4.4 (1.6-4.0cm) Ao Root(MM) 2.6 (2.0-3.7cm) Aortic Valve AoV Vmax 0.0 m/s Ao Peak GR 0.0 mmHg LVOT Vmax 1.4 m/s AoV VTI 0.5 m Ao Mean GR 9.4 mmHg LVOT VTI 0.33 m MIKE (VMAX) 2.15 cm2 MIKE (VTI) 2.2 cm2 Mitral Valve MV E Vmax 150.9 cm/s DECEL Time 169 ms MV A Vmax 117.9 cm/s P 1/2 T 43 ms E/A ratio 1.3 MVA (PHT) 5.2 cm2 TDI E/E' Medial 20.5 E/E' Lateral 18.1 Medial E' Peak V 7.35 cm/s Lateral E' Peak V 8.34 cm/s Pulmonary Valve PV Vmax 1.5 m/s PV Peak GR 8.9 mmHg Left Ventricle The left ventricle is normal size. No regional wall motion abnormalities noted. Mild concentric left ventricular hypertrophy. Left ventricular systolic function is normal, estimated LVEF is 60 to 65%. Stage II, diastolic dysfunction. Right Ventricle The right ventricle is normal size. The right ventricular systolic function is normal. Atria The left atrium is mildly dilated, 41 mL/m�. The right atrium size is normal. Aortic Valve Aortic valve is trileaflet. The leaflets are thickened and calcified. Trace aortic regurgitation. Mild aortic stenosis: Peak velocity 2.2 m/s, mean gradient 9 mmHg. Mitral Valve The mitral valve is normal in structure. The leaflets are mildly thickened and calcified. Trace mitral regurgitation. There is no mitral valve stenosis. Tricuspid Valve The tricuspid valve is normal in structure. Trace tricuspid regurgitation. RVSP is normal. Pulmonic Valve Pulmonic valve is not well visualized. Great Vessels The aortic root is normal in size. The IVC is normal in size and collapses >50% with inspiration. Pericardium There is no pericardial effusion. Conclusion The left atrium is mildly dilated, 41 mL/m�. Mild concentric left ventricular hypertrophy. No regional wall motion abnormalities noted. Left ventricular systolic function is normal, estimated LVEF is 60 to 65%. Stage II, diastolic dysfunction. Mild aortic stenosis: Peak velocity 2.2 m/s, mean gradient 9 mmHg. Trace aortic regurgitation. Trace mitral regurgitation. Trace tricuspid regurgitation. PASP is normal. There is no pericardial effusion. DICTATED BY: RENATO BILLS MD DATE: 12/24/24904 REASON: CHEST PAIN ORDERING PHYSICIAN: MUSTAPHA HERBERT MD PROCEDURE: CXR1VW - CHEST 1VW CHEST 1VW HISTORY: Chest pain COMPARISON: 08/14/2024 FINDINGS: A frontal projection of the chest was obtained. No acute pulmonary infiltrates is seen. The heart is borderline enlarged. Postop changes are seen of left clavicle. Aortic calcifications are seen. Prominent interstitial markings are seen. IMPRESSION: 1. No acute pulmonary infiltrate is seen. DICTATED BY: MICHELLE FRAZIER MD DATE: 12/23/24 0844 ASSESSMENT: Hyponatremia Anemia Uncontrolled hypertension Chest pain, ruled out ACS POA Atrial fibrillation Type 2 diabetes CAD Hyperlipidemia Hypothyroidism Anxiety PLAN: Labs, diagnostic, radiologic exams reviewed and interpreted by myself and supervising physician. We have reviewed external records in detail Recommend gradual blood pressure control to prevent worsening renal function Continue with the p.o. diuretics. Continue with Epogen 75519 units subQ weekly Require close monitoring of renal function and electrolytes Order CBC, CMP, and electrolytes in am BiPAP as necessary, for respiratory distress Monitor blood pressure adjust medication doses as needed Avoid hypotensive episodes May use Dilaudid 0.5 mg IV every 6 hours as needed for severe pain Monitor blood sugars Strict intake, output, and daily weight should be monitored Please renally adjust medications Avoid nephrotoxic and nonsteroidal drugs Avoid contrast if possible Will continue to monitor renal function, anemia, electrolytes Treatment plan discussed with patient Questions were answered We have discussed with the other team physicians in detail about the care plan We will continue to monitor the patient closely ATTESTATION BY PHYSICIAN I have seen and examined the patient. I reviewed the documentation, medical decision making, and treatment plan as noted by the mid-level provider above. I agree with the findings and plan of care. NOEMY SAMUELS MD, [facility] January 05, 2025 10:20
[2025-01-05 12:00] VITALS: BP 148/80; PULSE 68; RESP 18; TEMP 98.4
[2025-01-05] MEDS: PoTASSium chloRIDE 20MEQ ER 20 MEQ ERTAB PO ONE (12:45)
--- NOTE | 2025-01-05 13:03 | PN ---
[facility] PROGRESS NOTE Date of Service: January 05, 2025 Time of Service: 13:02 SUBJECTIVE: [59-year-old male with history of CKD, hyponatremia. Patient was admitted as patient complained of symptoms of bilateral lower extremity edema, shortness of breaths and weakness. Patient's lab reviewed, continues with hyponatremia with improvement in his sodium level at 130. Patient continues to have bilateral lower extremity edema 4+ noted. His blood pressure is still elevated despite different antihypertensive on board. We will adjust hydralazine 50 mg b.i.d. to t.i.d.. Otherwise patient denies any shortness of breaths or chest pain. 12/26/24 Patient was evaluated in the room, he reported that he feels a weak due to having his BP elevated this morning. Patient continues with current medication regimen, we will readjust medication- He will take Hydralazine 75 mg PO x1. Then patient will continue Hydralazine 50 mg now for QID. No other complaints. He can be dc today once his BP improved <150 mmHg, systolic. ] 12/28 the patient was seen and evaluated today. Apparently patient was not discharged as scheduled two days ago due to uncontrolled hypertension. We have been adjusting hydralazine, 50 mg q.i.d. has been given but today we will start patient on [id number] mg p.o. q.i.d. discussed this plan with the patient for which he agreed and verbalized understanding. 12/29/24 patient was examined today, patient spiked up with his blood pressure again this morning systolic in the 180's. We will readjust hydralazine now 100 mg q.i.d.. Plan on discharging the next24 hours if his blood pressure between 150-160 systolic 12/30/24 patient has persistent elevated blood pressure. Adjustment on medication has been done. At this point, we will be consulting work order detailer for further recommendations. 12/31/24 Patient was evaluated in the room, AOx3. He is with shortness of breath, using accessory muscle. On oxygen at 2Lpm via NC. His BP remained elevated despite adjustment on meds. Cxray showed pulmonary infiltrates. Patient is swollen to extremities, 2-3+ 01/01/25 patient was evaluated he is on room air, he still needs oxygen supplementation. His bilateral lower extremities four to 5+ edema. Patient was started with Lasix 40 mg IV b.i.d. since yesterday. His blood pressure is still elevated, systolic in the 170s, but diastolic is in the low side on the 40s. 01/02/25 patient was seen and examined. Case discussed with the RN his bilateral lower extremity 4+ edema slowly improving. Continue Lasix. Monitor electrolytes 01/03/25 patient was seen and examined. Case discussed with the RN his bilateral lower extremity 2+ edema slowly improving. Continue Lasix. Monitor electrolytes BP running high/use hydralazine 01/04/25 patient was seen and examined. Case discussed with the RN. Nephrology is following the patient. He was extremity edema is improving however his blood pressure is remaining high despite high doses of hydralazine and metoprolol. I will add amlodipine 10 mg 01/05/25 patient was seen and examined. Case discussed with the RN. He was doing better today his electrolytes were little off with hypomagnesemia. We will replace that. Adding amlodipine seems to be helping him he was blood pressure is still high but slightly better it is in the 160s REVIEW OF SYSTEMS CONSTITUTIONAL: Denies fevers, chills, or night sweats. No unintentional weight loss reported. NEUROLOGICAL: Denies headache, amaurosis fugax, motor weakness, sensory deficit, vertigo/spinning sensation, gait abnormalities, or tremors. ENT: No hearing loss, otalgia, otorrhea, rhinitis, rhinorrhea, hoarseness, or sore throat. CARDIOVASCULAR: As mentioned in HPI PULMONARY: Denies any shortness of breath, cough, phlegm/sputum, hemoptysis, pleuritic chest pain. SLEEP: Denies morning headaches, daytime somnolence or napping. Denies difficulty falling asleep, staying asleep, waking from sleep. Denies knowledge of snoring. GASTROINTESTINAL: Denies any type of dysphagia to either liquids or solids. Denies nausea, vomiting, pyrosis, early satiety, abdominal pain, diarrhea, constipation, or changes in stool consistency or caliber. Denies coffee-ground emesis, hematemesis, hematochezia, or melanotic stools. GENITOURINARY: Denies frequency, urgency, nocturia, hematuria or incontinence (Storage/Irritative symptoms.) Low urinary stream, straining to void, urinary intermittency or hesitancy, splitting of the voiding stream, terminal dribbling. ENDOCRINOLOGIC: Denies polyuria, polydipsia, polyphagia or heat/cold intolerances. HEMATOLOGIC: Denies thrombophilia/previous clots, or coagulopathy/bleeding disorders. ONCOLOGIC: Denies personal history of malignancy. DERMATOLOGIC: Denies rashes or pruritus. PSYCHIATRIC: Denies any suicidal or homicidal ideation. Denies hallucinations. PHYSICAL EXAM GENERAL APPEARANCE: The patient is awake, alert, and oriented, in no acute cardiopulmonary distress. NEUROLOGICAL: Cranial nerves II-XII grossly intact. Motor is 5/5 in bilateral upper and lower extremities proximal to distal. No sensory deficits. HEENT: Face is symmetric. Pupils are equal and reactive. Extraocular movements are intact. NECK: Supple. No JVD. No thyromegaly. No submental, submandibular, pre-/postauricular, occipital or supraclavicular lymphadenopathy. CHEST: Normal chest expansion. No Telemetry. LUNGS: Absence of any rales, rhonchi or any wheezing. CARDIOVASCULAR: Regular. S1 and S2 normal. No appreciable rubs, murmurs or gallops. ABDOMEN: Soft, nontender, and nondistended. There is no rebound, voluntary guarding, or rigidity. : Deferred. No Finley. EXTREMITIES: Non-edematous and not cyanotic. No clubbing. Good capillary refill. SKIN: No skin breakdown. Vital Signs (last 8hr) Date Time Temp Pulse Resp B/P (MAP) Pulse Ox O2 Delivery O2 Flow Rate FiO2 01/05/25 12:00 98.4 68 18 148/80 95 Room Air 01/05/25 08:00 98.2 63 18 149/35 98 Room Air 163/63 121/55 LABS: Laboratory: Test 01/05/25 11:19 01/05/25 04:09 01/04/25 04:02 Range/Units Whole Blood Glucose 284 #H 70-110 MG/DL White Blood Count 11.2 H 4.8-10.8 K/uL Red Blood Count 3.21 L 4.50-6.20 MIL/uL Hemoglobin 8.6 L 14.0-18.0 g/dL Hematocrit 26.6 L 42-54 % Mean Corpuscular Volume 82.9 79-99 fL Mean Corpuscular Hemoglobin 26.8 L 27.0-33.0 pg Mean Corpuscular Hemoglobin Concent 32.3 32.0-36.0 g/dL Red Cell Distribution Width 14.1 11.0-15.5 % Platelet Count 246 130-400 K/uL Mean Platelet Volume 8.8 7.5-10.5 fL Immature Granulocyte % (Auto) 1.3 H 0-1 % Neutrophils (%) (Auto) 70.0 40.0-77.0 % Lymphocytes (%) (Auto) 13.8 L 21.0-51.0 % Monocytes (%) (Auto) 12.8 3.0-13.0 % Eosinophils (%) (Auto) 1.7 0.0-8.0 % Basophils (%) (Auto) 0.4 0.0-5.0 % Neutrophils # (Auto) 7.8 H 1.8-7.7 K/uL Lymphocytes # (Auto) 1.6 1.0-4.8 K/uL Monocytes # (Auto) 1.4 H 0.1-1.0 K/uL Eosinophils # (Auto) 0.19 0.00-0.70 K/uL Basophils # (Auto) 0.05 0.00-0.20 K/uL Absolute Immature Granulocyte (auto 0.14 0-1 K/uL Nucleated Red Blood Cells 0.0 0.0-0.19 % Sodium Level 133 L 136-145 mmol/L Potassium Level 3.4 L 3.5-5.1 mmol/L Chloride Level 98 L 101-111 mmol/L Carbon Dioxide Level 27 21-32 mmol/L Blood Urea Nitrogen 34 H 7-18 mg/dL Creatinine 1.4 H 0.5-1.3 mg/dL Glomerular Filtration Rate Calc 58 >90 mL/min Random Glucose 112 H 70-105 mg/dL Total Calcium 8.5 8.5-10.1 mg/dL Phosphorus Level 3.7 2.5-4.9 mg/dL Total Bilirubin 0.2 0.2-1.0 mg/dL Aspartate Amino Transf (AST/SGOT) 31 10-37 U/L Alanine Aminotransferase (ALT/SGPT) 29 12-78 U/L Alkaline Phosphatase 168 H 50-136 U/L Total Protein 6.0 6.0-8.3 g/dL Albumin 2.4 L 3.5-5.0 g/dL Segmented Neutrophils % 78 H 40-70 % Lymphocytes % (Manual) 5 L 22-44 % Monocytes % (Manual) 12 H 2-9 % Eosinophils % (Manual) 2 1-6 % Differential Comment MANUAL DIFFERENTIAL Reactive Lymphocytes 3 H 0-0 % White Cell Morphology Comment See comments Platelet Morphology Comment ADEQUATE Red Blood Cell Morphology HYPOCHROM CELLS 1+ Magnesium Level 1.30 L 1.80-2.40 mg/dL Current Medications Medications (Trade) Dose Ordered Sig/Jose A Route PRN Reason Start Time Stop Time Status Last Admin Dose Admin Acetaminophen (TYLenol 325MG TAB) 650 mg Q6H PRN PO MILD PAIN (1-3) 12/23/24 09:30 01/22/25 09:29 12/31/24 08:07 650 MG Amlodipine Besylate (NorvASC 5MG TAB) 10 mg DAILY PO 01/05/25 09:00 02/04/25 08:59 01/05/25 09:32 10 MG Apixaban (EliquIS) 5 mg BID PO 12/23/24 09:30 01/22/25 09:29 01/05/25 09:33 5 MG Atorvastatin Calcium (LIPItor 40MG) 40 mg HS PO 12/23/24 21:00 01/22/25 20:59 01/04/25 20:42 40 MG Ceftriaxone Sodium (ROCEphine 1G INJ) 1 gm Q24H IVPB 12/31/24 11:30 01/10/25 11:29 01/05/25 12:45 1 GM Dextrose (D50w) 50 ml AD PRN IV HYPOGLYCEMIA PROTOCOL 12/23/24 14:30 01/22/25 14:29 Diltiazem HCl (CARDIzem 120MG CD) 120 mg BID PO 12/30/24 10:30 01/24/25 08:59 01/05/25 09:32 120 MG Diltiazem HCl (CARDIzem 120MG CD) 120 mg DAILY PO 12/25/24 09:00 12/30/24 10:09 DC 12/30/24 08:27 120 MG Docusate Sodium (COLace 100MG CAP) 100 mg DAILY PO 12/29/24 09:00 01/28/25 08:59 01/05/25 09:32 100 MG Famotidine (Pepcid 20mg Vial) 20 mg BID IV 12/23/24 21:00 12/24/24 10:06 DC 12/24/24 09:45 20 MG Furosemide (LASix 40MG TAB) 40 mg BID@09,17 PO 01/03/25 17:00 02/02/25 16:59 01/05/25 09:31 40 MG Furosemide (LASix 40MG VIAL) 40 mg BID IV 12/31/24 13:00 01/01/25 13:38 DC 01/01/25 10:16 40 MG Furosemide (LASix 40MG VIAL) 40 mg Q12H IV 01/02/25 06:00 01/03/25 13:41 DC 01/03/25 05:08 40 MG Glucagon (Glucagon 1mg Kit) 1 mg AD PRN IM HYPOGLYCEMIA PROTOCOL 12/23/24 14:30 01/22/25 14:29 Hydralazine HCl (APRESOLine 20MG INJ) 10 mg Q6H PRN IV ADMINISTER FOR SBP > 160 12/23/24 09:30 01/22/25 09:29 01/04/25 04:20 10 MG Hydralazine HCl ([id number] TAB) 50 mg BID PO 12/24/24 21:00 12/25/24 09:49 DC 12/25/24 09:43 50 MG Hydralazine HCl ([id number] TAB) 50 mg QID PO 12/26/24 12:00 12/28/24 10:24 DC 12/28/24 08:16 50 MG Hydralazine HCl ([id number] TAB) 50 mg TID PO 12/25/24 10:00 12/26/24 11:40 DC 12/26/24 09:09 50 MG Hydralazine HCl ([id number] TAB) 75 mg QID PO 12/28/24 13:00 12/29/24 13:05 DC 12/29/24 12:40 75 MG Hydralazine HCl ([id number] TAB) 100 mg QID PO 12/29/24 17:00 01/28/25 16:59 01/05/25 12:44 100 MG Insulin Human Regular (humuLIN R 100 UNIT/ML 3ML) INSULIN SLIDING SCAL... ACHS SQ 12/23/24 16:30 01/02/25 13:42 DC 01/02/25 13:11 16 UNIT Insulin Human Regular (humuLIN R 100 UNIT/ML 3ML) INSULIN SLIDING SCAL... ACHS SQ 01/02/25 16:30 02/01/25 16:29 01/05/25 12:49 14 UNIT Iron Sucrose (VenoFER) 300 mg Q24H IVP 12/31/24 13:00 12/31/24 12:43 DC Iron Sucrose 300 mg/Sodium Chloride 250 ml @ 83 mls/hr Q24H IV 12/31/24 13:00 01/02/25 16:01 DC 01/02/25 13:53 83 MLS/HR Lactulose (Constulose 20gm/ 30ml Udcup) 20 gm BID PRN PO CONSTIPATION 12/28/24 16:30 01/27/25 16:29 12/28/24 16:48 20 GM Lactulose (Constulose 20gm/ 30ml Udcup) 20 gm BID PRN PO CONSTIPATION 12/30/24 14:30 12/30/24 14:21 DC Levothyroxine Sodium (SYNTHroid 150MCG TAB) 150 mcg SYN PO 12/25/24 06:30 01/24/25 06:29 01/05/25 06:16 150 MCG Magnesium Sulfate 50 ml @ 0 mls/hr PROTOCOL PRN IV Low Magnesium Level 01/05/25 03:30 02/04/25 03:29 Metoprolol Tartrate (loprESSOR) 12.5 mg BID PO 12/23/24 09:30 12/23/24 16:08 DC 12/23/24 09:43 12.5 MG Metoprolol Tartrate (loprESSOR) 25 mg BID PO 12/23/24 21:00 12/24/24 10:44 DC 12/24/24 09:45 25 MG Metoprolol Tartrate (loprESSOR) 100 mg BID PO 12/24/24 21:00 12/30/24 10:09 DC 12/30/24 08:27 100 MG Metoprolol Tartrate (loprESSOR) 100 mg TID PO 12/30/24 10:30 01/23/25 20:59 01/05/25 09:32 100 MG Morphine Sulfate (morPHINE 2MG SYG) 2 mg Q6H PRN IVP SEVERE PAIN (7-10) 12/23/24 09:30 12/28/24 12:29 DC Nitroglycerin (Nitrostat) 0.4 mg AD PRN SL CHEST PAIN 12/23/24 09:30 01/22/25 09:29 Ondansetron HCl (zoFRAN 4MG INJ) 4 mg Q8H PRN IVP NAUSEA/VOMITING 12/23/24 09:30 01/22/25 09:29 Pantoprazole Sodium (PROTonix 40MG TAB) 40 mg DAILY PO 12/25/24 09:00 01/24/25 08:59 01/05/25 09:32 40 MG Sertraline HCl (ZOloft 50 mg tab) 50 mg DAILY PO 12/25/24 09:00 01/24/25 08:59 01/05/25 09:32 50 MG Simethicone (Mylicon) 80 mg BIDPRN PRN PO GI GAS 12/30/24 22:00 01/29/25 21:59 Sodium Chloride 1,000 ml @ 75 mls/hr [id number] IV 12/23/24 14:30 12/27/24 21:49 DC 12/24/24 07:31 75 MLS/HR Spironolactone (Aldactone 25mg) 50 mg DAILY PO 12/25/24 09:00 01/24/25 08:59 01/05/25 09:32 50 MG Vitamin B Complex/ Vit C/Folic Acid (Nephrovite Tablet) 1 cap DAILY PO 12/31/24 09:00 01/30/25 08:59 01/05/25 09:32 1 CAP DIAGNOSTICS / RADIOLOGY: [ ] Assessment: Pulmonary infiltrate by chest-xray Uncontrolled hypertension POA- improving Chest pain, ruled out ACS POA suspected unc HTN related Hyponatremia POA - improving Atrial fibrillation POA Type 2 diabetes POA Anemia POA CAD Hyperlipidemia Hypothyroidism Anxiety PLAN: Admit patient to telemetry floor under hospitalist team C/w patient's home medication , we will continue with current antihypertensive. We will continue to follow recommendations from work order detailer Patient was noted with anemia, patient was receiving iron sucrose IV Continue Rocephin 1 g IV, 2/2 pulmonary infiltrate on chest xray, he is sob. Patient was started with IV Lasix with 40 mg b.i.d. NTG SL p.r.n. chest pain 2D echo showed 60-65%, stage I diastolic dysfunction, we will continue to monitor C/w patient on atorvastatin 40 mg at bedtime ADA/heart healthy diet SSI coverage. Glucometer checks a.c. and HS. Hypoglycemic precautions per protocol. Continue home Eliquis for DVT prophylaxis Pepcid for GI prophylaxis P.r.n. medications for fever, pain, nausea, constipation BNP today We will start daily weight, strict I&O Follow-up a.m. labs Further orders per hospital course Case seen and examined with Dr. Coello, above plan was formulated CORNELIO COELLO MD January 05, 2025 13:03
[2025-01-05] MEDS ORDERED: SIMETHICONE 80 MG TAB.CHEW PO PRN (15:30)
[2025-01-05 16:00] VITALS: BP 154/70; PULSE 70; RESP 18; TEMP 98.2
[2025-01-05] MEDS: MAGNESIUM 2GM PREMIX 50ML 50 ML IV PRN (16:59)
[2025-01-05 20:00] VITALS: BP_SYST 145; BP_SYST 150; BP_SYST 181; BP_DIAS 67; BP_DIAS 69; BP_DIAS 78; PULSE 70; PULSE 71; PULSE 73; RESP 20; TEMP 98; TEMP 98.1
[2025-01-06] VITALS (12 sets, daily range): BP systolic 128–176; BP diastolic 57–80; PULSE 62–76; RESP 17–25; TEMP 97.8–98.7; O2SAT 95–99
[2025-01-06 04:29] LABS: HEMATOCRIT 26.6 % (42-54); MEAN CORPUSCULAR HGB CONC 32.3 g/dL (32.0-36.0); MEAN CORPUSCULAR VOLUME 83.6 fL (79-99); RED BLOOD CELL COUNT(AUTO) 3.18 MIL/uL (4.50-6.20); RED CELL DISTRIBUTION WIDTH 14.6 % (11.0-15.5); WHITE BLOOD COUNT (AUTO) 10.2 K/uL (4.8-10.8)
[2025-01-06 05:13] LABS: ALBUMIN 2.4 g/dL (3.5-5.0); BILIRUBIN,TOTAL 0.1 mg/dL (0.2-1.0); CREATININE 1.5 mg/dL (0.5-1.3); MAGNESIUM 1.7 mg/dL (1.80-2.40); PHOSPHORUS 3.5 mg/dL (2.5-4.9); POTASSIUM 3.6 mmol/L (3.5-5.1); TOTAL PROTEIN, SERUM 5.9 g/dL (6.0-8.3)
[2025-01-06] MEDS ORDERED: PoTASSium chloRIDE 20MEQ/100ML 100 ML IV PRN (12:00)
[2025-01-06] MEDS: PoTASSium chl 10% ELIXIR 20MEQ 20 MEQ/15 ML UDCUP PO PRN (12:09)
--- NOTE | 2025-01-06 13:39 | PN ---
NEPHROLOGY PROGRESS NOTE Date/Time Patient Seen: January 06, 2025 SUBJECTIVE: This is a 59-year-old male with a past medical history of atrial fibrillation on chronic anticoagulation, chronic hyponatremia, diabetes mellitus type 2, obstructive sleep apnea, hypothyroidism, hypertension, obesity, congestive heart failure, chronic kidney disease, and anemia. He presents to the emergency department with complaints of chest pain In the emergency room he was to have hyponatremia, elevated BUN/creatinine, and anemia We are consulted for renal failure Renal function is stable Electrolytes are stable Renal ultrasound showed normal renal and bladder sonogram. No hydronephrosis on January 2024. He was seen in the medical floor, in no acute distress No family at the bedside Prognosis remains guarded REVIEW OF SYSTEMS: GENERAL: Positive for chest pain and dizziness NEUROLOGIC: Negative for any blurry vision, blind spots, double vision, facial asymmetry, dysphagia, dysarthria, hemiparesis, hemisensory deficits, vertigo, ataxia. HEENT: Negative for any head trauma, neck trauma, neck stiffness, photophobia, phonophobia, sinusitis, rhinitis. CARDIAC: Negative for any chest pain, dyspnea on exertion, paroxysmal nocturnal dyspnea, peripheral edema. PULMONARY: Negative for any shortness of breath, wheezing, COPD, or TB exposure. GASTROINTESTINAL: Negative for any abdominal pain, nausea, vomiting, bright red blood per rectum, melena. GENITOURINARY: Negative for any dysuria, hematuria, incontinence. INTEGUMENTARY: Negative for any rashes, cuts, insect bites. RHEUMATOLOGIC: Negative for any joint pains, photosensitive rashes, history of vasculitis or kidney problems. HEMATOLOGIC: Negative for any abnormal bruising, frequent infections or bleeding. PHYSICAL EXAM: GENERAL: Alert and oriented x 3. No acute distress. Well-nourished. EYES: EOMI. Anicteric. HENT: Moist mucous membranes. No scleral icterus. No cervical lymphadenopathy. LUNGS: Clear to auscultation bilaterally. No accessory muscle use. CARDIOVASCULAR: Regular rate and rhythm. No murmur. No JVD. ABDOMEN: Soft, non-tender and non-distended. No palpable masses. EXTREMITIES: No edema. Non-tender. SKIN: No rashes or lesions. Warm. NEUROLOGIC: No focal neurological deficits. CN II-XII grossly intact, but not individually tested. PSYCHIATRIC: Cooperative. Appropriate mood and affect. LABORATORY: [ ] Hematology Labs: Test 01/06/25 03:10 01/05/25 04:09 Range/Units White Blood Count 10.2 4.8-10.8 K/uL Red Blood Count 3.18 L 4.50-6.20 MIL/uL Hemoglobin 8.6 L 14.0-18.0 g/dL Hematocrit 26.6 L 42-54 % Mean Corpuscular Volume 83.6 79-99 fL Mean Corpuscular Hemoglobin 27.0 27.0-33.0 pg Mean Corpuscular Hemoglobin Concent 32.3 32.0-36.0 g/dL Red Cell Distribution Width 14.6 11.0-15.5 % Platelet Count 239 130-400 K/uL Mean Platelet Volume 9.3 7.5-10.5 fL Nucleated Red Blood Cells 0.0 0.0-0.19 % Immature Granulocyte % (Auto) 1.3 H 0-1 % Neutrophils (%) (Auto) 70.0 40.0-77.0 % Lymphocytes (%) (Auto) 13.8 L 21.0-51.0 % Monocytes (%) (Auto) 12.8 3.0-13.0 % Eosinophils (%) (Auto) 1.7 0.0-8.0 % Basophils (%) (Auto) 0.4 0.0-5.0 % Neutrophils # (Auto) 7.8 H 1.8-7.7 K/uL Lymphocytes # (Auto) 1.6 1.0-4.8 K/uL Monocytes # (Auto) 1.4 H 0.1-1.0 K/uL Eosinophils # (Auto) 0.19 0.00-0.70 K/uL Basophils # (Auto) 0.05 0.00-0.20 K/uL Absolute Immature Granulocyte (auto 0.14 0-1 K/uL Chemistry Labs: Test 01/06/25 10:43 01/06/25 03:10 Range/Units Whole Blood Glucose 228 #H 70-110 MG/DL Sodium Level 134 L 136-145 mmol/L Potassium Level 3.6 3.5-5.1 mmol/L Chloride Level 100 L 101-111 mmol/L Carbon Dioxide Level 26 21-32 mmol/L Blood Urea Nitrogen 33 H 7-18 mg/dL Creatinine 1.5 H 0.5-1.3 mg/dL Glomerular Filtration Rate Calc 53 >90 mL/min Random Glucose 150 H 70-105 mg/dL Total Calcium 8.5 8.5-10.1 mg/dL Phosphorus Level 3.5 2.5-4.9 mg/dL Magnesium Level 1.70 L 1.80-2.40 mg/dL Total Bilirubin 0.1 #L 0.2-1.0 mg/dL Aspartate Amino Transf (AST/SGOT) 33 10-37 U/L Alanine Aminotransferase (ALT/SGPT) 38 # 12-78 U/L Alkaline Phosphatase 156 H 50-136 U/L Total Protein 5.9 L 6.0-8.3 g/dL Albumin 2.4 L 3.5-5.0 g/dL DIAGNOSTICS / RADIOLOGY: REASON: hypoxemia ORDERING PHYSICIAN: ADRI WOMACK PROCEDURE: CXR1VW - CHEST 1VW CHEST 1VW HISTORY: Hypoxemia COMPARISON: 12/23/2024 FINDINGS: A frontal projection of the chest was obtained. There are bilateral pulmonary infiltrates suggestive of pulmonary vascular congestion with possible superimposed pneumonitis. The heart is enlarged. Postop changes are seen of left clavicle with orthopedic fixation plates and screws. No evidence of aortic calcification is seen. IMPRESSION: 1. Bilateral pulmonary infiltrates are seen suggestive of pulmonary vascular congestion with possible superimposed pneumonitis. DICTATED BY: MICHELLE FRAZIER MD DATE: 12/30/24 1550 REASON: Assess LV function ORDERING PHYSICIAN: OLGA IVAN PROCEDURE: ECHO CMP - ECHO 2-D COMPLETE APPROVED REPORT EXAM: Two-dimensional and M-mode echocardiogram with Doppler and color Doppler. INDICATION ICD: Assess LV Function 2D Dimensions RVDd 3.8 cm LVEF(%) 67.8 (>50%) LVED Vol(simp.) 121.6 mL IVSd 1.1 (0.7-1.1cm) FS(%) 37 % LVES Vol(simp.) 48.9 mL LVDd 3.6 (3.8-5.6cm) LA (2D) 4.0 (1.6-4.0cm) LVEF(%, simp.) 60 % PWd 1.1 (0.7-1.1cm) Ao Root(2D) 3.1 (2.0-3.7cm) LA ESV INDEX (BP) 40.63 mL/m2 LVDs 2.3 (2.5-4.0cm) LVOT diam 2.0 (1.8-2.4cm) IVC diam 2.0 cm Deformation Strain Apical 4 -16.4 % Apical 2 -14.1 % Apical 3 -17.5 % Global Strain -16.0 % M-Mode Dimensions EPSS 0.7 cm LA (MM) 4.4 (1.6-4.0cm) Ao Root(MM) 2.6 (2.0-3.7cm) Aortic Valve AoV Vmax 0.0 m/s Ao Peak GR 0.0 mmHg LVOT Vmax 1.4 m/s AoV VTI 0.5 m Ao Mean GR 9.4 mmHg LVOT VTI 0.33 m MIKE (VMAX) 2.15 cm2 MIKE (VTI) 2.2 cm2 Mitral Valve MV E Vmax 150.9 cm/s DECEL Time 169 ms MV A Vmax 117.9 cm/s P 1/2 T 43 ms E/A ratio 1.3 MVA (PHT) 5.2 cm2 TDI E/E' Medial 20.5 E/E' Lateral 18.1 Medial E' Peak V 7.35 cm/s Lateral E' Peak V 8.34 cm/s Pulmonary Valve PV Vmax 1.5 m/s PV Peak GR 8.9 mmHg Left Ventricle The left ventricle is normal size. No regional wall motion abnormalities noted. Mild concentric left ventricular hypertrophy. Left ventricular systolic function is normal, estimated LVEF is 60 to 65%. Stage II, diastolic dysfunction. Right Ventricle The right ventricle is normal size. The right ventricular systolic function is normal. Atria The left atrium is mildly dilated, 41 mL/m�. The right atrium size is normal. Aortic Valve Aortic valve is trileaflet. The leaflets are thickened and calcified. Trace aortic regurgitation. Mild aortic stenosis: Peak velocity 2.2 m/s, mean gradient 9 mmHg. Mitral Valve The mitral valve is normal in structure. The leaflets are mildly thickened and calcified. Trace mitral regurgitation. There is no mitral valve stenosis. Tricuspid Valve The tricuspid valve is normal in structure. Trace tricuspid regurgitation. RVSP is normal. Pulmonic Valve Pulmonic valve is not well visualized. Great Vessels The aortic root is normal in size. The IVC is normal in size and collapses >50% with inspiration. Pericardium There is no pericardial effusion. Conclusion The left atrium is mildly dilated, 41 mL/m�. Mild concentric left ventricular hypertrophy. No regional wall motion abnormalities noted. Left ventricular systolic function is normal, estimated LVEF is 60 to 65%. Stage II, diastolic dysfunction. Mild aortic stenosis: Peak velocity 2.2 m/s, mean gradient 9 mmHg. Trace aortic regurgitation. Trace mitral regurgitation. Trace tricuspid regurgitation. PASP is normal. There is no pericardial effusion. DICTATED BY: RENATO BILLS MD DATE: 12/24/24904 REASON: CHEST PAIN ORDERING PHYSICIAN: MUSTAPHA HERBERT MD PROCEDURE: CXR1VW - CHEST 1VW CHEST 1VW HISTORY: Chest pain COMPARISON: 08/14/2024 FINDINGS: A frontal projection of the chest was obtained. No acute pulmonary infiltrates is seen. The heart is borderline enlarged. Postop changes are seen of left clavicle. Aortic calcifications are seen. Prominent interstitial markings are seen. IMPRESSION: 1. No acute pulmonary infiltrate is seen. DICTATED BY: MICHELLE FRAZIER MD DATE: 12/23/24 0844 ASSESSMENT: Hyponatremia Anemia Uncontrolled hypertension Chest pain, ruled out ACS POA Atrial fibrillation Type 2 diabetes CAD Hyperlipidemia Hypothyroidism Anxiety PLAN: Labs, diagnostic, radiologic exams reviewed and interpreted by myself and supervising physician. We have reviewed external records in detail Recommend gradual blood pressure control to prevent worsening renal function Continue with Epogen 71770 units subQ weekly Require close monitoring of renal function and electrolytes Order CBC, CMP, and electrolytes in am BiPAP as necessary, for respiratory distress Monitor blood pressure adjust medication doses as needed Avoid hypotensive episodes May use Dilaudid 0.5 mg IV every 6 hours as needed for severe pain Monitor blood sugars Strict intake, output, and daily weight should be monitored Please renally adjust medications Avoid nephrotoxic and nonsteroidal drugs Avoid contrast if possible Will continue to monitor renal function, anemia, electrolytes Treatment plan discussed with patient Questions were answered We have discussed with the other team physicians in detail about the care plan We will continue to monitor the patient closely ATTESTATION BY PHYSICIAN I have seen and examined the patient. I reviewed the documentation, medical decision making, and treatment plan as noted by the mid-level provider above. I agree with the findings and plan of care. NOEMY SAMUELS MD, [facility] FNP January 06, 2025 13:39
[2025-01-06] MEDS ORDERED: DOXAZOSIN MESYLATE 2 MG TABLET PO SCH (19:00)
[2025-01-06] MEDS: DOXAZOSIN MESYLATE 2 MG TABLET PO SCH (21:00)
[2025-01-07] VITALS (10 sets, daily range): BP systolic 146–177; BP diastolic 68–81; PULSE 66–81; RESP 16–20; TEMP 98–98.6; O2SAT 95–98
[2025-01-07 10:11] LABS: CREATININE 1.5 mg/dL (0.5-1.3); MAGNESIUM 1.7 mg/dL (1.80-2.40); POTASSIUM 4.5 mmol/L (3.5-5.1)
--- NOTE | 2025-01-07 13:01 | PN ---
NEPHROLOGY PROGRESS NOTE Date/Time Patient Seen: January 07, 2025 SUBJECTIVE: This is a 59-year-old male with a past medical history of atrial fibrillation on chronic anticoagulation, chronic hyponatremia, diabetes mellitus type 2, obstructive sleep apnea, hypothyroidism, hypertension, obesity, congestive heart failure, chronic kidney disease, and anemia. He presents to the emergency department with complaints of chest pain In the emergency room he was to have hyponatremia, elevated BUN/creatinine, and anemia We are consulted for renal failure Renal function electrolytes are stable. He continues with oral diuretics. Renal ultrasound showed normal renal and bladder sonogram. No hydronephrosis on January 2024. He was seen in the medical floor, in no acute distress Antihypertensive medication continued to be adjusted as per primary team No family at the bedside Prognosis remains guarded REVIEW OF SYSTEMS: GENERAL: Positive for chest pain and dizziness NEUROLOGIC: Negative for any blurry vision, blind spots, double vision, facial asymmetry, dysphagia, dysarthria, hemiparesis, hemisensory deficits, vertigo, ataxia. HEENT: Negative for any head trauma, neck trauma, neck stiffness, photophobia, phonophobia, sinusitis, rhinitis. CARDIAC: Negative for any chest pain, dyspnea on exertion, paroxysmal nocturnal dyspnea, peripheral edema. PULMONARY: Negative for any shortness of breath, wheezing, COPD, or TB exposure. GASTROINTESTINAL: Negative for any abdominal pain, nausea, vomiting, bright red blood per rectum, melena. GENITOURINARY: Negative for any dysuria, hematuria, incontinence. INTEGUMENTARY: Negative for any rashes, cuts, insect bites. RHEUMATOLOGIC: Negative for any joint pains, photosensitive rashes, history of vasculitis or kidney problems. HEMATOLOGIC: Negative for any abnormal bruising, frequent infections or bleeding. PHYSICAL EXAM: GENERAL: Alert and oriented x 3. No acute distress. Well-nourished. EYES: EOMI. Anicteric. HENT: Moist mucous membranes. No scleral icterus. No cervical lymphadenopathy. LUNGS: Clear to auscultation bilaterally. No accessory muscle use. CARDIOVASCULAR: Regular rate and rhythm. No murmur. No JVD. ABDOMEN: Soft, non-tender and non-distended. No palpable masses. EXTREMITIES: No edema. Non-tender. SKIN: No rashes or lesions. Warm. NEUROLOGIC: No focal neurological deficits. CN II-XII grossly intact, but not individually tested. PSYCHIATRIC: Cooperative. Appropriate mood and affect. LABORATORY: [ ] Hematology Labs: Test 01/06/25 03:10 Range/Units White Blood Count 10.2 4.8-10.8 K/uL Red Blood Count 3.18 L 4.50-6.20 MIL/uL Hemoglobin 8.6 L 14.0-18.0 g/dL Hematocrit 26.6 L 42-54 % Mean Corpuscular Volume 83.6 79-99 fL Mean Corpuscular Hemoglobin 27.0 27.0-33.0 pg Mean Corpuscular Hemoglobin Concent 32.3 32.0-36.0 g/dL Red Cell Distribution Width 14.6 11.0-15.5 % Platelet Count 239 130-400 K/uL Mean Platelet Volume 9.3 7.5-10.5 fL Nucleated Red Blood Cells 0.0 0.0-0.19 % Chemistry Labs: Test 01/07/25 11:02 01/07/25 09:53 01/06/25 03:10 Range/Units Whole Blood Glucose 352 #H 70-110 MG/DL Sodium Level 132 L 136-145 mmol/L Potassium Level 4.5 3.5-5.1 mmol/L Chloride Level 99 L 101-111 mmol/L Carbon Dioxide Level 26 21-32 mmol/L Blood Urea Nitrogen 30 H 7-18 mg/dL Creatinine 1.5 H 0.5-1.3 mg/dL Glomerular Filtration Rate Calc 53 >90 mL/min Random Glucose 332 H 70-105 mg/dL Total Calcium 8.6 8.5-10.1 mg/dL Magnesium Level 1.70 L 1.80-2.40 mg/dL Phosphorus Level 3.5 2.5-4.9 mg/dL Total Bilirubin 0.1 #L 0.2-1.0 mg/dL Aspartate Amino Transf (AST/SGOT) 33 10-37 U/L Alanine Aminotransferase (ALT/SGPT) 38 # 12-78 U/L Alkaline Phosphatase 156 H 50-136 U/L Total Protein 5.9 L 6.0-8.3 g/dL Albumin 2.4 L 3.5-5.0 g/dL DIAGNOSTICS / RADIOLOGY: REASON: hypoxemia ORDERING PHYSICIAN: ADRI WOMACK PROCEDURE: CXR1VW - CHEST 1VW CHEST 1VW HISTORY: Hypoxemia COMPARISON: 12/23/2024 FINDINGS: A frontal projection of the chest was obtained. There are bilateral pulmonary infiltrates suggestive of pulmonary vascular congestion with possible superimposed pneumonitis. The heart is enlarged. Postop changes are seen of left clavicle with orthopedic fixation plates and screws. No evidence of aortic calcification is seen. IMPRESSION: 1. Bilateral pulmonary infiltrates are seen suggestive of pulmonary vascular congestion with possible superimposed pneumonitis. DICTATED BY: MICHELLE FRAZIER MD DATE: 12/30/24 1550 REASON: Assess LV function ORDERING PHYSICIAN: OLGA IVAN PROCEDURE: ECHO [facility] - ECHO 2-D COMPLETE APPROVED REPORT EXAM: Two-dimensional and M-mode echocardiogram with Doppler and color Doppler. INDICATION ICD: Assess LV Function 2D Dimensions RVDd 3.8 cm LVEF(%) 67.8 (>50%) LVED Vol(simp.) 121.6 mL IVSd 1.1 (0.7-1.1cm) FS(%) 37 % LVES Vol(simp.) 48.9 mL LVDd 3.6 (3.8-5.6cm) LA (2D) 4.0 (1.6-4.0cm) LVEF(%, simp.) 60 % PWd 1.1 (0.7-1.1cm) Ao Root(2D) 3.1 (2.0-3.7cm) LA ESV INDEX (BP) 40.63 mL/m2 LVDs 2.3 (2.5-4.0cm) LVOT diam 2.0 (1.8-2.4cm) IVC diam 2.0 cm Deformation Strain Apical 4 -16.4 % Apical 2 -14.1 % Apical 3 -17.5 % Global Strain -16.0 % M-Mode Dimensions EPSS 0.7 cm LA (MM) 4.4 (1.6-4.0cm) Ao Root(MM) 2.6 (2.0-3.7cm) Aortic Valve AoV Vmax 0.0 m/s Ao Peak GR 0.0 mmHg LVOT Vmax 1.4 m/s AoV VTI 0.5 m Ao Mean GR 9.4 mmHg LVOT VTI 0.33 m MIKE (VMAX) 2.15 cm2 MIKE (VTI) 2.2 cm2 Mitral Valve MV E Vmax 150.9 cm/s DECEL Time 169 ms MV A Vmax 117.9 cm/s P 1/2 T 43 ms E/A ratio 1.3 MVA (PHT) 5.2 cm2 TDI E/E' Medial 20.5 E/E' Lateral 18.1 Medial E' Peak V 7.35 cm/s Lateral E' Peak V 8.34 cm/s Pulmonary Valve PV Vmax 1.5 m/s PV Peak GR 8.9 mmHg Left Ventricle The left ventricle is normal size. No regional wall motion abnormalities noted. Mild concentric left ventricular hypertrophy. Left ventricular systolic function is normal, estimated LVEF is 60 to 65%. Stage II, diastolic dysfunction. Right Ventricle The right ventricle is normal size. The right ventricular systolic function is normal. Atria The left atrium is mildly dilated, 41 mL/m�. The right atrium size is normal. Aortic Valve Aortic valve is trileaflet. The leaflets are thickened and calcified. Trace aortic regurgitation. Mild aortic stenosis: Peak velocity 2.2 m/s, mean gradient 9 mmHg. Mitral Valve The mitral valve is normal in structure. The leaflets are mildly thickened and calcified. Trace mitral regurgitation. There is no mitral valve stenosis. Tricuspid Valve The tricuspid valve is normal in structure. Trace tricuspid regurgitation. RVSP is normal. Pulmonic Valve Pulmonic valve is not well visualized. Great Vessels The aortic root is normal in size. The IVC is normal in size and collapses >50% with inspiration. Pericardium There is no pericardial effusion. Conclusion The left atrium is mildly dilated, 41 mL/m�. Mild concentric left ventricular hypertrophy. No regional wall motion abnormalities noted. Left ventricular systolic function is normal, estimated LVEF is 60 to 65%. Stage II, diastolic dysfunction. Mild aortic stenosis: Peak velocity 2.2 m/s, mean gradient 9 mmHg. Trace aortic regurgitation. Trace mitral regurgitation. Trace tricuspid regurgitation. PASP is normal. There is no pericardial effusion. DICTATED BY: RENATO BILLS MD DATE: 12/24/24904 REASON: CHEST PAIN ORDERING PHYSICIAN: MUSTAPHA HERBERT MD PROCEDURE: CXR1VW - CHEST 1VW CHEST 1VW HISTORY: Chest pain COMPARISON: 08/14/2024 FINDINGS: A frontal projection of the chest was obtained. No acute pulmonary infiltrates is seen. The heart is borderline enlarged. Postop changes are seen of left clavicle. Aortic calcifications are seen. Prominent interstitial markings are seen. IMPRESSION: 1. No acute pulmonary infiltrate is seen. DICTATED BY: MICHELLE FRAZIER MD DATE: 12/23/24 0844 ASSESSMENT: Hyponatremia Anemia Uncontrolled hypertension Chest pain, ruled out ACS POA Atrial fibrillation Type 2 diabetes CAD Hyperlipidemia Hypothyroidism Anxiety PLAN: Labs, diagnostic, radiologic exams reviewed and interpreted by myself and supervising physician. We have reviewed external records in detail Continue with Epogen 96242 units subQ weekly Require close monitoring of renal function and electrolytes Order CBC, CMP, and electrolytes in am BiPAP as necessary, for respiratory distress Monitor blood pressure adjust medication doses as needed Avoid hypotensive episodes May use Dilaudid 0.5 mg IV every 6 hours as needed for severe pain Monitor blood sugars Strict intake, output, and daily weight should be monitored Please renally adjust medications Avoid nephrotoxic and nonsteroidal drugs Avoid contrast if possible Will continue to monitor renal function, anemia, electrolytes Treatment plan discussed with patient Questions were answered We have discussed with the other team physicians in detail about the care plan We will continue to monitor the patient closely ATTESTATION BY PHYSICIAN I have seen and examined the patient. I reviewed the documentation, medical decision making, and treatment plan as noted by the mid-level provider above. I agree with the findings and plan of care. NOEMY SAMUELS MD, [facility] January 07, 2025 13:01
--- NOTE | 2025-01-07 13:02 | PN ---
[facility] PROGRESS NOTE Date of Service: January 07, 2025 Time of Service: 12:48 SUBJECTIVE: [59-year-old male with history of CKD, hyponatremia. Patient was admitted as patient complained of symptoms of bilateral lower extremity edema, shortness of breaths and weakness. Patient's lab reviewed, continues with hyponatremia with improvement in his sodium level at 130. Patient continues to have bilateral lower extremity edema 4+ noted. His blood pressure is still elevated despite different antihypertensive on board. We will adjust hydralazine 50 mg b.i.d. to t.i.d.. Otherwise patient denies any shortness of breaths or chest pain. 12/26/24 Patient was evaluated in the room, he reported that he feels a weak due to having his BP elevated this morning. Patient continues with current medication regimen, we will readjust medication- He will take Hydralazine 75 mg PO x1. Then patient will continue Hydralazine 50 mg now for QID. No other complaints. He can be dc today once his BP improved <150 mmHg, systolic. ] 12/28 the patient was seen and evaluated today. Apparently patient was not discharged as scheduled two days ago due to uncontrolled hypertension. We have been adjusting hydralazine, 50 mg q.i.d. has been given but today we will start patient on mg p.o. q.i.d. discussed this plan with the patient for which he agreed and verbalized understanding. 12/29/24 patient was examined today, patient spiked up with his blood pressure again this morning systolic in the 180's. We will readjust hydralazine now 100 mg q.i.d.. Plan on discharging the next24 hours if his blood pressure between 150-160 systolic 12/30/24 patient has persistent elevated blood pressure. Adjustment on medication has been done. At this point, we will be consulting rehab therapist for further recommendations. 12/31/24 Patient was evaluated in the room, AOx3. He is with shortness of breath, using accessory muscle. On oxygen at 2Lpm via NC. His BP remained elevated despite adjustment on meds. Cxray showed pulmonary infiltrates. Patient is swollen to extremities, 2-3+ 01/01/25 patient was evaluated he is on room air, he still needs oxygen supplementation. His bilateral lower extremities four to 5+ edema. Patient was started with Lasix 40 mg IV b.i.d. since yesterday. His blood pressure is still elevated, systolic in the 170s, but diastolic is in the low side on the 40s. 01/02/25 patient was seen and examined. Case discussed with the RN his bilateral lower extremity 4+ edema slowly improving. Continue Lasix. Monitor electrolytes 01/03/25 patient was seen and examined. Case discussed with the RN his bilateral lower extremity 2+ edema slowly improving. Continue Lasix. Monitor electrolytes BP running high/use hydralazine 01/04/25 patient was seen and examined. Case discussed with the RN. Nephrology is following the patient. He was extremity edema is improving however his blood pressure is remaining high despite high doses of hydralazine and metoprolol. I will add amlodipine 10 mg 01/05/25 patient was seen and examined. Case discussed with the RN. He was doing better today his electrolytes were little off with hypomagnesemia. We will replace that. Adding amlodipine seems to be helping him he was blood pressure is still high but slightly better it is in the 160s 01/07/25: Patient was seen and examined this morning at bedside. The patient states he is feeling better today. The patient denies chest pain, shortness of breath, nausea, vomiting, fever, chills. The patient is currently on Doxazosin, Amlodipine, Hydralazine, Diltiazem, and Metoprolol. Per nurse, the patients blood pressure at 8 am was 177/74. Blood pressure recheck at Noon after administration of all the medications was 167/81. The patient states he did not use the CPAP machine overnight. We will do a secondary hypertension workup, including a renal doppler ultrasound, plasma aldosterone/renin ratio, plasma metanephrines, cortisol AM. We will add .1 mg of Clonidine BID for blood pressure control. REVIEW OF SYSTEMS CONSTITUTIONAL: Denies fevers, chills, or night sweats. No unintentional weight loss reported. NEUROLOGICAL: Denies headache, amaurosis fugax, motor weakness, sensory deficit, vertigo/spinning sensation, gait abnormalities, or tremors. ENT: No hearing loss, otalgia, otorrhea, rhinitis, rhinorrhea, hoarseness, or sore throat. CARDIOVASCULAR: As mentioned in HPI PULMONARY: Denies any shortness of breath, cough, phlegm/sputum, hemoptysis, pleuritic chest pain. SLEEP: Denies morning headaches, daytime somnolence or napping. Denies difficulty falling asleep, staying asleep, waking from sleep. Denies knowledge of snoring. GASTROINTESTINAL: Denies any type of dysphagia to either liquids or solids. Denies nausea, vomiting, pyrosis, early satiety, abdominal pain, diarrhea, constipation, or changes in stool consistency or caliber. Denies coffee-ground emesis, hematemesis, hematochezia, or melanotic stools. GENITOURINARY: Denies frequency, urgency, nocturia, hematuria or incontinence (Storage/Irritative symptoms.) Low urinary stream, straining to void, urinary intermittency or hesitancy, splitting of the voiding stream, terminal dribbling. ENDOCRINOLOGIC: Denies polyuria, polydipsia, polyphagia or heat/cold intolerances. HEMATOLOGIC: Denies thrombophilia/previous clots, or coagulopathy/bleeding disorders. ONCOLOGIC: Denies personal history of malignancy. DERMATOLOGIC: Denies rashes or pruritus. PSYCHIATRIC: Denies any suicidal or homicidal ideation. Denies hallucinations. PHYSICAL EXAM GENERAL APPEARANCE: The patient is awake, alert, and oriented, in no acute cardiopulmonary distress. NEUROLOGICAL: Cranial nerves II-XII grossly intact. Motor is 5/5 in bilateral upper and lower extremities proximal to distal. No sensory deficits. HEENT: Face is symmetric. Pupils are equal and reactive. Extraocular movements are intact. NECK: Supple. No JVD. No thyromegaly. No submental, submandibular, pre- /postauricular, occipital or supraclavicular lymphadenopathy. CHEST: Normal chest expansion. No Telemetry. LUNGS: Absence of any rales, rhonchi or any wheezing. CARDIOVASCULAR: Regular. S1 and S2 normal. No appreciable rubs, murmurs or gallops. ABDOMEN: Soft, nontender, and nondistended. There is no rebound, voluntary guarding, or rigidity. : Deferred. No Finley. EXTREMITIES: Non-edematous and not cyanotic. No clubbing. Good capillary refill. SKIN: No skin breakdown. Vital Signs (last 8hr) Date Time Temp Pulse Resp B/P (MAP) Pulse Ox O2 Delivery O2 Flow Rate FiO2 01/07/25 08:45 75 20 N/A Room Air 21 5/6/25 08:06 98.1 75 16 177/74 98 LABS: Laboratory: Test 01/07/25 11:02 01/07/25 09:53 01/06/25 03:10 Range/Units Whole Blood Glucose 352 #H 70-110 MG/DL Sodium Level 132 L 136-145 mmol/L Potassium Level 4.5 3.5-5.1 mmol/L Chloride Level 99 L 101-111 mmol/L Carbon Dioxide Level 26 21-32 mmol/L Blood Urea Nitrogen 30 H 7-18 mg/dL Creatinine 1.5 H 0.5-1.3 mg/dL Glomerular Filtration Rate Calc 53 >90 mL/min Random Glucose 332 H 70-105 mg/dL Total Calcium 8.6 8.5-10.1 mg/dL Magnesium Level 1.70 L 1.80-2.40 mg/dL White Blood Count 10.2 4.8-10.8 K/uL Red Blood Count 3.18 L 4.50-6.20 MIL/uL Hemoglobin 8.6 L 14.0-18.0 g/dL Hematocrit 26.6 L 42-54 % Mean Corpuscular Volume 83.6 79-99 fL Mean Corpuscular Hemoglobin 27.0 27.0-33.0 pg Mean Corpuscular Hemoglobin Concent 32.3 32.0-36.0 g/dL Red Cell Distribution Width 14.6 11.0-15.5 % Platelet Count 239 130-400 K/uL Mean Platelet Volume 9.3 7.5-10.5 fL Nucleated Red Blood Cells 0.0 0.0-0.19 % Phosphorus Level 3.5 2.5-4.9 mg/dL Total Bilirubin 0.1 #L 0.2-1.0 mg/dL Aspartate Amino Transf (AST/SGOT) 33 10-37 U/L Alanine Aminotransferase (ALT/SGPT) 38 # 12-78 U/L Alkaline Phosphatase 156 H 50-136 U/L Total Protein 5.9 L 6.0-8.3 g/dL Albumin 2.4 L 3.5-5.0 g/dL Current Medications Medications (Trade) Dose Ordered Sig/Jose A Route PRN Reason Start Time Stop Time Status Last Admin Dose Admin Acetaminophen (TYLenol 325MG TAB) 650 mg Q6H PRN PO MILD PAIN (1-3) 12/23/24 09:30 01/22/25 09:29 12/31/24 08:07 650 MG Amlodipine Besylate (NorvASC 5MG TAB) 10 mg DAILY PO 01/05/25 09:00 02/04/25 08:59 01/07/25 09:42 10 MG Apixaban (EliquIS) 5 mg BID PO 12/23/24 09:30 01/22/25 09:29 01/07/25 09:43 5 MG Atorvastatin Calcium (LIPItor 40MG) 40 mg HS PO 12/23/24 21:00 01/22/25 20:59 01/06/25 21:00 40 MG Ceftriaxone Sodium (ROCEphine 1G INJ) 1 gm Q24H IVPB 12/31/24 11:30 01/10/25 11:29 01/07/25 11:22 1 GM Dextrose (D50w) 50 ml AD PRN IV HYPOGLYCEMIA PROTOCOL 12/23/24 14:30 01/22/25 14:29 Diltiazem HCl (CARDIzem 120MG CD) 120 mg BID PO 12/30/24 10:30 01/24/25 08:59 01/07/25 09:41 120 MG Diltiazem HCl (CARDIzem 120MG CD) 120 mg DAILY PO 12/25/24 09:00 12/30/24 10:09 DC 12/30/24 08:27 120 MG Docusate Sodium (COLace 100MG CAP) 100 mg DAILY PO 12/29/24 09:00 01/28/25 08:59 01/07/25 09:42 100 MG Doxazosin Mesylate (Doxazosin Mesylate) 2 mg DAILY19 PO 01/06/25 19:00 01/06/25 12:05 DC Doxazosin Mesylate (Doxazosin Mesylate) 2 mg HS PO 01/06/25 21:00 02/05/25 18:59 01/06/25 21:00 2 MG Famotidine (Pepcid 20mg Vial) 20 mg BID IV 12/23/24 21:00 12/24/24 10:06 DC 12/24/24 09:45 20 MG Furosemide (LASix 40MG TAB) 40 mg BID@09,17 PO 01/03/25 17:00 02/02/25 16:59 01/07/25 09:42 40 MG Furosemide (LASix 40MG VIAL) 40 mg BID IV 12/31/24 13:00 01/01/25 13:38 DC 01/01/25 10:16 40 MG Furosemide (LASix 40MG VIAL) 40 mg Q12H IV 01/02/25 06:00 01/03/25 13:41 DC 01/03/25 05:08 40 MG Glucagon (Glucagon 1mg Kit) 1 mg AD PRN IM HYPOGLYCEMIA PROTOCOL 12/23/24 14:30 01/22/25 14:29 Hydralazine HCl (APRESOLine 20MG INJ) 10 mg Q6H PRN IV ADMINISTER FOR SBP > 160 12/23/24 09:30 01/22/25 09:29 01/04/25 04:20 10 MG Hydralazine HCl ([id number] TAB) 50 mg BID PO 12/24/24 21:00 12/25/24 09:49 DC 12/25/24 09:43 50 MG Hydralazine HCl ([id number] TAB) 50 mg QID PO 12/26/24 12:00 12/28/24 10:24 DC 12/28/24 08:16 50 MG Hydralazine HCl ([id number] TAB) 50 mg TID PO 12/25/24 10:00 12/26/24 11:40 DC 12/26/24 09:09 50 MG Hydralazine HCl ([id number] TAB) 75 mg QID PO 12/28/24 13:00 12/29/24 13:05 DC 12/29/24 12:40 75 MG Hydralazine HCl ([id number] TAB) 100 mg QID PO 12/29/24 17:00 01/28/25 16:59 01/07/25 09:43 100 MG Insulin Human Regular (humuLIN R 100 UNIT/ML 3ML) INSULIN SLIDING SCAL... ACHS SQ 12/23/24 16:30 01/02/25 13:42 DC 01/02/25 13:11 16 UNIT Insulin Human Regular (humuLIN R 100 UNIT/ML 3ML) INSULIN SLIDING SCAL... ACHS SQ 01/02/25 16:30 02/01/25 16:29 01/07/25 11:20 20 UNIT Iron Sucrose (VenoFER) 300 mg Q24H IVP 12/31/24 13:00 12/31/24 12:43 DC Iron Sucrose 300 mg/Sodium Chloride 250 ml @ 83 mls/hr Q24H IV 12/31/24 13:00 01/02/25 16:01 DC 01/02/25 13:53 83 MLS/HR Lactulose (Constulose 20gm/ 30ml Udcup) 20 gm BID PRN PO CONSTIPATION 12/28/24 16:30 01/27/25 16:29 12/28/24 16:48 20 GM Lactulose (Constulose 20gm/ 30ml Udcup) 20 gm BID PRN PO CONSTIPATION 12/30/24 14:30 12/30/24 14:21 DC Levothyroxine Sodium (SYNTHroid 150MCG TAB) 150 mcg SYN PO 12/25/24 06:30 01/24/25 06:29 01/07/25 06:28 150 MCG Magnesium Sulfate 50 ml @ 0 mls/hr PROTOCOL PRN IV Low Magnesium Level 01/05/25 03:30 02/04/25 03:29 01/07/25 11:22 25 MLS/HR Metoprolol Tartrate (loprESSOR) 12.5 mg BID PO 12/23/24 09:30 12/23/24 16:08 DC 12/23/24 09:43 12.5 MG Metoprolol Tartrate (loprESSOR) 25 mg BID PO 12/23/24 21:00 12/24/24 10:44 DC 12/24/24 09:45 25 MG Metoprolol Tartrate (loprESSOR) 100 mg BID PO 12/24/24 21:00 12/30/24 10:09 DC 12/30/24 08:27 100 MG Metoprolol Tartrate (loprESSOR) 100 mg TID PO 12/30/24 10:30 01/23/25 20:59 01/07/25 09:42 100 MG Morphine Sulfate (morPHINE 2MG SYG) 2 mg Q6H PRN IVP SEVERE PAIN (7-10) 12/23/24 09:30 12/28/24 12:29 DC Nitroglycerin (Nitrostat) 0.4 mg AD PRN SL CHEST PAIN 12/23/24 09:30 01/22/25 09:29 Ondansetron HCl (zoFRAN 4MG INJ) 4 mg Q8H PRN IVP NAUSEA/VOMITING 12/23/24 09:30 01/22/25 09:29 Pantoprazole Sodium (PROTonix 40MG TAB) 40 mg DAILY PO 12/25/24 09:00 01/24/25 08:59 01/07/25 09:41 40 MG Potassium Chloride 100 ml @ 100 mls/hr AD PRN IV POTASSIUM PROTOCOL 01/06/25 12:00 02/05/25 11:59 Potassium Chloride (KCl 10% Elixir 20meq/15ml) 20 meq AD PRN PO POTASSIUM PROTOCOL 01/06/25 12:00 02/05/25 11:59 01/06/25 17:44 20 MEQ Sertraline HCl (ZOloft 50 mg tab) 50 mg DAILY PO 12/25/24 09:00 01/24/25 08:59 01/07/25 09:42 50 MG Simethicone (Mylicon) 80 mg BID PRN PO GI GAS 01/05/25 15:30 01/29/25 21:59 Simethicone (Mylicon) 80 mg BIDPRN PRN PO GI GAS 12/30/24 22:00 01/05/25 15:05 DC Sodium Chloride 1,000 ml @ 75 mls/hr [id number] IV 12/23/24 14:30 12/27/24 21:49 DC 12/24/24 07:31 75 MLS/HR Spironolactone (Aldactone 25mg) 50 mg DAILY PO 12/25/24 09:00 01/24/25 08:59 01/07/25 09:40 50 MG Vitamin B Complex/ Vit C/Folic Acid (Nephrovite Tablet) 1 cap DAILY PO 12/31/24 09:00 01/30/25 08:59 01/07/25 09:40 1 CAP DIAGNOSTICS / RADIOLOGY: [ ] Assessment: Pulmonary infiltrate by chest-xray Uncontrolled hypertension POA- improving Chest pain, ruled out ACS POA suspected unc HTN related Hyponatremia POA - improving Atrial fibrillation POA Type 2 diabetes POA Anemia POA CAD Hyperlipidemia Hypothyroidism Anxiety PLAN: Uncontrolled hypertension -Patient current medication regimen: Doxazosin, Amlodipine, Diltiazem, Hydralazine, Metoprolol, and IV Lasix. -Blood pressure still elevated today. Will add .1 mg Clonidine BID. -We will continue to follow nephrology recommendations -Continue Iron Sucrose IV. -2D echo showed 60-65%, stage I diastolic dysfunction. -Secondary hypertension workup -NPO after midnight for renal doppler ultrasound. Diabetes Mellitus Type 2 - Insulin sliding scale coverage. Glucometer checks a.c. and HS. Hypoglycemic precautions per protocol. Pulmonary infiltrate by chest x-ray -Continue Rocephin -Continue home Eliquis for DVT prophylaxis -Pepcid for GI prophylaxis TIFFANY WARD MD January 07, 2025 13:02
--- NOTE | 2025-01-07 20:46 | NUR ---
SHIFT NOTE Patient continues with elevated blood pressures. Blood sugars in 200-300s. Physician is aware. Magnesium at 1.7 with replacement per protocol. Magnesium level to be checked in am. Patient discussed CPAP settings with physician at bedside today. New orders received for further diagnostic testing tomorrow.
[2025-01-07] MEDS: cloNIDine HCL 0.1 MG TABLET PO SCH (21:23)
[2025-01-08] VITALS (11 sets, daily range): BP systolic 134–186; BP diastolic 47–87; PULSE 60–78; RESP 16–20; TEMP 97.9–98.1; O2SAT 0–98
[2025-01-08 04:27] LABS: BASOPHILS # (AUTO) 0.06 K/uL (0.00-0.20); BASOPHILS % (AUTO) 0.5 % (0.0-5.0); EOSINOPHILS # (AUTO) 0.31 K/uL (0.00-0.70); EOSINOPHILS % (AUTO) 2.8 % (0.0-8.0); HEMATOCRIT 29.4 % (42-54); LYMPHOCYTES # (AUTO) 1.8 K/uL (1.0-4.8); LYMPHOCYTES % (AUTO) 16.1 % (21.0-51.0); MEAN CORPUSCULAR HEMOGLOBIN 27.2 pg (27.0-33.0); MEAN CORPUSCULAR HGB CONC 31.6 g/dL (32.0-36.0); MONOCYTES # (AUTO) 1.1 K/uL (0.1-1.0); MONOCYTES % (AUTO) 9.8 % (3.0-13.0); NEUTROPHILS # (AUTO) 7.7 K/uL (1.8-7.7); NEUTROPHILS % (AUTO) 69.9 % (40.0-77.0); PLATELET COUNT (AUTO) 278 K/uL (130-400); RED BLOOD CELL COUNT(AUTO) 3.42 MIL/uL (4.50-6.20); RED CELL DISTRIBUTION WIDTH 15.4 % (11.0-15.5)
[2025-01-08 04:51] LABS: ALBUMIN 2.7 g/dL (3.5-5.0); BILIRUBIN,TOTAL 0.2 mg/dL (0.2-1.0); CREATININE 1.4 mg/dL (0.5-1.3); MAGNESIUM 1.8 mg/dL (1.80-2.40); TOTAL PROTEIN, SERUM 6.6 g/dL (6.0-8.3)
--- NOTE | 2025-01-08 09:03 | HMCIMG ---
RENAL ARTERY ULTRASOUND. INDICATION: Rule out renal artery stenosis. COMPARISON: None available. FINDINGS: There is no significant aortic plaque, and the peak systolic velocity in the aorta is normal before and after the renal artery takeoff bilaterally. The highest peak systolic velocity of the renal arteries is normal bilaterally. Bilateral RAR's are within normal limits. IMPRESSION: No evidence of renal artery stenosis.
[2025-01-08] MEDS: GLIMEPIRIDE 2 MG TABLET PO SCH (09:04)
--- NOTE | 2025-01-08 10:32 | PN ---
[facility] PROGRESS NOTE Date of Service: January 08, 2025 Time of Service: 10:32 SUBJECTIVE: [59-year-old male with history of CKD, hyponatremia. Patient was admitted as patient complained of symptoms of bilateral lower extremity edema, shortness of breaths and weakness. Patient's lab reviewed, continues with hyponatremia with improvement in his sodium level at 130. Patient continues to have bilateral lower extremity edema 4+ noted. His blood pressure is still elevated despite different antihypertensive on board. We will adjust hydralazine 50 mg b.i.d. to t.i.d.. Otherwise patient denies any shortness of breaths or chest pain. 12/26/24 Patient was evaluated in the room, he reported that he feels a weak due to having his BP elevated this morning. Patient continues with current medication regimen, we will readjust medication- He will take Hydralazine 75 mg PO x1. Then patient will continue Hydralazine 50 mg now for QID. No other complaints. He can be dc today once his BP improved <150 mmHg, systolic. ] 12/28 the patient was seen and evaluated today. Apparently patient was not discharged as scheduled two days ago due to uncontrolled hypertension. We have been adjusting hydralazine, 50 mg q.i.d. has been given but today we will start patient on [id number] mg p.o. q.i.d. discussed this plan with the patient for which he agreed and verbalized understanding. 12/29/24 patient was examined today, patient spiked up with his blood pressure again this morning systolic in the 180's. We will readjust hydralazine now 100 mg q.i.d.. Plan on discharging the next24 hours if his blood pressure between 150-160 systolic 12/30/24 patient has persistent elevated blood pressure. Adjustment on medication has been done. At this point, we will be consulting crutching contractor for further recommendations. 12/31/24 Patient was evaluated in the room, AOx3. He is with shortness of breath, using accessory muscle. On oxygen at 2Lpm via NC. His BP remained elevated despite adjustment on meds. Cxray showed pulmonary infiltrates. Patient is swollen to extremities, 2-3+ 01/01/25 patient was evaluated he is on room air, he still needs oxygen supplementation. His bilateral lower extremities four to 5+ edema. Patient was started with Lasix 40 mg IV b.i.d. since yesterday. His blood pressure is still elevated, systolic in the 170s, but diastolic is in the low side on the 40s. 01/02/25 patient was seen and examined. Case discussed with the RN his bilateral lower extremity 4+ edema slowly improving. Continue Lasix. Monitor electrolytes 01/03/25 patient was seen and examined. Case discussed with the RN his bilateral lower extremity 2+ edema slowly improving. Continue Lasix. Monitor electrolytes BP running high/use hydralazine 01/04/25 patient was seen and examined. Case discussed with the RN. Nephrology is following the patient. He was extremity edema is improving however his blood pressure is remaining high despite high doses of hydralazine and metoprolol. I will add amlodipine 10 mg 01/05/25 patient was seen and examined. Case discussed with the RN. He was doing better today his electrolytes were little off with hypomagnesemia. We will replace that. Adding amlodipine seems to be helping him he was blood pressure is still high but slightly better it is in the 160s 01/07/25: Patient was seen and examined this morning at bedside. The patient states he is feeling better today. The patient denies chest pain, shortness of breath, nausea, vomiting, fever, chills. The patient is currently on Doxazosin, Amlodipine, Hydralazine, Diltiazem, and Metoprolol. Per nurse, the patients blood pressure at 8 am was 177/74. Blood pressure recheck at Noon after administration of all the medications was 167/81. The patient states he did not use the CPAP machine overnight. We will do a secondary hypertension workup, including a renal doppler ultrasound, plasma aldosterone/renin ratio, plasma metanephrines, cortisol AM. We will add .1 mg of Clonidine BID for blood pressure control. 01/08/25: Patient was seen and examined this morning at bedside. Secondary hypertension workup still pending this morning. Renal ultrasound with doppler is negative for renal artery stenosis. Patient was started on home diabetic medication. Patients blood pressure this morning was 174/72. The patient denies chest pain, shortness of breath, nausea, vomiting, fever, chills, constipation, diarrhea. Patient continues on Doxazosin, Amlodipine, Hydralazine, Diltiazem, Metoprolol, and Clonidine. REVIEW OF SYSTEMS CONSTITUTIONAL: Denies fevers, chills, or night sweats. No unintentional weight loss reported. NEUROLOGICAL: Denies headache, amaurosis fugax, motor weakness, sensory deficit, vertigo/spinning sensation, gait abnormalities, or tremors. ENT: No hearing loss, otalgia, otorrhea, rhinitis, rhinorrhea, hoarseness, or sore throat. CARDIOVASCULAR: As mentioned in HPI PULMONARY: Denies any shortness of breath, cough, phlegm/sputum, hemoptysis, pleuritic chest pain. SLEEP: Denies morning headaches, daytime somnolence or napping. Denies difficulty falling asleep, staying asleep, waking from sleep. Denies knowledge of snoring. GASTROINTESTINAL: Denies any type of dysphagia to either liquids or solids. Denies nausea, vomiting, pyrosis, early satiety, abdominal pain, diarrhea, constipation, or changes in stool consistency or caliber. Denies coffee-ground emesis, hematemesis, hematochezia, or melanotic stools. GENITOURINARY: Denies frequency, urgency, nocturia, hematuria or incontinence (Storage/Irritative symptoms.) Low urinary stream, straining to void, urinary intermittency or hesitancy, splitting of the voiding stream, terminal dribbling. ENDOCRINOLOGIC: Denies polyuria, polydipsia, polyphagia or heat/cold intolerances. HEMATOLOGIC: Denies thrombophilia/previous clots, or coagulopathy/bleeding disorders. ONCOLOGIC: Denies personal history of malignancy. DERMATOLOGIC: Denies rashes or pruritus. PSYCHIATRIC: Denies any suicidal or homicidal ideation. Denies hallucinations. PHYSICAL EXAM GENERAL APPEARANCE: The patient is awake, alert, and oriented, in no acute cardiopulmonary distress. NEUROLOGICAL: Cranial nerves II-XII grossly intact. Motor is 5/5 in bilateral upper and lower extremities proximal to distal. No sensory deficits. HEENT: Face is symmetric. Pupils are equal and reactive. Extraocular movements are intact. NECK: Supple. No JVD. No thyromegaly. No submental, submandibular, pre- /postauricular, occipital or supraclavicular lymphadenopathy. CHEST: Normal chest expansion. No Telemetry. LUNGS: Absence of any rales, rhonchi or any wheezing. CARDIOVASCULAR: Regular. S1 and S2 normal. No appreciable rubs, murmurs or gallops. ABDOMEN: Soft, nontender, and nondistended. There is no rebound, voluntary guarding, or rigidity. : Deferred. No Finley. EXTREMITIES: Non-edematous and not cyanotic. No clubbing. Good capillary refill. SKIN: No skin breakdown. Vital Signs (last 8hr) Date Time Temp Pulse Resp B/P (MAP) Pulse Ox O2 Delivery O2 Flow Rate FiO2 01/08/25 09:04 61 174/74 01/08/25 08:00 98.1 61 18 174/72 98 Room Air 21 01/08/25 06:57 78 20 N/A Room Air 21 01/08/25 04:00 98.1 75 16 186/86 95 Room Air LABS: Laboratory: Test 01/08/25 05:29 01/08/25 03:37 Range/Units Whole Blood Glucose 144 #H 70-110 MG/DL White Blood Count 11.0 H 4.8-10.8 K/uL Red Blood Count 3.42 L 4.50-6.20 MIL/uL Hemoglobin 9.3 L 14.0-18.0 g/dL Hematocrit 29.4 L 42-54 % Mean Corpuscular Volume 86.0 79-99 fL Mean Corpuscular Hemoglobin 27.2 27.0-33.0 pg Mean Corpuscular Hemoglobin Concent 31.6 L 32.0-36.0 g/dL Red Cell Distribution Width 15.4 11.0-15.5 % Platelet Count 278 130-400 K/uL Mean Platelet Volume 9.3 7.5-10.5 fL Immature Granulocyte % (Auto) 0.9 0-1 % Neutrophils (%) (Auto) 69.9 40.0-77.0 % Lymphocytes (%) (Auto) 16.1 L 21.0-51.0 % Monocytes (%) (Auto) 9.8 3.0-13.0 % Eosinophils (%) (Auto) 2.8 0.0-8.0 % Basophils (%) (Auto) 0.5 0.0-5.0 % Neutrophils # (Auto) 7.7 1.8-7.7 K/uL Lymphocytes # (Auto) 1.8 1.0-4.8 K/uL Monocytes # (Auto) 1.1 H 0.1-1.0 K/uL Eosinophils # (Auto) 0.31 0.00-0.70 K/uL Basophils # (Auto) 0.06 0.00-0.20 K/uL Absolute Immature Granulocyte (auto 0.10 0-1 K/uL Nucleated Red Blood Cells 0.0 0.0-0.19 % Sodium Level 134 L 136-145 mmol/L Potassium Level 4.0 3.5-5.1 mmol/L Chloride Level 99 L 101-111 mmol/L Carbon Dioxide Level 27 21-32 mmol/L Blood Urea Nitrogen 38 H 7-18 mg/dL Creatinine 1.4 H 0.5-1.3 mg/dL Glomerular Filtration Rate Calc 58 >90 mL/min Random Glucose 160 #H 70-105 mg/dL Total Calcium 8.9 8.5-10.1 mg/dL Magnesium Level 1.80 1.80-2.40 mg/dL Total Bilirubin 0.2 0.2-1.0 mg/dL Aspartate Amino Transf (AST/SGOT) 45 H 10-37 U/L Alanine Aminotransferase (ALT/SGPT) 61 12-78 U/L Alkaline Phosphatase 215 H 50-136 U/L Total Protein 6.6 6.0-8.3 g/dL Albumin 2.7 L 3.5-5.0 g/dL Current Medications Medications (Trade) Dose Ordered Sig/Jose A Route PRN Reason Start Time Stop Time Status Last Admin Dose Admin Acetaminophen (TYLenol 325MG TAB) 650 mg Q6H PRN PO MILD PAIN (1-3) 12/23/24 09:30 01/22/25 09:29 12/31/24 08:07 650 MG Amlodipine Besylate (NorvASC 5MG TAB) 10 mg DAILY PO 01/05/25 09:00 02/04/25 08:59 01/08/25 09:03 10 MG Apixaban (EliquIS) 5 mg BID PO 12/23/24 09:30 01/22/25 09:29 01/08/25 09:06 5 MG Atorvastatin Calcium (LIPItor 40MG) 40 mg HS PO 12/23/24 21:00 01/22/25 20:59 01/07/25 21:23 40 MG Ceftriaxone Sodium (ROCEphine 1G INJ) 1 gm Q24H IVPB 12/31/24 11:30 01/10/25 11:29 01/07/25 11:22 1 GM Clonidine HCl (CATApres 0.1 mg TAB) 0.1 mg BID PO 01/07/25 21:00 02/06/25 20:59 01/08/25 09:04 0.1 MG Dextrose (D50w) 50 ml AD PRN IV HYPOGLYCEMIA PROTOCOL 12/23/24 14:30 01/22/25 14:29 Diltiazem HCl (CARDIzem 120MG CD) 120 mg BID PO 12/30/24 10:30 01/24/25 08:59 01/08/25 09:02 120 MG Diltiazem HCl (CARDIzem 120MG CD) 120 mg DAILY PO 12/25/24 09:00 12/30/24 10:09 DC 12/30/24 08:27 120 MG Docusate Sodium (COLace 100MG CAP) 100 mg DAILY PO 12/29/24 09:00 01/28/25 08:59 01/07/25 09:42 100 MG Doxazosin Mesylate (Doxazosin Mesylate) 2 mg DAILY19 PO 01/06/25 19:00 01/06/25 12:05 DC Doxazosin Mesylate (Doxazosin Mesylate) 2 mg HS PO 01/06/25 21:00 02/05/25 18:59 01/07/25 21:22 2 MG Famotidine (Pepcid 20mg Vial) 20 mg BID IV 12/23/24 21:00 12/24/24 10:06 DC 12/24/24 09:45 20 MG Furosemide (LASix 40MG TAB) 40 mg BID@09,17 PO 01/03/25 17:00 02/02/25 16:59 01/08/25 09:03 40 MG Furosemide (LASix 40MG VIAL) 40 mg BID IV 12/31/24 13:00 01/01/25 13:38 DC 01/01/25 10:16 40 MG Furosemide (LASix 40MG VIAL) 40 mg Q12H IV 01/02/25 06:00 01/03/25 13:41 DC 01/03/25 05:08 40 MG Glimepiride (Glimepiride) 4 mg DAILY PO 01/08/25 09:00 02/07/25 08:59 01/08/25 09:04 4 MG Glucagon (Glucagon 1mg Kit) 1 mg AD PRN IM HYPOGLYCEMIA PROTOCOL 12/23/24 14:30 01/22/25 14:29 Hydralazine HCl (APRESOLine 20MG INJ) 10 mg Q6H PRN IV ADMINISTER FOR SBP > 160 12/23/24 09:30 01/22/25 09:29 01/04/25 04:20 10 MG Hydralazine HCl ([id number] TAB) 50 mg BID PO 12/24/24 21:00 12/25/24 09:49 DC 12/25/24 09:43 50 MG Hydralazine HCl ([id number] TAB) 50 mg QID PO 12/26/24 12:00 12/28/24 10:24 DC 12/28/24 08:16 50 MG Hydralazine HCl ([id number] TAB) 50 mg TID PO 12/25/24 10:00 12/26/24 11:40 DC 12/26/24 09:09 50 MG Hydralazine HCl ([id number] TAB) 75 mg QID PO 12/28/24 13:00 12/29/24 13:05 DC 12/29/24 12:40 75 MG Hydralazine HCl ([id number] TAB) 100 mg QID PO 12/29/24 17:00 01/28/25 16:59 01/08/25 09:03 100 MG Insulin Human Regular (humuLIN R 100 UNIT/ML 3ML) INSULIN SLIDING SCAL... ACHS SQ 12/23/24 16:30 01/02/25 13:42 DC 01/02/25 13:11 16 UNIT Insulin Human Regular (humuLIN R 100 UNIT/ML 3ML) INSULIN SLIDING SCAL... ACHS SQ 01/02/25 16:30 02/01/25 16:29 01/07/25 21:26 16 UNIT Iron Sucrose (VenoFER) 300 mg Q24H IVP 12/31/24 13:00 12/31/24 12:43 DC Iron Sucrose 300 mg/Sodium Chloride 250 ml @ 83 mls/hr Q24H IV 12/31/24 13:00 01/02/25 16:01 DC 01/02/25 13:53 83 MLS/HR Lactulose (Constulose 20gm/ 30ml Udcup) 20 gm BID PRN PO CONSTIPATION 12/28/24 16:30 01/27/25 16:29 12/28/24 16:48 20 GM Lactulose (Constulose 20gm/ 30ml Udcup) 20 gm BID PRN PO CONSTIPATION 12/30/24 14:30 12/30/24 14:21 DC Levothyroxine Sodium (SYNTHroid 150MCG TAB) 150 mcg SYN PO 12/25/24 06:30 01/24/25 06:29 01/07/25 06:28 150 MCG Magnesium Sulfate 50 ml @ 0 mls/hr PROTOCOL PRN IV Low Magnesium Level 01/05/25 03:30 02/04/25 03:29 01/07/25 11:22 25 MLS/HR Metoprolol Tartrate (loprESSOR) 12.5 mg BID PO 12/23/24 09:30 12/23/24 16:08 DC 12/23/24 09:43 12.5 MG Metoprolol Tartrate (loprESSOR) 25 mg BID PO 12/23/24 21:00 12/24/24 10:44 DC 12/24/24 09:45 25 MG Metoprolol Tartrate (loprESSOR) 100 mg BID PO 12/24/24 21:00 12/30/24 10:09 DC 12/30/24 08:27 100 MG Metoprolol Tartrate (loprESSOR) 100 mg TID PO 12/30/24 10:30 01/23/25 20:59 01/08/25 09:03 100 MG Morphine Sulfate (morPHINE 2MG SYG) 2 mg Q6H PRN IVP SEVERE PAIN (7-10) 12/23/24 09:30 12/28/24 12:29 DC Nitroglycerin (Nitrostat) 0.4 mg AD PRN SL CHEST PAIN 12/23/24 09:30 01/22/25 09:29 Ondansetron HCl (zoFRAN 4MG INJ) 4 mg Q8H PRN IVP NAUSEA/VOMITING 12/23/24 09:30 01/22/25 09:29 Pantoprazole Sodium (PROTonix 40MG TAB) 40 mg DAILY PO 12/25/24 09:00 01/24/25 08:59 01/08/25 09:05 40 MG Potassium Chloride 100 ml @ 100 mls/hr AD PRN IV POTASSIUM PROTOCOL 01/06/25 12:00 02/05/25 11:59 Potassium Chloride (KCl 10% Elixir 20meq/15ml) 20 meq AD PRN PO POTASSIUM PROTOCOL 01/06/25 12:00 02/05/25 11:59 01/06/25 17:44 20 MEQ Sertraline HCl (ZOloft 50 mg tab) 50 mg DAILY PO 12/25/24 09:00 01/24/25 08:59 01/08/25 09:03 50 MG Simethicone (Mylicon) 80 mg BID PRN PO GI GAS 01/05/25 15:30 01/29/25 21:59 Simethicone (Mylicon) 80 mg BIDPRN PRN PO GI GAS 12/30/24 22:00 01/05/25 15:05 DC Sodium Chloride 1,000 ml @ 75 mls/hr [id number] IV 12/23/24 14:30 12/27/24 21:49 DC 12/24/24 07:31 75 MLS/HR Spironolactone (Aldactone 25mg) 50 mg DAILY PO 12/25/24 09:00 01/24/25 08:59 01/08/25 09:05 50 MG Vitamin B Complex/ Vit C/Folic Acid (Nephrovite Tablet) 1 cap DAILY PO 12/31/24 09:00 01/30/25 08:59 01/08/25 09:02 1 [facility] / RADIOLOGY: [address] [address] [place] [address] IMAGING REPORT Signed PATIENT: VERO WILKS MR#: [id number] : 1965 SEX: M AGE: 59 LOCATION: 4AH ORDER [id number] STATUS: ADM IN REPORT#: [id number] SERVICE REASON: eval for renal artery stenosis ORDERING PHYSICIAN: DELMIS GUTIÉRREZ MD PROCEDURE: ART IN OUT - US ART IN & VEIN OUT RENAL ARTERY ULTRASOUND. INDICATION: Rule out renal artery stenosis. COMPARISON: None available. FINDINGS: There is no significant aortic plaque, and the peak systolic velocity in the aorta is normal before and after the renal artery takeoff bilaterally. The highest peak systolic velocity of the renal arteries is normal bilaterally. Bilateral RAR's are within normal limits. IMPRESSION: No evidence of renal artery stenosis. DICTATED BY: LUCIO TIERNEY MD DATE: 01/08/25900 ELECTRONICALLY SIGNED BY: LUCIO TIERNEY MD DATE: 01/08/25902 Assessment: Pulmonary infiltrate by chest-xray Uncontrolled hypertension POA- improving Chest pain, ruled out ACS POA suspected unc HTN related Hyponatremia POA - improving Atrial fibrillation POA Type 2 diabetes POA Anemia POA CAD Hyperlipidemia Hypothyroidism Anxiety PLAN: Uncontrolled hypertension -Patient current medication regimen: Doxazosin, Amlodipine, Diltiazem, Hydralazine, Metoprolol, and IV Lasix. -Blood pressure still elevated today. Will add .1 mg Clonidine BID. -We will continue to follow nephrology recommendations -Continue Iron Sucrose IV. -2D echo showed 60-65%, stage I diastolic dysfunction. -Secondary hypertension workup pending. -NPO after midnight for renal doppler ultrasound. Negative for Renal artery stenosis. Diabetes Mellitus Type 2 - Insulin sliding scale coverage. Glucometer checks a.c. and HS. Hypoglycemic precautions per protocol. - Glimeprimide started. Pulmonary infiltrate by chest x-ray -Continue Rocephin -Continue home Eliquis for DVT prophylaxis -Pepcid for GI prophylaxis TIFFANY WARD MD January 08, 2025 10:32
--- NOTE | 2025-01-08 13:17 | PN ---
NEPHROLOGY PROGRESS NOTE Date/Time Patient Seen: January 08, 2025 SUBJECTIVE: This is a 59-year-old male with a past medical history of atrial fibrillation on chronic anticoagulation, chronic hyponatremia, diabetes mellitus type 2, obstructive sleep apnea, hypothyroidism, hypertension, obesity, congestive heart failure, chronic kidney disease, and anemia. He presents to the emergency department with complaints of chest pain In the emergency room he was to have hyponatremia, elevated BUN/creatinine, and anemia We are consulted for renal failure Renal function and electrolytes are stable. He continues with oral diuretics. Renal ultrasound showed normal renal and bladder sonogram. No hydronephrosis on January 2024. He was seen in the medical floor, in no acute distress Antihypertensive medication continued to be adjusted as per primary team No family at the bedside Prognosis remains guarded REVIEW OF SYSTEMS: GENERAL: Positive for chest pain and dizziness NEUROLOGIC: Negative for any blurry vision, blind spots, double vision, facial asymmetry, dysphagia, dysarthria, hemiparesis, hemisensory deficits, vertigo, ataxia. HEENT: Negative for any head trauma, neck trauma, neck stiffness, photophobia, phonophobia, sinusitis, rhinitis. CARDIAC: Negative for any chest pain, dyspnea on exertion, paroxysmal nocturnal dyspnea, peripheral edema. PULMONARY: Negative for any shortness of breath, wheezing, COPD, or TB exposure. GASTROINTESTINAL: Negative for any abdominal pain, nausea, vomiting, bright red blood per rectum, melena. GENITOURINARY: Negative for any dysuria, hematuria, incontinence. INTEGUMENTARY: Negative for any rashes, cuts, insect bites. RHEUMATOLOGIC: Negative for any joint pains, photosensitive rashes, history of vasculitis or kidney problems. HEMATOLOGIC: Negative for any abnormal bruising, frequent infections or bleeding. PHYSICAL EXAM: GENERAL: Alert and oriented x 3. No acute distress. Well-nourished. EYES: EOMI. Anicteric. HENT: Moist mucous membranes. No scleral icterus. No cervical lymphadenopathy. LUNGS: Clear to auscultation bilaterally. No accessory muscle use. CARDIOVASCULAR: Regular rate and rhythm. No murmur. No JVD. ABDOMEN: Soft, non-tender and non-distended. No palpable masses. EXTREMITIES: No edema. Non-tender. SKIN: No rashes or lesions. Warm. NEUROLOGIC: No focal neurological deficits. CN II-XII grossly intact, but not individually tested. PSYCHIATRIC: Cooperative. Appropriate mood and affect. LABORATORY: [ ] Hematology Labs: Test 01/08/25 03:37 Range/Units White Blood Count 11.0 H 4.8-10.8 K/uL Red Blood Count 3.42 L 4.50-6.20 MIL/uL Hemoglobin 9.3 L 14.0-18.0 g/dL Hematocrit 29.4 L 42-54 % Mean Corpuscular Volume 86.0 79-99 fL Mean Corpuscular Hemoglobin 27.2 27.0-33.0 pg Mean Corpuscular Hemoglobin Concent 31.6 L 32.0-36.0 g/dL Red Cell Distribution Width 15.4 11.0-15.5 % Platelet Count 278 130-400 K/uL Mean Platelet Volume 9.3 7.5-10.5 fL Immature Granulocyte % (Auto) 0.9 0-1 % Neutrophils (%) (Auto) 69.9 40.0-77.0 % Lymphocytes (%) (Auto) 16.1 L 21.0-51.0 % Monocytes (%) (Auto) 9.8 3.0-13.0 % Eosinophils (%) (Auto) 2.8 0.0-8.0 % Basophils (%) (Auto) 0.5 0.0-5.0 % Neutrophils # (Auto) 7.7 1.8-7.7 K/uL Lymphocytes # (Auto) 1.8 1.0-4.8 K/uL Monocytes # (Auto) 1.1 H 0.1-1.0 K/uL Eosinophils # (Auto) 0.31 0.00-0.70 K/uL Basophils # (Auto) 0.06 0.00-0.20 K/uL Absolute Immature Granulocyte (auto 0.10 0-1 K/uL Nucleated Red Blood Cells 0.0 0.0-0.19 % Chemistry Labs: Test 01/08/25 10:45 01/08/25 03:37 Range/Units Whole Blood Glucose 264 #H 70-110 MG/DL Sodium Level 134 L 136-145 mmol/L Potassium Level 4.0 3.5-5.1 mmol/L Chloride Level 99 L 101-111 mmol/L Carbon Dioxide Level 27 21-32 mmol/L Blood Urea Nitrogen 38 H 7-18 mg/dL Creatinine 1.4 H 0.5-1.3 mg/dL Glomerular Filtration Rate Calc 58 >90 mL/min Random Glucose 160 #H 70-105 mg/dL Total Calcium 8.9 8.5-10.1 mg/dL Magnesium Level 1.80 1.80-2.40 mg/dL Total Bilirubin 0.2 0.2-1.0 mg/dL Aspartate Amino Transf (AST/SGOT) 45 H 10-37 U/L Alanine Aminotransferase (ALT/SGPT) 61 12-78 U/L Alkaline Phosphatase 215 H 50-136 U/L Total Protein 6.6 6.0-8.3 g/dL Albumin 2.7 L 3.5-5.0 g/dL DIAGNOSTICS / RADIOLOGY: REASON: hypoxemia ORDERING PHYSICIAN: ADRI WOMACK PROCEDURE: CXR1VW - CHEST 1VW CHEST 1VW HISTORY: Hypoxemia COMPARISON: 12/23/2024 FINDINGS: A frontal projection of the chest was obtained. There are bilateral pulmonary infiltrates suggestive of pulmonary vascular congestion with possible superimposed pneumonitis. The heart is enlarged. Postop changes are seen of left clavicle with orthopedic fixation plates and screws. No evidence of aortic calcification is seen. IMPRESSION: 1. Bilateral pulmonary infiltrates are seen suggestive of pulmonary vascular congestion with possible superimposed pneumonitis. DICTATED BY: MICHELLE FRAZIER MD DATE: 12/30/24 1550 REASON: Assess LV function ORDERING PHYSICIAN: OLGA IVAN PROCEDURE: ECHO CMP - ECHO 2-D COMPLETE APPROVED REPORT EXAM: Two-dimensional and M-mode echocardiogram with Doppler and color Doppler. INDICATION ICD: Assess LV Function 2D Dimensions RVDd 3.8 cm LVEF(%) 67.8 (>50%) LVED Vol(simp.) 121.6 mL IVSd 1.1 (0.7-1.1cm) FS(%) 37 % LVES Vol(simp.) 48.9 mL LVDd 3.6 (3.8-5.6cm) LA (2D) 4.0 (1.6-4.0cm) LVEF(%, simp.) 60 % PWd 1.1 (0.7-1.1cm) Ao Root(2D) 3.1 (2.0-3.7cm) LA ESV INDEX (BP) 40.63 mL/m2 LVDs 2.3 (2.5-4.0cm) LVOT diam 2.0 (1.8-2.4cm) IVC diam 2.0 cm Deformation Strain Apical 4 -16.4 % Apical 2 -14.1 % Apical 3 -17.5 % Global Strain -16.0 % M-Mode Dimensions EPSS 0.7 cm LA (MM) 4.4 (1.6-4.0cm) Ao Root(MM) 2.6 (2.0-3.7cm) Aortic Valve AoV Vmax 0.0 m/s Ao Peak GR 0.0 mmHg LVOT Vmax 1.4 m/s AoV VTI 0.5 m Ao Mean GR 9.4 mmHg LVOT VTI 0.33 m MIKE (VMAX) 2.15 cm2 MIKE (VTI) 2.2 cm2 Mitral Valve MV E Vmax 150.9 cm/s DECEL Time 169 ms MV A Vmax 117.9 cm/s P 1/2 T 43 ms E/A ratio 1.3 MVA (PHT) 5.2 cm2 TDI E/E' Medial 20.5 E/E' Lateral 18.1 Medial E' Peak V 7.35 cm/s Lateral E' Peak V 8.34 cm/s Pulmonary Valve PV Vmax 1.5 m/s PV Peak GR 8.9 mmHg Left Ventricle The left ventricle is normal size. No regional wall motion abnormalities noted. Mild concentric left ventricular hypertrophy. Left ventricular systolic function is normal, estimated LVEF is 60 to 65%. Stage II, diastolic dysfunction. Right Ventricle The right ventricle is normal size. The right ventricular systolic function is normal. Atria The left atrium is mildly dilated, 41 mL/m�. The right atrium size is normal. Aortic Valve Aortic valve is trileaflet. The leaflets are thickened and calcified. Trace aortic regurgitation. Mild aortic stenosis: Peak velocity 2.2 m/s, mean gradient 9 mmHg. Mitral Valve The mitral valve is normal in structure. The leaflets are mildly thickened and calcified. Trace mitral regurgitation. There is no mitral valve stenosis. Tricuspid Valve The tricuspid valve is normal in structure. Trace tricuspid regurgitation. RVSP is normal. Pulmonic Valve Pulmonic valve is not well visualized. Great Vessels The aortic root is normal in size. The IVC is normal in size and collapses >50% with inspiration. Pericardium There is no pericardial effusion. Conclusion The left atrium is mildly dilated, 41 mL/m�. Mild concentric left ventricular hypertrophy. No regional wall motion abnormalities noted. Left ventricular systolic function is normal, estimated LVEF is 60 to 65%. Stage II, diastolic dysfunction. Mild aortic stenosis: Peak velocity 2.2 m/s, mean gradient 9 mmHg. Trace aortic regurgitation. Trace mitral regurgitation. Trace tricuspid regurgitation. PASP is normal. There is no pericardial effusion. DICTATED BY: RENATO BILLS MD DATE: 12/24/2405 REASON: CHEST PAIN ORDERING PHYSICIAN: MUSTAPHA HERBERT MD PROCEDURE: CXR1VW - CHEST 1VW CHEST 1VW HISTORY: Chest pain COMPARISON: 08/14/2024 FINDINGS: A frontal projection of the chest was obtained. No acute pulmonary infiltrates is seen. The heart is borderline enlarged. Postop changes are seen of left clavicle. Aortic calcifications are seen. Prominent interstitial markings are seen. IMPRESSION: 1. No acute pulmonary infiltrate is seen. DICTATED BY: MICHELLE FRAZIER MD DATE: 12/23/24 0844 ASSESSMENT: Hyponatremia Anemia Uncontrolled hypertension Chest pain, ruled out ACS POA Atrial fibrillation Type 2 diabetes CAD Hyperlipidemia Hypothyroidism Anxiety PLAN: Labs, diagnostic, radiologic exams reviewed and interpreted by myself and supervising physician. We have reviewed external records in detail Antihypertensive medications continue to be adjusted as per admitting team Continue with Epogen 01398 units subQ weekly Require close monitoring of renal function and electrolytes Order CBC, CMP, and electrolytes in am BiPAP as necessary, for respiratory distress Monitor blood pressure adjust medication doses as needed Avoid hypotensive episodes May use Dilaudid 0.5 mg IV every 6 hours as needed for severe pain Monitor blood sugars Strict intake, output, and daily weight should be monitored Please renally adjust medications Avoid nephrotoxic and nonsteroidal drugs Avoid contrast if possible Will continue to monitor renal function, anemia, electrolytes Treatment plan discussed with patient Questions were answered We have discussed with the other team physicians in detail about the care plan We will continue to monitor the patient closely ATTESTATION BY PHYSICIAN I have seen and examined the patient. I reviewed the documentation, medical d ecision making, and treatment plan as noted by the mid-level provider above. I agree with the findings and plan of care. NOEMY SAMUELS MD, [employer] January 08, 2025 13:17
[2025-01-09] VITALS: BP 120/64; PULSE 60; RESP 18; TEMP 97.8
[2025-01-09 04:00] VITALS: BP 144/64; PULSE 61; RESP 17; TEMP 98
[2025-01-09 04:55] LABS: BASOPHILS # (AUTO) 0.05 K/uL (0.00-0.20); BASOPHILS % (AUTO) 0.5 % (0.0-5.0); EOSINOPHILS # (AUTO) 0.31 K/uL (0.00-0.70); EOSINOPHILS % (AUTO) 3.3 % (0.0-8.0); HEMATOCRIT 26.7 % (42-54); IMMATURE GRANULOCYTE ABSOLUTE 0.09 K/uL (0-1); LYMPHOCYTES # (AUTO) 1.6 K/uL (1.0-4.8); LYMPHOCYTES % (AUTO) 17.3 % (21.0-51.0); MEAN CORPUSCULAR HEMOGLOBIN 27.5 pg (27.0-33.0); MEAN CORPUSCULAR HGB CONC 32.2 g/dL (32.0-36.0); MEAN CORPUSCULAR VOLUME 85.3 fL (79-99); MONOCYTES # (AUTO) 0.9 K/uL (0.1-1.0); MONOCYTES % (AUTO) 9.8 % (3.0-13.0); NEUTROPHILS # (AUTO) 6.5 K/uL (1.8-7.7); NEUTROPHILS % (AUTO) 68.2 % (40.0-77.0); PLATELET COUNT (AUTO) 254 K/uL (130-400); RED BLOOD CELL COUNT(AUTO) 3.13 MIL/uL (4.50-6.20); RED CELL DISTRIBUTION WIDTH 15.8 % (11.0-15.5); WHITE BLOOD COUNT (AUTO) 9.5 K/uL (4.8-10.8)
[2025-01-09 05:17] LABS: ALBUMIN 2.3 g/dL (3.5-5.0); BILIRUBIN,TOTAL 0.2 mg/dL (0.2-1.0); CREATININE 1.6 mg/dL (0.5-1.3); POTASSIUM 4.2 mmol/L (3.5-5.1); TOTAL PROTEIN, SERUM 5.8 g/dL (6.0-8.3)
[2025-01-09 08:00] VITALS: BP 140/60; PULSE 66; RESP 18; TEMP 98.1; O2SAT 97
--- NOTE | 2025-01-09 08:56 | PN ---
[facility] PROGRESS NOTE Date of Service: January 09, 2025 Time of Service: 08:53 SUBJECTIVE: [59-year-old male with history of CKD, hyponatremia. Patient was admitted as patient complained of symptoms of bilateral lower extremity edema, shortness of breaths and weakness. Patient's lab reviewed, continues with hyponatremia with improvement in his sodium level at 130. Patient continues to have bilateral lower extremity edema 4+ noted. His blood pressure is still elevated despite different antihypertensive on board. We will adjust hydralazine 50 mg b.i.d. to t.i.d.. Otherwise patient denies any shortness of breaths or chest pain. 12/26/24 Patient was evaluated in the room, he reported that he feels a weak due to having his BP elevated this morning. Patient continues with current medication regimen, we will readjust medication- He will take Hydralazine 75 mg PO x1. Then patient will continue Hydralazine 50 mg now for QID. No other complaints. He can be dc today once his BP improved <150 mmHg, systolic. ] 12/28 the patient was seen and evaluated today. Apparently patient was not discharged as scheduled two days ago due to uncontrolled hypertension. We have been adjusting hydralazine, 50 mg q.i.d. has been given but today we will start patient on mg p.o. q.i.d. discussed this plan with the patient for which he agreed and verbalized understanding. 12/29/24 patient was examined today, patient spiked up with his blood pressure again this morning systolic in the 180's. We will readjust hydralazine now 100 mg q.i.d.. Plan on discharging the next24 hours if his blood pressure between 150-160 systolic 12/30/24 patient has persistent elevated blood pressure. Adjustment on medication has been done. At this point, we will be consulting window shade ring coverer for further recommendations. 12/31/24 Patient was evaluated in the room, AOx3. He is with shortness of breath, using accessory muscle. On oxygen at 2Lpm via NC. His BP remained elevated despite adjustment on meds. Cxray showed pulmonary infiltrates. Patient is swollen to extremities, 2-3+ 01/01/25 patient was evaluated he is on room air, he still needs oxygen supplementation. His bilateral lower extremities four to 5+ edema. Patient was started with Lasix 40 mg IV b.i.d. since yesterday. His blood pressure is still elevated, systolic in the 170s, but diastolic is in the low side on the 40s. 01/02/25 patient was seen and examined. Case discussed with the RN his bilateral lower extremity 4+ edema slowly improving. Continue Lasix. Monitor electrolytes 01/03/25 patient was seen and examined. Case discussed with the RN his bilateral lower extremity 2+ edema slowly improving. Continue Lasix. Monitor electrolytes BP running high/use hydralazine 01/04/25 patient was seen and examined. Case discussed with the RN. Nephrology is following the patient. He was extremity edema is improving however his blood pressure is remaining high despite high doses of hydralazine and metoprolol. I will add amlodipine 10 mg 01/05/25 patient was seen and examined. Case discussed with the RN. He was doing better today his electrolytes were little off with hypomagnesemia. We will replace that. Adding amlodipine seems to be helping him he was blood pressure is still high but slightly better it is in the 160s 01/07/25: Patient was seen and examined this morning at bedside. The patient states he is feeling better today. The patient denies chest pain, shortness of breath, nausea, vomiting, fever, chills. The patient is currently on Doxazosin, Amlodipine, Hydralazine, Diltiazem, and Metoprolol. Per nurse, the patients blood pressure at 8 am was 177/74. Blood pressure recheck at Noon after administration of all the medications was 167/81. The patient states he did not use the CPAP machine overnight. We will do a secondary hypertension workup, including a renal doppler ultrasound, plasma aldosterone/renin ratio, plasma metanephrines, cortisol AM. We will add .1 mg of Clonidine BID for blood pressure control. 01/08/25: Patient was seen and examined this morning at bedside. Secondary hypertension workup still pending this morning. Renal ultrasound with doppler is negative for renal artery stenosis. Patient was started on home diabetic medication. Patients blood pressure this morning was 174/72. The patient denies chest pain, shortness of breath, nausea, vomiting, fever, chills, constipation, diarrhea. Patient continues on Doxazosin, Amlodipine, Hydralazine, Diltiazem, Metoprolol, and Clonidine. 01/09/25: Patient was seen and examined this morning at bedside. Secondary hypertension workup still pending. The patients blood pressure this morning was 144/64. Overnight, the blood pressure was 120/64. The patients current blood pressure regimen includes Hydralazine, Metoprolol, Diltiazem, Amlodipine, Doxazosin, and Clonidine. The patient reports no nausea, vomiting, fever, chills, chest pain, abdominal pain, constipation, and diarrhea. Patients blood pressure is controlled on this new medication regimen. We will monitor his blood pressure overnight per patients request, and discharge in the AM if patient continues to respond well to blood pressure medication regimen. We will obtain a chest x-ray to monitor for improvement of bilateral pulmonary infiltrate. REVIEW OF SYSTEMS CONSTITUTIONAL: Denies fevers, chills, or night sweats. No unintentional weight loss reported. NEUROLOGICAL: Denies headache, amaurosis fugax, motor weakness, sensory deficit, vertigo/spinning sensation, gait abnormalities, or tremors. ENT: No hearing loss, otalgia, otorrhea, rhinitis, rhinorrhea, hoarseness, or sore throat. CARDIOVASCULAR: As mentioned in HPI PULMONARY: Denies any shortness of breath, cough, phlegm/sputum, hemoptysis, pleuritic chest pain. SLEEP: Denies morning headaches, daytime somnolence or napping. Denies difficulty falling asleep, staying asleep, waking from sleep. Denies knowledge of snoring. GASTROINTESTINAL: Denies any type of dysphagia to either liquids or solids. Denies nausea, vomiting, pyrosis, early satiety, abdominal pain, diarrhea, constipation, or changes in stool consistency or caliber. Denies coffee-ground emesis, hematemesis, hematochezia, or melanotic stools. GENITOURINARY: Denies frequency, urgency, nocturia, hematuria or incontinence (Storage/Irritative symptoms.) Low urinary stream, straining to void, urinary intermittency or hesitancy, splitting of the voiding stream, terminal dribbling. ENDOCRINOLOGIC: Denies polyuria, polydipsia, polyphagia or heat/cold intolerances. HEMATOLOGIC: Denies thrombophilia/previous clots, or coagulopathy/bleeding disorders. ONCOLOGIC: Denies personal history of malignancy. DERMATOLOGIC: Denies rashes or pruritus. PSYCHIATRIC: Denies any suicidal or homicidal ideation. Denies hallucinations. PHYSICAL EXAM GENERAL APPEARANCE: The patient is awake, alert, and oriented, in no acute cardiopulmonary distress. NEUROLOGICAL: Cranial nerves II-XII grossly intact. Motor is 5/5 in bilateral upper and lower extremities proximal to distal. No sensory deficits. HEENT: Face is symmetric. Pupils are equal and reactive. Extraocular movements are intact. NECK: Supple. No JVD. No thyromegaly. No submental, submandibular, pre- /postauricular, occipital or supraclavicular lymphadenopathy. CHEST: Normal chest expansion. No Telemetry. LUNGS: Absence of any rales, rhonchi or any wheezing. CARDIOVASCULAR: Regular. S1 and S2 normal. No appreciable rubs, murmurs or gallops. ABDOMEN: Soft, nontender, and nondistended. There is no rebound, voluntary guarding, or rigidity. : Deferred. No Finley. EXTREMITIES: Non-edematous and not cyanotic. No clubbing. Good capillary refill. SKIN: No skin breakdown. Vital Signs (last 8hr) Date Time Temp Pulse Resp B/P (MAP) Pulse Ox O2 Delivery O2 Flow Rate FiO2 01/09/25 08:00 98.1 66 18 140/60 97 Room Air 21 01/09/25 04:00 98.1 61 17 144/64 95 Room Air LABS: Laboratory: Test 01/09/25 05:28 01/09/25 04:04 01/08/25 03:37 Range/Units Whole Blood Glucose 144 H 70-110 MG/DL White Blood Count 9.5 4.8-10.8 K/uL Red Blood Count 3.13 L 4.50-6.20 MIL/uL Hemoglobin 8.6 L 14.0-18.0 g/dL Hematocrit 26.7 L 42-54 % Mean Corpuscular Volume 85.3 79-99 fL Mean Corpuscular Hemoglobin 27.5 27.0-33.0 pg Mean Corpuscular Hemoglobin Concent 32.2 32.0-36.0 g/dL Red Cell Distribution Width 15.8 H 11.0-15.5 % Platelet Count 254 130-400 K/uL Mean Platelet Volume 9.7 7.5-10.5 fL Immature Granulocyte % (Auto) 0.9 0-1 % Neutrophils (%) (Auto) 68.2 40.0-77.0 % Lymphocytes (%) (Auto) 17.3 L 21.0-51.0 % Monocytes (%) (Auto) 9.8 3.0-13.0 % Eosinophils (%) (Auto) 3.3 0.0-8.0 % Basophils (%) (Auto) 0.5 0.0-5.0 % Neutrophils # (Auto) 6.5 1.8-7.7 K/uL Lymphocytes # (Auto) 1.6 1.0-4.8 K/uL Monocytes # (Auto) 0.9 0.1-1.0 K/uL Eosinophils # (Auto) 0.31 0.00-0.70 K/uL Basophils # (Auto) 0.05 0.00-0.20 K/uL Absolute Immature Granulocyte (auto 0.09 0-1 K/uL Nucleated Red Blood Cells 0.0 0.0-0.19 % Sodium Level 133 L 136-145 mmol/L Potassium Level 4.2 3.5-5.1 mmol/L Chloride Level 99 L 101-111 mmol/L Carbon Dioxide Level 26 21-32 mmol/L Blood Urea Nitrogen 40 H 7-18 mg/dL Creatinine 1.6 H 0.5-1.3 mg/dL Glomerular Filtration Rate Calc 49 >90 mL/min Random Glucose 166 H 70-105 mg/dL Total Calcium 8.4 L 8.5-10.1 mg/dL Total Bilirubin 0.2 0.2-1.0 mg/dL Aspartate Amino Transf (AST/SGOT) 34 10-37 U/L Alanine Aminotransferase (ALT/SGPT) 51 12-78 U/L Alkaline Phosphatase 177 H 50-136 U/L Total Protein 5.8 L 6.0-8.3 g/dL Albumin 2.3 L 3.5-5.0 g/dL Magnesium Level 1.80 1.80-2.40 mg/dL Current Medications Medications (Trade) Dose Ordered Sig/Jose A Route PRN Reason Start Time Stop Time Status Last Admin Dose Admin Acetaminophen (TYLenol 325MG TAB) 650 mg Q6H PRN PO MILD PAIN (1-3) 12/23/24 09:30 01/22/25 09:29 12/31/24 08:07 650 MG Amlodipine Besylate (NorvASC 5MG TAB) 10 mg DAILY PO 01/05/25 09:00 02/04/25 08:59 01/08/25 09:03 10 MG Apixaban (EliquIS) 5 mg BID PO 12/23/24 09:30 01/22/25 09:29 01/08/25 20:08 5 MG Atorvastatin Calcium (LIPItor 40MG) 40 mg HS PO 12/23/24 21:00 01/22/25 20:59 01/08/25 20:07 40 MG Ceftriaxone Sodium (ROCEphine 1G INJ) 1 gm Q24H IVPB 12/31/24 11:30 01/10/25 11:29 01/08/25 12:22 1 GM Clonidine HCl (CATApres 0.1 mg TAB) 0.1 mg BID PO 01/07/25 21:00 02/06/25 20:59 01/08/25 20:08 0.1 MG Dextrose (D50w) 50 ml AD PRN IV HYPOGLYCEMIA PROTOCOL 12/23/24 14:30 01/22/25 14:29 Diltiazem HCl (CARDIzem 120MG CD) 120 mg BID PO 12/30/24 10:30 01/24/25 08:59 01/08/25 20:08 120 MG Diltiazem HCl (CARDIzem 120MG CD) 120 mg DAILY PO 12/25/24 09:00 12/30/24 10:09 DC 12/30/24 08:27 120 MG Docusate Sodium (COLace 100MG CAP) 100 mg DAILY PO 12/29/24 09:00 01/28/25 08:59 01/07/25 09:42 100 MG Doxazosin Mesylate (Doxazosin Mesylate) 2 mg DAILY19 PO 01/06/25 19:00 01/06/25 12:05 DC Doxazosin Mesylate (Doxazosin Mesylate) 2 mg HS PO 01/06/25 21:00 02/05/25 18:59 01/08/25 20:09 2 MG Famotidine (Pepcid 20mg Vial) 20 mg BID IV 12/23/24 21:00 12/24/24 10:06 DC 12/24/24 09:45 20 MG Furosemide (LASix 40MG TAB) 40 mg BID@09,17 PO 01/03/25 17:00 02/02/25 16:59 01/08/25 17:14 40 MG Furosemide (LASix 40MG VIAL) 40 mg BID IV 12/31/24 13:00 01/01/25 13:38 DC 01/01/25 10:16 40 MG Furosemide (LASix 40MG VIAL) 40 mg Q12H IV 01/02/25 06:00 01/03/25 13:41 DC 01/03/25 05:08 40 MG Glimepiride (Glimepiride) 4 mg DAILY PO 01/08/25 09:00 02/07/25 08:59 01/08/25 09:04 4 MG Glucagon (Glucagon 1mg Kit) 1 mg AD PRN IM HYPOGLYCEMIA PROTOCOL 12/23/24 14:30 01/22/25 14:29 Hydralazine HCl (APRESOLine 20MG INJ) 10 mg Q6H PRN IV ADMINISTER FOR SBP > 160 12/23/24 09:30 01/22/25 09:29 01/04/25 04:20 10 MG Hydralazine HCl ([id number] TAB) 50 mg BID PO 12/24/24 21:00 12/25/24 09:49 DC 12/25/24 09:43 50 MG Hydralazine HCl ([id number] TAB) 50 mg QID PO 12/26/24 12:00 12/28/24 10:24 DC 12/28/24 08:16 50 MG Hydralazine HCl ([id number] TAB) 50 mg TID PO 12/25/24 10:00 12/26/24 11:40 DC 12/26/24 09:09 50 MG Hydralazine HCl ([id number] TAB) 75 mg QID PO 12/28/24 13:00 12/29/24 13:05 DC 12/29/24 12:40 75 MG Hydralazine HCl ([id number] TAB) 100 mg QID PO 12/29/24 17:00 01/28/25 16:59 01/08/25 20:08 100 MG Insulin Human Regular (humuLIN R 100 UNIT/ML 3ML) INSULIN SLIDING SCAL... ACHS SQ 12/23/24 16:30 01/02/25 13:42 DC 01/02/25 13:11 16 UNIT Insulin Human Regular (humuLIN R 100 UNIT/ML 3ML) INSULIN SLIDING SCAL... ACHS SQ 01/02/25 16:30 02/01/25 16:29 01/08/25 16:30 6 UNIT Iron Sucrose (VenoFER) 300 mg Q24H IVP 12/31/24 13:00 12/31/24 12:43 DC Iron Sucrose 300 mg/Sodium Chloride 250 ml @ 83 mls/hr Q24H IV 12/31/24 13:00 01/02/25 16:01 DC 01/02/25 13:53 83 MLS/HR Lactulose (Constulose 20gm/ 30ml Udcup) 20 gm BID PRN PO CONSTIPATION 12/28/24 16:30 01/27/25 16:29 12/28/24 16:48 20 GM Lactulose (Constulose 20gm/ 30ml Udcup) 20 gm BID PRN PO CONSTIPATION 12/30/24 14:30 12/30/24 14:21 DC Levothyroxine Sodium (SYNTHroid 150MCG TAB) 150 mcg SYN PO 12/25/24 06:30 01/24/25 06:29 01/09/25 06:28 150 MCG Magnesium Sulfate 50 ml @ 0 mls/hr PROTOCOL PRN IV Low Magnesium Level 01/05/25 03:30 02/04/25 03:29 01/07/25 11:22 25 MLS/HR Metoprolol Tartrate (loprESSOR) 12.5 mg BID PO 12/23/24 09:30 12/23/24 16:08 DC 12/23/24 09:43 12.5 MG Metoprolol Tartrate (loprESSOR) 25 mg BID PO 12/23/24 21:00 12/24/24 10:44 DC 12/24/24 09:45 25 MG Metoprolol Tartrate (loprESSOR) 100 mg BID PO 12/24/24 21:00 12/30/24 10:09 DC 12/30/24 08:27 100 MG Metoprolol Tartrate (loprESSOR) 100 mg TID PO 12/30/24 10:30 01/23/25 20:59 01/08/25 20:07 100 MG Morphine Sulfate (morPHINE 2MG SYG) 2 mg Q6H PRN IVP SEVERE PAIN (7-10) 12/23/24 09:30 12/28/24 12:29 DC Nitroglycerin (Nitrostat) 0.4 mg AD PRN SL CHEST PAIN 12/23/24 09:30 01/22/25 09:29 Ondansetron HCl (zoFRAN 4MG INJ) 4 mg Q8H PRN IVP NAUSEA/VOMITING 12/23/24 09:30 01/22/25 09:29 Pantoprazole Sodium (PROTonix 40MG TAB) 40 mg DAILY PO 12/25/24 09:00 01/24/25 08:59 01/08/25 09:05 40 MG Potassium Chloride 100 ml @ 100 mls/hr AD PRN IV POTASSIUM PROTOCOL 01/06/25 12:00 02/05/25 11:59 Potassium Chloride (KCl 10% Elixir 20meq/15ml) 20 meq AD PRN PO POTASSIUM PROTOCOL 01/06/25 12:00 02/05/25 11:59 01/06/25 17:44 20 MEQ Sertraline HCl (ZOloft 50 mg tab) 50 mg DAILY PO 12/25/24 09:00 01/24/25 08:59 01/08/25 09:03 50 MG Simethicone (Mylicon) 80 mg BID PRN PO GI GAS 01/05/25 15:30 01/29/25 21:59 Simethicone (Mylicon) 80 mg BIDPRN PRN PO GI GAS 12/30/24 22:00 01/05/25 15:05 DC Sodium Chloride 1,000 ml @ 75 mls/hr [id number] IV 12/23/24 14:30 12/27/24 21:49 DC 12/24/24 07:31 75 MLS/HR Spironolactone (Aldactone 25mg) 50 mg DAILY PO 12/25/24 09:00 01/24/25 08:59 01/08/25 09:05 50 MG Vitamin B Complex/ Vit C/Folic Acid (Nephrovite Tablet) 1 cap DAILY PO 12/31/24 09:00 01/30/25 08:59 01/08/25 09:02 1 CAP DIAGNOSTICS / RADIOLOGY: [ ] Assessment: Pulmonary infiltrate by chest-xray Uncontrolled hypertension POA- improving Chest pain, ruled out ACS POA suspected unc HTN related Hyponatremia POA - improving Atrial fibrillation POA Type 2 diabetes POA Anemia POA CAD Hyperlipidemia Hypothyroidism Anxiety PLAN: Uncontrolled hypertension -Patient current medication regimen: Doxazosin, Amlodipine, Diltiazem, Hydralazine, Metoprolol, and IV Lasix. -Blood pressure still elevated today. Will add .1 mg Clonidine BID. -We will continue to follow nephrology recommendations -Continue Iron Sucrose IV. -2D echo showed 60-65%, stage I diastolic dysfunction. -Secondary hypertension workup pending. -NPO after midnight for renal doppler ultrasound. Negative for Renal artery stenosis. Diabetes Mellitus Type 2 - Insulin sliding scale coverage. Glucometer checks a.c. and HS. Hypoglycemic precautions per protocol. - Glimeprimide started. Pulmonary infiltrate by chest x-ray -Continue Rocephin -Continue home Eliquis for DVT prophylaxis -Pepcid for GI prophylaxis TIFFANY WARD MD January 09, 2025 08:56
[2025-01-09 11:37] VITALS: BP 155/62; PULSE 65; RESP 18; TEMP 97.7
--- NOTE | 2025-01-09 14:01 | PN ---
NEPHROLOGY PROGRESS NOTE Date/Time Patient Seen: January 09, 2025 SUBJECTIVE: This is a 59-year-old male with a past medical history of atrial fibrillation on chronic anticoagulation, chronic hyponatremia, diabetes mellitus type 2, obstructive sleep apnea, hypothyroidism, hypertension, obesity, congestive heart failure, chronic kidney disease, and anemia. He presents to the emergency department with complaints of chest pain In the emergency room he was to have hyponatremia, elevated BUN/creatinine, and anemia We are consulted for renal failure Renal function and electrolytes are stable. He continues with oral diuretics. Renal ultrasound showed normal renal and bladder sonogram. No hydronephrosis on January 2024. He was seen in the medical floor, in no acute distress No family at the bedside Prognosis remains guarded REVIEW OF SYSTEMS: GENERAL: Positive for chest pain and dizziness NEUROLOGIC: Negative for any blurry vision, blind spots, double vision, facial asymmetry, dysphagia, dysarthria, hemiparesis, hemisensory deficits, vertigo, ataxia. HEENT: Negative for any head trauma, neck trauma, neck stiffness, photophobia, phonophobia, sinusitis, rhinitis. CARDIAC: Negative for any chest pain, dyspnea on exertion, paroxysmal nocturnal dyspnea, peripheral edema. PULMONARY: Negative for any shortness of breath, wheezing, COPD, or TB exposure. GASTROINTESTINAL: Negative for any abdominal pain, nausea, vomiting, bright red blood per rectum, melena. GENITOURINARY: Negative for any dysuria, hematuria, incontinence. INTEGUMENTARY: Negative for any rashes, cuts, insect bites. RHEUMATOLOGIC: Negative for any joint pains, photosensitive rashes, history of vasculitis or kidney problems. HEMATOLOGIC: Negative for any abnormal bruising, frequent infections or bleeding. PHYSICAL EXAM: GENERAL: Alert and oriented x 3. No acute distress. Well-nourished. EYES: EOMI. Anicteric. HENT: Moist mucous membranes. No scleral icterus. No cervical lymphadenopathy. LUNGS: Clear to auscultation bilaterally. No accessory muscle use. CARDIOVASCULAR: Regular rate and rhythm. No murmur. No JVD. ABDOMEN: Soft, non-tender and non-distended. No palpable masses. EXTREMITIES: No edema. Non-tender. SKIN: No rashes or lesions. Warm. NEUROLOGIC: No focal neurological deficits. CN II-XII grossly intact, but not individually tested. PSYCHIATRIC: Cooperative. Appropriate mood and affect. LABORATORY: [ ] Hematology Labs: Test 01/09/25 04:04 Range/Units White Blood Count 9.5 4.8-10.8 K/uL Red Blood Count 3.13 L 4.50-6.20 MIL/uL Hemoglobin 8.6 L 14.0-18.0 g/dL Hematocrit 26.7 L 42-54 % Mean Corpuscular Volume 85.3 79-99 fL Mean Corpuscular Hemoglobin 27.5 27.0-33.0 pg Mean Corpuscular Hemoglobin Concent 32.2 32.0-36.0 g/dL Red Cell Distribution Width 15.8 H 11.0-15.5 % Platelet Count 254 130-400 K/uL Mean Platelet Volume 9.7 7.5-10.5 fL Immature Granulocyte % (Auto) 0.9 0-1 % Neutrophils (%) (Auto) 68.2 40.0-77.0 % Lymphocytes (%) (Auto) 17.3 L 21.0-51.0 % Monocytes (%) (Auto) 9.8 3.0-13.0 % Eosinophils (%) (Auto) 3.3 0.0-8.0 % Basophils (%) (Auto) 0.5 0.0-5.0 % Neutrophils # (Auto) 6.5 1.8-7.7 K/uL Lymphocytes # (Auto) 1.6 1.0-4.8 K/uL Monocytes # (Auto) 0.9 0.1-1.0 K/uL Eosinophils # (Auto) 0.31 0.00-0.70 K/uL Basophils # (Auto) 0.05 0.00-0.20 K/uL Absolute Immature Granulocyte (auto 0.09 0-1 K/uL Nucleated Red Blood Cells 0.0 0.0-0.19 % Chemistry Labs: Test 01/09/25 11:16 01/09/25 04:04 01/08/25 03:37 Range/Units Whole Blood Glucose 214 H 70-110 MG/DL Bedside Glucose Comment Notified Nurse Sodium Level 133 L 136-145 mmol/L Potassium Level 4.2 3.5-5.1 mmol/L Chloride Level 99 L 101-111 mmol/L Carbon Dioxide Level 26 21-32 mmol/L Blood Urea Nitrogen 40 H 7-18 mg/dL Creatinine 1.6 H 0.5-1.3 mg/dL Glomerular Filtration Rate Calc 49 >90 mL/min Random Glucose 166 H 70-105 mg/dL Total Calcium 8.4 L 8.5-10.1 mg/dL Total Bilirubin 0.2 0.2-1.0 mg/dL Aspartate Amino Transf (AST/SGOT) 34 10-37 U/L Alanine Aminotransferase (ALT/SGPT) 51 12-78 U/L Alkaline Phosphatase 177 H 50-136 U/L Total Protein 5.8 L 6.0-8.3 g/dL Albumin 2.3 L 3.5-5.0 g/dL Magnesium Level 1.80 1.80-2.40 mg/dL DIAGNOSTICS / RADIOLOGY: REASON: hypoxemia ORDERING PHYSICIAN: ADRI WOMACK PROCEDURE: CXR1VW - CHEST 1VW CHEST 1VW HISTORY: Hypoxemia COMPARISON: 12/23/2024 FINDINGS: A frontal projection of the chest was obtained. There are bilateral pulmonary infiltrates suggestive of pulmonary vascular congestion with possible superimposed pneumonitis. The heart is enlarged. Postop changes are seen of left clavicle with orthopedic fixation plates and screws. No evidence of aortic calcification is seen. IMPRESSION: 1. Bilateral pulmonary infiltrates are seen suggestive of pulmonary vascular congestion with possible superimposed pneumonitis. DICTATED BY: MICHELLE FRAZIER MD DATE: 12/30/24 1550 REASON: Assess LV function ORDERING PHYSICIAN: OLGA IVAN PROCEDURE: ECHO CMP - ECHO 2-D COMPLETE APPROVED REPORT EXAM: Two-dimensional and M-mode echocardiogram with Doppler and color Doppler. INDICATION ICD: Assess LV Function 2D Dimensions RVDd 3.8 cm LVEF(%) 67.8 (>50%) LVED Vol(simp.) 121.6 mL IVSd 1.1 (0.7-1.1cm) FS(%) 37 % LVES Vol(simp.) 48.9 mL LVDd 3.6 (3.8-5.6cm) LA (2D) 4.0 (1.6-4.0cm) LVEF(%, simp.) 60 % PWd 1.1 (0.7-1.1cm) Ao Root(2D) 3.1 (2.0-3.7cm) LA ESV INDEX (BP) 40.63 mL/m2 LVDs 2.3 (2.5-4.0cm) LVOT diam 2.0 (1.8-2.4cm) IVC diam 2.0 cm Deformation Strain Apical 4 -16.4 % Apical 2 -14.1 % Apical 3 -17.5 % Global Strain -16.0 % M-Mode Dimensions EPSS 0.7 cm LA (MM) 4.4 (1.6-4.0cm) Ao Root(MM) 2.6 (2.0-3.7cm) Aortic Valve AoV Vmax 0.0 m/s Ao Peak GR 0.0 mmHg LVOT Vmax 1.4 m/s AoV VTI 0.5 m Ao Mean GR 9.4 mmHg LVOT VTI 0.33 m MIKE (VMAX) 2.15 cm2 MIKE (VTI) 2.2 cm2 Mitral Valve MV E Vmax 150.9 cm/s DECEL Time 169 ms MV A Vmax 117.9 cm/s P 1/2 T 43 ms E/A ratio 1.3 MVA (PHT) 5.2 cm2 TDI E/E' Medial 20.5 E/E' Lateral 18.1 Medial E' Peak V 7.35 cm/s Lateral E' Peak V 8.34 cm/s Pulmonary Valve PV Vmax 1.5 m/s PV Peak GR 8.9 mmHg Left Ventricle The left ventricle is normal size. No regional wall motion abnormalities noted. Mild concentric left ventricular hypertrophy. Left ventricular systolic function is normal, estimated LVEF is 60 to 65%. Stage II, diastolic dysfunction. Right Ventricle The right ventricle is normal size. The right ventricular systolic function is normal. Atria The left atrium is mildly dilated, 41 mL/m�. The right atrium size is normal. Aortic Valve Aortic valve is trileaflet. The leaflets are thickened and calcified. Trace aortic regurgitation. Mild aortic stenosis: Peak velocity 2.2 m/s, mean gradient 9 mmHg. Mitral Valve The mitral valve is normal in structure. The leaflets are mildly thickened and calcified. Trace mitral regurgitation. There is no mitral valve stenosis. Tricuspid Valve The tricuspid valve is normal in structure. Trace tricuspid regurgitation. RVSP is normal. Pulmonic Valve Pulmonic valve is not well visualized. Great Vessels The aortic root is normal in size. The IVC is normal in size and collapses >50% with inspiration. Pericardium There is no pericardial effusion. Conclusion The left atrium is mildly dilated, 41 mL/m�. Mild concentric left ventricular hypertrophy. No regional wall motion abnormalities noted. Left ventricular systolic function is normal, estimated LVEF is 60 to 65%. Stage II, diastolic dysfunction. Mild aortic stenosis: Peak velocity 2.2 m/s, mean gradient 9 mmHg. Trace aortic regurgitation. Trace mitral regurgitation. Trace tricuspid regurgitation. PASP is normal. There is no pericardial effusion. DICTATED BY: RENATO BILLS MD DATE: 12/24/2405 REASON: CHEST PAIN ORDERING PHYSICIAN: MUSTAPHA HERBERT MD PROCEDURE: CXR1VW - CHEST 1VW CHEST 1VW HISTORY: Chest pain COMPARISON: 08/14/2024 FINDINGS: A frontal projection of the chest was obtained. No acute pulmonary infiltrates is seen. The heart is borderline enlarged. Postop changes are seen of left clavicle. Aortic calcifications are seen. Prominent interstitial markings are seen. IMPRESSION: 1. No acute pulmonary infiltrate is seen. DICTATED BY: MICHELLE FRAZIER MD DATE: 12/23/24 0844 ASSESSMENT: Hyponatremia Anemia Uncontrolled hypertension Chest pain, ruled out ACS POA Atrial fibrillation Type 2 diabetes CAD Hyperlipidemia Hypothyroidism Anxiety PLAN: Labs, diagnostic, radiologic exams reviewed and interpreted by myself and supervising physician. We have reviewed external records in detail Continue with Epogen 89986 units subQ weekly Require close monitoring of renal function and electrolytes Order CBC, CMP, and electrolytes in am BiPAP as necessary, for respiratory distress Monitor blood pressure adjust medication doses as needed Avoid hypotensive episodes May use Dilaudid 0.5 mg IV every 6 hours as needed for severe pain Monitor blood sugars Strict intake, output, and daily weight should be monitored Please renally adjust medications Avoid nephrotoxic and nonsteroidal drugs Avoid contrast if possible Will continue to monitor renal function, anemia, electrolytes Treatment plan discussed with patient Questions were answered We have discussed with the other team physicians in detail about the care plan We will continue to monitor the patient closely ATTESTATION BY PHYSICIAN I have seen and examined the patient. I reviewed the documentation, medical decision making, and treatment plan as noted by the mid-level provider above. I agree with the findings and plan of care. NOEMY SAMUELS MD, ELIZABETH FNP January 09, 2025 14:01
[2025-01-09 16:00] VITALS: BP 140/55; PULSE 61; RESP 16; TEMP 98
[2025-01-09 20:00] VITALS: BP 162/70; PULSE 71; RESP 20; TEMP 97.6; O2SAT 98
--- NOTE | 2025-01-09 21:39 | NUR ---
BLOOD SUGAR BLOOD GLUCOSE AT THIS TIME IS 265 PER GLUCOMETER. VALUE REJECTED BY MISTAKE, CHECKED WITH ASAF, PCT AND MANUALLY ON GLUCOMETER.
[2025-01-10] VITALS (7 sets, daily range): BP systolic 111–158; BP diastolic 35–72; PULSE 63–72; RESP 16–20; TEMP 97.8–98.1
[2025-01-10 04:23] LABS: BASOPHILS # (AUTO) 0.05 K/uL (0.00-0.20); BASOPHILS % (AUTO) 0.5 % (0.0-5.0); EOSINOPHILS # (AUTO) 0.29 K/uL (0.00-0.70); HEMATOCRIT 28.1 % (42-54); IMMATURE GRANULOCYTE ABSOLUTE 0.09 K/uL (0-1); LYMPHOCYTES # (AUTO) 1.5 K/uL (1.0-4.8); LYMPHOCYTES % (AUTO) 15.3 % (21.0-51.0); MEAN CORPUSCULAR HEMOGLOBIN 27.5 pg (27.0-33.0); MEAN CORPUSCULAR VOLUME 85.9 fL (79-99); MONOCYTES # (AUTO) 0.9 K/uL (0.1-1.0); MONOCYTES % (AUTO) 9.4 % (3.0-13.0); NEUTROPHILS # (AUTO) 6.9 K/uL (1.8-7.7); NEUTROPHILS % (AUTO) 70.9 % (40.0-77.0); PLATELET COUNT (AUTO) 255 K/uL (130-400); RED BLOOD CELL COUNT(AUTO) 3.27 MIL/uL (4.50-6.20); RED CELL DISTRIBUTION WIDTH 15.9 % (11.0-15.5); WHITE BLOOD COUNT (AUTO) 9.7 K/uL (4.8-10.8)
[2025-01-10 04:36] LABS: ALBUMIN 2.5 g/dL (3.5-5.0); BILIRUBIN,TOTAL 0.2 mg/dL (0.2-1.0); CREATININE 1.4 mg/dL (0.5-1.3); TOTAL PROTEIN, SERUM 6.2 g/dL (6.0-8.3)
--- NOTE | 2025-01-10 09:28 | HMCIMG ---
Exam Type: CHEST 1VW Clinical Information: evaluate for improvement of bilateral pulm infiltrates Comparison: None Findings: The lungs are clear of infiltrates. The heart is normal in size. The bony and soft tissue structures of the chest are unremarkable. Impression: Clear lungs.
--- NOTE | 2025-01-10 12:41 | PN ---
[facility] PROGRESS NOTE Date of Service: January 10, 2025 Time of Service: 12:35 SUBJECTIVE: [59-year-old male with history of CKD, hyponatremia. Patient was admitted as patient complained of symptoms of bilateral lower extremity edema, shortness of breaths and weakness. Patient's lab reviewed, continues with hyponatremia with improvement in his sodium level at 130. Patient continues to have bilateral lower extremity edema 4+ noted. His blood pressure is still elevated despite different antihypertensive on board. We will adjust hydralazine 50 mg b.i.d. to t.i.d.. Otherwise patient denies any shortness of breaths or chest pain. 12/26/24 Patient was evaluated in the room, he reported that he feels a weak due to having his BP elevated this morning. Patient continues with current medication regimen, we will readjust medication- He will take Hydralazine 75 mg PO x1. Then patient will continue Hydralazine 50 mg now for QID. No other complaints. He can be dc today once his BP improved <150 mmHg, systolic. ] 12/28 the patient was seen and evaluated today. Apparently patient was not discharged as scheduled two days ago due to uncontrolled hypertension. We have been adjusting hydralazine, 50 mg q.i.d. has been given but today we will start patient on [id number] mg p.o. q.i.d. discussed this plan with the patient for which he agreed and verbalized understanding. 12/29/24 patient was examined today, patient spiked up with his blood pressure again this morning systolic in the 180's. We will readjust hydralazine now 100 mg q.i.d.. Plan on discharging the next24 hours if his blood pressure between 150-160 systolic 12/30/24 patient has persistent elevated blood pressure. Adjustment on medication has been done. At this point, we will be consulting pathology collector for further recommendations. 12/31/24 Patient was evaluated in the room, AOx3. He is with shortness of breath, using accessory muscle. On oxygen at 2Lpm via NC. His BP remained elevated despite adjustment on meds. Cxray showed pulmonary infiltrates. Patient is swollen to extremities, 2-3+ 01/01/25 patient was evaluated he is on room air, he still needs oxygen supplementation. His bilateral lower extremities four to 5+ edema. Patient was started with Lasix 40 mg IV b.i.d. since yesterday. His blood pressure is still elevated, systolic in the 170s, but diastolic is in the low side on the 40s. 01/02/25 patient was seen and examined. Case discussed with the RN his bilateral lower extremity 4+ edema slowly improving. Continue Lasix. Monitor electrolytes 01/03/25 patient was seen and examined. Case discussed with the RN his bilateral lower extremity 2+ edema slowly improving. Continue Lasix. Monitor electrolytes BP running high/use hydralazine 01/04/25 patient was seen and examined. Case discussed with the RN. Nephrology is following the patient. He was extremity edema is improving however his blood pressure is remaining high despite high doses of hydralazine and metoprolol. I will add amlodipine 10 mg 01/05/25 patient was seen and examined. Case discussed with the RN. He was doing better today his electrolytes were little off with hypomagnesemia. We will replace that. Adding amlodipine seems to be helping him he was blood pressure is still high but slightly better it is in the 160s 01/07/25: Patient was seen and examined this morning at bedside. The patient states he is feeling better today. The patient denies chest pain, shortness of breath, nausea, vomiting, fever, chills. The patient is currently on Doxazosin, Amlodipine, Hydralazine, Diltiazem, and Metoprolol. Per nurse, the patients blood pressure at 8 am was 177/74. Blood pressure recheck at Noon after administration of all the medications was 167/81. The patient states he did not use the CPAP machine overnight. We will do a secondary hypertension workup, including a renal doppler ultrasound, plasma aldosterone/renin ratio, plasma metanephrines, cortisol AM. We will add .1 mg of Clonidine BID for blood pressure control. 01/08/25: Patient was seen and examined this morning at bedside. Secondary hypertension workup still pending this morning. Renal ultrasound with doppler is negative for renal artery stenosis. Patient was started on home diabetic medication. Patients blood pressure this morning was 174/72. The patient denies chest pain, shortness of breath, nausea, vomiting, fever, chills, constipation, diarrhea. Patient continues on Doxazosin, Amlodipine, Hydralazine, Diltiazem, Metoprolol, and Clonidine. 01/09/25: Patient was seen and examined this morning at bedside. Secondary hypertension workup still pending. The patients blood pressure this morning was 144/64. Overnight, the blood pressure was 120/64. The patients current blood pressure regimen includes Hydralazine, Metoprolol, Diltiazem, Amlodipine, Doxazosin, and Clonidine. The patient reports no nausea, vomiting, fever, chills, chest pain, abdominal pain, constipation, and diarrhea. Patients blood pressure is controlled on this new medication regimen. We will monitor his blood pressure overnight per patients request, and discharge in the AM if patient continues to respond well to blood pressure medication regimen. We will obtain a chest x-ray to monitor for improvement of bilateral pulmonary infiltrate. 01/10/25: Patient was seen and examined this morning at bedside. Secondary hypertension workup still pending. The patients blood pressure this morning was 142/48. The patient will be discharged today on the medication regimen that he has been on in the hospital. The patients chest x-ray showed clear lungs. The patient does not have a primary care physician. I had an in depth conversation with the patient discussing the importance of establishing care with a PCP and following up with them within 1 week upon discharge. I informed the patient that we round at Dr. P[facility] clinic, and gave him as an option for his primary care physician. The patient verbalized understanding of the importance of establishing care with a PCP, and verbalized understanding of his medication regimen. The patient was advised to monitor his blood pressure at home with a blood pressure cuff he can purchase at a local pharmacy. The patient verbalized agreement to the plan, and stated that he will follow up with a PCP within 1 week upon discharge. REVIEW OF SYSTEMS CONSTITUTIONAL: Denies fevers, chills, or night sweats. No unintentional weight loss reported. NEUROLOGICAL: Denies headache, amaurosis fugax, motor weakness, sensory deficit, vertigo/spinning sensation, gait abnormalities, or tremors. ENT: No hearing loss, otalgia, otorrhea, rhinitis, rhinorrhea, hoarseness, or sore throat. CARDIOVASCULAR: As mentioned in HPI PULMONARY: Denies any shortness of breath, cough, phlegm/sputum, hemoptysis, pleuritic chest pain. SLEEP: Denies morning headaches, daytime somnolence or napping. Denies difficulty falling asleep, staying asleep, waking from sleep. Denies knowledge of snoring. GASTROINTESTINAL: Denies any type of dysphagia to either liquids or solids. Denies nausea, vomiting, pyrosis, early satiety, abdominal pain, diarrhea, constipation, or changes in stool consistency or caliber. Denies coffee-ground emesis, hematemesis, hematochezia, or melanotic stools. GENITOURINARY: Denies frequency, urgency, nocturia, hematuria or incontinence (Storage/Irritative symptoms.) Low urinary stream, straining to void, urinary intermittency or hesitancy, splitting of the voiding stream, terminal dribbling. ENDOCRINOLOGIC: Denies polyuria, polydipsia, polyphagia or heat/cold intolerances. HEMATOLOGIC: Denies thrombophilia/previous clots, or coagulopathy/bleeding disorders. ONCOLOGIC: Denies personal history of malignancy. DERMATOLOGIC: Denies rashes or pruritus. PSYCHIATRIC: Denies any suicidal or homicidal ideation. Denies hallucinations. PHYSICAL EXAM GENERAL APPEARANCE: The patient is awake, alert, and oriented, in no acute cardiopulmonary distress. NEUROLOGICAL: Cranial nerves II-XII grossly intact. Motor is 5/5 in bilateral upper and lower extremities proximal to distal. No sensory deficits. HEENT: Face is symmetric. Pupils are equal and reactive. Extraocular movements are intact. NECK: Supple. No JVD. No thyromegaly. No submental, submandibular, pre- /postauricular, occipital or supraclavicular lymphadenopathy. CHEST: Normal chest expansion. No Telemetry. LUNGS: Absence of any rales, rhonchi or any wheezing. CARDIOVASCULAR: Regular. S1 and S2 normal. No appreciable rubs, murmurs or gallops. ABDOMEN: Soft, nontender, and nondistended. There is no rebound, voluntary guarding, or rigidity. : Deferred. No Finley. EXTREMITIES: Non-edematous and not cyanotic. No clubbing. Good capillary refill. SKIN: No skin breakdown. Vital Signs (last 8hr) Date Time Temp Pulse Resp B/P (MAP) Pulse Ox O2 Delivery O2 Flow Rate FiO2 01/10/25 11:25 98.1 72 20 142/48 95 Room Air 21 01/10/25 08:38 67 115/56 01/10/25 08:36 67 115/56 01/10/25 08:00 97.9 63 16 111/35 98 Room Air 21 LABS: Laboratory: Test 01/10/25 11:19 01/10/25 03:54 Range/Units Whole Blood Glucose 225 #H 70-110 MG/DL Bedside Glucose Comment Notified Nurse White Blood Count 9.7 4.8-10.8 K/uL Red Blood Count 3.27 L 4.50-6.20 MIL/uL Hemoglobin 9.0 L 14.0-18.0 g/dL Hematocrit 28.1 L 42-54 % Mean Corpuscular Volume 85.9 79-99 fL Mean Corpuscular Hemoglobin 27.5 27.0-33.0 pg Mean Corpuscular Hemoglobin Concent 32.0 32.0-36.0 g/dL Red Cell Distribution Width 15.9 H 11.0-15.5 % Platelet Count 255 130-400 K/uL Mean Platelet Volume 9.0 7.5-10.5 fL Immature Granulocyte % (Auto) 0.9 0-1 % Neutrophils (%) (Auto) 70.9 40.0-77.0 % Lymphocytes (%) (Auto) 15.3 L 21.0-51.0 % Monocytes (%) (Auto) 9.4 3.0-13.0 % Eosinophils (%) (Auto) 3.0 0.0-8.0 % Basophils (%) (Auto) 0.5 0.0-5.0 % Neutrophils # (Auto) 6.9 1.8-7.7 K/uL Lymphocytes # (Auto) 1.5 1.0-4.8 K/uL Monocytes # (Auto) 0.9 0.1-1.0 K/uL Eosinophils # (Auto) 0.29 0.00-0.70 K/uL Basophils # (Auto) 0.05 0.00-0.20 K/uL Absolute Immature Granulocyte (auto 0.09 0-1 K/uL Nucleated Red Blood Cells 0.0 0.0-0.19 % Sodium Level 135 L 136-145 mmol/L Potassium Level 4.0 3.5-5.1 mmol/L Chloride Level 101 101-111 mmol/L Carbon Dioxide Level 27 21-32 mmol/L Blood Urea Nitrogen 42 H 7-18 mg/dL Creatinine 1.4 H 0.5-1.3 mg/dL Glomerular Filtration Rate Calc 58 >90 mL/min Random Glucose 81 # 70-105 mg/dL Total Calcium 8.3 L 8.5-10.1 mg/dL Total Bilirubin 0.2 0.2-1.0 mg/dL Aspartate Amino Transf (AST/SGOT) 30 10-37 U/L Alanine Aminotransferase (ALT/SGPT) 51 12-78 U/L Alkaline Phosphatase 183 H 50-136 U/L Total Protein 6.2 6.0-8.3 g/dL Albumin 2.5 L 3.5-5.0 g/dL Current Medications Medications (Trade) Dose Ordered Sig/Jose A Route PRN Reason Start Time Stop Time Status Last Admin Dose Admin Acetaminophen (TYLenol 325MG TAB) 650 mg Q6H PRN PO MILD PAIN (1-3) 12/23/24 09:30 01/22/25 09:29 12/31/24 08:07 650 MG Amlodipine Besylate (NorvASC 5MG TAB) 10 mg DAILY PO 01/05/25 09:00 02/04/25 08:59 01/10/25 08:31 10 MG Apixaban (EliquIS) 5 mg BID PO 12/23/24 09:30 01/22/25 09:29 01/10/25 08:29 5 MG Atorvastatin Calcium (LIPItor 40MG) 40 mg HS PO 12/23/24 21:00 01/22/25 20:59 01/09/25 21:37 40 MG Ceftriaxone Sodium (ROCEphine 1G INJ) 1 gm Q24H IVPB 12/31/24 11:30 01/10/25 11:29 DC 01/09/25 11:30 1 GM Clonidine HCl (CATApres 0.1 mg TAB) 0.1 mg BID PO 01/07/25 21:00 02/06/25 20:59 01/10/25 08:38 0.1 MG Dextrose (D50w) 50 ml AD PRN IV HYPOGLYCEMIA PROTOCOL 12/23/24 14:30 01/22/25 14:29 Diltiazem HCl (CARDIzem 120MG CD) 120 mg BID PO 12/30/24 10:30 01/24/25 08:59 01/10/25 08:28 120 MG Diltiazem HCl (CARDIzem 120MG CD) 120 mg DAILY PO 12/25/24 09:00 12/30/24 10:09 DC 12/30/24 08:27 120 MG Docusate Sodium (COLace 100MG CAP) 100 mg DAILY PO 12/29/24 09:00 01/28/25 08:59 01/10/25 08:29 100 MG Doxazosin Mesylate (Doxazosin Mesylate) 2 mg DAILY19 PO 01/06/25 19:00 01/06/25 12:05 DC Doxazosin Mesylate (Doxazosin Mesylate) 2 mg HS PO 01/06/25 21:00 02/05/25 18:59 01/09/25 21:35 2 MG Famotidine (Pepcid 20mg Vial) 20 mg BID IV 12/23/24 21:00 12/24/24 10:06 DC 12/24/24 09:45 20 MG Furosemide (LASix 40MG TAB) 40 mg BID@09,17 PO 01/03/25 17:00 02/02/25 16:59 01/10/25 08:31 40 MG Furosemide (LASix 40MG VIAL) 40 mg BID IV 12/31/24 13:00 01/01/25 13:38 DC 01/01/25 10:16 40 MG Furosemide (LASix 40MG VIAL) 40 mg Q12H IV 01/02/25 06:00 01/03/25 13:41 DC 01/03/25 05:08 40 MG Glimepiride (Glimepiride) 4 mg DAILY PO 01/08/25 09:00 02/07/25 08:59 01/10/25 08:28 4 MG Glucagon (Glucagon 1mg Kit) 1 mg AD PRN IM HYPOGLYCEMIA PROTOCOL 12/23/24 14:30 01/22/25 14:29 Hydralazine HCl (APRESOLine 20MG INJ) 10 mg Q6H PRN IV ADMINISTER FOR SBP > 160 12/23/24 09:30 01/22/25 09:29 01/04/25 04:20 10 MG Hydralazine HCl ([id number] TAB) 50 mg BID PO 12/24/24 21:00 12/25/24 09:49 DC 12/25/24 09:43 50 MG Hydralazine HCl ([id number] TAB) 50 mg QID PO 12/26/24 12:00 12/28/24 10:24 DC 12/28/24 08:16 50 MG Hydralazine HCl ([id number] TAB) 50 mg TID PO 12/25/24 10:00 12/26/24 11:40 DC 12/26/24 09:09 50 MG Hydralazine HCl ([id number] TAB) 75 mg QID PO 12/28/24 13:00 12/29/24 13:05 DC 12/29/24 12:40 75 MG Hydralazine HCl ([id number] TAB) 100 mg QID PO 12/29/24 17:00 01/28/25 16:59 01/10/25 08:28 100 MG Insulin Human Regular (humuLIN R 100 UNIT/ML 3ML) INSULIN SLIDING SCAL... ACHS SQ 12/23/24 16:30 01/02/25 13:42 DC 01/02/25 13:11 16 UNIT Insulin Human Regular (humuLIN R 100 UNIT/ML 3ML) INSULIN SLIDING SCAL... ACHS SQ 01/02/25 16:30 02/01/25 16:29 01/10/25 11:47 8 UNIT Iron Sucrose (VenoFER) 300 mg Q24H IVP 12/31/24 13:00 12/31/24 12:43 DC Iron Sucrose 300 mg/Sodium Chloride 250 ml @ 83 mls/hr Q24H IV 12/31/24 13:00 01/02/25 16:01 DC 01/02/25 13:53 83 MLS/HR Lactulose (Constulose 20gm/ 30ml Udcup) 20 gm BID PRN PO CONSTIPATION 12/28/24 16:30 01/27/25 16:29 12/28/24 16:48 20 GM Lactulose (Constulose 20gm/ 30ml Udcup) 20 gm BID PRN PO CONSTIPATION 12/30/24 14:30 12/30/24 14:21 DC Levothyroxine Sodium (SYNTHroid 150MCG TAB) 150 mcg SYN PO 12/25/24 06:30 01/24/25 06:29 01/10/25 06:41 150 MCG Magnesium Sulfate 50 ml @ 0 mls/hr PROTOCOL PRN IV Low Magnesium Level 01/05/25 03:30 02/04/25 03:29 01/07/25 11:22 25 MLS/HR Metoprolol Tartrate (loprESSOR) 12.5 mg BID PO 12/23/24 09:30 12/23/24 16:08 DC 12/23/24 09:43 12.5 MG Metoprolol Tartrate (loprESSOR) 25 mg BID PO 12/23/24 21:00 12/24/24 10:44 DC 12/24/24 09:45 25 MG Metoprolol Tartrate (loprESSOR) 100 mg BID PO 12/24/24 21:00 12/30/24 10:09 DC 12/30/24 08:27 100 MG Metoprolol Tartrate (loprESSOR) 100 mg TID PO 12/30/24 10:30 01/23/25 20:59 01/10/25 08:31 100 MG Morphine Sulfate (morPHINE 2MG SYG) 2 mg Q6H PRN IVP SEVERE PAIN (7-10) 12/23/24 09:30 12/28/24 12:29 DC Nitroglycerin (Nitrostat) 0.4 mg AD PRN SL CHEST PAIN 12/23/24 09:30 01/22/25 09:29 Ondansetron HCl (zoFRAN 4MG INJ) 4 mg Q8H PRN IVP NAUSEA/VOMITING 12/23/24 09:30 01/22/25 09:29 Pantoprazole Sodium (PROTonix 40MG TAB) 40 mg DAILY PO 12/25/24 09:00 01/24/25 08:59 01/10/25 08:29 40 MG Potassium Chloride 100 ml @ 100 mls/hr AD PRN IV POTASSIUM PROTOCOL 01/06/25 12:00 02/05/25 11:59 Potassium Chloride (KCl 10% Elixir 20meq/15ml) 20 meq AD PRN PO POTASSIUM PROTOCOL 01/06/25 12:00 02/05/25 11:59 01/06/25 17:44 20 MEQ Sertraline HCl (ZOloft 50 mg tab) 50 mg DAILY PO 12/25/24 09:00 01/24/25 08:59 01/10/25 08:31 50 MG Simethicone (Mylicon) 80 mg BID PRN PO GI GAS 01/05/25 15:30 01/29/25 21:59 Simethicone (Mylicon) 80 mg BIDPRN PRN PO GI GAS 12/30/24 22:00 01/05/25 15:05 DC Sodium Chloride 1,000 ml @ 75 mls/hr [id number] IV 12/23/24 14:30 12/27/24 21:49 DC 12/24/24 07:31 75 MLS/HR Spironolactone (Aldactone 25mg) 50 mg DAILY PO 12/25/24 09:00 01/24/25 08:59 01/10/25 08:29 50 MG Vitamin B Complex/ Vit C/Folic Acid (Nephrovite Tablet) 1 cap DAILY PO 12/31/24 09:00 01/30/25 08:59 01/10/25 08:29 1 CAP DIAGNOSTICS / RADIOLOGY: [address] [address] IMAGING REPORT Signed PATIENT: VERO WILKS MR#: [id number] : 1965 SEX: M AGE: 59 LOCATION: [facility] ORDER 02 STATUS: ADM IN REPORT#: [id number] SERVICE 00 REASON: evaluate for improvement of bilateral pulm infiltrates ORDERING PHYSICIAN: TIFFANY WARD MD PROCEDURE: CXR1VW - CHEST 1VW Exam Type: CHEST 1VW Clinical Information: evaluate for improvement of bilateral pulm infiltrates Comparison: None Findings: The lungs are clear of infiltrates. The heart is normal in size. The bony and soft tissue structures of the chest are unremarkable. Impression: Clear lungs. DICTATED BY: LUCIO TIERNEY MD DATE: 01/10/25925 ELECTRONICALLY SIGNED BY: LUCIO TIERNEY MD DATE: 01/10/25927 Assessment: Pulmonary infiltrate by chest-xray Uncontrolled hypertension POA- improving Chest pain, ruled out ACS POA suspected unc HTN related Hyponatremia POA - improving Atrial fibrillation POA Type 2 diabetes POA Anemia POA CAD Hyperlipidemia Hypothyroidism Anxiety PLAN: Uncontrolled hypertension -Patient current medication regimen: Doxazosin, Amlodipine, Diltiazem, Hydralazine, Metoprolol, and IV Lasix. -Blood pressure still elevated today. Will add .1 mg Clonidine BID. -We will continue to follow nephrology recommendations -Continue Iron Sucrose IV. -2D echo showed 60-65%, stage I diastolic dysfunction. -Secondary hypertension workup pending. -NPO after midnight for renal doppler ultrasound. Negative for Renal artery stenosis. -Continue current BP regimen, and follow up with PCP within 1 week upon discharge to review medications and for further monitoring. Diabetes Mellitus Type 2 - Insulin sliding scale coverage. Glucometer checks a.c. and HS. Hypoglycemic precautions per protocol. - Glimepiride started. - Patient will be discharged today, and restarted on his home diabetic medications which include Glimepiride and Metformin. Pulmonary infiltrate by chest x-ray -Rocephin discontinued -Clear lungs on most recent chest x-ray. -Continue home Eliquis for DVT prophylaxis -Pepcid for GI prophylaxis TIFFANY WARD MD January 10, 2025 12:41
--- NOTE | 2025-01-10 13:37 | DS ---
Discharge Summary Hospital Course Summary: The patient is a 59-year-old male with history of CKD, and hyponatremia. Patient was admitted for complaints of bilateral lower extremity edema, shortness of breath, and weakness. Patient's lab reviewed in the ED, and continues with hyponatremia with improvement in his sodium level at 130. Chest x-ray in the ED showed bilateral pulmonary infiltrates suggestive of pulmonary vascular congestion with superimposed pneumonitis. The patients blood pressure was persistently elevated, despite different antihypertensive on board. The hydralazine was adjusted from 50 mg b.i.d. to t.i.d. The following day, the patient reported feeling weak due to elevated blood pressure in the morning. The patients medications were readjusted once more, to Hydralazine 50 mg QID. The patient was suppose to be discharged if his blood pressure stabilized, however the patients blood pressure continued to stay elevated despite the changes to his medication regimen. The patients blood pressure regiment was adjusted to Hydralazine 75 mg QID and Diltiazem, however the patients systolic blood p ressure remained in the 180's. His medication was adjusted once more, and Hydralazine was readjusted to 100 mg QID. The following day, patients blood pressure remained elevated and adjustments to his medications were done. Nephrology was consulted due to uncontrolled hypertension. The patient was started on Lasix 40 mg BID, and metoprolol 100 mg TID, however his blood pressure remained elevated. 10 mg of Amlodipine was added to the medication regimen, however the patient continued with elevated blood pressures. Although the Amlodipine was able to keep the systolic BP in the 160's, the patient was still not deemed stable for discharge. Doxazosin was added to the medication regimen, and a secondary hypertension worked was initiated. A Renal Doppler ultrasound was negative for renal artery stenosis. Cortisol AM was within normal limits. Plasma aldosterone/renin ration was still in process, as were the plasma metanephrines. The patient continued on Doxazosin, Amlodipine, Hydralazine, Diltiazem, and Metoprolol, however blood pressure was still increased with systolic in the 170's. At this point, Clonidine was added for blood pressure control. The patients blood pressure was controlled on this regimen of Doxazosin, Amlodipine, Hydralazine, Diltiazem, Metoprolol, and Clonidine. The patients blood pressure in the morning was 144/64. The patient had occasional spikes in his blood pressure, the highest being 162/70, and the patient was kept overnight to ensure he was tolerating the medication. The following day, the patients blood pressure was stable at 142/48. The patients chest x-ray showed clear lungs. The patient was deemed stable for discharge. The patient does not have a primary care physician. I explained to the patient that he would need to establish care and follow up with a primary care physician within 1 week upon discharge to review his medication regimen, and to further investigate for secondary causes of hypertension. The patient verbalized agreement. I informed the patient of his changes to his medication regimen. Patient is on Clonidine and Metoprolol; clonidine should not be stopped abruptly due to risk of rebound hypertension, particularly in the setting of concurrent beta-melany therapy. Gradual tapering under medical supervision is required if discontinuation of this medication is considered. I explained this to the patient in detail, and explained the risks of suddenly discontinuing his blood pressure medication. The patient verbalized understanding. [employer]): Nephrology Procedure(s): [place] [id number] IMAGING REPORT Signed PATIENT: VERO WILKS MR#: [id number] : 1965 SEX: M AGE: 59 LOCATION: [facility] ORDER 02 STATUS: ADM IN REPORT#: [id number] SERVICE 00 REASON: evaluate for improvement of bilateral pulm infiltrates ORDERING PHYSICIAN: TIFFANY WARD MD PROCEDURE: CXR1VW - CHEST 1VW Exam Type: CHEST 1VW Clinical Information: evaluate for improvement of bilateral pulm infiltrates Comparison: None Findings: The lungs are clear of infiltrates. The heart is normal in size. The bony and soft tissue structures of the chest are unremarkable. Impression: Clear lungs. DICTATED BY: LUCIO TIERNEY MD DATE: 01/10/25925 ELECTRONICALLY SIGNED BY: LUCIO TIERNEY MD DATE: 01/10/25927 [place] [address] [id number] IMAGING REPORT Signed PATIENT: VERO WILKS MR#: [id number] : 1965 SEX: M AGE: 59 LOCATION: [facility]AH ORDER [id number] STATUS: ADM IN REPORT#: [id number] SERVICE REASON: eval for renal artery stenosis ORDERING PHYSICIAN: DELMIS GUTIÉRREZ MD PROCEDURE: ART IN OUT - US ART IN & VEIN OUT RENAL ARTERY ULTRASOUND. INDICATION: Rule out renal artery stenosis. COMPARISON: None available. FINDINGS: There is no significant aortic plaque, and the peak systolic velocity in the aorta is normal before and after the renal artery takeoff bilaterally. The highest peak systolic velocity of the renal arteries is normal bilaterally. Bilateral RAR's are within normal limits. IMPRESSION: No evidence of renal artery stenosis. DICTATED BY: LUCIO TIERNEY MD DATE: 01/08/25 09 ELECTRONICALLY SIGNED BY: LUCIO TIERNEY MD DATE: 01/08/25 09 [place] [address] [address] IMAGING REPORT Signed PATIENT: VERO WILKS MR#: [id number] : 1965 SEX: M AGE: 59 LOCATION: [facility] ORDER 1418 STATUS: ADM IN REPORT#: [id number] SERVICE 1417 REASON: hypoxemia ORDERING PHYSICIAN: ADRI WOMACK PROCEDURE: CXR1VW - CHEST 1VW CHEST 1VW HISTORY: Hypoxemia COMPARISON: 12/23/2024 FINDINGS: A frontal projection of the chest was obtained. There are bilateral pulmonary infiltrates suggestive of pulmonary vascular congestion with possible superimposed pneumonitis. The heart is enlarged. Postop changes are seen of left clavicle with orthopedic fixation plates and screws. No evidence of aortic calcification is seen. IMPRESSION: 1. Bilateral pulmonary infiltrates are seen suggestive of pulmonary vascular congestion with possible superimposed pneumonitis. DICTATED BY: MICHELLE FRAZIER MD DATE: 12/30/24 155 ELECTRONICALLY SIGNED BY: MICHELLE FRAZIER MD DATE: 12/30/24 155 [place] [address] [id number] IMAGING REPORT Signed PATIENT: VERO WILKS MR#: [id number] : 1965 SEX: M AGE: 59 LOCATION: [facility] ORDER 141 STATUS: ADM IN REPORT#: [id number] SERVICE 1418 REASON: Assess LV function ORDERING PHYSICIAN: OLGA IVAN PROCEDURE: ECHO CMP - ECHO 2-D COMPLETE APPROVED REPORT EXAM: Two-dimensional and M-mode echocardiogram with Doppler and color Doppler. INDICATION ICD: Assess LV Function 2D Dimensions RVDd 3.8 cm LVEF(%) 67.8 (>50%) LVED Vol(simp.) 121.6 mL IVSd 1.1 (0.7-1.1cm) FS(%) 37 % LVES Vol(simp.) 48.9 mL LVDd 3.6 (3.8-5.6cm) LA (2D) 4.0 (1.6-4.0cm) LVEF(%, simp.) 60 % PWd 1.1 (0.7-1.1cm) Ao Root(2D) 3.1 (2.0-3.7cm) LA ESV INDEX (BP) 40.63 mL/m2 LVDs 2.3 (2.5-4.0cm) LVOT diam 2.0 (1.8-2.4cm) IVC diam 2.0 cm Deformation Strain Apical 4 -16.4 % Apical 2 -14.1 % Apical 3 -17.5 % Global Strain -16.0 % M-Mode Dimensions EPSS 0.7 cm LA (MM) 4.4 (1.6-4.0cm) Ao Root(MM) 2.6 (2.0-3.7cm) Aortic Valve AoV Vmax 0.0 m/s Ao Peak GR 0.0 mmHg LVOT Vmax 1.4 m/s AoV VTI 0.5 m Ao Mean GR 9.4 mmHg LVOT VTI 0.33 m MIKE (VMAX) 2.15 cm2 MIKE (VTI) 2.2 cm2 Mitral Valve MV E Vmax 150.9 cm/s DECEL Time 169 ms MV A Vmax 117.9 cm/s P 1/2 T 43 ms E/A ratio 1.3 MVA (PHT) 5.2 cm2 TDI E/E' Medial 20.5 E/E' Lateral 18.1 Medial E' Peak V 7.35 cm/s Lateral E' Peak V 8.34 cm/s Pulmonary Valve PV Vmax 1.5 m/s PV Peak GR 8.9 mmHg Left Ventricle The left ventricle is normal size. No regional wall motion abnormalities noted. Mild concentric left ventricular hypertrophy. Left ventricular systolic function is normal, estimated LVEF is 60 to 65%. Stage II, diastolic dysfunction. Right Ventricle The right ventricle is normal size. The right ventricular systolic function is normal. Atria The left atrium is mildly dilated, 41 mL/m�. The right atrium size is normal. Aortic Valve Aortic valve is trileaflet. The leaflets are thickened and calcified. Trace aortic regurgitation. Mild aortic stenosis: Peak velocity 2.2 m/s, mean gradient 9 mmHg. Mitral Valve The mitral valve is normal in structure. The leaflets are mildly thickened and calcified. Trace mitral regurgitation. There is no mitral valve stenosis. Tricuspid Valve The tricuspid valve is normal in structure. Trace tricuspid regurgitation. RVSP is normal. Pulmonic Valve Pulmonic valve is not well visualized. Great Vessels The aortic root is normal in size. The IVC is normal in size and collapses >50% with inspiration. Pericardium There is no pericardial effusion. Conclusion The left atrium is mildly dilated, 41 mL/m�. Mild concentric left ventricular hypertrophy. No regional wall motion abnormalities noted. Left ventricular systolic function is normal, estimated LVEF is 60 to 65%. Stage II, diastolic dysfunction. Mild aortic stenosis: Peak velocity 2.2 m/s, mean gradient 9 mmHg. Trace aortic regurgitation. Trace mitral regurgitation. Trace tricuspid regurgitation. PASP is normal. There is no pericardial effusion. DICTATED BY: RENATO BILLS MD DATE: 12/24/24 0905 ELECTRONICALLY SIGNED BY: RENATO BILLS MD DATE: 12/25/24 005 [place] [address] [place] [id number] IMAGING REPORT Signed PATIENT: VERO WILKS MR#: [id number] : 1965 SEX: M AGE: 59 LOCATION: ED ORDER 5 STATUS: REG ER REPORT#: [id number] SERVICE REASON: CHEST PAIN ORDERING PHYSICIAN: MUSTAPHA HERBERT MD PROCEDURE: CXR1VW - CHEST 1VW CHEST 1VW HISTORY: Chest pain COMPARISON: 08/14/2024 FINDINGS: A frontal projection of the chest was obtained. No acute pulmonary infiltrates is seen. The heart is borderline enlarged. Postop changes are seen of left clavicle. Aortic calcifications are seen. Prominent interstitial markings are seen. IMPRESSION: 1. No acute pulmonary infiltrate is seen. 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 Assessment/Plan: Assessment: Pulmonary infiltrate by chest-xray Uncontrolled hypertension POA- improving Chest pain, ruled out ACS POA suspected unc HTN related Hyponatremia POA - improving Atrial fibrillation POA Type 2 diabetes POA Anemia POA CAD Hyperlipidemia Hypothyroidism Anxiety PLAN: Uncontrolled hypertension -Patient current medication regimen: Doxazosin, Amlodipine, Diltiazem, Hydralazine, Metoprolol, and IV Lasix. -Blood pressure still elevated today. Will add .1 mg Clonidine BID. -We will continue to follow nephrology recommendations -Continue Iron Sucrose IV. -2D echo showed 60-65%, stage I diastolic dysfunction. -Secondary hypertension workup pending. -NPO after midnight for renal doppler ultrasound. Negative for Renal artery stenosis. -Continue current BP regimen, and follow up with PCP within 1 week upon discharge to review medications and for further monitoring. Diabetes Mellitus Type 2 - Insulin sliding scale coverage. Glucometer checks a.c. and HS. Hypoglycemic precautions per protocol. - Glimepiride started. - Patient will be discharged today, and restarted on his home diabetic medications which include Glimepiride and Metformin. Pulmonary infiltrate by chest x-ray -Rocephin discontinued -Clear lungs on most recent chest x-ray. -Continue home Eliquis for DVT prophylaxis -Pepcid for GI prophylaxis Discharge Instructions: Follow up appointments: Patient was advised to establish care with a primary care physician and follow up with them within 1 week upon discharge. Procedures: none Imaging: Report attached to summary Microbiology: n/a Activity: Ad darcie Home medications: Adjusted. discontinued home medication of diltiazem, hydralazine, and metoprolol New medications: Medications readjusted. Patient sent home with new prescription for Hydralazine, Metoprolol, Diltiazem, Amlodipine, Clonidine, Doxazosin, Atorvastatin, Furosemide. Teaching: We reinforced the importance of compliance with follow up appointments, and medication compliance. I informed the patient of his changes to his medication regimen. Patient is on Clonidine and Metoprolol; I advised the patient that Clonidine should not be stopped abruptly due to risk of rebound hypertension, particularly in the setting of concurrent beta-melany therapy. Gradual tapering under medical supervision is required if discontinuation of this medication is considered. I explained this to the patient in detail, and explained the risks of suddenly discontinuing his blood pressure medication. The patient verbalized understanding. Advised the patient to establish care with a primary care physician and follow up with them within 1 week upon discharge. Emergency instructions: The patient was instructed to present to the nearest emergency department or call 911 should their symptoms return or worsen. Home Medications: Active Scripts Furosemide (Lasix 40Mg Tab) 40 Mg Tablet, 40 MG PO BID@09,17, #60 TAB 0 Refills Prov:TIFFANY WARD MD 01/10/25 Atorvastatin Calcium (LIPITOR) 40 Mg Tablet, 40 MG PO HS, #30 TAB Prov:TIFFANY WARD MD 01/10/25 Metoprolol Tartrate (Lopressor 50Mg Tab) 50 Mg Tab, 100 MG PO TID, #90 TAB 0 Refills Prov:TIFFANY WARD MD 01/10/25 Hydralazine HCl (Apresoline) 25 Mg Tab, 100 MG PO QID, #120 TAB 0 Refills Prov:TIFFANY WARD MD 01/10/25 Doxazosin Mesylate (Doxazosin Mesylate) 2 Mg Tablet, 2 MG PO HS, #30 TAB Prov:TIFFANY WARD MD 01/10/25 Diltiazem HCl (Cardizem Cd 120 mg) 120 Mg Cap.er.24h, 120 MG PO BID, #60 CAPSULE.DR 0 Refills Prov:TIFFANY WARD MD 01/10/25 Clonidine HCl (Catapress) 0.1 Mg Tab, 0.1 MG PO BID, #60 TAB 0 Refills Prov:TIFFANY WARD MD 01/10/25 Amlodipine Besylate (Norvasc 5Mg Tab) 5 Mg Tablet, 10 MG PO DAILY, #30 TAB Prov:TIFFANY WARD MD 01/10/25 Reported Medications Pantoprazole Sodium (Protonix) 40 Mg Ectab, 1 TAB PO DAILY for 30 Days, #30 TAB 0 Refills 12/23/24 Glimepiride (Glimepiride) 4 Mg Tablet, 1 TAB PO DAILY for 30 Days, #30 TAB 0 Refills 12/23/24 Apixaban (Eliquis) 5 Mg Tablet, 1 TAB PO BID for 30 Days, #60 TAB 0 Refills 12/23/24 Metformin HCl (Metformin HCl) 500 Mg Tablet, 1 TAB PO BIDMEALS for 30 Days, #60 TAB 0 Refills 07/14/24 Levothyroxine Sodium (Levothyroxine) 150 Mcg Capsule, 1 CAP PO DAILY for 30 Days, #30 CAP 0 Refills 06/25/24 Spironolactone (Spironolactone) 50 Mg Tablet, 1 TAB PO DAILY for 30 Days, #30 TAB 0 Refills 06/25/24 Sertraline HCl (Zoloft) 50 Mg Tablet, 50 MG PO DAILY, TAB 06/25/24 Discontinued Reported Medications Diltiazem HCl (Diltiazem 24Hr ER) 120 Mg Cap.er.24h, 1 CAP PO DAILY 12/23/24 Hydralazine HCl (Hydralazine HCl) 50 Mg Tablet, 1 TAB PO BID for 30 Days, #60 TAB 0 Refills 12/23/24 Metoprolol Tartrate (Metoprolol Tartrate) 100 Mg Tablet, 1 TAB PO BID for 30 Days, #60 TAB 0 Refills 07/14/24 New Medications: Amlodipine Besylate (Norvasc 5Mg Tab) 5 Mg Tablet 10 MG PO DAILY, #30 TAB Atorvastatin Calcium (Lipitor) 40 Mg Tablet 40 MG PO HS, #30 TAB Clonidine HCl (Catapress) 0.1 Mg Tab 0.1 MG PO BID, #60 TAB 0 Refills Diltiazem HCl (Cardizem Cd 120 mg) 120 Mg Cap.er.24h 120 MG PO BID, #60 CAPSULE.DR 0 Refills Doxazosin Mesylate (Doxazosin Mesylate) 2 Mg Tablet 2 MG PO HS, #30 TAB Furosemide (Lasix 40Mg Tab) 40 Mg Tablet 40 MG PO BID@,17, #60 TAB 0 Refills Hydralazine HCl (Apresoline) 25 Mg Tab 100 MG PO QID, #120 TAB 0 Refills Metoprolol Tartrate (Lopressor 50Mg Tab) 50 Mg Tab 100 MG PO TID, #90 TAB 0 Refills Continued Medications: Apixaban (Eliquis) 5 Mg Tablet 1 TAB PO BID for 30 Days, #60 TAB 0 Refills Glimepiride (Glimepiride) 4 Mg Tablet 1 TAB PO DAILY for 30 Days, #30 TAB 0 Refills Levothyroxine Sodium (Levothyroxine) 150 Mcg Capsule 1 CAP PO DAILY for 30 Days, #30 CAP 0 Refills Metformin HCl (Metformin HCl) 500 Mg Tablet 1 TAB PO BIDMEALS for 30 Days, #60 TAB 0 Refills Pantoprazole Sodium (Protonix) 40 Mg Ectab 1 TAB PO DAILY for 30 Days, #30 TAB 0 Refills Sertraline HCl (Zoloft) 50 Mg Tablet 50 MG PO DAILY, TAB Spironolactone (Spironolactone) 50 Mg Tablet 1 TAB PO DAILY for 30 Days, #30 TAB 0 Refills Discontinued Medications: Diltiazem HCl (Diltiazem 24Hr ER) 120 Mg Cap.er.24h 1 CAP PO DAILY Hydralazine HCl (Hydralazine HCl) 50 Mg Tablet 1 TAB PO BID for 30 Days, #60 TAB 0 Refills Metoprolol Tartrate (Metoprolol Tartrate) 100 Mg Tablet 1 TAB PO BID for 30 Days, #60 TAB 0 Refills TIFFANY WARD MD January 10, 2025 13:37
[2025-01-10] MEDS ORDERED: DOXA2TAB2 PO (14:04)
[2025-01-10] MEDS ORDERED: ATOR40TA69 PO (14:04)
[2025-01-10] MEDS ORDERED: FURO40TA7 PO (14:04)
[2025-01-10] MEDS ORDERED: METO50 PO (14:04)
[2025-01-10] MEDS ORDERED: AMLO5TAB4 PO (14:04)
[2025-01-10] MEDS ORDERED: DILT120C89 PO (14:04)
[2025-01-10] MEDS ORDERED: CLON0.1T2 PO (14:04)
[2025-01-10] MEDS ORDERED: HYDR25 PO (14:04)
--- NOTE | 2025-01-10 14:34 | PN ---
NEPHROLOGY PROGRESS NOTE Date/Time Patient Seen: January 10, 2025 SUBJECTIVE: This is a 59-year-old male with a past medical history of atrial fibrillation on chronic anticoagulation, chronic hyponatremia, diabetes mellitus type 2, obstructive sleep apnea, hypothyroidism, hypertension, obesity, congestive heart failure, chronic kidney disease, and anemia. He presents to the emergency department with complaints of chest pain In the emergency room he was to have hyponatremia, elevated BUN/creatinine, and anemia We are consulted for renal failure Renal function and electrolytes are stable. He continues with oral diuretics. Renal ultrasound showed normal renal and bladder sonogram. No hydronephrosis on January 2024. He was seen in the medical floor, in no acute distress No family at the bedside Prognosis remains guarded REVIEW OF SYSTEMS: GENERAL: Positive for chest pain and dizziness NEUROLOGIC: Negative for any blurry vision, blind spots, double vision, facial asymmetry, dysphagia, dysarthria, hemiparesis, hemisensory deficits, vertigo, ataxia. HEENT: Negative for any head trauma, neck trauma, neck stiffness, photophobia, phonophobia, sinusitis, rhinitis. CARDIAC: Negative for any chest pain, dyspnea on exertion, paroxysmal nocturnal dyspnea, peripheral edema. PULMONARY: Negative for any shortness of breath, wheezing, COPD, or TB exposure. GASTROINTESTINAL: Negative for any abdominal pain, nausea, vomiting, bright red blood per rectum, melena. GENITOURINARY: Negative for any dysuria, hematuria, incontinence. INTEGUMENTARY: Negative for any rashes, cuts, insect bites. RHEUMATOLOGIC: Negative for any joint pains, photosensitive rashes, history of vasculitis or kidney problems. HEMATOLOGIC: Negative for any abnormal bruising, frequent infections or bleeding. PHYSICAL EXAM: GENERAL: Alert and oriented x 3. No acute distress. Well-nourished. EYES: EOMI. Anicteric. HENT: Moist mucous membranes. No scleral icterus. No cervical lymphadenopathy. LUNGS: Clear to auscultation bilaterally. No accessory muscle use. CARDIOVASCULAR: Regular rate and rhythm. No murmur. No JVD. ABDOMEN: Soft, non-tender and non-distended. No palpable masses. EXTREMITIES: No edema. Non-tender. SKIN: No rashes or lesions. Warm. NEUROLOGIC: No focal neurological deficits. CN II-XII grossly intact, but not individually tested. PSYCHIATRIC: Cooperative. Appropriate mood and affect. LABORATORY: [ ] Hematology Labs: Test 01/10/25 03:54 Range/Units White Blood Count 9.7 4.8-10.8 K/uL Red Blood Count 3.27 L 4.50-6.20 MIL/uL Hemoglobin 9.0 L 14.0-18.0 g/dL Hematocrit 28.1 L 42-54 % Mean Corpuscular Volume 85.9 79-99 fL Mean Corpuscular Hemoglobin 27.5 27.0-33.0 pg Mean Corpuscular Hemoglobin Concent 32.0 32.0-36.0 g/dL Red Cell Distribution Width 15.9 H 11.0-15.5 % Platelet Count 255 130-400 K/uL Mean Platelet Volume 9.0 7.5-10.5 fL Immature Granulocyte % (Auto) 0.9 0-1 % Neutrophils (%) (Auto) 70.9 40.0-77.0 % Lymphocytes (%) (Auto) 15.3 L 21.0-51.0 % Monocytes (%) (Auto) 9.4 3.0-13.0 % Eosinophils (%) (Auto) 3.0 0.0-8.0 % Basophils (%) (Auto) 0.5 0.0-5.0 % Neutrophils # (Auto) 6.9 1.8-7.7 K/uL Lymphocytes # (Auto) 1.5 1.0-4.8 K/uL Monocytes # (Auto) 0.9 0.1-1.0 K/uL Eosinophils # (Auto) 0.29 0.00-0.70 K/uL Basophils # (Auto) 0.05 0.00-0.20 K/uL Absolute Immature Granulocyte (auto 0.09 0-1 K/uL Nucleated Red Blood Cells 0.0 0.0-0.19 % Chemistry Labs: Test 01/10/25 11:19 01/10/25 03:54 Range/Units Whole Blood Glucose 225 #H 70-110 MG/DL Bedside Glucose Comment Notified Nurse Sodium Level 135 L 136-145 mmol/L Potassium Level 4.0 3.5-5.1 mmol/L Chloride Level 101 101-111 mmol/L Carbon Dioxide Level 27 21-32 mmol/L Blood Urea Nitrogen 42 H 7-18 mg/dL Creatinine 1.4 H 0.5-1.3 mg/dL Glomerular Filtration Rate Calc 58 >90 mL/min Random Glucose 81 # 70-105 mg/dL Total Calcium 8.3 L 8.5-10.1 mg/dL Total Bilirubin 0.2 0.2-1.0 mg/dL Aspartate Amino Transf (AST/SGOT) 30 10-37 U/L Alanine Aminotransferase (ALT/SGPT) 51 12-78 U/L Alkaline Phosphatase 183 H 50-136 U/L Total Protein 6.2 6.0-8.3 g/dL Albumin 2.5 L 3.5-5.0 g/dL DIAGNOSTICS / RADIOLOGY: REASON: evaluate for improvement of bilateral pulm infiltrates ORDERING PHYSICIAN: TIFFANY WARD MD PROCEDURE: CXR1VW - CHEST 1VW Exam Type: CHEST 1VW Clinical Information: evaluate for improvement of bilateral pulm infiltrates Comparison: None Findings: The lungs are clear of infiltrates. The heart is normal in size. The bony and soft tissue structures of the chest are unremarkable. Impression: Clear lungs. DICTATED BY: LUCIO TIERNEY MD DATE: 01/10/25925 REASON: hypoxemia ORDERING PHYSICIAN: ADRI WOMACK PROCEDURE: CXR1VW - CHEST 1VW CHEST 1VW HISTORY: Hypoxemia COMPARISON: 12/23/2024 FINDINGS: A frontal projection of the chest was obtained. There are bilateral pulmonary infiltrates suggestive of pulmonary vascular congestion with possible superimposed pneumonitis. The heart is enlarged. Postop changes are seen of left clavicle with orthopedic fixation plates and screws. No evidence of aortic calcification is seen. IMPRESSION: 1. Bilateral pulmonary infiltrates are seen suggestive of pulmonary vascular congestion with possible superimposed pneumonitis. DICTATED BY: MICHELLE FRAZIER MD DATE: 12/30/24 1550 REASON: Assess LV function ORDERING PHYSICIAN: OLGA IVAN PROCEDURE: ECHO CMP - ECHO 2-D COMPLETE APPROVED REPORT EXAM: Two-dimensional and M-mode echocardiogram with Doppler and color Doppler. INDICATION ICD: Assess LV Function 2D Dimensions RVDd 3.8 cm LVEF(%) 67.8 (>50%) LVED Vol(simp.) 121.6 mL IVSd 1.1 (0.7-1.1cm) FS(%) 37 % LVES Vol(simp.) 48.9 mL LVDd 3.6 (3.8-5.6cm) LA (2D) 4.0 (1.6-4.0cm) LVEF(%, simp.) 60 % PWd 1.1 (0.7-1.1cm) Ao Root(2D) 3.1 (2.0-3.7cm) LA ESV INDEX (BP) 40.63 mL/m2 LVDs 2.3 (2.5-4.0cm) LVOT diam 2.0 (1.8-2.4cm) IVC diam 2.0 cm Deformation Strain Apical 4 -16.4 % Apical 2 -14.1 % Apical 3 -17.5 % Global Strain -16.0 % M-Mode Dimensions EPSS 0.7 cm LA (MM) 4.4 (1.6-4.0cm) Ao Root(MM) 2.6 (2.0-3.7cm) Aortic Valve AoV Vmax 0.0 m/s Ao Peak GR 0.0 mmHg LVOT Vmax 1.4 m/s AoV VTI 0.5 m Ao Mean GR 9.4 mmHg LVOT VTI 0.33 m MIKE (VMAX) 2.15 cm2 MIKE (VTI) 2.2 cm2 Mitral Valve MV E Vmax 150.9 cm/s DECEL Time 169 ms MV A Vmax 117.9 cm/s P 1/2 T 43 ms E/A ratio 1.3 MVA (PHT) 5.2 cm2 TDI E/E' Medial 20.5 E/E' Lateral 18.1 Medial E' Peak V 7.35 cm/s Lateral E' Peak V 8.34 cm/s Pulmonary Valve PV Vmax 1.5 m/s PV Peak GR 8.9 mmHg Left Ventricle The left ventricle is normal size. No regional wall motion abnormalities noted. Mild concentric left ventricular hypertrophy. Left ventricular systolic function is normal, estimated LVEF is 60 to 65%. Stage II, diastolic dysfunction. Right Ventricle The right ventricle is normal size. The right ventricular systolic function is normal. Atria The left atrium is mildly dilated, 41 mL/m�. The right atrium size is normal. Aortic Valve Aortic valve is trileaflet. The leaflets are thickened and calcified. Trace aortic regurgitation. Mild aortic stenosis: Peak velocity 2.2 m/s, mean gradient 9 mmHg. Mitral Valve The mitral valve is normal in structure. The leaflets are mildly thickened and calcified. Trace mitral regurgitation. There is no mitral valve stenosis. Tricuspid Valve The tricuspid valve is normal in structure. Trace tricuspid regurgitation. RVSP is normal. Pulmonic Valve Pulmonic valve is not well visualized. Great Vessels The aortic root is normal in size. The IVC is normal in size and collapses >50% with inspiration. Pericardium There is no pericardial effusion. Conclusion The left atrium is mildly dilated, 41 mL/m�. Mild concentric left ventricular hypertrophy. No regional wall motion abnormalities noted. Left ventricular systolic function is normal, estimated LVEF is 60 to 65%. Stage II, diastolic dysfunction. Mild aortic stenosis: Peak velocity 2.2 m/s, mean gradient 9 mmHg. Trace aortic regurgitation. Trace mitral regurgitation. Trace tricuspid regurgitation. PASP is normal. There is no pericardial effusion. DICTATED BY: RENATO BILLS MD DATE: 12/24/24 0905 REASON: CHEST PAIN ORDERING PHYSICIAN: MUSTAPHA HERBERT MD PROCEDURE: CXR1VW - CHEST 1VW CHEST 1VW HISTORY: Chest pain COMPARISON: 08/14/2024 FINDINGS: A frontal projection of the chest was obtained. No acute pulmonary infiltrates is seen. The heart is borderline enlarged. Postop changes are seen of left clavicle. Aortic calcifications are seen. Prominent interstitial markings are seen. IMPRESSION: 1. No acute pulmonary infiltrate is seen. DICTATED BY: MICHELLE FRAZIER MD DATE: 12/23/24 0844 ASSESSMENT: Hyponatremia Anemia Uncontrolled hypertension Chest pain, ruled out ACS POA Atrial fibrillation Type 2 diabetes CAD Hyperlipidemia Hypothyroidism Anxiety PLAN: Labs, diagnostic, radiologic exams reviewed and interpreted by myself and supervising physician. We have reviewed external records in detail From the nephrology standpoint, he may be discharged Continue with diuretics Follow-up in the renal clinic in 1-2 weeks. Require close monitoring of renal function and electrolytes Order CBC, CMP, and electrolytes in am BiPAP as necessary, for respiratory distress Monitor blood pressure adjust medication doses as needed Avoid hypotensive episodes May use Dilaudid 0.5 mg IV every 6 hours as needed for severe pain Monitor blood sugars Strict intake, output, and daily weight should be monitored Please renally adjust medications Avoid nephrotoxic and nonsteroidal drugs Avoid contrast if possible Will continue to monitor renal function, anemia, electrolytes Treatment plan discussed with patient Questions were answered We have discussed with the other team physicians in detail about the care plan We will continue to monitor the patient closely ATTESTATION BY PHYSICIAN I have seen and examined the patient. I reviewed the documentation, medical decision making, and treatment plan as noted by the mid-level provider above. I agree with the findings and plan of care. NOEMY SAMUELS MD, [facility] January 10, 2025 14:34
--- NOTE | 2025-01-13 18:08 | NUR ---
Transitional Phone Call Attempted to call twice, left message and no return call.
== END 2025-01-10 14:35 | disposition home or self-care (01) | DRG 303 ==
LOC: EDH 06:11 → EDHIP 06:12 → 4AH 20:12
PROVIDERS: ADMIT Internal Medicine; ATTEND Internal Medicine
DX: I25.119 Atherosclerotic heart disease of native coronary artery with unspecified angina pectoris (principal); I13.0 Hypertensive heart and chronic kidney disease with heart failure and stage 1 through stage 4 chronic kidney disease, or unspecified chronic kidney disease; E87.1 Hypo-osmolality and hyponatremia; I48.91 Unspecified atrial fibrillation; I50.9 Heart failure, unspecified; N18.9 Chronic kidney disease, unspecified; E11.22 Type 2 diabetes mellitus with diabetic chronic kidney disease; D64.9 Anemia, unspecified; E03.9 Hypothyroidism, unspecified; F41.9 Anxiety disorder, unspecified; E78.00 Pure hypercholesterolemia, unspecified; I16.0 Hypertensive urgency; I15.9 Secondary hypertension, unspecified; E66.9 Obesity, unspecified; E83.42 Hypomagnesemia; F32.A Depression, unspecified; K21.9 Gastro-esophageal reflux disease without esophagitis; Z79.01 Long term (current) use of anticoagulants; Z79.899 Other long term (current) drug therapy; Z68.33 Body mass index [BMI] 33.0-33.9, adult
CPT/HCPCS: 36415; 71045; 76770; 80048; 80051; 80053; 80061; 81001; 82088; 82270; 82533; 82550; 82570; 82607; 82728; 82948; 83036; 83540; 83550; 83735; 83835; 83880; 83930; 83935; 84100; 84156; 84244; 84439; 84443; 84481; 84484; 84550; 85025; 85027; 87804; 93005; 93306; 93356; 93975; 94660; 96374; 96375; 96376; 99285; G0378; J0360; J0696; J1756; J1815; J1938; J2270; J3475; J3490; J7050; Q5106